=== PATIENT | female | born 1955 | race Caucasian/White ===

== ENCOUNTER 2017-06-10 21:31 | Inpatient (IN) | payer MEDICAID ==
[2017-06-10] MEDS ORDERED: Sodium Chloride 0.9% 1,000 ML IV SCH (23:45)
--- NOTE | 2017-06-10 23:48 | EDM.PDOC ---
ED HPI GENERAL MEDICAL PROBLEM - General Chief Complaint: Gastrointestinal Problem Stated Complaint: ABDOMINAL PAIN Time Seen by Provider: 06/10/17 23:46 Source of Information: Reports: Patient - History of Present Illness INITIAL COMMENTS - FREE TEXT/NARRATIVE: 62 years old female patient presented with chief complaint of abdominal pain nausea and not able to eat for almost 2 month. Pain is constant. No vomiting. No radiation. Denies any diarrhea or constipation. Denies any chest pain or shortness breath. Denies any cough or fever. Patient has previous history of peptic ulcer and she thinks she has it again. Also previous history of cervical cancer status post hysterectomy. Previous EGD was below the ulcer. Feeling weak and losing weight. 8 Pain Score (Numeric/FACES): 8 - Related Data Allergies Allergy/AdvReac Type Severity Reaction Status Date / Time acetaminophen Allergy Vomiting Verified 06/10/17 22:05 [From Darvocet-N] aspirin Allergy Hives Verified 06/10/17 22:05 codeine Allergy Vomiting Verified 06/10/17 22:05 fentanyl Allergy Hives Verified 06/10/17 22:05 Iodinated Contrast- Oral and Allergy Hives Verified 06/10/17 22:05 IV Dye propoxyphene Allergy Vomiting Verified 06/10/17 22:05 [From Darvocet-N] Home Meds: Home Meds PARoxetine HCl [Paroxetine Cr] 06/10/17 [History] Phenytoin [Phenytoin] 06/10/17 [History] Ranitidine HCl [Ranitidine HCl] 06/10/17 [History] Spironolactone [Aldactone] 06/10/17 [History] Past Medical History Cardiovascular History: Reports: NM Musculoskeletal History: Reports: Osteoarthritis, Osteoporosis Neurological History: Reports: Seizure - Past Surgical History GI Surgical History: Reports: Cholecystectomy Female Surgical History: Reports: Hysterectomy Social & Family History - Tobacco Use Smoking Status *Q: Current Every Day Smoker Years of Tobacco use: 45 Packs/Tins Daily: 0.5 ED ROS GENERAL - Review of Systems Review Of Systems: ROS reveals no pertinent complaints other than HPI. ED EXAM, GI/ABD - Physical Exam Exam: See Below Exam Limited By: No Limitations General Appearance: Alert Eyes: Bilateral: Normal Appearance, EOMI Nose: Normal Inspection, Normal Mucosa, No Blood Throat/Mouth: Normal Inspection, Normal Lips, Normal Teeth, Normal Gums, Normal Oropharynx, Normal Voice, No Airway Compromise Head: Atraumatic, Normocephalic Neck: Normal Inspection, Supple, Non-Tender, Full Range of Motion Respiratory/Chest: No Respiratory Distress, Lungs Clear, Normal Breath Sounds, No Accessory Muscle Use, Chest Non-Tender Cardiovascular: Normal Peripheral Pulses, Regular Rate, Rhythm, No Edema, No Gallop, No JVD, No Murmur, No Rub GI/Abdominal Exam: Normal Bowel Sounds, No Distention, Guarding, Tender ( Epigastric). No: Rigid, Rebound, Abnormal Bowel Sounds, Hernia, Mass, Hepatomegaly, Splenomegaly Extremities: Normal Inspection, Normal Range of Motion, Non-Tender, Normal Capillary Refill, No Pedal Edema Neurological: Alert, Oriented, CN II-XII Intact, Normal Cognition, Normal Gait, Normal Reflexes, No Motor/Sensory Deficits Skin Exam: Warm, Dry, Intact, Normal Color, No Rash Course - Vital Signs Last Recorded V/S: Last Vital Signs Temp 36.3 C 06/10/17 22:56 Pulse 95 06/11/17 01:57 Resp 18 06/11/17 01:57 BP 131/75 06/11/17 01:57 Pulse Ox 96 06/11/17 01:57 - Orders/Labs/Meds Orders: Active Orders 24 hr Category Date Time Status Abdomen Pelvis wo Cont [CT] Stat Exams 06/11/17 00:59 Taken Dextrose 5%-Lactated Ringers 1,000 ml Med 06/11/17 01:00 Active IV ASDIRECTED Medication Orders Albuterol (Proventil Neb Soln) 2.5 mg NEB Q4H PRN PRN Reason: Shortness Of Breath/wheezing Albuterol/Ipratropium (Duoneb 3.0-0.5 Mg/3 Ml) 3 ml NEB QID PRN PRN Reason: Shortness Of Breath/wheezing Dextrose/Lactated Ringer's (Dextrose 5%-Lactated Ringers) 1,000 mls @ 150 mls/ hr IV ASDIRECTED GLORIA Lorazepam (Ativan) 1 mg IV Q6H PRN PRN Reason: Nausea/Vomiting Morphine Sulfate (Morphine) 2 mg IVPUSH Q2H PRN PRN Reason: Pain (severe 7-10) Ondansetron HCl (Zofran) 4 mg IV Q4H PRN PRN Reason: Nausea/Vomiting Pantoprazole Sodium (Protonix Iv) 40 mg IV Q12H GLORIA Labs: Laboratory Tests 06/10/17 06/10/17 Range/Units 00:05 00:05 WBC 15.5 H (4.5-11.0) K/uL RBC 4.55 (3.30-5.50) M/uL Hgb 14.7 (12.0-15.0) g/dL Hct 43.5 (36.0-48.0) % MCV 96 (80-98) fL MCH 32 H (27-31) pg MCHC 34 (32-36) % Plt Count 160 (150-400) K/uL Neut % (Auto) 69 H (36-66) % Lymph % (Auto) 20 L (24-44) % [place] % (Auto) 9 H (2-6) % Eos % (Auto) 1 L (2-4) % Baso % (Auto) 0 (0-1) % Sodium 140 (140-148) mmol/L Potassium 4.1 (3.6-5.2) mmol/L Chloride 99 L (100-108) mmol/L Carbon Dioxide 32 (21-32) mmol/L Anion Gap 13.1 (5.0-14.0) mmol/L BUN 15 D (7-18) mg/dL Creatinine 0.7 (0.6-1.0) mg/dL Est Cr Clr Drug Dosing 69.81 mL/min Estimated GFR (MDRD) > 60 (>60) Glucose 106 (74-106) mg/dL Calcium 9.4 (8.5-10.1) mg/dL Total Bilirubin 0.5 (0.2-1.0) mg/dL AST 18 (15-37) U/L ALT 18 (12-78) U/L Alkaline Phosphatase 107 (46-116) U/L Total Protein 8.4 H (6.4-8.2) g/dL Albumin 3.2 L (3.4-5.0) g/dL Globulin 5.2 H (2.3-3.5) g/dL Albumin/Globulin Ratio 0.6 L (1.2-2.2) Lipase 109 (73-393) U/L Meds: Medications Generic Name Dose Route Start Last Admin Trade Name Freq PRN Reason Stop Dose Admin Albuterol 2.5 mg 06/11/17 02:34 Proventil Neb Soln NEB Q4H PRN Shortness Of Breath/wheezing Albuterol/Ipratropium 3 ml 06/11/17 02:34 Duoneb 3.0-0.5 Mg/3 Ml NEB QID PRN Shortness Of Breath/wheezing Dextrose/Lactated Ringer's 1,000 mls @ 150 mls/hr 06/11/17 01:00 Dextrose 5%-Lactated Ringers IV ASDIRECTED GLORIA Lorazepam 1 mg 06/11/17 02:34 Ativan IV Q6H PRN Nausea/Vomiting Morphine Sulfate 2 mg 06/11/17 02:34 Morphine IVPUSH Q2H PRN Pain (severe 7-10) Ondansetron HCl 4 mg 06/11/17 02:34 Zofran IV Q4H PRN Nausea/Vomiting Pantoprazole Sodium 40 mg 06/11/17 02:34 Protonix Iv IV Q12H GLORIA Discontinued Medications Generic Name Dose Route Start Last Admin Trade Name Freq PRN Reason Stop Dose Admin Al Hydroxide/Mg Hydroxide 15 0 ml 06/10/17 23:57 06/11/17 00:16 ml/ Lidocaine HCl 15 ml PO 06/10/17 23:58 15 ml ONETIME ONE Administration Sodium Chloride 1,000 mls @ 125 mls/hr 06/10/17 23:45 06/11/17 00:10 Normal Saline IV 125 mls/hr ASDIRECTED GLORIA Administration Ondansetron HCl 4 mg 06/10/17 23:57 06/11/17 00:10 Zofran IVPUSH 4 mg ONETIME PRN Administration Nausea/Vomiting - Re-Assessments/Exams Free Text/Narrative Re-Assessment/Exam: 06/11/17 02:43 Patient was seen and examined shortly after arrival. Was given IV fluid bolus normal saline. 4 mg IV Zofran and GI cocktail. Symptoms slightly improved but did not completely resolve. Lab reviewed with the patient and her significant other at the bedside. shows leukocytosis. CT abdomen and pelvis shows severe peptic ulcer disease with contained microperforation versus gastric carcinoma with massive necrosis. Case was discussed with Doug or expansion joint finisher for hospitalist team. As well as Dr. Suero hospitalist expansion joint finisher. She accepted the admission for further management. Patient agrees with the plan. The stable for admission. Departure - Departure Time of Disposition: 00:43 Disposition: Admitted As Inpatient 67 Condition: Good Clinical Impression: Gastritis, Peptic ulcer - Discharge Information - Assessment/Plan Plan: Patient will be admitted to Dr. Stone for further management. Stable for admission.
[2017-06-10] MEDS ORDERED: Ondansetron 4 MG/2 ML SDV IVPUSH PRN (23:57)
[2017-06-10] MEDS ORDERED: Alum Hydrox/Mag Hydrox/Simeth 15 ML, Lidocaine 2% 15 ML PO ONE ×2 (23:57)
[2017-06-11] MEDS ORDERED: LORazepam 2 MG/ML MDV IV PRN (02:34)
[2017-06-11] MEDS ORDERED: Ondansetron 4 MG/2 ML SDV IV PRN (02:34)
[2017-06-11] MEDS ORDERED: Albuterol/Ipratropium 3.0-0.5 MG/3 ML Neb Soln NEB PRN (02:34)
[2017-06-11] MEDS ORDERED: Pantoprazole 40 MG Vial IV SCH (02:34)
[2017-06-11] MEDS ORDERED: Albuterol 0.083% 2.5 MG/3 ML Neb Soln NEB PRN (02:34)
[2017-06-11] MEDS: Morphine 2 MG/ML Syringe IVPUSH PRN ×5 (03:29→19:33)
[2017-06-11] MEDS ORDERED: Pneumococcal Polyvalent-23 Vaccine 0.5 ML SDV IM ONE ×2 (03:54→10:00)
[2017-06-11] MEDS: Dextrose 5%-Lactated Ringers 1,000 ML IV SCH ×2 (07:09→11:24)
--- NOTE | 2017-06-11 07:32 | PCM.HP ---
H&P History of Present Illness - General Date of Service: 06/10/17 Admit Problem/Dx: Admission Diagnosis/Problem Admission Diagnosis/Problem Dysphagia Source of Information: Patient, Provider, RN History Limitations: Reports: No Limitations - History of Present Illness Initial Comments - Free Text/Narative: - INITIAL COMMENTS - FREE TEXT/NARRATIVE: 62 years old female patient presented with chief complaint of abdominal pain nausea and not able to eat for almost 2 month. Pain is constant. No radiation. Denies any diarrhea or constipation. Denies any chest pain or shortness breath. Denies any cough or fever. Patient has previous history of peptic ulcer and she thinks she has it again. Also previous history of cervical cancer status post hysterectomy. Previous EGD was below the ulcer. Feeling weak and losing weight. She describes that she is able to take small sips of fluids, but if has any solids or thicker fluids, feels like it gets stuck in her stomach, then vomits everything up. 06/11/17 02:43 Patient was seen and examined shortly after arrival. Was given IV fluid bolus normal saline. 4 mg IV Zofran and GI cocktail. Symptoms slightly improved but did not completely resolve. Lab reviewed with the patient and her significant other at the bedside. shows leukocytosis. CT abdomen and pelvis shows severe peptic ulcer disease with contained microperforation versus gastric carcinoma with massive necrosis. Case was discussed with Lola LAZCANO digital operations analyst for hospitalist team. As well as Dr. Suero hospitalist digital operations analyst. She accepted the admission for further management. Patient agrees with the plan. The stable for admission. Onset of Symptoms: Reports: Gradual (onset for about 2 months) Duration of Symptoms: Reports: Constant, Getting Worse Location: Reports: Abdomen, Generalized Severity: Severe Improves with: Reports: None Worsens with: Reports: Eating Associated Symptoms: Reports: Fever/Chills, Loss of Appetite, Nausea/Vomiting, Weakness abdomen Pain Score (Numeric/FACES): 8 - Related Data Allergies/Adverse Reactions: Allergies Allergy/AdvReac Type Severity Reaction Status Date / Time acetaminophen Allergy Vomiting Verified 06/10/17 22:05 [From Darvocet-N] aspirin Allergy Hives Verified 06/10/17 22:05 codeine Allergy Vomiting Verified 06/10/17 22:05 diazepam [From Valium] Allergy Vomiting Verified 06/11/17 04:26 fentanyl Allergy Hives Verified 06/10/17 22:05 Iodinated Contrast- Oral and Allergy Hives Verified 06/10/17 22:05 IV Dye propoxyphene Allergy Vomiting Verified 06/10/17 22:05 [From Darvocet-N] Home Medications: Home Meds PARoxetine HCl [Paroxetine Cr] 25 mg PO DAILY 06/10/17 [History] Phenytoin [Phenytoin] 1 tab PO BID 06/10/17 [History] Ranitidine HCl [Ranitidine HCl] 10 mg PO DAILY PRN 06/10/17 [History] Spironolactone [Aldactone] 1 tab PO DAILY 06/10/17 [History] Cholecalciferol (Vitamin D3) [Vitamin D3] 5,000 units PO WEEKLY 06/11/17 [ History] Past Medical History HEENT History: Reports: Allergic Rhinitis, Cataract, Glaucoma Cardiovascular History: Reports: NE Gastrointestinal History: Reports: Cirrhosis, GERD Genitourinary History: Reports: Urinary Incontinence, UTI, Recurrent [employer]OR [employer] RELATIONS History: Reports: Other (See Below) Other OB/BYN History: uterine cancer Musculoskeletal History: Reports: Osteoarthritis, Osteoporosis Neurological History: Reports: Seizure Psychiatric History: Reports: Anxiety Hematologic History: Reports: Blood Transfusion(s) Oncologic (Cancer) History: Reports: Lymphoma, Uterine - Infectious Disease History Infectious Disease History: Reports: Chicken Pox - Past Surgical History Cardiovascular Surgical History: Reports: None GI Surgical History: Reports: Cholecystectomy Female Surgical History: Reports: Hysterectomy Neurological Surgical History: Reports: Other (See Below) Other Neurological Surgeries/Procedures: back surgery following an accident Musculoskeletal Surgical History: Reports: Other (See Below) Other Musculoskeletal Surgeries/Procedures:: back surgery in 1995 Social & Family History - Family History Family Medical History: Noncontributory - Tobacco Use Smoking Status *Q: Current Every Day Smoker Years of Tobacco use: 45 Packs/Tins Daily: 0.5 Used Tobacco, but Quit: No Second Hand Smoke Exposure: Yes - Caffeine Use Other Caffeine Use: momster coffee once in a while - Recreational Drug Use Recreational Drug Use: Yes Drug Use in Last 12 Months: Yes Recreational Drug Type: Reports: Marijuana/Hashish Recreational Drug Use Frequency: Weekly Recreational Drug Last Use: 1 month ago H&P Review of Systems - Review of Systems: Review Of Systems: See Below General: Reports: Fever, Chills, Malaise, Weakness, Fatigue, Decreased Appetite , Weight Loss HEENT: Reports: Glasses, Other (natural teeth present) Pulmonary: Reports: Pleuritic Chest Pain Cardiovascular: Reports: No Symptoms, Lightheadedness Gastrointestinal: Reports: Abdominal Pain (epigastric ), Anorexia, Decreased Appetite, Difficulty Swallowing, Nausea, Vomiting Genitourinary: Reports: Dysuria, Burning Musculoskeletal: Reports: Back Pain (acute and chronic. has hx of DJD), Muscle Pain (generalized) Skin: Reports: Pallor, Dryness Psychiatric: Reports: No Symptoms Neurological: Reports: Weakness Hematologic/Lymphatic: Reports: No Symptoms Immunologic: Reports: No Symptoms Exam - Exam Exam: See Below - Vital Signs Vital Signs: Last Vital Signs Temp 36.4 C 06/11/17 03:11 Pulse 129 H 06/11/17 03:11 Resp 18 06/11/17 03:11 BP 127/66 06/11/17 03:11 Pulse Ox 100 06/11/17 03:11 Weight: 54.386 kg - Exam General: Alert, Oriented, Cooperative, Mild Distress, Other (appears very weak, thin and deconditioned. ) HEENT: PERRLA, Conjunctiva Clear, EOMI, Hearing Intact, Pupils Equal, Pupils Reactive, Glasses, Other (mouth is dry) Neck: Supple, Trachea Midline Lungs: Clear to Auscultation, Normal Respiratory Effort Cardiovascular: Regular Rate, Regular Rhythm, Normal S1, Normal S2 GI/Abdominal Exam: Normal Bowel Sounds, Tender (epigastric area) (Female) Exam: Deferred Rectal (Female) Exam: Deferred Back Exam: Normal Inspection Extremities: Other (thin arms and legs.) Peripheral Pulses: 2+: Radial (L), Radial (R) Skin: Warm, Dry, Intact, Other (skin is dry and sagging on arms, legs) Neurological: Strength Equal Bilateral Neuro Extensive - Mental Status: Alert, Oriented x3, Normal Mood/Affect, Normal Cognition, Memory Intact Psychiatric: Depressed, Other (reviewed CT report, She is worried about stomach cancer, but thought that was what was causing her symptoms) - Patient Data Lab Results Last 24 hrs: Laboratory Results - last 24 hr 06/11/17 Range/Units 02:06 Urine Color Yellow Urine Appearance Cloudy Urine pH 8.0 (4.5-8.0) Ur Specific [place] 1.015 (1.008-1.030) Urine Protein Negative (NEGATIVE) mg/dL Urine Glucose (UA) Normal (NEGATIVE) mg/dL Urine Ketones 15 H (NEGATIVE) mg/dL Urine Occult Blood Negative (NEGATIVE) Urine Nitrite Negative (NEGATIVE) Urine Bilirubin Negative (NEGATIVE) Urine Urobilinogen Normal (NORMAL) mg/dL Ur Leukocyte Esterase Small (NEGATIVE) Urine RBC 0-5 (0-5) Urine WBC 0-5 (0-5) Ur Epithelial Cells Rare Amorphous Sediment Many Urine Bacteria Moderate Urine Mucus Not seen Result Diagrams: 06/10/17 00:05 06/10/17 00:05 *Q Meaningful Use (ADM) - VTE *Q VTE Criteria *Q: - Stroke *Q Stroke Criteria *Q: - AMI *Q AMI Criteria *Q: - Problem List (1) Abdominal pain, epigastric SNOMED Code(s): 53486527 ICD Code: R10.13 - EPIGASTRIC PAIN Status: Acute Priority: High Current Visit: Yes (2) Weight loss, abnormal SNOMED Code(s): 320319750 ICD Code: R63.4 - ABNORMAL WEIGHT LOSS Status: Acute Priority: High Current Visit: Yes (3) Weight loss, non-intentional SNOMED Code(s): 345563184 ICD Code: R63.4 - ABNORMAL WEIGHT LOSS Status: Acute Priority: High Current Visit: Yes (4) Tobacco use SNOMED Code(s): 082561306 ICD Code: Z72.0 - TOBACCO USE Status: Acute Priority: High Current Visit: Yes (5) Dysphagia SNOMED Code(s): 01770076, 592034721 ICD Code: R13.10 - DYSPHAGIA, UNSPECIFIED Status: Acute Priority: High Current Visit: Yes Qualifiers: Dysphagia type: unspecified Qualified Code(s): R13.10 - Dysphagia, unspecified Problem List Initiated/Reviewed/Updated: Yes Orders Last 24hrs: Active Orders 24 hr Category Date Time Status Patient Status [ADT] Routine ADT 06/11/17 02:34 Active Bedrest Bathroom Privileges [RC] ASDIRECTED Care 06/11/17 02:34 Active Cardiac Monitoring [RC] .As Directed Care 06/11/17 02:34 Active Intake and Output [RC] QSHIFT Care 06/11/17 02:34 Active Notify Provider Vital Signs [RC] ASDIRECTED Care 06/11/17 02:34 Active Oxygen Therapy [RC] PRN Care 06/11/17 02:34 Active RT Aerosol Therapy [RC] ASDIRECTED Care 06/11/17 02:34 Active VTE/DVT Education [RC] Per Unit Routine Care 06/11/17 02:34 Active Vital Signs [RC] Q4H Care 06/11/17 02:34 Active OT Evaluation and Treatment [CONS] Routine Cons 06/11/17 02:34 Active PT Evaluation and Treatment [CONS] Routine Cons 06/11/17 02:34 Active Nothing per Oral After Midnight Diet [DIET] Diet 06/11/17 Breakfast Active Nothing per Oral Now Diet [DIET] Diet 06/11/17 Breakfast Active Albuterol [Proventil Neb Soln] Med 06/11/17 02:34 Active 2.5 mg NEB Q4H PRN Albuterol/Ipratropium [DuoNeb 3.0-0.5 MG/3 ML] Med 06/11/17 02:34 Active 3 ml NEB QID PRN FLU Vacc [id number] 36Mos UP/PF [Fluzone Quad [id number]] Med 06/11/17 14:00 Once 60 mcg IM .ONCE ONE LORazepam [Ativan] Med 06/11/17 02:34 Active 1 mg IV Q6H PRN Morphine Med 06/11/17 02:34 Active 2 mg IVPUSH Q2H PRN Ondansetron [Zofran] Med 06/11/17 02:34 Active 4 mg IV Q4H PRN Pantoprazole [ProTONIX IV] Med 06/11/17 02:34 Active 40 mg IV Q12H Phenytoin Med 06/11/17 09:00 Active 100 mg PO BID Spironolactone [Aldactone] Med 06/11/17 09:00 Active 25 mg PO DAILY Sequential Compression Device [OM.PC] Per Unit Routine Oth 06/11/17 02:34 Ordered Resuscitation Status Routine Resus Stat 06/11/17 01:56 Ordered Medication Orders Albuterol (Proventil Neb Soln) 2.5 mg NEB Q4H PRN PRN Reason: Shortness Of Breath/wheezing Albuterol/Ipratropium (Duoneb 3.0-0.5 Mg/3 Ml) 3 ml NEB QID PRN PRN Reason: Shortness Of Breath/wheezing Dextrose/Lactated Ringer's (Dextrose 5%-Lactated Ringers) 1,000 mls @ 150 mls/ hr IV ASDIRECTED [facility] Last Admin: 06/11/17 07:09 Dose: 150 mls/hr Lorazepam (Ativan) 1 mg IV Q6H PRN PRN Reason: Nausea/Vomiting Last Admin: 06/11/17 04:07 Dose: 1 mg Morphine Sulfate (Morphine) 2 mg IVPUSH Q2H PRN PRN Reason: Pain (severe 7-10) Last Admin: 06/11/17 03:29 Dose: 2 mg Ondansetron HCl (Zofran) 4 mg IV Q4H PRN PRN Reason: Nausea/Vomiting Pantoprazole Sodium (Protonix Iv) 40 mg IV Q12H [facility] Last Admin: 06/11/17 03:19 Dose: 40 mg Phenytoin Sodium (Phenytoin) 100 mg PO BID GLORIA Spironolactone (Aldactone) 25 mg PO DAILY [facility] Assessment/Plan Comment:: ASSESSMENT / PLAN 62 years old female patient presented with chief complaint of abdominal pain nausea and not able to eat for almost 2 month. Pain is constant. No radiation. Denies any diarrhea or constipation. Denies any chest pain or shortness breath. Denies any cough or fever. Patient has previous history of peptic ulcer and she thinks she has it again. Also previous history of cervical cancer status post hysterectomy. Previous EGD was below the ulcer. Feeling weak and losing weight. She describes that she is able to take small sips of fluids, but if has any solids or thicker fluids, feels like it gets stuck in her stomach, then vomits everything up. 06/11/17 02:43 Patient was seen and examined shortly after arrival. Was given IV fluid bolus normal saline. 4 mg IV Zofran and GI cocktail. Symptoms slightly improved but did not completely resolve. Lab reviewed with the patient and her significant other at the bedside. shows leukocytosis. CT abdomen and pelvis shows severe peptic ulcer disease with contained microperforation versus gastric carcinoma with massive necrosis. Case was discussed with Lola LAZCANO digital operations analyst for hospitalist team. As well as Dr. Suero hospitalist digital operations analyst. She accepted the admission for further management. Patient agrees with the plan. The stable for admission. Review Abdominal Pelvis CT report with Mrs. Rodrigues before transfer to [address] [place] [address], she thought is may be a return of cancer, but wait so long because thought she would get better on her own. discussed will keep NPO for surgical evaluation in am. She agrees with plan of care. Plan Abdominal Pain x 2 month with wt loss and dysphasia -Admit to [address] [place] [address] for further monitoring -Abdominal Pelvis CT worrisome for stomach met.; will consult with Surgery in am -keep NPO for surgical intervention -IV fluids; D5 NS at 125ml/hr -Advise to notify nurses of any chest pain or other symptoms Tobacco use -decline Nicotine patches, make her feel sick Maintenance issues -Orders home meds: on hold -Nutrition: NPO -Gomez catheter not indicated at this time -DVT: SCD -PPI; IV Protonix 40mg daily -consult OT for discharge planning -consult PT for strengthening. CODE STATUS: DNR/DNI Admission status: Admit to [address] [place] [address] Admission justification. This patient will be admitted for inpatient services and is medically appropriate meeting medical necessity for inpatient admission as outlined in my documentation. I reasonably expect the patient will require inpatient services that span. Time over 2 midnights. I reasonably expect this patient to be discharged or transferred within 96 hours after admission to the critical access hospital. Disposition; home Primary care provider: Dr. Yu Hospitalist: Dr. Suero
[2017-06-11] MEDS ORDERED: Glycopyrrolate 0.2 MG/ML 2 ML SDV IVPUSH ONE (09:00)
[2017-06-11] MEDS ORDERED: cefOXitin 2 GM in Sodium Chloride 0.9% 50 ML IV ONE (09:30)
--- NOTE | 2017-06-11 09:51 | CONS ---
DATE OF SERVICE: 06/11/2017 REFERRING PHYSICIAN: CONSULTING PHYSICIAN: Bebe Bear PA-C HISTORY OF PRESENT ILLNESS: The patient was asked to be seen by Clifford Suero MD for dysphagia. Soco presented to the emergency room with abdominal pain, nausea, and dysphagia for the past 2 months. She denies any other associated signs and symptoms with the exception of extensive weight loss. She states she was in a size 8 to 10 and now is in a size 4. She states she is able to maintain her oral intake on sips of water only. REVIEW OF SYSTEMS: GENERAL: Reports fever, chills, loss of appetite, nausea, vomiting, weakness, dizziness. NECK: Negative. HEART: No chest pain or shortness of breath. LUNGS: No cough. ABDOMEN: As above. Denies any red or black emesis or stools. MUSCULOSKELETAL: Reports chronic joint pain. NEURO: Has some slight headaches, is unsteady on feet from weakness. PSYCHIATRIC: Reports anxiety. SKIN: Without rash. Remainder of review of systems negative for any pertinent positives and negatives. ALLERGIES: DARVOCET, ASPIRIN, CODEINE, DIAZEPAM, FENTANYL ORAL, IV DYE, AND PROPOXYPHENE DARVOCET. CURRENT MEDICATIONS: Include Paxil 25 mg p.o. daily, phenytoin 1 tablet p.o. b.i.d., ranitidine 10 mg p.o. daily p.r.n., spironolactone 1 tablet p.o. daily, and vitamin D3 5000 International Units p.o. weekly. PAST MEDICAL HISTORY: Allergic rhinitis; cataract; glaucoma; reports a history of myocardial infarction; gastrointestinal disease, reports history of cirrhosis of the liver and GERD; , reports urinary incontinence and uterine cancer; musculoskeletal, osteoporosis and osteoarthritis; neurological history, seizure; psychiatric history, anxiety; hematological history, has had blood transfusions in the past and cancer, has had lymphoma and uterine cancer, she had lymphoma in the 1980s and had chemotherapy and radiation. SOCIAL/FAMILY HISTORY: , has one son and two daughters. Smokes a half a pack a day for 45 years ago. Does not drink. Caffeine use, drinks [place] monster coffee two times a week. Soda, she drinks Sprite or Twist one per day. Recreational drugs, smokes marijuana weekly. OBJECTIVE: GENERAL: Soco Rodrigues is a pleasant 62-year-old female. VITAL SIGNS: Height 5 feet 2 inches. Weight is 119 pounds. TPR is 97.8, 95, 20. Blood pressure 105/53. Color pale. HEENT: Several loose teeth on the bottom. NECK: Supple. HEART: Regular rate and rhythm. LUNGS: Clear. ABDOMEN: Flat. Reveals general tenderness in all 4 quadrants. : Deferred. EXTREMITIES: Without peripheral edema. Full range of motion. NEUROLOGIC: Cranial nerves II through XII intact. Deep tendon reflexes are 2+ and equal bilaterally. SKIN: Without rash. ASSESSMENT: 1. Dysphagia and CT scan revealed irregular heterogeneous circumferential thickening of the distal antrum, pylorus of the stomach, and duodenal bulb worrisome for carcinoma. 2. Marked narrowing of the pylorus and underlying or contained perforation may be present inferior to the pylorus. 3. Fat stranding and lymphadenopathy adjacent to the gastric thickening worrisome for metastasis. 4. History of lymphoma. 5. History of uterine cancer. 6. Cirrhosis of the liver. 7. Osteoarthritis. 8. Osteoporosis. 9. History of seizure. 10.Anxiety. 11.Nicotine addiction. PLAN: Schedule, have consent signed for EGD with biopsies, IV sedation case to fall on 06/11/2017, Eulalio Hemphill MD. N.p.o. We will evaluate p.r.n. or in a.m. Thank you for this consultation. Bebe Bear PA-C /[id number]
--- NOTE | 2017-06-11 10:03 | PCM.PN ---
- General Info Date of Service: 06/11/17 Functional Status: Reports: Pain Controlled - Review of Systems General: Reports: Weakness Gastrointestinal: Reports: Abdominal Pain Systems Review Comment:: No acute events overnight. Pain is been well-controlled. No significant nausea or vomiting. EGD planned for later in the day. No fevers. - Patient Data Vitals - Most Recent: Last Vital Signs Temp 36.6 C 06/11/17 07:38 Pulse 95 06/11/17 07:38 Resp 20 06/11/17 07:38 BP 105/53 L 06/11/17 07:38 Pulse Ox 95 06/11/17 07:38 Weight - Most Recent: 54.386 kg I&O - Last 24 Hours: Intake & Output 06/10/17 06/11/17 06/11/17 22:59 06:59 14:59 Intake Total 433 Output Total 0 Balance 433 Lab Results Last 24 Hours: Laboratory Results - last 24 hr 06/11/17 Range/Units 02:06 Urine Color Yellow Urine Appearance Cloudy Urine pH 8.0 (4.5-8.0) Ur Specific [place] 1.015 (1.008-1.030) Urine Protein Negative (NEGATIVE) mg/dL Urine Glucose (UA) Normal (NEGATIVE) mg/dL Urine Ketones 15 H (NEGATIVE) mg/dL Urine Occult Blood Negative (NEGATIVE) Urine Nitrite Negative (NEGATIVE) Urine Bilirubin Negative (NEGATIVE) Urine Urobilinogen Normal (NORMAL) mg/dL Ur Leukocyte Esterase Small (NEGATIVE) Urine RBC 0-5 (0-5) Urine WBC 0-5 (0-5) Ur Epithelial Cells Rare Amorphous Sediment Many Urine Bacteria Moderate Urine Mucus Not seen Med Orders - Current: Current Medications Albuterol (Proventil Neb Soln) 2.5 mg NEB Q4H PRN PRN Reason: Shortness Of Breath/wheezing Albuterol/Ipratropium (Duoneb 3.0-0.5 Mg/3 Ml) 3 ml NEB QID PRN PRN Reason: Shortness Of Breath/wheezing Dextrose/Lactated Ringer's (Dextrose 5%-Lactated Ringers) 1,000 mls @ 150 mls/ hr IV ASDIRECTED [facility] Last Admin: 06/11/17 07:09 Dose: 150 mls/hr Lorazepam (Ativan) 1 mg IV Q6H PRN PRN Reason: Nausea/Vomiting Last Admin: 06/11/17 04:07 Dose: 1 mg Morphine Sulfate (Morphine) 2 mg IVPUSH Q2H PRN PRN Reason: Pain (severe 7-10) Last Admin: 06/11/17 09:49 Dose: 2 mg Ondansetron HCl (Zofran) 4 mg IV Q4H PRN PRN Reason: Nausea/Vomiting Pantoprazole Sodium (Protonix Iv) 40 mg IV Q12H [facility] Phenytoin Sodium (Phenytoin) 100 mg PO BID [facility] Spironolactone (Aldactone) 25 mg PO DAILY [facility] Discontinued Medications Al Hydroxide/Mg Hydroxide 15 (ml/ Lidocaine HCl 15 ml) 0 ml PO ONETIME ONE Stop: 06/10/17 23:58 Last Admin: 06/11/17 00:16 Dose: 15 ml Glycopyrrolate (Glycopyrrolate) 0.4 mg IVPUSH ONETIME ONE Stop: 06/11/17 09:01 Sodium Chloride (Normal Saline) 1,000 mls @ 125 mls/hr IV ASDIRECTED [facility] Last Admin: 06/11/17 00:10 Dose: 125 mls/hr Ondansetron HCl (Zofran) 4 mg IVPUSH ONETIME PRN PRN Reason: Nausea/Vomiting Last Admin: 06/11/17 00:10 Dose: 4 mg Pantoprazole Sodium (Protonix Iv) 40 mg IV Q12H [facility] Last Admin: 06/11/17 03:19 Dose: 40 mg Pneumococcal Polyvalent Vaccine (Pneumovax 23) 0.5 ml IM .ONCE ONE Stop: 06/11/17 10:01 - Exam Quality Assessment: No: Supplemental Oxygen General: Alert, Oriented, Cooperative, No Acute Distress Neck: Supple Lungs: Normal Respiratory Effort GI/Abdominal Exam: Soft, No Distention Extremities: No Pedal Edema. No: Increased Warmth Skin: Warm, Dry Psy/Mental Status: Alert, Normal Affect - Problem List Review Problem List Initiated/Reviewed/Updated: Yes - My Orders Last 24 Hours: My Active Orders 06/11/17 10:01 Discontinue Telemetry Monitoring [Cardiac Monitoring Discontinue] [RC] Click to Edit Consult to Physician [CONS] Routine 06/11/17 10:02 Notify Provider Consults [RC] ASDIRECTED 06/12/17 05:00 BASIC METABOLIC PANEL,BMP [CHEM] Timed CBC W/O DIFF,HEMOGRAM [HEME] Timed (1) MAGNESIUM [CHEM] Timed - Plan Plan:: ASSESSMENT / PLAN Abdominal Pain x 2 month with unintentional wt loss and dysphasia - 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 EGD planned for later in the day. Pain well-controlled at this time. -Surgical consultation for EGD -Pain control -Nausea control -keep NPO for surgical intervention -IV fluids; D5 NS at 125ml/hr -Advise to notify nurses of any chest pain or other symptoms Tobacco dependence - will need strong recommendations regarding cessation -decline Nicotine patches, make her feel sick Maintenance issues -Nutrition: NPO -Gomez catheter not indicated at this time -DVT: SCD -PPI; IV Protonix 40mg daily -consult OT for discharge planning -consult PT for strengthening. Disposition; anticipate discharge home versus longterm after the hospital stay Clifford Suero M.D.
[2017-06-11] MEDS ORDERED: Propofol 200 MG/20 ML SDV ONE (10:11)
[2017-06-11] MEDS ORDERED: fentaNYL 100 MCG/2 ML SDV ONE (10:11)
[2017-06-11] MEDS: Phenytoin 100 MG Cap.ER PO SCH ×2 (12:35→21:26)
[2017-06-11] MEDS: Spironolactone 25 MG Tab PO SCH (12:35)
[2017-06-11] MEDS ORDERED: FLU Vacc QS 2017-18 (36mos UP)/PF 60 MCG/0.5 ML Syringe IM ONE (14:00)
[2017-06-11] MEDS: Pantoprazole 40 MG Vial IV SCH (16:02)
[2017-06-12] MEDS: Dextrose 5%-Lactated Ringers 1,000 ML IV SCH (01:26)
[2017-06-12] MEDS: Morphine 2 MG/ML Syringe IVPUSH PRN ×3 (01:30→11:37)
[2017-06-12] MEDS: Pantoprazole 40 MG Vial IV SCH ×2 (04:02→17:18)
[2017-06-12] MEDS ORDERED: Dextrose 5%-Lactated Ringers 1,000 ML IV SCH (07:04)
--- NOTE | 2017-06-12 07:48 | PN ---
DATE OF SERVICE: 06/12/2017 SUBJECTIVE: Soco is n.p.o. She has her consent signed. She will be having a resection of a gastric mass and insertion of central line. Case to follow today. Dr. Hemphill was able to visit with the patient and several family members yesterday afternoon. She states her pain is controlled. She has no other questions or concerns today. OBJECTIVE: GENERAL: Soco Rodrigues is a pleasant 62-year-old female. VITAL SIGNS: TPR is 98.3, 89, 18. Blood pressure 120/57. HEENT: Negative. NECK: Supple. HEART: Regular rate and rhythm. LUNGS: Clear. ABDOMEN: Remains to have generalized tenderness to gentle palpation. EXTREMITIES: Without peripheral edema. SCDs are on. ASSESSMENT: 1. Dysphagia. 2. CT scan revealed irregular heterogenous circumferential thickening of the distal antrum, pylorus of the stomach and duodenal bulb worrisome for carcinoma, and marked narrowing of the pylorus and underlying or contained perforation may be present inferior to pylorus in fat stranding and lymphadenopathy adjacent to the gastric thickening, worrisome for metastasis. 3. History of lymphoma. 4. History of uterine cancer. 5. Cirrhosis of the liver. 6. Osteoarthritis. 7. Osteoporosis. 8. History of seizures. 9. Anxiety. 10.Nicotine addiction. PLAN: Remain n.p.o. for surgery. Decrease IV to 100 mL per hour. Orders to be written postoperatively. Bebe Bear PA-C /[id number]
[2017-06-12] MEDS ORDERED: Ropivacaine 27 ML, Dexamethasone 8 MG, EPINEPHrine 0.4 MG, Sodium Chloride 0.9% 50.6 ML NERVRT SCH ×4 (09:30)
[2017-06-12] MEDS ORDERED: cefOXitin 2 GM in Sodium Chloride 0.9% 50 ML IV ONE ×2 (09:30→17:00)
[2017-06-12] MEDS: Spironolactone 25 MG Tab PO SCH (09:36)
[2017-06-12] MEDS: Phenytoin 100 MG Cap.ER PO SCH (09:36)
[2017-06-12] MEDS ORDERED: Neostigmine Methylsulfate 1 MG/ML 5 ML Syringe ONE (10:45)
[2017-06-12] MEDS ORDERED: Ondansetron 4 MG/2 ML SDV ONE (10:45)
[2017-06-12] MEDS ORDERED: Glycopyrrolate 0.2 MG/ML 5 ML MDV ONE (10:45)
[2017-06-12] MEDS ORDERED: Succinylcholine 200 MG/10 ML MDV ONE (10:45)
[2017-06-12] MEDS ORDERED: Propofol 200 MG/20 ML SDV ONE (10:45)
[2017-06-12] MEDS ORDERED: Dexamethasone 4 MG/ML SDV ONE (10:45)
[2017-06-12] MEDS ORDERED: Rocuronium 50 MG/5 ML Vial ONE (10:45)
[2017-06-12] MEDS ORDERED: Meropenem 500 MG SDV ONE ×2 (10:49→11:33)
[2017-06-12] MEDS ORDERED: Bupivacaine 0.5%/EPINEPHrine 1:200,000 50 ML MDV ONE (11:31)
[2017-06-12] MEDS ORDERED: Sodium Chloride 0.9% 0 ML ONE (11:33)
--- NOTE | 2017-06-12 11:50 | PCM.PN ---
- General Info Date of Service: 06/12/17 Functional Status: Reports: Pain Controlled - Review of Systems Gastrointestinal: Reports: Abdominal Pain Systems Review Comment:: No acute events overnight. Mild epigastric abdominal pain but no nausea or vomiting. No fevers. Surgery planned for later this morning. - Patient Data Vitals - Most Recent: Last Vital Signs Temp 36.6 C 06/12/17 08:00 Pulse 86 06/12/17 08:00 Resp 18 06/12/17 08:00 BP 113/58 L 06/12/17 08:00 Pulse Ox 97 06/12/17 08:00 Weight - Most Recent: 54.386 kg I&O - Last 24 Hours: Intake & Output 06/11/17 06/12/17 06/12/17 22:59 06:59 14:59 Intake Total 760 1761 100 Output Total 450 1400 Balance 310 361 100 Lab Results Last 24 Hours: Laboratory Results - last 24 hr 06/11/17 06/11/17 06/11/17 Range/Units 12:36 12:36 12:39 WBC 11.5 H (4.5-11.0) K/uL RBC 3.45 (3.30-5.50) M/uL Hgb 11.3 L D (12.0-15.0) g/dL Hct 33.9 L (36.0-48.0) % MCV 98 (80-98) fL MCH 33 H (27-31) pg MCHC 33 (32-36) % Plt Count 178 (150-400) K/uL Neut % (Auto) 57 (36-66) % Lymph % (Auto) 32 (24-44) % [place] % (Auto) 10 H (2-6) % Eos % (Auto) 1 L (2-4) % Baso % (Auto) 0 (0-1) % Sodium 140 (140-148) mmol/L Potassium 3.7 (3.6-5.2) mmol/L Chloride 105 (100-108) mmol/L Carbon Dioxide 32 (21-32) mmol/L Anion Gap 3.3 L (5.0-14.0) mmol/L BUN 11 (7-18) mg/dL Creatinine 0.7 (0.6-1.0) mg/dL Est Cr Clr Drug Dosing 69.79 mL/min Estimated GFR (MDRD) > 60 (>60) Glucose 66 L (74-106) mg/dL Calcium 8.4 L (8.5-10.1) mg/dL Magnesium 1.6 L (1.8-2.4) mg/dL Total Bilirubin 0.4 (0.2-1.0) mg/dL AST 17 (15-37) U/L ALT 16 (12-78) U/L Alkaline Phosphatase 79 (46-116) U/L Total Protein 6.5 (6.4-8.2) g/dL Albumin 2.4 L (3.4-5.0) g/dL Globulin 4.1 H (2.3-3.5) g/dL Albumin/Globulin Ratio 0.6 L (1.2-2.2) Blood Type O POSITIVE Gel Antibody Screen Positive A* Antibody Identification Anti-K Crossmatch See Detail 06/12/17 06/12/17 Range/Units 04:10 04:10 WBC 10.8 (4.5-11.0) K/uL RBC 3.46 (3.30-5.50) M/uL Hgb 11.0 L (12.0-15.0) g/dL Hct 33.7 L (36.0-48.0) % MCV 97 (80-98) fL MCH 32 H (27-31) pg MCHC 33 (32-36) % Plt Count 173 (150-400) K/uL Neut % (Auto) (36-66) % Lymph % (Auto) (24-44) % [place] % (Auto) (2-6) % Eos % (Auto) (2-4) % Baso % (Auto) (0-1) % Sodium 142 (140-148) mmol/L Potassium 3.9 (3.6-5.2) mmol/L Chloride 106 (100-108) mmol/L Carbon Dioxide 31 (21-32) mmol/L Anion Gap 5.4 (5.0-14.0) mmol/L BUN 6 L (7-18) mg/dL Creatinine 0.7 (0.6-1.0) mg/dL Est Cr Clr Drug Dosing 69.79 mL/min Estimated GFR (MDRD) > 60 (>60) Glucose 98 (74-106) mg/dL Calcium 8.2 L (8.5-10.1) mg/dL Magnesium 2.1 (1.8-2.4) mg/dL Total Bilirubin (0.2-1.0) mg/dL AST (15-37) U/L ALT (12-78) U/L Alkaline Phosphatase (46-116) U/L Total Protein (6.4-8.2) g/dL Albumin (3.4-5.0) g/dL Globulin (2.3-3.5) g/dL Albumin/Globulin Ratio (1.2-2.2) Blood Type Gel Antibody Screen Antibody Identification Crossmatch Felix Results Last 24 Hours: Microbiology 06/11/17 11:12 CLOtest - Final Stomach NEGATIVE CLOTEST Med Orders - Current: Current Medications Albuterol (Proventil Neb Soln) 2.5 mg NEB Q4H PRN PRN Reason: Shortness Of Breath/wheezing Albuterol/Ipratropium (Duoneb 3.0-0.5 Mg/3 Ml) 3 ml NEB QID PRN PRN Reason: Shortness Of Breath/wheezing Magnesium Sulfate 2 gm/ Sodium (Chloride) 54 mls @ 27 mls/hr IV Q6HR [facility] Stop: 06/14/17 11:59 Last Admin: 06/12/17 10:11 Dose: 27 mls/hr Dextrose/Lactated Ringer's (Dextrose 5%-Lactated Ringers) 1,000 mls @ 100 mls/ hr IV ASDIRECTED [facility] Last Admin: 06/12/17 08:06 Dose: 100 mls/hr Lorazepam (Ativan) 1 mg IV Q6H PRN PRN Reason: Nausea/Vomiting Last Admin: 06/11/17 04:07 Dose: 1 mg Morphine Sulfate (Morphine) 2 mg IVPUSH Q2H PRN PRN Reason: Pain (severe 7-10) Last Admin: 06/12/17 11:37 Dose: 2 mg Ondansetron HCl (Zofran) 4 mg IV Q4H PRN PRN Reason: Nausea/Vomiting Pantoprazole Sodium (Protonix Iv) 40 mg IV Q12H [facility] Last Admin: 06/12/17 04:02 Dose: 40 mg Phenytoin Sodium (Phenytoin) 100 mg PO BID [facility] Last Admin: 06/12/17 09:36 Dose: Not Given Spironolactone (Aldactone) 25 mg PO DAILY [facility] Last Admin: 06/12/17 09:36 Dose: Not Given Discontinued Medications Bupivacaine HCl/Epinephrine Bitart (Marcaine 0.5%/Epinephrine 1:200,000) Confirm Administered Dose 50 ml .ROUTE .STK-MED ONE Stop: 06/12/17 11:32 Al Hydroxide/Mg Hydroxide 15 (ml/ Lidocaine HCl 15 ml) 0 ml PO ONETIME ONE Stop: 06/10/17 23:58 Last Admin: 06/11/17 00:16 Dose: 15 ml Ropivacaine 27 ml/Dexamethasone 8 mg/Epinephrine HCl 0.4 mg/ Sodium Chloride 50.6 ml 0 ml NERVRT ASDIRECTED [facility] Stop: 06/12/17 11:30 Dexamethasone (Dexamethasone) Confirm Administered Dose 4 mg .ROUTE .STK-MED ONE Stop: 06/12/17 10:46 Fentanyl (Sublimaze) Confirm Administered Dose 100 mcg .ROUTE .STK-MED ONE Stop: 06/11/17 10:12 Fentanyl Citrate (Fentanyl) Confirm Administered Dose 500 mcg .ROUTE .STK-MED ONE Stop: 06/12/17 10:46 Glycopyrrolate (Glycopyrrolate) 0.4 mg IVPUSH ONETIME ONE Stop: 06/11/17 09:01 Last Admin: 06/11/17 10:08 Dose: 0.4 mg Glycopyrrolate (Robinul) Confirm Administered Dose 1 mg .ROUTE .STK-MED ONE Stop: 06/12/17 10:46 Heparin Sodium (Porcine) (Heparin Lock Flush 100 Units/Ml) Confirm Administered Dose 500 units .ROUTE .STK-MED ONE Stop: 06/12/17 10:50 Sodium Chloride (Normal Saline) 1,000 mls @ 125 mls[facility] Admin: 06/11/17 00:10 Dose: 125 mls/hr Dextrose/Lactated Ringer's (Dextrose 5%-Lactated Ringers) 1,000 mls @ 150 [facility]ls[facility] Last Admin: 06/12/17 01:26 Dose: 150 mls/hr Cefoxitin Sodium 2 gm/ Sodium (Chloride) 50 mls @ 100 mls/hr IV ONCALL ONE Stop: 06/12/17 09:59 Last Admin: 06/12/17 10:11 Dose: 100 mls/hr Sodium Chloride (Normal Saline) Confirm Administered Dose 10 mls @ as directed .ROUTE .STK-MED ONE Stop: 06/12/17 11:34 Meropenem (Merrem) Confirm Administered Dose 500 mg .ROUTE .STK-MED ONE Stop: 06/12/17 10:50 Meropenem (Merrem) Confirm Administered Dose 500 mg .ROUTE .STK-MED ONE Stop: 06/12/17 11:34 Neostigmine Methylsulfate (Neostigmine) Confirm Administered Dose 5 mg .ROUTE .STK-MED ONE Stop: 06/12/17 10:46 Ondansetron HCl (Zofran) 4 mg IVPUSH ONETIME PRN PRN Reason: Nausea/Vomiting Last Admin: 06/11/17 00:10 Dose: 4 mg Ondansetron HCl (Zofran) Confirm Administered Dose 4 mg .ROUTE .STK-MED ONE Stop: 06/12/17 10:46 Pantoprazole Sodium (Protonix Iv) 40 mg IV Q12H [facility] Last Admin: 06/11/17 03:19 Dose: 40 mg Pneumococcal Polyvalent Vaccine (Pneumovax 23) 0.5 ml IM .ONCE ONE Stop: 06/11/17 10:01 Last Admin: 06/11/17 13:41 Dose: 0.5 ml Propofol (Diprivan 20 Ml) Confirm Administered Dose 200 mg .ROUTE .STK-MED ONE Stop: 06/11/17 10:12 Propofol (Diprivan 20 Ml) Confirm Administered Dose 200 mg .ROUTE .STK-MED ONE Stop: 06/12/17 10:46 Rocuronium [place] (Zemuron) Confirm Administered Dose 50 mg .ROUTE .STK-MED ONE Stop: 06/12/17 10:46 Succinylcholine Chloride (Quelicin) Confirm Administered Dose 200 mg .ROUTE .STK -MED ONE Stop: 06/12/17 10:46 - Exam Quality Assessment: No: Supplemental Oxygen General: Alert, Oriented, Cooperative, No Acute Distress Neck: Supple Lungs: Normal Respiratory Effort GI/Abdominal Exam: Soft, No Distention Extremities: No Pedal Edema Skin: Warm, Dry Psy/Mental Status: Alert, Normal Affect - Problem List Review Problem List Initiated/Reviewed/Updated: Yes - My Orders Last 24 Hours: My Active Orders 06/13/17 05:00 BASIC METABOLIC PANEL,BMP [CHEM] Timed CBC W/O DIFF,HEMOGRAM [HEME] Timed (1) MAGNESIUM [CHEM] Timed - Plan Plan:: ASSESSMENT / PLAN Abdominal Pain x 2 month with unintentional wt loss and dysphasia - 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 EGD was concerning for cancer at the pylorus. Surgical intervention with partial gastrectomy planned today. -Surgical intervention planned for today -Pain control -Nausea control -keep NPO for surgical intervention -Maintenance fluids Tobacco dependence - will need strong recommendations regarding cessation -declines Nicotine patches, make her feel sick Maintenance issues -Nutrition: NPO -Gomez catheter will likely be placed postoperatively -DVT: SCD -PPI; IV Protonix 40mg daily -consult OT for discharge planning -consult PT for strengthening. Disposition; anticipate discharge home versus [facility] after the hospital stay Clifford Suero M.D.
[2017-06-12] MEDS ORDERED: Lactated Ringers 1,000 ML ONE (13:24)
[2017-06-12] MEDS ORDERED: fentaNYL 100 MCG/2 ML SDV ONE ×2 (13:27→13:29)
[2017-06-12] MEDS ORDERED: Labetalol 20 MG/4 ML Syringe ONE (13:57)
[2017-06-12] MEDS ORDERED: fentaNYL 25 MCG/HR Transdermal Patch TRDERM SCH (15:45)
[2017-06-12] MEDS ORDERED: Naloxone 0.4 MG/ML SDV IV PRN (16:59)
[2017-06-12] MEDS ORDERED: Albuterol/Ipratropium 3.0-0.5 MG/3 ML Neb Soln INH PRN (17:08)
[2017-06-12] MEDS ORDERED: hydrOXYzine HCl 100 MG/2 ML SDV IM PRN (17:09)
[2017-06-12] MEDS: Metoclopramide 10 MG/2 ML SDV IV SCH ×2 (17:22→23:45)
[2017-06-12] MEDS: Morphine PF 150 MG/30 ML PCA Syringe IV PRN (17:30)
[2017-06-12] MEDS: Albuterol/Ipratropium 3.0-0.5 MG/3 ML Neb Soln NEB SCH (21:33)
[2017-06-12] MEDS: cefOXitin 2 GM in Sodium Chloride 0.9% 50 ML IV SCH (23:44)
[2017-06-13] MEDS ORDERED: Lactated Ringers 500 ML IV SCH (00:45)
[2017-06-13] MEDS: Lactated Ringers 1,000 ML IV SCH ×2 (01:55→10:18)
[2017-06-13] MEDS: cefOXitin 2 GM in Sodium Chloride 0.9% 50 ML IV SCH ×4 (05:01→23:22)
[2017-06-13] MEDS: Pantoprazole 40 MG Vial IV SCH ×2 (06:46→17:57)
[2017-06-13] MEDS: Metoclopramide 10 MG/2 ML SDV IV SCH ×3 (06:47→17:57)
[2017-06-13] MEDS: Albuterol/Ipratropium 3.0-0.5 MG/3 ML Neb Soln NEB SCH ×4 (09:06→21:26)
[2017-06-13] MEDS ORDERED: diphenhydrAMINE 50 MG/ML SDV ONE (11:29)
[2017-06-13] MEDS: diphenhydrAMINE 50 MG/ML SDV IVPUSH PRN (11:33)
[2017-06-13] MEDS: Magnesium Sulfate/Water 2 GM in Premix Bag 1 BAG IV SCH ×3 (11:47→21:27)
[2017-06-13] MEDS: 1: AA 5%/Calcium/D15W/Lytes 1,000 ML with MVI, Adult with Vitamin K 10 ML, Chromium/Copp IV SCH ×3 (12:00)
[2017-06-13] MEDS ORDERED: Acetaminophen 1,000 MG in Premix Bag 1 BAG IV ONE (12:40)
[2017-06-13] MEDS: Furosemide 20 MG/2 ML VIAL IVPUSH ONE ×2 (12:46→12:50)
--- NOTE | 2017-06-13 13:48 | PCM.PN ---
- General Info Date of Service: 06/13/17 Functional Status: Denies: Pain Controlled - Review of Systems Cardiovascular: Reports: Palpitations Systems Review Comment:: No acute events overnight. Patient reports moderate abdominal pain, especially right upper quadrant and epigastric. She has not had much in the way of nausea. Urine output was a little on the low side last night and she did receive one bolus. This afternoon her heart rate was noted to be in the 140s and 150s. She has recently received a dose of furosemide and her fluids decreased slightly. She's not having any chest pain. She does not feel short of breath. She is not requiring supplemental oxygen. - Patient Data Vitals - Most Recent: Last Vital Signs Temp 36.8 C 06/13/17 11:00 Pulse 145 H 06/13/17 11:00 Resp 18 06/13/17 11:00 BP 148/80 H 06/13/17 11:00 Pulse Ox 92 L 06/13/17 13:22 Weight - Most Recent: 54.386 kg I&O - Last 24 Hours: Intake & Output 06/12/17 06/13/17 06/13/17 22:59 06:59 14:59 Intake Total 50 3144 Output Total 230 525 Balance -180 2619 Lab Results Last 24 Hours: Laboratory Results - last 24 hr 06/11/17 06/13/17 06/13/17 Range/Units 12:36 04:00 04:00 WBC 26.4 H (4.5-11.0) K/uL RBC 3.31 (3.30-5.50) M/uL Hgb 10.8 L (12.0-15.0) g/dL Hct 31.5 L (36.0-48.0) % MCV 95 (80-98) fL MCH 33 H (27-31) pg MCHC 34 (32-36) % Plt Count 172 (150-400) K/uL Sodium 138 L (140-148) mmol/L Potassium 4.0 (3.6-5.2) mmol/L Chloride 103 (100-108) mmol/L Carbon Dioxide 29 (21-32) mmol/L Anion Gap 10.0 (5.0-14.0) mmol/L BUN 9 (7-18) mg/dL Creatinine 0.8 (0.6-1.0) mg/dL Est Cr Clr Drug Dosing 61.07 mL/min Estimated GFR (MDRD) > 60 (>60) Glucose 142 H (74-106) mg/dL Calcium 8.1 L (8.5-10.1) mg/dL Phosphorus 3.1 (2.5-4.9) mg/dL Magnesium (1.8-2.4) mg/dL Total Bilirubin 2.8 H D (0.2-1.0) mg/dL AST 377 H D (15-37) U/L ALT 197 H (12-78) U/L Alkaline Phosphatase 99 (46-116) U/L Total Protein 5.0 L (6.4-8.2) g/dL Albumin 2.0 L (3.4-5.0) g/dL Globulin 3.0 (2.3-3.5) g/dL Albumin/Globulin Ratio 0.7 L (1.2-2.2) Carcinoembryonic Ag 5.1 H (0.0-3.7) ng/mL 06/13/17 Range/Units 05:00 WBC (4.5-11.0) K/uL RBC (3.30-5.50) M/uL Hgb (12.0-15.0) g/dL Hct (36.0-48.0) % MCV (80-98) fL MCH (27-31) pg MCHC (32-36) % Plt Count (150-400) K/uL Sodium (140-148) mmol/L Potassium (3.6-5.2) mmol/L Chloride (100-108) mmol/L Carbon Dioxide (21-32) mmol/L Anion Gap (5.0-14.0) mmol/L BUN (7-18) mg/dL Creatinine (0.6-1.0) mg/dL Est Cr Clr Drug Dosing mL/min Estimated GFR (MDRD) (>60) Glucose (74-106) mg/dL Calcium (8.5-10.1) mg/dL Phosphorus (2.5-4.9) mg/dL Magnesium 1.6 L (1.8-2.4) mg/dL Total Bilirubin (0.2-1.0) mg/dL AST (15-37) U/L ALT (12-78) U/L Alkaline Phosphatase (46-116) U/L Total Protein (6.4-8.2) g/dL Albumin (3.4-5.0) g/dL Globulin (2.3-3.5) g/dL Albumin/Globulin Ratio (1.2-2.2) Carcinoembryonic Ag (0.0-3.7) ng/mL Felix Results Last 24 Hours: Microbiology 06/11/17 11:12 CLOtest - Final Stomach NEGATIVE CLOTEST Med Orders - Current: Current Medications Albuterol/Ipratropium (Duoneb 3.0-0.5 Mg/3 Ml) 3 ml NEB QIDRT [facility] Last Admin: 06/13/17 11:44 Dose: 3 ml Albuterol/Ipratropium (Duoneb 3.0-0.5 Mg/3 Ml) 3 ml INH ASDIRECTED PRN PRN Reason: Shortness of Breath Diphenhydramine HCl (Benadryl) 50 mg IVPUSH Q4H PRN PRN Reason: Itching Last Admin: 06/13/17 11:33 Dose: 50 mg Hydroxyzine HCl (Vistaril) 100 mg IM Q4H PRN PRN Reason: PAIN Cefoxitin Sodium 2 gm/ Sodium (Chloride) 50 mls @ 100 mls/hr IV Q6H [facility] Last Admin: 06/13/17 11:46 Dose: 100 mls/hr Magnesium Sulfate 2 gm/ Premix 50 mls @ 25 mls/hr IV Q6H [facility] Stop: 06/16/17 05:59 Last Admin: 06/13/17 11:47 Dose: 25 mls/hr Multivitamins/Minerals 10 ml/Chromium/Copper/Manganese/Seleni/Zn 1 ml/ Amino Ac/ Electrol/Dextrose/Calcium 1,011 mls @ 100 mls/hr IV .BY DURATION [facility] Last Admin: 06/13/17 12:00 Dose: 100 mls/hr Amino Ac/Electrol/Dextrose/Calcium (Clinimix E 5/15) 1,000 mls @ 100 mls/hr IV .BY DURATION [facility] Sodium Chloride (Normal Saline) 1,000 mls @ 0 mls/hr IV ASDIRECTED [facility]ORIA PRN Reason: KVO Lorazepam (Ativan) 1 mg IV Q6H PRN PRN Reason: Nausea/Vomiting Last Admin: 06/11/17 04:07 Dose: 1 mg Metoclopramide HCl (Reglan) 10 mg IV Q6H [facility] Last Admin: 06/13/17 12:00 Dose: 10 mg Morphine Sulfate (Morphine [employer] 150 Mg In 30 Ml) 0 mg IV ASDIRECTED PRN; Protocol PRN Reason: PAIN Last Admin: 06/12/17 17:30 Dose: 150 mg Naloxone HCl (Narcan) 0.1 mg IV ASDIRECTED PRN PRN Reason: RESP DISTRESS Ondansetron HCl (Zofran) 4 mg IV Q4H PRN PRN Reason: Nausea/Vomiting Pantoprazole Sodium (Protonix Iv) 40 mg IV Q12H [facility] Stop: 06/14/17 06:01 Last Admin: 06/13/17 06:46 Dose: 40 mg Pantoprazole Sodium (Protonix Iv) 40 mg IV Q24H [facility] Phenytoin Sodium (Phenytoin) 100 mg IV Q12H [facility] Last Admin: 06/13/17 09:07 Dose: 100 mg Discontinued Medications Albuterol (Proventil Neb Soln) 2.5 mg NEB Q4H PRN PRN Reason: Shortness Of Breath/wheezing Albuterol/Ipratropium (Duoneb 3.0-0.5 Mg/3 Ml) 3 ml NEB QID PRN PRN Reason: Shortness Of Breath/wheezing Bupivacaine HCl/Epinephrine Bitart (Marcaine 0.5%/Epinephrine 1:200,000) Confirm Administered Dose 50 ml .ROUTE .STK-MED ONE Stop: 06/12/17 11:32 Al Hydroxide/Mg Hydroxide 15 (ml/ Lidocaine HCl 15 ml) 0 ml PO ONETIME ONE Stop: 06/10/17 23:58 Last Admin: 06/11/17 00:16 Dose: 15 ml Ropivacaine 27 ml/Dexamethasone 8 mg/Epinephrine HCl 0.4 mg/ Sodium Chloride 50.6 ml 0 ml NERVRT ASDIRECTED [facility] Stop: 06/12/17 11:30 Last Admin: 06/12/17 13:15 Dose: 80 syringe Dexamethasone (Dexamethasone) Confirm Administered Dose 4 mg .ROUTE .STK-MED ONE Stop: 06/12/17 10:46 Diphenhydramine HCl (Benadryl) Confirm Administered Dose 50 mg .ROUTE .STK-MED ONE Stop: 06/13/17 11:30 Last Admin: 06/13/17 11:59 Dose: Not Given Fentanyl (Sublimaze) Confirm Administered Dose 100 mcg .ROUTE .[facility], [facility] ONE Stop: 06/11/17 10:12 Fentanyl (Sublimaze) Confirm Administered Dose 100 mcg .ROUTE .[facility], [facility] ONE Stop: 06/12/17 13:28 Fentanyl (Sublimaze) Confirm Administered Dose 100 mcg .ROUTE .[facility] ONE Stop: 06/12/17 13:30 Fentanyl Citrate (Fentanyl) Confirm Administered Dose 500 mcg .ROUTE .[facility], [facility] ONE Stop: 06/12/17 10:46 Furosemide (Lasix) 20 mg IVPUSH ONETIME ONE Stop: 06/13/17 12:35 Last Admin: 06/13/17 12:50 Dose: 20 mg Glycopyrrolate (Glycopyrrolate) 0.4 mg IVPUSH ONETIME ONE Stop: 06/11/17 09:01 Last Admin: 06/11/17 10:08 Dose: 0.4 mg Glycopyrrolate (Robinul) Confirm Administered Dose 1 mg .ROUTE .[facility], [facility] ONE Stop: 06/12/17 10:46 Heparin Sodium (Porcine) (Heparin Lock Flush 100 Units/Ml) Confirm Administered Dose 500 units .ROUTE .[facility], [facility] ONE Stop: 06/12/17 10:50 Sodium Chloride (Normal Saline) 1,000 mls @ 125 mls/hr IV ASDIRECTED [facility] Last Admin: 06/11/17 00:10 Dose: 125 mls/hr Dextrose/Lactated Ringer's (Dextrose 5%-Lactated Ringers) 1,000 mls @ 150 mls/ hr IV ASDIRECTED [facility] Last Admin: 06/12/17 01:26 Dose: 150 mls/hr Cefoxitin Sodium 2 gm/ Sodium (Chloride) 50 mls @ 100 mls/hr IV ONCALL ONE Stop: 06/12/17 09:59 Last Admin: 06/12/17 12:15 Dose: 100 mls/hr Magnesium Sulfate 2 gm/ Sodium (Chloride) 54 mls @ 27 mls/hr IV Q6HR [facility] Stop: 06/14/17 11:59 Last Admin: 06/12/17 10:11 Dose: 27 mls/hr Dextrose/Lactated Ringer's (Dextrose 5%-Lactated Ringers) 1,000 mls @ 100 mls/ hr IV ASDIRECTED [facility] Stop: 06/13/17 12:00 Last Admin: 06/12/17 08:06 Dose: 100 mls/hr Sodium Chloride (Normal Saline) Confirm Administered Dose 10 mls @ as directed .ROUTE .STK-MED ONE Stop: 06/12/17 11:34 Lactated Ringer's (Ringers, Lactated) Confirm Administered Dose 1,000 mls @ as directed .ROUTE .STK-MED ONE Stop: 06/12/17 13:25 Cefoxitin Sodium 2 gm/ Sodium (Chloride) 50 mls @ 100 mls/hr IV ONETIME ONE Stop: 06/12/17 17:29 Last Admin: 06/12/17 17:18 Dose: 100 mls/hr Lactated Ringer's (Ringers, Lactated) 1,000 mls @ 125 mls/hr IV ASDIRECTED [facility] Last Admin: 06/13/17 10:18 Dose: 125 mls/hr Lactated Ringer's (Ringers, Lactated) 500 mls @ 500 mls/hr IV .BOLUS [facility] Last Admin: 06/13/17 00:44 Dose: 500 mls/hr Acetaminophen 1,000 mg/ Premix 100 mls @ 400 mls/hr IV ONETIME ONE Stop: 06/13/17 12:54 Last Admin: 06/13/17 12:45 Dose: 400 mls/hr Labetalol HCl (Normodyne) Confirm Administered Dose 20 mg .ROUTE .STK-MED ONE Stop: 06/12/17 13:58 Meropenem (Merrem) Confirm Administered Dose 500 mg .ROUTE .STK-MED ONE Stop: 06/12/17 10:50 Last Admin: 06/12/17 14:15 Dose: 500 mg Meropenem (Merrem) Confirm Administered Dose 500 mg .ROUTE .STK-MED ONE Stop: 06/12/17 11:34 Morphine Sulfate (Morphine) 2 mg IVPUSH Q2H PRN PRN Reason: Pain (severe 7-10) Last Admin: 06/12/17 11:37 Dose: 2 mg Neostigmine Methylsulfate (Neostigmine) Confirm Administered Dose 5 mg .ROUTE .STK-MED ONE Stop: 06/12/17 10:46 Ondansetron HCl (Zofran) 4 mg IVPUSH ONETIME PRN PRN Reason: Nausea/Vomiting Last Admin: 06/11/17 00:10 Dose: 4 mg Ondansetron HCl (Zofran) Confirm Administered Dose 4 mg .ROUTE .STK-MED ONE Stop: 06/12/17 10:46 Pantoprazole Sodium (Protonix Iv) 40 mg IV Q12H [facility] Last Admin: 06/11/17 03:19 Dose: 40 mg Pantoprazole Sodium (Protonix Iv) 40 mg IV Q12H [facility] Last Admin: 06/12/17 04:02 Dose: 40 mg Phenytoin Sodium (Phenytoin) 100 mg PO BID [facility] Last Admin: 06/12/17 09:36 Dose: Not Given Pneumococcal Polyvalent Vaccine (Pneumovax 23) 0.5 ml IM .ONCE ONE Stop: 06/11/17 10:01 Last Admin: 06/11/17 13:41 Dose: 0.5 ml Propofol (Diprivan 20 Ml) Confirm Administered Dose 200 mg .ROUTE .STK-MED ONE Stop: 06/11/17 10:12 Propofol (Diprivan 20 Ml) Confirm Administered Dose 200 mg .ROUTE .STK-MED ONE Stop: 06/12/17 10:46 Rocuronium [place] (Zemuron) Confirm Administered Dose 50 mg .ROUTE .STK-MED ONE Stop: 06/12/17 10:46 Spironolactone (Aldactone) 25 mg PO DAILY [facility] Last Admin: 06/12/17 09:36 Dose: Not Given Succinylcholine Chloride (Quelicin) Confirm Administered Dose 200 mg .ROUTE .STK -MED ONE Stop: 06/12/17 10:46 - Exam Quality Assessment: Supplemental Oxygen General: Alert, Oriented, Cooperative, Mild Distress HEENT: Other (flushed) Neck: Supple Lungs: Clear to Auscultation, Normal Respiratory Effort Cardiovascular: Regular Rhythm, Tachycardia GI/Abdominal Exam: No Distention, Tender Extremities: No Pedal Edema. 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 Status post exploratory laparotomy with partial gastrectomy and additional debridement. Moderate pain tachycardic postoperatively. -Pain control -Nausea control -Advance diet per surgical instructions -TPN initiated today Sinus tachycardia - I suspect there is a component of volume overload as she has received a large quantity of fluids in the past 24 hours. Lungs are clear at this point. Pain is fairly well controlled but there is still some room for improvement. No chest pain. EKG does not suggest ischemia. She has recently received furosemide. Lungs are clear. -Cardiac monitoring -Reassess volume status -Optimize pain control Tobacco dependence - will need strong recommendations regarding cessation -declines Nicotine patches, make her feel sick Maintenance issues -Nutrition: NPO -Gomez catheter - placed postoperatively -DVT: SCD -PPI; IV Protonix 40mg daily -consult OT for discharge planning -consult PT for strengthening. Disposition; anticipate discharge home [facility] after the hospital stay Clifford Suero M.D.
[2017-06-13] MEDS ORDERED: Furosemide 40 MG/4 ML VIAL IVPUSH ONE (17:43)
[2017-06-13] MEDS ORDERED: Furosemide 40 MG/4 ML VIAL ONE (17:54)
[2017-06-14] MEDS: 1: AA 5%/Calcium/D15W/Lytes 1,000 ML with MVI, Adult with Vitamin K 10 ML, Chromium/Copp IV SCH ×9 (00:04→19:13)
[2017-06-14] MEDS: Metoclopramide 10 MG/2 ML SDV IV SCH ×4 (00:18→17:06)
[2017-06-14] MEDS: Magnesium Sulfate/Water 2 GM in Premix Bag 1 BAG IV SCH ×4 (03:54→21:38)
[2017-06-14] MEDS: cefOXitin 2 GM in Sodium Chloride 0.9% 50 ML IV SCH ×4 (05:15→22:15)
[2017-06-14] MEDS: Pantoprazole 40 MG Vial IV SCH (05:18)
[2017-06-14] MEDS: Albuterol/Ipratropium 3.0-0.5 MG/3 ML Neb Soln NEB SCH ×4 (07:53→21:37)
--- NOTE | 2017-06-14 08:48 | PN ---
DATE OF SERVICE: 06/13/2017 The patient has been afebrile with stable vital signs. Urine output still overly high, but satisfactorily. We will leave the IV rate, showing relatively fast rate today. We will start the TPN today as well. Otherwise, her LAYNE drains appear to be clear. It is notable that her bilirubin is up to 2.8 today with AST and ALT being 377 and 197 respectively, and alkaline phosphatase is 99. The plan will be to maximize activity and work with pulmonary toilet today. Her magnesium is somewhat low and that will be supplemented. We will recheck the labs in the morning. If the bilirubin is remaining high, we will obtain a CT scan. The common bile duct was clearly intact at the end of the procedure, but there may be enough distortion by closure of the duodenal stump to be causing some angulation at the point of the ampulla of Vater empties into the duodenum as that entire area was quite distorted. If this is the case and bilirubin remains high, we will obtain a CT scan tomorrow and if it remains high on Thursday, probably bring the patient back to the operating room and perform a Mona-en-Y choledochojejunostomy. Otherwise, maximize activity and work with pulmonary toilet. If the bilirubin is coming down tomorrow, then we will proceed with delayed primary closure of the abdominal incision. Eulalio Hemphill MD /[id number]
--- NOTE | 2017-06-14 09:00 | PN ---
DATE OF SERVICE: 06/14/2017 The patient developed some tachycardia yesterday, probably somewhat fluid overloaded per Dr. Curtis. She did diurese nicely. Presently, her respiratory status is unremarkable, still remained low sinus tach around 130, but otherwise appears to be clinically stable. Of note, her bilirubin continues to creep up, it is 3.4 today, and she does have some bile leak in one of her LAYNE drains. We will get a CT scan of the abdomen this morning to evaluate that issue. I suspect there may be some distortion of the bile duct in the intrapancreatic portion. At the conclusion of the surgery on Thursday, she clearly had a completely normal course of the extrahepatic common bile duct. We will obtain CT scan. We will hold on delayed primary closure tomorrow in anticipation of probably needing to do something operatively tomorrow to correct the delayed drainage issue. Otherwise, her labs are relatively unremarkable. White count has come down somewhat, and we will check a BNP on today's labs as well and recheck some labs tomorrow morning. Her Dilantin level was fairly low. We will increase that dose somewhat. Although, she certainly is not showing any signs of symptomatic problems with regard to the low Dilantin level. Eulalio Hemphill MD /[id number]
--- NOTE | 2017-06-14 11:50 | PCM.PN ---
- General Info Date of Service: 06/14/17 Functional Status: Reports: Pain Controlled - Review of Systems General: Reports: Weakness Gastrointestinal: Reports: Abdominal Pain Systems Review Comment:: No acute events overnight. Abdominal pain has improved some compared to yesterday. She was tachycardic throughout much of the night but heart rate has been trending down. She does not complain of shortness of breath or nausea. She is not passing gas at this time. Hepatic panel tests have improved today compared to yesterday. CT scan this morning showed mild dilation of the common bile duct but no obvious evidence for obstruction. Remainder of the CT was unremarkable. - Patient Data Vitals - Most Recent: Last Vital Signs Temp 36.7 C 06/14/17 11:34 Pulse 134 H 06/14/17 11:34 Resp 18 06/14/17 11:34 BP 97/52 L 06/14/17 11:34 Pulse Ox 100 06/14/17 11:34 Weight - Most Recent: 54.386 kg I&O - Last 24 Hours: Intake & Output 06/13/17 06/14/17 06/14/17 22:59 06:59 14:59 Intake Total 2680 1618 Output Total 2915 1510 Balance -235 108 Lab Results Last 24 Hours: Laboratory Results - last 24 hr 06/14/17 06/14/17 06/14/17 Range/Units 03:59 03:59 04:00 WBC 21.6 H (4.5-11.0) K/uL RBC 2.93 L (3.30-5.50) M/uL Hgb 9.4 L (12.0-15.0) g/dL Hct 28.6 L (36.0-48.0) % MCV 98 (80-98) fL MCH 32 H (27-31) pg MCHC 33 (32-36) % Plt Count 154 (150-400) K/uL Sodium 137 L (140-148) mmol/L Potassium 4.0 (3.6-5.2) mmol/L Chloride 100 (100-108) mmol/L Carbon Dioxide 32 (21-32) mmol/L Anion Gap 9.0 (5.0-14.0) mmol/L BUN 17 D (7-18) mg/dL Creatinine 0.8 (0.6-1.0) mg/dL Est Cr Clr Drug Dosing 61.07 mL/min Estimated GFR (MDRD) > 60 (>60) Glucose 115 H (74-106) mg/dL Calcium 7.5 L (8.5-10.1) mg/dL Phosphorus 4.2 (2.5-4.9) mg/dL Total Bilirubin 3.4 H (0.2-1.0) mg/dL AST 140 H (15-37) U/L ALT 148 H (12-78) U/L Alkaline Phosphatase 109 (46-116) U/L NT-Pro-B Natriuret Pep 217 H (5-125) pg/mL Total Protein 4.8 L (6.4-8.2) g/dL Albumin 1.8 L (3.4-5.0) g/dL Globulin 3.0 (2.3-3.5) g/dL Albumin/Globulin Ratio 0.6 L (1.2-2.2) Phenytoin 3.7 L (10.0-20.0) ug/mL Med Orders - Current: Current Medications Albuterol/Ipratropium (Duoneb 3.0-0.5 Mg/3 Ml) 3 ml NEB QIDRT [facility] Last Admin: 06/14/17 11:25 Dose: 3 ml Albuterol/Ipratropium (Duoneb 3.0-0.5 Mg/3 Ml) 3 ml INH ASDIRECTED PRN PRN Reason: Shortness of Breath Diphenhydramine HCl (Benadryl) 50 mg IVPUSH Q4H PRN PRN Reason: Itching Last Admin: 06/13/17 11:33 Dose: 50 mg Hydroxyzine HCl (Vistaril) 100 mg IM Q4H PRN PRN Reason: PAIN Cefoxitin Sodium 2 gm/ Sodium (Chloride) 50 mls @ 100 mls/hr IV Q6H [facility] Last Admin: 06/14/17 11:19 Dose: 100 mls/hr Magnesium Sulfate 2 gm/ Premix 50 mls @ 25 mls/hr IV Q6H [facility] Stop: 06/16/17 05:59 Last Admin: 06/14/17 09:10 Dose: 25 mls/hr Multivitamins/Minerals 10 ml/Chromium/Copper/Manganese/Seleni/Zn 1 ml/ Amino Ac/ Electrol/Dextrose/Calcium 1,011 mls @ 100 mls/hr IV .BY DURATION [facility] Last Admin: 06/14/17 10:00 Dose: 100 mls/hr Amino Ac/Electrol/Dextrose/Calcium (Clinimix E 01/26) 1,000 mls @ 100 mls/hr IV .BY DURATION [facility] Last Admin: 06/14/17 00:04 Dose: 100 mls/hr Sodium Chloride (Normal Saline) 1,000 mls @ 0 mls/hr IV ASDIRECTED [facility] PRN Reason: KVO Lorazepam (Ativan) 1 mg IV Q6H PRN PRN Reason: Nausea/Vomiting Last Admin: 06/11/17 04:07 Dose: 1 mg Metoclopramide HCl (Reglan) 10 mg IV Q6H [facility] Last Admin: 06/14/17 11:19 Dose: 10 mg Morphine Sulfate (Morphine [employer] App[employer] 150 Mg In 30 Ml) 0 mg IV ASDIRECTED PRN; Protocol PRN Reason: PAIN Last Admin: 06/12/17 17:30 Dose: 150 mg Naloxone HCl (Narcan) 0.1 mg IV ASDIRECTED PRN PRN Reason: RESP DISTRESS Ondansetron HCl (Zofran) 4 mg IV Q4H PRN PRN Reason: Nausea/Vomiting Pantoprazole Sodium (Protonix Iv) 40 mg IV Q24H [facility] Phenytoin Sodium (Phenytoin) 150 mg IV Q12H [facility] Last Admin: 06/14/17 09:11 Dose: 150 mg Discontinued Medications Albuterol (Proventil Neb Soln) 2.5 mg NEB Q4H PRN PRN Reason: Shortness Of Breath/wheezing Albuterol/Ipratropium (Duoneb 3.0-0.5 Mg/3 Ml) 3 ml NEB QID PRN PRN Reason: Shortness Of Breath/wheezing Bupivacaine HCl/Epinephrine Bitart (Marcaine 0.5%/Epinephrine 1:200,000) Confirm Administered Dose 50 ml .ROUTE .STK-MED ONE Stop: 06/12/17 11:32 Al Hydroxide/Mg Hydroxide 15 (ml/ Lidocaine HCl 15 ml) 0 ml PO ONETIME ONE Stop: 06/10/17 23:58 Last Admin: 06/11/17 00:16 Dose: 15 ml Ropivacaine 27 ml/Dexamethasone 8 mg/Epinephrine HCl 0.4 mg/ Sodium Chloride 50.6 ml 0 ml NERVRT ASDIRECTED [facility] Stop: 06/12/17 11:30 Last Admin: 06/12/17 13:15 Dose: 80 syringe Dexamethasone (Dexamethasone) Confirm Administered Dose 4 mg .ROUTE .STK-MED ONE Stop: 06/12/17 10:46 Diphenhydramine HCl (Benadryl) Confirm Administered Dose 50 mg .ROUTE .ST-MED ONE Stop: 06/13/17 11:30 Last Admin: 06/13/17 11:59 Dose: Not Given Fentanyl (Sublimaze) Confirm Administered Dose 100 mcg .ROUTE .STK-MED ONE Stop: 06/11/17 10:12 Fentanyl (Sublimaze) Confirm Administered Dose 100 mcg .ROUTE .[facility] ONE Stop: 06/12/17 13:28 Fentanyl (Sublimaze) Confirm Administered Dose 100 mcg .ROUTE .[facility] ONE Stop: 06/12/17 13:30 Fentanyl Citrate (Fentanyl) Confirm Administered Dose 500 mcg .ROUTE .[facility] ONE Stop: 06/12/17 10:46 Furosemide (Lasix) 20 mg IVPUSH ONETIME ONE Stop: 06/13/17 12:35 Last Admin: 06/13/17 12:50 Dose: 20 mg Furosemide (Lasix) 40 mg IVPUSH NOW ONE Stop: 06/13/17 17:44 Last Admin: 06/13/17 17:57 Dose: 40 mg Furosemide (Lasix) Confirm Administered Dose 40 mg .ROUTE .[facility] ONE Stop: 06/13/17 17:55 Last Admin: 06/13/17 18:00 Dose: Not Given Glycopyrrolate (Glycopyrrolate) 0.4 mg IVPUSH ONETIME ONE Stop: 06/11/17 09:01 Last Admin: 06/11/17 10:08 Dose: 0.4 mg Glycopyrrolate (Robinul) Confirm Administered Dose 1 mg .ROUTE .ST-MED ONE Stop: 06/12/17 10:46 Heparin Sodium (Porcine) (Heparin Lock Flush 100 Units/Ml) Confirm Administered Dose 500 units .ROUTE .STK-MED ONE Stop: 06/12/17 10:50 Sodium Chloride (Normal Saline) 1,000 mls @ 125 mls/hr IV ASDIRECTED [facility] Last Admin: 06/11/17 00:10 Dose: 125 mls/hr Dextrose/Lactated Ringer's (Dextrose 5%-Lactated Ringers) 1,000 mls @ 150 mls/ hr IV ASDIRECTED [facility] Last Admin: 06/12/17 01:26 Dose: 150 mls/hr Cefoxitin Sodium 2 gm/ Sodium (Chloride) 50 mls @ 100 mls/hr IV ONCALL ONE Stop: 06/12/17 09:59 Last Admin: 06/12/17 12:15 Dose: 100 mls/hr Magnesium Sulfate 2 gm/ Sodium (Chloride) 54 mls @ 27 mls/hr IV Q6HR [facility] Stop: 06/14/17 11:59 Last Admin: 06/12/17 10:11 Dose: 27 mls/hr Dextrose/Lactated Ringer's (Dextrose 5%-Lactated Ringers) 1,000 mls @ 100 mls/ hr IV ASDIRECTED [facility] Stop: 06/13/17 12:00 Last Admin: 06/12/17 08:06 Dose: 100 mls/hr Sodium Chloride (Normal Saline) Confirm Administered Dose 10 mls @ as directed .ROUTE .STK-MED ONE Stop: 06/12/17 11:34 Lactated Ringer's (Ringers, Lactated) Confirm Administered Dose 1,000 mls @ as directed .ROUTE .STK-MED ONE Stop: 06/12/17 13:25 Cefoxitin Sodium 2 gm/ Sodium (Chloride) 50 mls @ 100 mls/hr IV ONETIME ONE Stop: 06/12/17 17:29 Last Admin: 06/12/17 17:18 Dose: 100 mls/hr Lactated Ringer's (Ringers, Lactated) 1,000 mls @ 125 mls/hr IV ASDIRECTED [facility] Last Admin: 06/13/17 10:18 Dose: 125 mls/hr Lactated Ringer's (Ringers, Lactated) 500 mls @ 500 mls/hr IV .BOLUS [facility] Last Admin: 06/13/17 00:44 Dose: 500 mls/hr Acetaminophen 1,000 mg/ Premix 100 mls @ 400 mls/hr IV ONETIME ONE Stop: 06/13/17 12:54 Last Admin: 06/13/17 12:45 Dose: 400 mls/hr Labetalol HCl (Normodyne) Confirm Administered Dose 20 mg .ROUTE .STK-MED ONE Stop: 06/12/17 13:58 Meropenem (Merrem) Confirm Administered Dose 500 mg .ROUTE .STK-MED ONE Stop: 06/12/17 10:50 Last Admin: 06/12/17 14:15 Dose: 500 mg Meropenem (Merrem) Confirm Administered Dose 500 mg .ROUTE .STK-MED ONE Stop: 06/12/17 11:34 Morphine Sulfate (Morphine) 2 mg IVPUSH Q2H PRN PRN Reason: Pain (severe 7-10) Last Admin: 06/12/17 11:37 Dose: 2 mg Neostigmine Methylsulfate (Neostigmine) Confirm Administered Dose 5 mg .ROUTE .STK-MED ONE Stop: 06/12/17 10:46 Ondansetron HCl (Zofran) 4 mg IVPUSH ONETIME PRN PRN Reason: Nausea/Vomiting Last Admin: 06/11/17 00:10 Dose: 4 mg Ondansetron HCl (Zofran) Confirm Administered Dose 4 mg .ROUTE .STK-MED ONE Stop: 06/12/17 10:46 Pantoprazole Sodium (Protonix Iv) 40 mg IV Q12H [facility] Last Admin: 06/11/17 03:19 Dose: 40 mg Pantoprazole Sodium (Protonix Iv) 40 mg IV Q12H [facility] Last Admin: 06/12/17 04:02 Dose: 40 mg Pantoprazole Sodium (Protonix Iv) 40 mg IV Q12H [facility] Stop: 06/14/17 06:01 Last Admin: 06/14/17 05:18 Dose: 40 mg Phenytoin Sodium (Phenytoin) 100 mg PO BID [facility] Last Admin: 06/12/17 09:36 Dose: Not Given Phenytoin Sodium (Phenytoin) 100 mg IV Q12H [facility] Last Admin: 06/13/17 21:26 Dose: 100 mg Pneumococcal Polyvalent Vaccine (Pneumovax 23) 0.5 ml IM .ONCE ONE Stop: 06/11/17 10:01 Last Admin: 06/11/17 13:41 Dose: 0.5 ml Propofol (Diprivan 20 Ml) Confirm Administered Dose 200 mg .ROUTE .STK-MED ONE Stop: 06/11/17 10:12 Propofol (Diprivan 20 Ml) Confirm Administered Dose 200 mg .ROUTE .STK-MED ONE Stop: 06/12/17 10:46 Rocuronium [place] (Zemuron) Confirm Administered Dose 50 mg .ROUTE .STK-MED ONE Stop: 06/12/17 10:46 Spironolactone (Aldactone) 25 mg PO DAILY [facility] Last Admin: 06/12/17 09:36 Dose: Not Given Succinylcholine Chloride (Quelicin) Confirm Administered Dose 200 mg .ROUTE .STK -MED ONE Stop: 06/12/17 10:46 - Exam Quality Assessment: Supplemental Oxygen General: Alert, Oriented, Cooperative, No Acute Distress Neck: Supple Lungs: Clear to Auscultation, Normal Respiratory Effort Cardiovascular: Regular Rhythm, Tachycardia GI/Abdominal Exam: Normal Bowel Sounds, Soft, No Distention Extremities: No Pedal Edema. 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 Status post exploratory laparotomy with partial gastrectomy and additional debridement. Moderate pain postoperatively but this seems to be improving. -Pain control -Nausea control -Advance diet per surgical instructions -TPN initiated 06/13 Sinus tachycardia - I suspect there is a component of volume overload but does seem to be improving over the past 24 hours. Clinically looks better today. Pain control has improved. -Cardiac monitoring -Reassess volume status -Optimize pain control Tobacco dependence - will need strong recommendations regarding cessation -declines Nicotine patches, make her feel sick Maintenance issues -Nutrition: NPO -Gomez catheter - placed postoperatively -DVT: SCD -PPI; IV Protonix 40mg daily -consult OT for discharge planning -consult PT for strengthening. Disposition; anticipate discharge home versus group home after the hospital stay Clifford Suero M.D.
[2017-06-15] MEDS: Metoclopramide 10 MG/2 ML SDV IV SCH ×4 (00:03→17:28)
[2017-06-15] MEDS: cefOXitin 2 GM in Sodium Chloride 0.9% 50 ML IV SCH ×3 (04:11→20:00)
[2017-06-15] MEDS: Magnesium Sulfate/Water 2 GM in Premix Bag 1 BAG IV SCH ×3 (04:12→20:02)
[2017-06-15] MEDS: 1: AA 5%/Calcium/D15W/Lytes 1,000 ML with MVI, Adult with Vitamin K 10 ML, Chromium/Copp IV SCH ×6 (05:20→14:53)
[2017-06-15] MEDS: Pantoprazole 40 MG Vial IV SCH (05:23)
[2017-06-15] MEDS ORDERED: Propofol 200 MG/20 ML SDV ONE (07:13)
[2017-06-15] MEDS ORDERED: Dexamethasone 4 MG/ML SDV ONE (07:13)
[2017-06-15] MEDS ORDERED: Ondansetron 4 MG/2 ML SDV ONE (07:13)
[2017-06-15] MEDS ORDERED: Succinylcholine 200 MG/10 ML MDV ONE (07:13)
[2017-06-15] MEDS ORDERED: Neostigmine Methylsulfate 1 MG/ML 5 ML Syringe ONE (07:13)
[2017-06-15] MEDS ORDERED: Glycopyrrolate 0.2 MG/ML 5 ML MDV ONE (07:13)
[2017-06-15] MEDS ORDERED: Rocuronium 50 MG/5 ML Vial ONE ×2 (07:13→11:31)
--- NOTE | 2017-06-15 07:15 | PCM.SURGPN ---
- General Info Date of Service: 06/15/17 Date of Surgery/Procedure: 06/12/17 POD#: 2 Post-Op Diagnosis: laparotomy exploratory w/ resection of gastric mass Admission Diagnosis/Problem: Abdominal pain Functional Status: Reports: Pain Controlled (with morphine), Urinating - Review of Systems General: Reports: No Symptoms HEENT: Reports: No Symptoms Pulmonary: Reports: No Symptoms Cardiovascular: Reports: No Symptoms Gastrointestinal: Reports: No Symptoms (mild abdominal tenderness ) Genitourinary: Reports: No Symptoms Musculoskeletal: Reports: No Symptoms Neurological: Reports: No Symptoms Psychiatric: Reports: No Symptoms Systems Review Comment:: Soco reports that she is feeling a little pain this morning, however it is controlled with the morphine. She denies any nausea. She continues to have tachycardia, likely related to fluid overload per hospitalist. No chest pain or shortness of breath. She is having bile leak from one of her LAYNE drains. Will be going for exploratory laparotomy this morning. She denied having any concerns today. - Patient Data Vitals - Most Recent: Last Vital Signs Temp 37.2 C 06/15/17 04:00 Pulse 129 H 06/15/17 04:00 Resp 16 06/15/17 04:00 BP 112/47 L 06/15/17 04:00 Pulse Ox 97 06/15/17 04:00 Weight - Most Recent: 54.386 kg I&O - Last 24 Hours: Intake & Output 06/14/17 06/15/17 06/15/17 22:59 06:59 14:59 Intake Total 1658 1370 Output Total 415 1450 Balance 1243 -80 Lab Results Last 24 Hrs: Laboratory Results - last 24 hr 06/14/17 06/15/17 06/15/17 Range/Units 04:00 04:25 04:25 WBC 17.8 H (4.5-11.0) K/uL RBC 2.69 L (3.30-5.50) M/uL Hgb 8.6 L (12.0-15.0) g/dL Hct 26.6 L (36.0-48.0) % MCV 99 H (80-98) fL MCH 32 H (27-31) pg MCHC 32 (32-36) % Plt Count 143 L (150-400) K/uL Sodium 137 L (140-148) mmol/L Potassium 4.1 (3.6-5.2) mmol/L Chloride 102 (100-108) mmol/L Carbon Dioxide 30 (21-32) mmol/L Anion Gap 9.1 (5.0-14.0) mmol/L BUN 23 H (7-18) mg/dL Creatinine 0.7 (0.6-1.0) mg/dL Est Cr Clr Drug Dosing 69.79 mL/min Estimated GFR (MDRD) > 60 (>60) Glucose 105 (74-106) mg/dL Calcium 7.7 L (8.5-10.1) mg/dL Phosphorus 3.2 (2.5-4.9) mg/dL Total Bilirubin 2.9 H (0.2-1.0) mg/dL AST 89 H (15-37) U/L ALT 110 H (12-78) U/L Alkaline Phosphatase 116 (46-116) U/L NT-Pro-B Natriuret Pep 217 H 128 H (5-125) pg/mL Total Protein 4.9 L (6.4-8.2) g/dL Albumin 1.6 L (3.4-5.0) g/dL Globulin 3.3 (2.3-3.5) g/dL Albumin/Globulin Ratio 0.5 L (1.2-2.2) Med Orders - Current: Current Medications Albuterol/Ipratropium (Duoneb 3.0-0.5 Mg/3 Ml) 3 ml NEB QIDRT [facility] Last Admin: 06/14/17 21:37 Dose: 3 ml Albuterol/Ipratropium (Duoneb 3.0-0.5 Mg/3 Ml) 3 ml INH ASDIRECTED PRN PRN Reason: Shortness of Breath Diphenhydramine HCl (Benadryl) 50 mg IVPUSH Q4H PRN PRN Reason: Itching Last Admin: 06/13/17 11:33 Dose: 50 mg Hydroxyzine HCl (Vistaril) 100 mg IM Q4H PRN PRN Reason: PAIN Cefoxitin Sodium 2 gm/ Sodium (Chloride) 50 mls @ 100 mls/hr IV Q6H [facility] Last Admin: 06/15/17 04:11 Dose: 100 mls/hr Magnesium Sulfate 2 gm/ Premix 50 mls @ 25 mls/hr IV Q6H [facility] Stop: 06/16/17 05:59 Last Admin: 06/15/17 04:12 Dose: 25 mls/hr Multivitamins/Minerals 10 ml/Chromium/Copper/Manganese/Seleni/Zn 1 ml/ Amino Ac/ Electrol/Dextrose/Calcium 1,011 mls @ 100 mls/hr IV .BY DURATION [facility] Last Admin: 06/15/17 05:20 Dose: 100 mls/hr Amino Ac/Electrol/Dextrose/Calcium (Clinimix E 5/15) 1,000 mls @ 100 mls/hr IV .BY DURATION [facility] Last Admin: 06/14/17 19:13 Dose: 100 mls/hr Sodium Chloride (Normal Saline) 1,000 mls @ 0 mls/hr IV ASDIRECTED [facility] PRN Reason: KVO Lorazepam (Ativan) 1 mg IV Q6H PRN PRN Reason: Nausea/Vomiting Last Admin: 06/11/17 04:07 Dose: 1 mg Metoclopramide HCl (Reglan) 10 mg IV Q6H [facility] Last Admin: 06/15/17 05:23 Dose: 10 mg Morphine Sulfate (Morphine Teacher Dancing 150 Mg In 30 Ml) 0 mg IV ASDIRECTED PRN; Protocol PRN Reason: PAIN Last Admin: 06/12/17 17:30 Dose: 150 mg Naloxone HCl (Narcan) 0.1 mg IV ASDIRECTED PRN PRN Reason: RESP DISTRESS Ondansetron HCl (Zofran) 4 mg IV Q4H PRN PRN Reason: Nausea/Vomiting Pantoprazole Sodium (Protonix Iv) 40 mg IV Q24H [facility] Last Admin: 06/15/17 05:23 Dose: 40 mg Phenytoin Sodium (Phenytoin) 150 mg IV Q12H [facility] Last Admin: 06/14/17 21:37 Dose: 150 mg Discontinued Medications Albuterol (Proventil Neb Soln) 2.5 mg NEB Q4H PRN PRN Reason: Shortness Of Breath/wheezing Albuterol/Ipratropium (Duoneb 3.0-0.5 Mg/3 Ml) 3 ml NEB QID PRN PRN Reason: Shortness Of Breath/wheezing Bupivacaine HCl/Epinephrine Bitart (Marcaine 0.5%/Epinephrine 1:200,000) Confirm Administered Dose 50 ml .ROUTE .STK-MED ONE Stop: 06/12/17 11:32 Al Hydroxide/Mg Hydroxide 15 (ml/ Lidocaine HCl 15 ml) 0 ml PO ONETIME ONE Stop: 06/10/17 23:58 Last Admin: 06/11/17 00:16 Dose: 15 ml Ropivacaine 27 ml/Dexamethasone 8 mg/Epinephrine HCl 0.4 mg/ Sodium Chloride 50.6 ml 0 ml NERVRT ASDIRECTED [facility] Stop: 06/12/17 11:30 Last Admin: 06/12/17 13:15 Dose: 80 syringe Dexamethasone (Dexamethasone) Confirm Administered Dose 4 mg .ROUTE .STK-MED ONE Stop: 06/12/17 10:46 Diphenhydramine HCl (Benadryl) Confirm Administered Dose 50 mg .ROUTE .STK-MED ONE Stop: 06/13/17 11:30 Last Admin: 06/13/17 11:59 Dose: Not Given Fentanyl (Sublimaze) Confirm Administered Dose 100 mcg .ROUTE .STK-MED ONE Stop: 06/11/17 10:12 Fentanyl (Sublimaze) Confirm Administered Dose 100 mcg .ROUTE .STK-MED ONE Stop: 06/12/17 13:28 Fentanyl (Sublimaze) Confirm Administered Dose 100 mcg .ROUTE .STK-MED ONE Stop: 06/12/17 13:30 Fentanyl Citrate (Fentanyl) Confirm Administered Dose 500 mcg .ROUTE .STK-MED ONE Stop: 06/12/17 10:46 Furosemide (Lasix) 20 mg IVPUSH ONETIME ONE Stop: 06/13/17 12:35 Last Admin: 06/13/17 12:50 Dose: 20 mg Furosemide (Lasix) 40 mg IVPUSH NOW ONE Stop: 06/13/17 17:44 Last Admin: 06/13/17 17:57 Dose: 40 mg Furosemide (Lasix) Confirm Administered Dose 40 mg .ROUTE .STK-MED ONE Stop: 06/13/17 17:55 Last Admin: 06/13/17 18:00 Dose: Not Given Glycopyrrolate (Glycopyrrolate) 0.4 mg IVPUSH ONETIME ONE Stop: 06/11/17 09:01 Last Admin: 06/11/17 10:08 Dose: 0.4 mg Glycopyrrolate (Robinul) Confirm Administered Dose 1 mg .ROUTE .STK-MED ONE Stop: 06/12/17 10:46 Heparin Sodium (Porcine) (Heparin Lock Flush 100 Units/Ml) Confirm Administered Dose 500 units .ROUTE .STK-MED ONE Stop: 06/12/17 10:50 Sodium Chloride (Normal Saline) 1,000 mls @ 125 mls/hr IV ASDIRECTED [facility] Last Admin: 06/11/17 00:10 Dose: 125 mls/hr Dextrose/Lactated Ringer's (Dextrose 5%-Lactated Ringers) 1,000 mls @ 150 mls/ hr IV ASDIRECTED [facility] Last Admin: 06/12/17 01:26 Dose: 150 mls/hr Cefoxitin Sodium 2 gm/ Sodium (Chloride) 50 mls @ 100 mls/hr IV ONCALL ONE Stop: 06/12/17 09:59 Last Admin: 06/12/17 12:15 Dose: 100 mls/hr Magnesium Sulfate 2 gm/ Sodium (Chloride) 54 mls @ 27 mls/hr IV Q6HR [facility] Stop: 06/14/17 11:59 Last Admin: 06/12/17 10:11 Dose: 27 mls/hr Dextrose/Lactated Ringer's (Dextrose 5%-Lactated Ringers) 1,000 mls @ 100 mls/ hr IV ASDIRECTED [facility] Stop: 06/13/17 12:00 Last Admin: 06/12/17 08:06 Dose: 100 mls/hr Sodium Chloride (Normal Saline) Confirm Administered Dose 10 mls @ as directed .ROUTE .[facility]-MED ONE Stop: 06/12/17 11:34 Lactated Ringer's (Ringers, Lactated) Confirm Administered Dose 1,000 mls @ as directed .ROUTE .[facility] ONE Stop: 06/12/17 13:25 Cefoxitin Sodium 2 gm/ Sodium (Chloride) 50 mls @ 100 mls/hr IV ONETIME ONE Stop: 06/12/17 17:29 Last Admin: 06/12/17 17:18 Dose: 100 mls/hr Lactated Ringer's (Ringers, Lactated) 1,000 mls @ 125 mls/hr IV ASDIRECTED [facility] Last Admin: 06/13/17 10:18 Dose: 125 mls/hr Lactated Ringer's (Ringers, Lactated) 500 mls @ 500 mls/hr IV .BOLUS [facility] Last Admin: 06/13/17 00:44 Dose: 500 mls/hr Acetaminophen 1,000 mg/ Premix 100 mls @ 400 mls/hr IV ONETIME ONE Stop: 06/13/17 12:54 Last Admin: 06/13/17 12:45 Dose: 400 mls/hr Labetalol HCl (Normodyne) Confirm Administered Dose 20 mg .ROUTE .STK-MED ONE Stop: 06/12/17 13:58 Meropenem (Merrem) Confirm Administered Dose 500 mg .ROUTE .STK-MED ONE Stop: 06/12/17 10:50 Last Admin: 06/12/17 14:15 Dose: 500 mg Meropenem (Merrem) Confirm Administered Dose 500 mg .ROUTE .STK-MED ONE Stop: 06/12/17 11:34 Morphine Sulfate (Morphine) 2 mg IVPUSH Q2H PRN PRN Reason: Pain (severe 7-10) Last Admin: 06/12/17 11:37 Dose: 2 mg Neostigmine Methylsulfate (Neostigmine) Confirm Administered Dose 5 mg .ROUTE .STK-MED ONE Stop: 06/12/17 10:46 Ondansetron HCl (Zofran) 4 mg IVPUSH ONETIME PRN PRN Reason: Nausea/Vomiting Last Admin: 06/11/17 00:10 Dose: 4 mg Ondansetron HCl (Zofran) Confirm Administered Dose 4 mg .ROUTE .STK-MED ONE Stop: 06/12/17 10:46 Pantoprazole Sodium (Protonix Iv) 40 mg IV Q12H [facility] Last Admin: 06/11/17 03:19 Dose: 40 mg Pantoprazole Sodium (Protonix Iv) 40 mg IV Q12H [facility] Last Admin: 06/12/17 04:02 Dose: 40 mg Pantoprazole Sodium (Protonix Iv) 40 mg IV Q12H [facility] Stop: 06/14/17 06:01 Last Admin: 06/14/17 05:18 Dose: 40 mg Phenytoin Sodium (Phenytoin) 100 mg PO BID [facility] Last Admin: 06/12/17 09:36 Dose: Not Given Phenytoin Sodium (Phenytoin) 100 mg IV Q12H [facility] Last Admin: 06/13/17 21:26 Dose: 100 mg Pneumococcal Polyvalent Vaccine (Pneumovax 23) 0.5 ml IM .ONCE ONE Stop: 06/11/17 10:01 Last Admin: 06/11/17 13:41 Dose: 0.5 ml Propofol (Diprivan 20 Ml) Confirm Administered Dose 200 mg .ROUTE .STK-MED ONE Stop: 06/11/17 10:12 Propofol (Diprivan 20 Ml) Confirm Administered Dose 200 mg .ROUTE .STK-MED ONE Stop: 06/12/17 10:46 Rocuronium [place] (Zemuron) Confirm Administered Dose 50 mg .ROUTE .STK-MED ONE Stop: 06/12/17 10:46 Spironolactone (Aldactone) 25 mg PO DAILY [facility] Last Admin: 06/12/17 09:36 Dose: Not Given Succinylcholine Chloride (Quelicin) Confirm Administered Dose 200 mg .ROUTE .STK -MED ONE Stop: 06/12/17 10:46 - Problem List & Annotations (1) Abdominal pain, epigastric SNOMED Code(s): 18444781 Code(s): R10.13 - EPIGASTRIC PAIN Status: Acute Priority: High Current Visit: Yes (2) Abnormal findings on esophagogastroduodenoscopy (EGD) SNOMED Code(s): 354457380 Code(s): R19.8 - OTH SYMPTOMS AND SIGNS INVOLVING THE DGSTV SYS AND ABDOMEN Status: Acute Current Visit: Yes - Problem List Review Problem List Initiated/Reviewed/Updated: Yes - My Orders Last 24 Hours: Active Orders 24 hr Category Date Time Status Communication Order [RC] ROUTINE Care 06/14/17 07:45 Active Insert Gomez Catheter [Insert Urinary Catheter] [OM.PC] Care 06/14/17 18:15 Ordered Q24H Clear Liquid Diet [DIET] Diet 06/14/17 Breakfast Active NPO After Midnight [Nothing per Oral After Midnight Diet 06/15/17 Breakfast Active Diet] [DIET] Abdomen Pelvis wo Cont [CT] Stat Exams 06/14/17 06:52 Taken Pantoprazole [ProTONIX IV] Med 06/15/17 06:00 Active 40 mg IV Q24H Phenytoin Med 06/14/17 09:00 Active 150 mg IV Q12H Medication Orders Albuterol/Ipratropium (Duoneb 3.0-0.5 Mg/3 Ml) 3 ml NEB QIDRT [facility] Last Admin: 06/14/17 21:37 Dose: 3 ml Admin: 06/14/17 15:05 Dose: 3 ml Admin: 06/14/17 11:25 Dose: 3 ml Admin: 06/14/17 07:53 Dose: 3 ml Admin: 06/13/17 21:26 Dose: 3 ml Admin: 06/13/17 14:56 Dose: 3 ml Admin: 06/13/17 11:44 Dose: 3 ml Admin: 06/13/17 09:06 Dose: 3 ml Admin: 06/12/17 21:33 Dose: 3 ml Albuterol/Ipratropium (Duoneb 3.0-0.5 Mg/3 Ml) 3 ml INH ASDIRECTED PRN PRN Reason: Shortness of Breath Diphenhydramine HCl (Benadryl) 50 mg IVPUSH Q4H PRN PRN Reason: Itching Last Admin: 06/13/17 11:33 Dose: 50 mg Hydroxyzine HCl (Vistaril) 100 mg IM Q4H PRN PRN Reason: PAIN Cefoxitin Sodium 2 gm/ Sodium (Chloride) 50 mls @ 100 mls/hr IV Q6H [facility] Last Admin: 06/15/17 04:11 Dose: 100 mls/hr Admin: 06/14/17 22:15 Dose: 100 mls/hr Admin: 06/14/17 17:05 Dose: 100 mls/hr Admin: 06/14/17 11:19 Dose: 100 mls/hr Admin: 06/14/17 05:15 Dose: 100 mls/hr Admin: 06/13/17 23:22 Dose: 100 mls/hr Admin: 06/13/17 16:42 Dose: 100 mls/hr Admin: 06/13/17 11:46 Dose: 100 mls/hr Admin: 06/13/17 05:01 Dose: 100 mls/hr Admin: 06/12/17 23:44 Dose: 100 mls/hr Magnesium Sulfate 2 gm/ Premix 50 mls @ 25 mls/hr IV Q6H [facility] Stop: 06/16/17 05:59 Last Admin: 06/15/17 04:12 Dose: 25 mls/hr Infusion: 06/14/17 23:38 Dose: 25 mls/hr Admin: 06/14/17 21:38 Dose: 25 mls/hr Infusion: 06/14/17 17:42 Dose: 25 mls/hr Admin: 06/14/17 15:42 Dose: 25 mls/hr Infusion: 06/14/17 11:10 Dose: 25 mls/hr Admin: 06/14/17 09:10 Dose: 25 mls/hr Infusion: 06/14/17 05:54 Dose: 25 mls/hr Admin: 06/14/17 03:54 Dose: 25 mls/hr Infusion: 06/13/17 23:27 Dose: 25 mls/hr Admin: 06/13/17 21:27 Dose: 25 mls/hr Infusion: 06/13/17 18:40 Dose: 25 mls/hr Admin: 06/13/17 16:40 Dose: 25 mls/hr Infusion: 06/13/17 13:47 Dose: 25 mls/hr Admin: 06/13/17 11:47 Dose: 25 mls/hr Multivitamins/Minerals 10 ml/Chromium/Copper/Manganese/Seleni/Zn 1 ml/ Amino Ac/ Electrol/Dextrose/Calcium 1,011 mls @ 100 mls/hr IV .BY DURATION [facility] Last Admin: 06/15/17 05:20 Dose: 100 mls/hr Infusion: 06/14/17 20:07 Dose: 100 mls/hr Admin: 06/14/17 10:00 Dose: 100 mls/hr Infusion: 06/13/17 22:07 Dose: 100 mls/hr Admin: 06/13/17 12:00 Dose: 100 mls/hr Amino Ac/Electrol/Dextrose/Calcium (Clinimix E 01/26) 1,000 mls @ 100 mls/hr IV .BY DURATION [facility] Last Admin: 06/14/17 19:13 Dose: 100 mls/hr Infusion: 06/14/17 10:04 Dose: 100 mls/hr Admin: 06/14/17 00:04 Dose: 100 mls/hr Sodium Chloride (Normal Saline) 1,000 mls @ 0 mls/hr IV ASDIRECTED [facility] PRN Reason: KVO Lorazepam (Ativan) 1 mg IV Q6H PRN PRN Reason: Nausea/Vomiting Last Admin: 06/11/17 04:07 Dose: 1 mg Metoclopramide HCl (Reglan) 10 mg IV Q6H [facility] Last Admin: 06/15/17 05:23 Dose: 10 mg Admin: 06/15/17 00:03 Dose: 10 mg Admin: 06/14/17 17:06 Dose: 10 mg Admin: 06/14/17 11:19 Dose: 10 mg Admin: 06/14/17 05:18 Dose: 10 mg Admin: 06/14/17 00:18 Dose: 10 mg Admin: 06/13/17 17:57 Dose: 10 mg Admin: 06/13/17 12:00 Dose: 10 mg Admin: 06/13/17 06:47 Dose: 10 mg Admin: 06/12/17 23:45 Dose: 10 mg Admin: 06/12/17 17:22 Dose: 10 mg Morphine Sulfate (Morphine Teacher Dancing 150 Mg In 30 Ml) 0 mg IV ASDIRECTED PRN; Protocol PRN Reason: PAIN Last Admin: 06/12/17 17:30 Dose: 150 mg Naloxone HCl (Narcan) 0.1 mg IV ASDIRECTED PRN PRN Reason: RESP DISTRESS Ondansetron HCl (Zofran) 4 mg IV Q4H PRN PRN Reason: Nausea/Vomiting Pantoprazole Sodium (Protonix Iv) 40 mg IV Q24H [facility] Last Admin: 06/15/17 05:23 Dose: 40 mg Phenytoin Sodium (Phenytoin) 150 mg IV Q12H [facility] Last Admin: 06/14/17 21:37 Dose: 150 mg Admin: 06/14/17 09:11 Dose: 150 mg - Assessment Assessment (Free Text/Narrative):: Status post exploratory laparotomy with resection of gastric mass. Bile leak from LAYNE drain. - Plan Plan (Free Text/Narrative):: 1. NPO for surgery. 2. Exploratory laparotomy with drainage of common bile duct scheduled for this morning. LEEANN Pedroza Student
[2017-06-15] MEDS: Albuterol/Ipratropium 3.0-0.5 MG/3 ML Neb Soln NEB SCH ×4 (07:21→22:01)
[2017-06-15] MEDS ORDERED: Meropenem 500 MG SDV ONE (07:28)
--- NOTE | 2017-06-15 08:57 | CR ---
Chest 1V Frontal HISTORY: Central line placement. COMPARISON: None FINDINGS: Left-sided central line placement. There is no pneumothorax or infiltrates seen. Cardiac si ze normal.
[2017-06-15] MEDS ORDERED: Ropivacaine 27 ML, Dexamethasone 8 MG, EPINEPHrine 0.4 MG, Sodium Chloride 0.9% 50.6 ML NERVRT SCH ×4 (10:00)
[2017-06-15] MEDS ORDERED: Sodium Chloride 0.9% 500 ML ONE (10:24)
[2017-06-15] MEDS ORDERED: Sodium Chloride 0.9% 10 ML ONE (10:33)
[2017-06-15] MEDS ORDERED: cefOXitin 2 GM Vial ONE (10:33)
[2017-06-15] MEDS: Sodium Chloride 0.9% 1,000 ML IV SCH (12:27)
[2017-06-15] MEDS ORDERED: Haloperidol Lactate 5 MG/ML SDV IVPUSH ONE (13:05)
[2017-06-15] MEDS ORDERED: Haloperidol Lactate 5 MG/ML SDV IVPUSH PRN (13:06)
--- NOTE | 2017-06-15 14:22 | PCM.PN ---
- General Info Date of Service: 06/15/17 Functional Status: Reports: Pain Controlled - Review of Systems General: Reports: Weakness Systems Review Comment:: Ms. Rodrigues is currently weak and sedated been just undergone exploratory laparotomy because of a bile leak. Oxygenation has been adequate with supplemental oxygen, she has continued to have a sinus tachycardia which did go up during surgery. Blood pressure is not yet adequate to start regular beta dwain therapy. Hopefully this was secondary to some underlying untreated infection and will improve over the next several hours. Vital signs are otherwise acceptable and she is currently afebrile. White blood cell count did improve from yesterday but still remains elevated. - Patient Data Vitals - Most Recent: Last Vital Signs Temp 100.3 F 06/15/17 14:05 Pulse 139 H 06/15/17 14:05 Resp 16 06/15/17 14:05 BP 104/34 L 06/15/17 14:05 Pulse Ox 93 L 06/15/17 14:05 Weight - Most Recent: 119 lb 14.4 oz I&O - Last 24 Hours: Intake & Output 06/14/17 06/15/17 06/15/17 22:59 06:59 14:59 Intake Total 1658 1370 900 Output Total 415 1450 1042 Balance 1243 -80 -142 Lab Results Last 24 Hours: Laboratory Results - last 24 hr 06/11/17 06/11/17 06/15/17 Range/Units 12:36 12:39 04:25 WBC 17.8 H (4.5-11.0) K/uL RBC 2.69 L (3.30-5.50) M/uL Hgb 8.6 L (12.0-15.0) g/dL Hct 26.6 L (36.0-48.0) % MCV 99 H (80-98) fL MCH 32 H (27-31) pg MCHC 32 (32-36) % Plt Count 143 L (150-400) K/uL Sodium (140-148) mmol/L Potassium (3.6-5.2) mmol/L Chloride (100-108) mmol/L Carbon Dioxide (21-32) mmol/L Anion Gap (5.0-14.0) mmol/L BUN (7-18) mg/dL Creatinine (0.6-1.0) mg/dL Est Cr Clr Drug Dosing mL/min Estimated GFR (MDRD) (>60) Glucose (74-106) mg/dL Calcium (8.5-10.1) mg/dL Phosphorus (2.5-4.9) mg/dL Total Bilirubin (0.2-1.0) mg/dL AST (15-37) U/L ALT (12-78) U/L Alkaline Phosphatase (46-116) U/L NT-Pro-B Natriuret Pep (5-125) pg/mL Total Protein (6.4-8.2) g/dL Albumin (3.4-5.0) g/dL Globulin (2.3-3.5) g/dL Albumin/Globulin Ratio (1.2-2.2) Carcinoembryonic Ag 5.1 H (0.0-3.7) ng/mL Blood Type O POSITIVE Gel Antibody Screen Positive A* Antibody Identification Anti-K Crossmatch See Detail 06/15/17 Range/Units 04:25 WBC (4.5-11.0) K/uL RBC (3.30-5.50) M/uL Hgb (12.0-15.0) g/dL Hct (36.0-48.0) % MCV (80-98) fL MCH (27-31) pg MCHC (32-36) % Plt Count (150-400) K/uL Sodium 137 L (140-148) mmol/L Potassium 4.1 (3.6-5.2) mmol/L Chloride 102 (100-108) mmol/L Carbon Dioxide 30 (21-32) mmol/L Anion Gap 9.1 (5.0-14.0) mmol/L BUN 23 H (7-18) mg/dL Creatinine 0.7 (0.6-1.0) mg/dL Est Cr Clr Drug Dosing 69.79 mL/min Estimated GFR (MDRD) > 60 (>60) Glucose 105 (74-106) mg/dL Calcium 7.7 L (8.5-10.1) mg/dL Phosphorus 3.2 (2.5-4.9) mg/dL Total Bilirubin 2.9 H (0.2-1.0) mg/dL AST 89 H (15-37) U/L ALT 110 H (12-78) U/L Alkaline Phosphatase 116 (46-116) U/L NT-Pro-B Natriuret Pep 128 H (5-125) pg/mL Total Protein 4.9 L (6.4-8.2) g/dL Albumin 1.6 L (3.4-5.0) g/dL Globulin 3.3 (2.3-3.5) g/dL Albumin/Globulin Ratio 0.5 L (1.2-2.2) Carcinoembryonic Ag (0.0-3.7) ng/mL Blood Type Gel Antibody Screen Antibody Identification Crossmatch Med Orders - Current: Current Medications Albuterol/Ipratropium (Duoneb 3.0-0.5 Mg/3 Ml) 3 ml NEB QIDRT [facility] Last Admin: 06/15/17 11:04 Dose: Not Given Albuterol/Ipratropium (Duoneb 3.0-0.5 Mg/3 Ml) 3 ml INH ASDIRECTED PRN PRN Reason: Shortness of Breath Ropivacaine 27 ml/Dexamethasone 8 mg/Epinephrine HCl 0.4 mg/ Sodium Chloride 50.6 ml 0 ml NERVRT ASDIRECTED [facility] Last Admin: 06/15/17 11:38 Dose: 80 syringe Diphenhydramine HCl (Benadryl) 50 mg IVPUSH Q4H PRN PRN Reason: Itching Last Admin: 06/13/17 11:33 Dose: 50 mg Haloperidol Lactate (Haldol) 2.5 mg IVPUSH Q1H PRN PRN Reason: Agitation Hydroxyzine HCl (Vistaril) 100 mg IM Q4H PRN PRN Reason: PAIN Cefoxitin Sodium 2 gm/ Sodium (Chloride) 50 mls @ 100 mls/hr IV Q6H [facility] Last Admin: 06/15/17 14:12 Dose: 100 mls/hr Magnesium Sulfate 2 gm/ Premix 50 mls @ 25 mls/hr IV Q6H [facility] Stop: 06/16/17 05:59 Last Admin: 06/15/17 04:12 Dose: 25 mls/hr Multivitamins/Minerals 10 ml/Chromium/Copper/Manganese/Seleni/Zn 1 ml/ Amino Ac/ Electrol/Dextrose/Calcium 1,011 mls @ 100 mls/hr IV .BY DURATION [facility] Last Admin: 06/15/17 05:20 Dose: 100 mls/hr Amino Ac/Electrol/Dextrose/Calcium (Clinimix E 5/15) 1,000 mls @ 100 mls/hr IV .BY DURATION [facility] Last Admin: 06/14/17 19:13 Dose: 100 mls/hr Sodium Chloride (Normal Saline) 1,000 mls @ 0 mls/hr IV ASDIRECTED [facility] PRN Reason: KVO Last Admin: 06/15/17 12:27 Dose: 25 mls/hr Lorazepam (Ativan) 1 mg IV Q6H PRN PRN Reason: Nausea/Vomiting Last Admin: 06/11/17 04:07 Dose: 1 mg Metoclopramide HCl (Reglan) 10 mg IV Q6H [facility] Last Admin: 06/15/17 14:10 Dose: 10 mg Morphine Sulfate (Morphine Casing Tester 150 Mg In 30 Ml) 0 mg IV ASDIRECTED PRN; Protocol PRN Reason: PAIN Last Admin: 06/12/17 17:30 Dose: 150 mg Naloxone HCl (Narcan) 0.1 mg IV ASDIRECTED PRN PRN Reason: RESP DISTRESS Ondansetron HCl (Zofran) 4 mg IV Q4H PRN PRN Reason: Nausea/Vomiting Pantoprazole Sodium (Protonix Iv) 40 mg IV Q24H [facility] Last Admin: 06/15/17 05:23 Dose: 40 mg Phenytoin Sodium (Phenytoin) 150 mg IV Q12H [facility] Last Admin: 06/15/17 08:03 Dose: 150 mg Discontinued Medications Albuterol (Proventil Neb Soln) 2.5 mg NEB Q4H PRN PRN Reason: Shortness Of Breath/wheezing Albuterol/Ipratropium (Duoneb 3.0-0.5 Mg/3 Ml) 3 ml NEB QID PRN PRN Reason: Shortness Of Breath/wheezing Bupivacaine HCl/Epinephrine Bitart (Marcaine 0.5%/Epinephrine 1:200,000) Confirm Administered Dose 50 ml .ROUTE .STK-MED ONE Stop: 06/12/17 11:32 Cefoxitin Sodium (Mefoxin) Confirm Administered Dose 2 gm .ROUTE .STK-MED ONE Stop: 06/15/17 10:34 Al Hydroxide/Mg Hydroxide 15 (ml/ Lidocaine HCl 15 ml) 0 ml PO ONETIME ONE Stop: 06/10/17 23:58 Last Admin: 06/11/17 00:16 Dose: 15 ml Ropivacaine 27 ml/Dexamethasone 8 mg/Epinephrine HCl 0.4 mg/ Sodium Chloride 50.6 ml 0 ml NERVRT ASDIRECTED [facility] Stop: 06/12/17 11:30 Last Admin: 06/12/17 13:15 Dose: 80 syringe Dexamethasone (Dexamethasone) Confirm Administered Dose 4 mg .ROUTE .STK-MED ONE Stop: 06/12/17 10:46 Dexamethasone (Dexamethasone) Confirm Administered Dose 4 mg .ROUTE .STK-MED ONE Stop: 06/15/17 07:14 Diphenhydramine HCl (Benadryl) Confirm Administered Dose 50 mg .ROUTE .STK-MED ONE Stop: 06/13/17 11:30 Last Admin: 06/13/17 11:59 Dose: Not Given Fentanyl (Sublimaze) Confirm Administered Dose 100 mcg .ROUTE .STK-MED ONE Stop: 06/11/17 10:12 Fentanyl (Sublimaze) Confirm Administered Dose 100 mcg .ROUTE .ST-MED ONE Stop: 06/12/17 13:28 Fentanyl (Sublimaze) Confirm Administered Dose 100 mcg .ROUTE .STK-MED ONE Stop: 06/12/17 13:30 Fentanyl Citrate (Fentanyl) Confirm Administered Dose 500 mcg .ROUTE .STK-MED ONE Stop: 06/12/17 10:46 Fentanyl Citrate (Fentanyl) Confirm Administered Dose 500 mcg .ROUTE .STK-MED ONE Stop: 06/15/17 07:13 Furosemide (Lasix) 20 mg IVPUSH ONETIME ONE Stop: 06/13/17 12:35 Last Admin: 06/13/17 12:50 Dose: 20 mg Furosemide (Lasix) 40 mg IVPUSH NOW ONE Stop: 06/13/17 17:44 Last Admin: 06/13/17 17:57 Dose: 40 mg Furosemide (Lasix) Confirm Administered Dose 40 mg .ROUTE .STK-MED ONE Stop: 06/13/17 17:55 Last Admin: 06/13/17 18:00 Dose: Not Given Glycopyrrolate (Glycopyrrolate) 0.4 mg IVPUSH ONETIME ONE Stop: 06/11/17 09:01 Last Admin: 06/11/17 10:08 Dose: 0.4 mg Glycopyrrolate (Robinul) Confirm Administered Dose 1 mg .ROUTE .STK-MED ONE Stop: 06/12/17 10:46 Glycopyrrolate (Robinul) Confirm Administered Dose 1 mg .ROUTE .[facility] ONE Stop: 06/15/17 07:14 Haloperidol Lactate (Haldol) 2.5 mg IVPUSH ONETIME ONE Stop: 06/15/17 13:06 Last Admin: 06/15/17 13:13 Dose: 2.5 mg Heparin Sodium (Porcine) (Heparin Lock Flush 100 Units/Ml) Confirm Administered Dose 500 units .ROUTE .[facility] ONE Stop: 06/12/17 10:50 Sodium Chloride (Normal Saline) 1,000 mls @ 125 [facility] Admin: 06/11/17 00:10 Dose: 125 mls/hr Dextrose/Lactated Ringer's (Dextrose 5%-Lactated Ringers) 1,000 mls @ 150 mls[facility] Last Admin: 06/12/17 01:26 Dose: 150 mls/hr Cefoxitin Sodium 2 gm/ Sodium (Chloride) 50 mls @ 100 mls/hr IV ONCALL ONE Stop: 06/12/17 09:59 Last Admin: 06/12/17 12:15 Dose: 100 mls/hr Magnesium Sulfate 2 gm/ Sodium (Chloride) 54 mls @ 27 mls/hr IV Q6HR [facility] Stop: 06/14/17 11:59 Last Admin: 06/12/17 10:11 Dose: 27 mls/hr Dextrose/Lactated Ringer's (Dextrose 5%-Lactated Ringers) 1,000 mls @ 100 mls[facility] Stop: 06/13/17 12:00 Last Admin: 06/12/17 08:06 Dose: 100 mls/hr Sodium Chloride (Normal Saline) Confirm Administered Dose 10 mls @ as directed .ROUTE .[facility] ONE Stop: 06/12/17 11:34 Lactated Ringer's (Ringers, Lactated) Confirm Administered Dose 1,000 mls @ as directed .ROUTE .[facility] ONE Stop: 06/12/17 13:25 Cefoxitin Sodium 2 gm/ Sodium (Chloride) 50 mls @ 100 mls/hr IV ONETIME ONE Stop: 06/12/17 17:29 Last Admin: 06/12/17 17:18 Dose: 100 mls/hr Lactated Ringer's (Ringers, Lactated) 1,000 mls @ 125 mls/hr IV ASDIRECTED [facility] Last Admin: 06/13/17 10:18 Dose: 125 mls/hr Lactated Ringer's (Ringers, Lactated) 500 mls @ 500 mls/hr IV .[facility] Last Admin: 06/13/17 00:44 Dose: 500 mls/hr Acetaminophen 1,000 mg/ Premix 100 mls @ 400 mls/hr IV ONETIME ONE Stop: 06/13/17 12:54 Last Admin: 06/13/17 12:45 Dose: 400 mls/hr Linezolid (Zyvox) Confirm Administered Dose 100 mls @ as directed .ROUTE .STK- MED ONE Stop: 06/15/17 07:29 Sodium Chloride (Normal Saline) Confirm Administered Dose 500 mls @ as directed .ROUTE .STK-MED ONE Stop: 06/15/17 10:25 Sodium Chloride (Normal Saline) Confirm Administered Dose 10 mls @ as directed .ROUTE .STK-MED ONE Stop: 06/15/17 10:34 Labetalol HCl (Normodyne) Confirm Administered Dose 20 mg .ROUTE .STK-MED ONE Stop: 06/12/17 13:58 Meropenem (Merrem) Confirm Administered Dose 500 mg .ROUTE .STK-MED ONE Stop: 06/12/17 10:50 Last Admin: 06/12/17 14:15 Dose: 500 mg Meropenem (Merrem) Confirm Administered Dose 500 mg .ROUTE .STK-MED ONE Stop: 06/12/17 11:34 Meropenem (Merrem) Confirm Administered Dose 500 mg .ROUTE .STK-MED ONE Stop: 06/15/17 07:29 Last Admin: 06/15/17 08:50 Dose: 500 mg Morphine Sulfate (Morphine) 2 mg IVPUSH Q2H PRN PRN Reason: Pain (severe 7-10) Last Admin: 06/12/17 11:37 Dose: 2 mg Neostigmine Methylsulfate (Neostigmine) Confirm Administered Dose 5 mg .ROUTE .STK-MED ONE Stop: 06/12/17 10:46 Neostigmine Methylsulfate (Neostigmine) Confirm Administered Dose 5 mg .ROUTE .STK-MED ONE Stop: 06/15/17 07:14 Ondansetron HCl (Zofran) 4 mg IVPUSH ONETIME PRN PRN Reason: Nausea/Vomiting Last Admin: 06/11/17 00:10 Dose: 4 mg Ondansetron HCl (Zofran) Confirm Administered Dose 4 mg .ROUTE .STK-MED ONE Stop: 06/12/17 10:46 Ondansetron HCl (Zofran) Confirm Administered Dose 4 mg .ROUTE .STK-MED ONE Stop: 06/15/17 07:14 Pantoprazole Sodium (Protonix Iv) 40 mg IV Q12H [facility] Last Admin: 06/11/17 03:19 Dose: 40 mg Pantoprazole Sodium (Protonix Iv) 40 mg IV Q12H [facility] Last Admin: 06/12/17 04:02 Dose: 40 mg Pantoprazole Sodium (Protonix Iv) 40 mg IV Q12H [facility] Stop: 06/14/17 06:01 Last Admin: 06/14/17 05:18 Dose: 40 mg Phenytoin Sodium (Phenytoin) 100 mg PO BID [facility] Last Admin: 06/12/17 09:36 Dose: Not Given Phenytoin Sodium (Phenytoin) 100 mg IV Q12H [facility] Last Admin: 06/13/17 21:26 Dose: 100 mg Pneumococcal Polyvalent Vaccine (Pneumovax 23) 0.5 ml IM .ONCE ONE Stop: 06/11/17 10:01 Last Admin: 06/11/17 13:41 Dose: 0.5 ml Propofol (Diprivan 20 Ml) Confirm Administered Dose 200 mg .ROUTE .STK-MED ONE Stop: 06/11/17 10:12 Propofol (Diprivan 20 Ml) Confirm Administered Dose 200 mg .ROUTE .STK-MED ONE Stop: 06/12/17 10:46 Propofol (Diprivan 20 Ml) Confirm Administered Dose 200 mg .ROUTE .STK-MED ONE Stop: 06/15/17 07:14 Rocuronium [place] (Zemuron) Confirm Administered Dose 50 mg .ROUTE .STK-MED ONE Stop: 06/12/17 10:46 Rocuronium [place] (Zemuron) Confirm Administered Dose 50 mg .ROUTE .STK-MED ONE Stop: 06/15/17 07:14 Rocuronium [place] (Zemuron) Confirm Administered Dose 50 mg .ROUTE .STK-MED ONE Stop: 06/15/17 11:32 Spironolactone (Aldactone) 25 mg PO DAILY [facility] Last Admin: 06/12/17 09:36 Dose: Not Given Succinylcholine Chloride (Quelicin) Confirm Administered Dose 200 mg .ROUTE .STK -MED ONE Stop: 06/12/17 10:46 Succinylcholine Chloride (Quelicin) Confirm Administered Dose 200 mg .ROUTE .STK -MED ONE Stop: 06/15/17 07:14 - Exam Quality Assessment: Supplemental Oxygen, Urine Catheter General: Sedated, Lethargic Lungs: Clear to Auscultation, Normal Respiratory Effort Cardiovascular: Regular Rhythm, No Murmurs, Tachycardia Extremities: Non-Tender, No Pedal Edema - Problem List Review Problem List Initiated/Reviewed/Updated: Yes - Plan Plan:: ASSESSMENT / PLAN Abdominal Pain x 2 month with unintentional wt loss and dysphasia - 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 Status post exploratory laparotomy with partial gastrectomy and additional debridement. Status post follow-up exploratory laparotomy today with further debridement of pancreatic tissue and creation of Mona-en-Y -Pain control -Nausea control -Advance diet per surgical instructions -TPN initiated 06/13 Sinus tachycardia - persistent tachycardia, hopefully this was secondary to some persistent residual infection taken care of during surgery today -Cardiac monitoring -Reassess volume status -Optimize pain control Tobacco dependence - will need strong recommendations regarding cessation -declines Nicotine patches, make her feel sick Maintenance issues -Nutrition: NPO -Gomez catheter - placed postoperatively -DVT: SCD -PPI; IV Protonix 40mg daily -consult OT for discharge planning -consult PT for strengthening. Disposition; anticipate discharge home versus detention after the hospital stay
[2017-06-15] MEDS: Morphine PF 150 MG/30 ML PCA Syringe IV PRN (15:18)
[2017-06-16] MEDS: 1: AA 5%/Calcium/D15W/Lytes 1,000 ML with MVI, Adult with Vitamin K 10 ML, Chromium/Copp IV SCH ×9 (01:00→21:40)
[2017-06-16] MEDS: cefOXitin 2 GM in Sodium Chloride 0.9% 50 ML IV SCH ×3 (01:02→14:47)
[2017-06-16] MEDS: Magnesium Sulfate/Water 2 GM in Premix Bag 1 BAG IV SCH ×2 (02:22→09:01)
[2017-06-16] MEDS: Metoclopramide 10 MG/2 ML SDV IV SCH ×4 (05:06→17:05)
[2017-06-16] MEDS: Pantoprazole 40 MG Vial IV SCH (05:06)
--- NOTE | 2017-06-16 07:11 | PCM.SURGPN ---
- General Info Date of Service: 06/16/17 Date of Surgery/Procedure: 06/15/17 POD#: 1 Post-Op Diagnosis: biliary obstruction Functional Status: Reports: Pain Controlled, Ambulating (up to chair last night) , Urinating - Review of Systems General: Reports: Weakness HEENT: Reports: No Symptoms Pulmonary: Reports: No Symptoms Cardiovascular: Reports: No Symptoms Gastrointestinal: Reports: No Symptoms Genitourinary: Reports: No Symptoms Musculoskeletal: Reports: No Symptoms Skin: Reports: No Symptoms Neurological: Reports: No Symptoms Psychiatric: Reports: No Symptoms Systems Review Comment:: Soco was confused and agitated yesterday after surgery, however this has improved today. She reports that she is feeling fair today. She was up to the chair last night and states that she did well with this. She has had good urine output. 150 cc output from her G-tube and 190 and 210 cc out of her LAYNE drains per nursing. Continues on TPN at 100 ml/hr. She received 1 unit of PRBC in surgery yesterday. She will be going for a delayed primary closure tomorrow. - Patient Data Vitals - Most Recent: Last Vital Signs Temp 36.8 C 06/16/17 02:56 Pulse 122 H 06/16/17 02:56 Resp 16 06/16/17 02:56 BP 117/57 L 06/16/17 02:56 Pulse Ox 96 06/16/17 02:56 Weight - Most Recent: 54.386 kg I&O - Last 24 Hours: Intake & Output 06/15/17 06/16/17 06/16/17 22:59 06:59 14:59 Intake Total 1423 1528 Output Total 1065 1015 Balance 358 513 Lab Results Last 24 Hrs: Laboratory Results - last 24 hr 06/11/17 06/11/17 06/16/17 Range/Units 12:36 12:39 04:13 WBC 23.7 H (4.5-11.0) K/uL RBC 3.12 L (3.30-5.50) M/uL Hgb 9.6 L (12.0-15.0) g/dL Hct 28.8 L (36.0-48.0) % MCV 92 (80-98) fL MCH 31 (27-31) pg MCHC 33 (32-36) % Plt Count 157 (150-400) K/uL Sodium (140-148) mmol/L Potassium (3.6-5.2) mmol/L Chloride (100-108) mmol/L Carbon Dioxide (21-32) mmol/L Anion Gap (5.0-14.0) mmol/L BUN (7-18) mg/dL Creatinine (0.6-1.0) mg/dL Est Cr Clr Drug Dosing mL/min Estimated GFR (MDRD) (>60) Glucose (74-106) mg/dL Calcium (8.5-10.1) mg/dL Phosphorus (2.5-4.9) mg/dL Total Bilirubin (0.2-1.0) mg/dL AST (15-37) U/L ALT (12-78) U/L Alkaline Phosphatase (46-116) U/L NT-Pro-B Natriuret Pep (5-125) pg/mL Total Protein (6.4-8.2) g/dL Albumin (3.4-5.0) g/dL Globulin (2.3-3.5) g/dL Albumin/Globulin Ratio (1.2-2.2) Carcinoembryonic Ag 5.1 H (0.0-3.7) ng/mL Phenytoin (10.0-20.0) ug/mL Blood Type O POSITIVE Gel Antibody Screen Positive A* Antibody Identification Anti-K Crossmatch See Detail 06/16/17 Range/Units 04:13 WBC (4.5-11.0) K/uL RBC (3.30-5.50) M/uL Hgb (12.0-15.0) g/dL Hct (36.0-48.0) % MCV (80-98) fL MCH (27-31) pg MCHC (32-36) % Plt Count (150-400) K/uL Sodium 138 L (140-148) mmol/L Potassium 4.6 (3.6-5.2) mmol/L Chloride 105 (100-108) mmol/L Carbon Dioxide 29 (21-32) mmol/L Anion Gap 8.6 (5.0-14.0) mmol/L BUN 22 H (7-18) mg/dL Creatinine 0.7 (0.6-1.0) mg/dL Est Cr Clr Drug Dosing 69.79 mL/min Estimated GFR (MDRD) > 60 (>60) Glucose 120 H (74-106) mg/dL Calcium 8.1 L (8.5-10.1) mg/dL Phosphorus 3.2 (2.5-4.9) mg/dL Total Bilirubin 2.2 H (0.2-1.0) mg/dL AST 121 H (15-37) U/L ALT 128 H (12-78) U/L Alkaline Phosphatase 103 (46-116) U/L NT-Pro-B Natriuret Pep 89 (5-125) pg/mL Total Protein 4.9 L (6.4-8.2) g/dL Albumin 1.5 L (3.4-5.0) g/dL Globulin 3.4 (2.3-3.5) g/dL Albumin/Globulin Ratio 0.4 L (1.2-2.2) Carcinoembryonic Ag (0.0-3.7) ng/mL Phenytoin 5.9 L (10.0-20.0) ug/mL Blood Type Gel Antibody Screen Antibody Identification Crossmatch Med Orders - Current: Current Medications Albuterol/Ipratropium (Duoneb 3.0-0.5 Mg/3 Ml) 3 ml NEB QIDRT GLORIA Last Admin: 06/15/17 22:01 Dose: Not Given Albuterol/Ipratropium (Duoneb 3.0-0.5 Mg/3 Ml) 3 ml INH ASDIRECTED PRN PRN Reason: Shortness of Breath Diphenhydramine HCl (Benadryl) 50 mg IVPUSH Q4H PRN PRN Reason: Itching Last Admin: 06/13/17 11:33 Dose: 50 mg Haloperidol Lactate (Haldol) 2.5 mg IVPUSH Q1H PRN PRN Reason: Agitation Heparin Sodium (Porcine) (Heparin Lock Flush 100 Units/Ml) 500 units FLUSH ASDIRECTED PRN PRN Reason: IV Use Last Admin: 06/16/17 04:04 Dose: 500 units Hydroxyzine HCl (Vistaril) 100 mg IM Q4H PRN PRN Reason: PAIN Multivitamins/Minerals 10 ml/Chromium/Copper/Manganese/Seleni/Zn 1 ml/ Amino Ac/ Electrol/Dextrose/Calcium 1,011 mls @ 100 mls/hr IV .BY DURATION [facility] Last Admin: 06/16/17 01:00 Dose: 100 mls/hr Amino Ac/Electrol/Dextrose/Calcium (Clinimix E 01/26) 1,000 mls @ 100 mls/hr IV .BY DURATION [facility] Last Admin: 06/15/17 14:53 Dose: 100 mls/hr Sodium Chloride (Normal Saline) 1,000 mls @ 0 mls/hr IV ASDIRECTED [facility] PRN Reason: KVO Last Admin: 06/15/17 12:27 Dose: 25 mls/hr Cefoxitin Sodium 2 gm/ Sodium (Chloride) 50 mls @ 100 mls/hr IV Q6H [facility] Last Admin: 06/16/17 01:02 Dose: 100 mls/hr Magnesium Sulfate 2 gm/ Premix 50 mls @ 25 mls/hr IV Q6H [facility] Stop: 06/16/17 10:29 Last Admin: 06/16/17 02:22 Dose: 25 mls/hr Lorazepam (Ativan) 1 mg IV Q6H PRN PRN Reason: Nausea/Vomiting Last Admin: 06/11/17 04:07 Dose: 1 mg Metoclopramide HCl (Reglan) 10 mg IV Q6H [facility] Last Admin: 06/16/17 05:06 Dose: 10 mg Morphine Sulfate (Morphine Ancillary Specialist 150 Mg In 30 Ml) 0 mg IV ASDIRECTED PRN; Protocol PRN Reason: PAIN Last Admin: 06/15/17 15:18 Dose: 150 mg Naloxone HCl (Narcan) 0.1 mg IV ASDIRECTED PRN PRN Reason: RESP DISTRESS Ondansetron HCl (Zofran) 4 mg IV Q4H PRN PRN Reason: Nausea/Vomiting Pantoprazole Sodium (Protonix Iv) 40 mg IV Q24H [facility] Last Admin: 06/16/17 05:06 Dose: 40 mg Phenytoin Sodium (Phenytoin) 150 mg IV Q12H [facility] Last Admin: 06/15/17 22:05 Dose: 150 mg Discontinued Medications Albuterol (Proventil Neb Soln) 2.5 mg NEB Q4H PRN PRN Reason: Shortness Of Breath/wheezing Albuterol/Ipratropium (Duoneb 3.0-0.5 Mg/3 Ml) 3 ml NEB QID PRN PRN Reason: Shortness Of Breath/wheezing Bupivacaine HCl/Epinephrine Bitart (Marcaine 0.5%/Epinephrine 1:200,000) Confirm Administered Dose 50 ml .ROUTE .STK-MED ONE Stop: 06/12/17 11:32 Cefoxitin Sodium (Mefoxin) Confirm Administered Dose 2 gm .ROUTE .STK-MED ONE Stop: 06/15/17 10:34 Al Hydroxide/Mg Hydroxide 15 (ml/ Lidocaine HCl 15 ml) 0 ml PO ONETIME ONE Stop: 06/10/17 23:58 Last Admin: 06/11/17 00:16 Dose: 15 ml Ropivacaine 27 ml/Dexamethasone 8 mg/Epinephrine HCl 0.4 mg/ Sodium Chloride 50.6 ml 0 ml NERVRT ASDIRECTED [facility] Stop: 06/12/17 11:30 Last Admin: 06/12/17 13:15 Dose: 80 syringe Ropivacaine 27 ml/Dexamethasone 8 mg/Epinephrine HCl 0.4 mg/ Sodium Chloride 50.6 ml 0 ml NERVRT ASDIRECTED [facility] Last Admin: 06/15/17 11:38 Dose: 80 syringe Dexamethasone (Dexamethasone) Confirm Administered Dose 4 mg .ROUTE .STK-MED ONE Stop: 06/12/17 10:46 Dexamethasone (Dexamethasone) Confirm Administered Dose 4 mg .ROUTE .STK-MED ONE Stop: 06/15/17 07:14 Diphenhydramine HCl (Benadryl) Confirm Administered Dose 50 mg .ROUTE .STK-MED ONE Stop: 06/13/17 11:30 Last Admin: 06/13/17 11:59 Dose: Not Given Fentanyl (Sublimaze) Confirm Administered Dose 100 mcg .ROUTE .STK-MED ONE Stop: 06/11/17 10:12 Fentanyl (Sublimaze) Confirm Administered Dose 100 mcg .ROUTE .STK-MED ONE Stop: 06/12/17 13:28 Fentanyl (Sublimaze) Confirm Administered Dose 100 mcg .ROUTE .STK-MED ONE Stop: 06/12/17 13:30 Fentanyl Citrate (Fentanyl) Confirm Administered Dose 500 mcg .ROUTE .STK-MED ONE Stop: 06/12/17 10:46 Fentanyl Citrate (Fentanyl) Confirm Administered Dose 500 mcg .ROUTE .STK-MED ONE Stop: 06/15/17 07:13 Furosemide (Lasix) 20 mg IVPUSH ONETIME ONE Stop: 06/13/17 12:35 Last Admin: 06/13/17 12:50 Dose: 20 mg Furosemide (Lasix) 40 mg IVPUSH NOW ONE Stop: 06/13/17 17:44 Last Admin: 06/13/17 17:57 Dose: 40 mg Furosemide (Lasix) Confirm Administered Dose 40 mg .ROUTE .STK-MED ONE Stop: 06/13/17 17:55 Last Admin: 06/13/17 18:00 Dose: Not Given Glycopyrrolate (Glycopyrrolate) 0.4 mg IVPUSH ONETIME ONE Stop: 06/11/17 09:01 Last Admin: 06/11/17 10:08 Dose: 0.4 mg Glycopyrrolate (Robinul) Confirm Administered Dose 1 mg .ROUTE .STK-MED ONE Stop: 06/12/17 10:46 Glycopyrrolate (Robinul) Confirm Administered Dose 1 mg .ROUTE .STK-MED ONE Stop: 06/15/17 07:14 Haloperidol Lactate (Haldol) 2.5 mg IVPUSH ONETIME ONE Stop: 06/15/17 13:06 Last Admin: 06/15/17 13:13 Dose: 2.5 mg Heparin Sodium (Porcine) (Heparin Lock Flush 100 Units/Ml) Confirm Administered Dose 500 units .ROUTE .STK-MED ONE Stop: 06/12/17 10:50 Sodium Chloride (Normal Saline) 1,000 mls @ 125 mls/hr IV ASDIRECTED [facility] Last Admin: 06/11/17 00:10 Dose: 125 mls/hr Dextrose/Lactated Ringer's (Dextrose 5%-Lactated Ringers) 1,000 mls @ 150 mls/ hr IV ASDIRECTED [facility] Last Admin: 06/12/17 01:26 Dose: 150 mls/hr Cefoxitin Sodium 2 gm/ Sodium (Chloride) 50 mls @ 100 mls/hr IV ONCALL ONE Stop: 06/12/17 09:59 Last Admin: 06/12/17 12:15 Dose: 100 mls/hr Magnesium Sulfate 2 gm/ Sodium (Chloride) 54 mls @ 27 mls/hr IV Q6HR [facility] Stop: 06/14/17 11:59 Last Admin: 06/12/17 10:11 Dose: 27 mls/hr Dextrose/Lactated Ringer's (Dextrose 5%-Lactated Ringers) 1,000 mls @ 100 mls/ hr IV ASDIRECTED [facility] Stop: 06/13/17 12:00 Last Admin: 06/12/17 08:06 Dose: 100 mls/hr Sodium Chloride (Normal Saline) Confirm Administered Dose 10 mls @ as directed .ROUTE .ST-MED ONE Stop: 06/12/17 11:34 Lactated Ringer's (Ringers, Lactated) Confirm Administered Dose 1,000 mls @ as directed .ROUTE .[facility] ONE Stop: 06/12/17 13:25 Cefoxitin Sodium 2 gm/ Sodium (Chloride) 50 mls @ 100 mls/hr IV ONETIME ONE Stop: 06/12/17 17:29 Last Admin: 06/12/17 17:18 Dose: 100 mls/hr Lactated Ringer's (Ringers, Lactated) 1,000 mls @ 125 mls/hr IV ASDIRECTED [facility] Last Admin: 06/13/17 10:18 Dose: 125 mls/hr Cefoxitin Sodium 2 gm/ Sodium (Chloride) 50 mls @ 100 mls/hr IV Q6H [facility] Last Admin: 06/15/17 14:12 Dose: 100 mls/hr Lactated Ringer's (Ringers, Lactated) 500 mls @ 500 mls/hr IV .BOLUS [facility] Last Admin: 06/13/17 00:44 Dose: 500 mls/hr Magnesium Sulfate 2 gm/ Premix 50 mls @ 25 mls/hr IV Q6H [facility] Stop: 06/16/17 05:59 Last Admin: 06/15/17 14:21 Dose: 25 mls/hr Acetaminophen 1,000 mg/ Premix 100 mls @ 400 mls/hr IV ONETIME ONE Stop: 06/13/17 12:54 Last Admin: 06/13/17 12:45 Dose: 400 mls/hr Linezolid (Zyvox) Confirm Administered Dose 100 mls @ as directed .ROUTE .[facility] ONE Stop: 06/15/17 07:29 Sodium Chloride (Normal Saline) Confirm Administered Dose 500 mls @ as directed .ROUTE .[facility] ONE Stop: 06/15/17 10:25 Sodium Chloride (Normal Saline) Confirm Administered Dose 10 mls @ as directed .ROUTE .[facility] ONE Stop: 06/15/17 10:34 Labetalol HCl (Normodyne) Confirm Administered Dose 20 mg .ROUTE .STK-MED ONE Stop: 06/12/17 13:58 Meropenem (Merrem) Confirm Administered Dose 500 mg .ROUTE .STK-MED ONE Stop: 06/12/17 10:50 Last Admin: 06/12/17 14:15 Dose: 500 mg Meropenem (Merrem) Confirm Administered Dose 500 mg .ROUTE .STK-MED ONE Stop: 06/12/17 11:34 Meropenem (Merrem) Confirm Administered Dose 500 mg .ROUTE .STK-MED ONE Stop: 06/15/17 07:29 Last Admin: 06/15/17 08:50 Dose: 500 mg Morphine Sulfate (Morphine) 2 mg IVPUSH Q2H PRN PRN Reason: Pain (severe 7-10) Last Admin: 06/12/17 11:37 Dose: 2 mg Neostigmine Methylsulfate (Neostigmine) Confirm Administered Dose 5 mg .ROUTE .STK-MED ONE Stop: 06/12/17 10:46 Neostigmine Methylsulfate (Neostigmine) Confirm Administered Dose 5 mg .ROUTE .STK-MED ONE Stop: 06/15/17 07:14 Ondansetron HCl (Zofran) 4 mg IVPUSH ONETIME PRN PRN Reason: Nausea/Vomiting Last Admin: 06/11/17 00:10 Dose: 4 mg Ondansetron HCl (Zofran) Confirm Administered Dose 4 mg .ROUTE .STK-MED ONE Stop: 06/12/17 10:46 Ondansetron HCl (Zofran) Confirm Administered Dose 4 mg .ROUTE .STK-MED ONE Stop: 06/15/17 07:14 Pantoprazole Sodium (Protonix Iv) 40 mg IV Q12H [facility] Last Admin: 06/11/17 03:19 Dose: 40 mg Pantoprazole Sodium (Protonix Iv) 40 mg IV Q12H [facility] Last Admin: 06/12/17 04:02 Dose: 40 mg Pantoprazole Sodium (Protonix Iv) 40 mg IV Q12H [facility] Stop: 06/14/17 06:01 Last Admin: 06/14/17 05:18 Dose: 40 mg Phenytoin Sodium (Phenytoin) 100 mg PO BID [facility] Last Admin: 06/12/17 09:36 Dose: Not Given Phenytoin Sodium (Phenytoin) 100 mg IV Q12H [facility] Last Admin: 06/13/17 21:26 Dose: 100 mg Pneumococcal Polyvalent Vaccine (Pneumovax 23) 0.5 ml IM .ONCE ONE Stop: 06/11/17 10:01 Last Admin: 06/11/17 13:41 Dose: 0.5 ml Propofol (Diprivan 20 Ml) Confirm Administered Dose 200 mg .ROUTE .STK-MED ONE Stop: 06/11/17 10:12 Propofol (Diprivan 20 Ml) Confirm Administered Dose 200 mg .ROUTE .STK-MED ONE Stop: 06/12/17 10:46 Propofol (Diprivan 20 Ml) Confirm Administered Dose 200 mg .ROUTE .STK-MED ONE Stop: 06/15/17 07:14 Rocuronium Roberts (Zemuron) Confirm Administered Dose 50 mg .ROUTE .STK-MED ONE Stop: 06/12/17 10:46 Rocuronium Roberts (Zemuron) Confirm Administered Dose 50 mg .ROUTE .STK-MED ONE Stop: 06/15/17 07:14 Rocuronium Roberts (Zemuron) Confirm Administered Dose 50 mg .ROUTE .STK-MED ONE Stop: 06/15/17 11:32 Spironolactone (Aldactone) 25 mg PO DAILY [facility] Last Admin: 06/12/17 09:36 Dose: Not Given Succinylcholine Chloride (Quelicin) Confirm Administered Dose 200 mg .ROUTE .STK -MED ONE Stop: 06/12/17 10:46 Succinylcholine Chloride (Quelicin) Confirm Administered Dose 200 mg .ROUTE .STK -MED ONE Stop: 06/15/17 07:14 - Exam Wound/Incisions: Healing Well Quality Assessment: Supplemental Oxygen, Central Line/PICC, Urine Catheter, DVT Prophylaxis General: Alert, Oriented, Cooperative, No Acute Distress HEENT: Pupils Equal, Pupils Reactive Neck: Supple Lungs: Clear to Auscultation, Normal Respiratory Effort Cardiovascular: Regular Rate, Tachycardia GI/Abdominal Exam: Tender Extremities: Normal Inspection, Normal Range of Motion Skin: Warm, Dry, Intact Neurological: No New Focal Deficit Psy/Mental Status: Alert, Normal Affect, Normal Mood - Problem List & Annotations (1) Abdominal pain, epigastric SNOMED Code(s): 28720375 Code(s): R10.13 - EPIGASTRIC PAIN Status: Acute Priority: High Current Visit: Yes (2) Abnormal findings on esophagogastroduodenoscopy (EGD) SNOMED Code(s): 726955244 Code(s): R19.8 - OTH SYMPTOMS AND SIGNS INVOLVING THE DGSTV SYS AND ABDOMEN Status: Acute Current Visit: Yes - Problem List Review Problem List Initiated/Reviewed/Updated: Yes - My Orders Last 24 Hours: Active Orders 24 hr Category Date Time Status NPO [Nothing Per Oral Diet] [DIET] Diet 06/15/17 Dinner Active Haloperidol Lactate [Haldol] Med 06/15/17 13:06 Active 2.5 mg IVPUSH Q1H PRN Heparin Sodium [Heparin Lock Flush 100 Units/ML] Med 06/16/17 03:57 Active 500 units FLUSH ASDIRECTED PRN Magnesium Sulfate/Water [Magnesium Sulfate 2 GM in Med 06/15/17 20:30 Active Water 50 ML] 2 gm Premix Bag 1 bag IV Q6H cefOXitin [Mefoxin] 2 gm Med 06/15/17 20:00 Active Sodium Chloride 0.9% [Normal Saline] 50 ml IV Q6H Medication Orders Albuterol/Ipratropium (Duoneb 3.0-0.5 Mg/3 Ml) 3 ml NEB QIDRT GLORIA Last Admin: 06/15/17 22:01 Dose: Not Given Admin: 06/15/17 14:31 Dose: 3 ml Admin: 06/15/17 11:04 Dose: Not Given Admin: 06/15/17 07:21 Dose: 3 ml Admin: 06/14/17 21:37 Dose: 3 ml Admin: 06/14/17 15:05 Dose: 3 ml Admin: 06/14/17 11:25 Dose: 3 ml Admin: 06/14/17 07:53 Dose: 3 ml Admin: 06/13/17 21:26 Dose: 3 ml Admin: 06/13/17 14:56 Dose: 3 ml Admin: 06/13/17 11:44 Dose: 3 ml Admin: 06/13/17 09:06 Dose: 3 ml Admin: 06/12/17 21:33 Dose: 3 ml Albuterol/Ipratropium (Duoneb 3.0-0.5 Mg/3 Ml) 3 ml INH ASDIRECTED PRN PRN Reason: Shortness of Breath Diphenhydramine HCl (Benadryl) 50 mg IVPUSH Q4H PRN PRN Reason: Itching Last Admin: 06/13/17 11:33 Dose: 50 mg Haloperidol Lactate (Haldol) 2.5 mg IVPUSH Q1H PRN PRN Reason: Agitation Heparin Sodium (Porcine) (Heparin Lock Flush 100 Units/Ml) 500 units FLUSH ASDIRECTED PRN PRN Reason: IV Use Last Admin: 06/16/17 04:04 Dose: 500 units Hydroxyzine HCl (Vistaril) 100 mg IM Q4H PRN PRN Reason: PAIN Multivitamins/Minerals 10 ml/Chromium/Copper/Manganese/Seleni/Zn 1 ml/ Amino Ac/ Electrol/Dextrose/Calcium 1,011 mls @ 100 mls/hr IV .BY DURATION [facility] Last Admin: 06/16/17 01:00 Dose: 100 mls/hr Infusion: 06/15/17 15:27 Dose: 100 mls/hr Admin: 06/15/17 05:20 Dose: 100 mls/hr Infusion: 06/14/17 20:07 Dose: 100 mls/hr Admin: 06/14/17 10:00 Dose: 100 mls/hr Infusion: 06/13/17 22:07 Dose: 100 mls/hr Admin: 06/13/17 12:00 Dose: 100 mls/hr Amino Ac/Electrol/Dextrose/Calcium (Clinimix E 01/26) 1,000 mls @ 100 mls/hr IV .BY DURATION [facility] Last Admin: 06/15/17 14:53 Dose: 100 mls/hr Infusion: 06/15/17 05:13 Dose: 100 mls/hr Admin: 06/14/17 19:13 Dose: 100 mls/hr Infusion: 06/14/17 10:04 Dose: 100 mls/hr Admin: 06/14/17 00:04 Dose: 100 mls/hr Sodium Chloride (Normal Saline) 1,000 mls @ 0 mls/hr IV ASDIRECTED [facility]ORIA PRN Reason: KVO Last Admin: 06/15/17 12:27 Dose: 25 mls/hr Cefoxitin Sodium 2 gm/ Sodium (Chloride) 50 mls @ 100 mls/hr IV Q6H [facility] Last Admin: 06/16/17 01:02 Dose: 100 mls/hr Admin: 06/15/17 20:00 Dose: 100 mls/hr Magnesium Sulfate 2 gm/ Premix 50 mls @ 25 mls/hr IV Q6H [facility] Stop: 06/16/17 10:29 Last Admin: 06/16/17 02:22 Dose: 25 mls/hr Infusion: 06/15/17 22:02 Dose: 25 mls/hr Admin: 06/15/17 20:02 Dose: 25 mls/hr Lorazepam (Ativan) 1 mg IV Q6H PRN PRN Reason: Nausea/Vomiting Last Admin: 06/11/17 04:07 Dose: 1 mg Metoclopramide HCl (Reglan) 10 mg IV Q6H [facility] Last Admin: 06/16/17 05:06 Dose: 10 mg Admin: 06/16/17 00:00 Dose: 10 mg Admin: 06/15/17 17:28 Dose: 10 mg Admin: 06/15/17 14:10 Dose: 10 mg Admin: 06/15/17 05:23 Dose: 10 mg Admin: 06/15/17 00:03 Dose: 10 mg Admin: 06/14/17 17:06 Dose: 10 mg Admin: 06/14/17 11:19 Dose: 10 mg Admin: 06/14/17 05:18 Dose: 10 mg Admin: 06/14/17 00:18 Dose: 10 mg Admin: 06/13/17 17:57 Dose: 10 mg Admin: 06/13/17 12:00 Dose: 10 mg Admin: 06/13/17 06:47 Dose: 10 mg Admin: 06/12/17 23:45 Dose: 10 mg Admin: 06/12/17 17:22 Dose: 10 mg Morphine Sulfate (Morphine Ancillary Specialist 150 Mg In 30 Ml) 0 mg IV ASDIRECTED PRN; Protocol PRN Reason: PAIN Last Admin: 06/15/17 15:18 Dose: 150 mg Admin: 06/12/17 17:30 Dose: 150 mg Naloxone HCl (Narcan) 0.1 mg IV ASDIRECTED PRN PRN Reason: RESP DISTRESS Ondansetron HCl (Zofran) 4 mg IV Q4H PRN PRN Reason: Nausea/Vomiting Pantoprazole Sodium (Protonix Iv) 40 mg IV Q24H [facility] Last Admin: 06/16/17 05:06 Dose: 40 mg Admin: 06/15/17 05:23 Dose: 40 mg Phenytoin Sodium (Phenytoin) 150 mg IV Q12H [facility] Last Admin: 06/15/17 22:05 Dose: 150 mg Admin: 06/15/17 08:03 Dose: 150 mg Admin: 06/14/17 21:37 Dose: 150 mg Admin: 06/14/17 09:11 Dose: 150 mg - Assessment Assessment (Free Text/Narrative):: Biliary obstruction, status post exploratory laparotomy with common bile duct exploration. - Plan Plan (Free Text/Narrative):: 1. Clear liquid diet until midnight. NPO after midnight. 2. CBC, BMP, Mg, Phos labs in the am. 3. Continue present TPN at rate of 100 ml/hr. 4. Albumin 50 grams q day x 4 days. 5. Delayed primary closure tomorrow. LEAENN Pedroza-Student
[2017-06-16] MEDS: Albuterol/Ipratropium 3.0-0.5 MG/3 ML Neb Soln NEB SCH ×4 (07:27→20:55)
--- NOTE | 2017-06-16 08:54 | OR ---
DATE OF PROCEDURE: 06/11/2017 PREOPERATIVE DIAGNOSIS: Gastric outlet obstruction associated with antral mass. POSTOPERATIVE DIAGNOSIS: Large pyloric channel ulcer suspicious for malignancy. OPERATIVE PROCEDURE: Esophagogastroduodenoscopy with gastric biopsies for CLOtest. ANESTHESIA: IV sedation. INDICATION FOR PROCEDURE: This is a 62-year-old female presenting with a picture of gastric outlet obstruction. She had been ill for several weeks and has lost several pounds in terms of weight. On CT scan yesterday, she was noted to have a mass in the area of the gastric outlet with a large distended stomach, consistent with gastric outlet obstruction. Plan is to proceed with an upper GI endoscopy with biopsies as indicated. Potential risks including bleeding and perforation were discussed, and the patient wishes to proceed. DETAILS OF PROCEDURE: The patient was taken to the operating room and placed in a left lateral decubitus position. IV sedation was administered, after which the upper GI endoscope was passed orally through the length of the esophagus. The esophagus and EG junction were unremarkable. As one entered the stomach, there was a small amount of clear fluid present. Most of the obstructed fluid seen on yesterday's CT scan had emptied. The proximal stomach was unremarkable, however, as one approached the antrum, the patient was noted to have a large ulcer with the scope just barely sneaking through that area. I did eventually through that region into the pyloric channel, and the proximal duodenum was otherwise unremarkable. This was a large deep ulcer suspicious for a malignancy and certainly could still be a gastric ulcer of a benign nature as well. Biopsies were obtained from the stomach, checking for CLOtest for H. pylori. Further biopsies were not performed, as this is a case, given the gastric outlet obstruction, that will likely need surgical intervention, and plan will be set up for tomorrow. The scope was withdrawn. The procedure concluded. The patient was taken to the recovery room in a satisfactory condition. Eulalio Hemphill MD /[id number]
[2017-06-16] MEDS: LORazepam 2 MG/ML MDV IVPUSH PRN ×2 (12:16→21:55)
--- NOTE | 2017-06-16 13:14 | PCM.PN ---
- General Info Date of Service: 06/16/17 - Review of Systems General: Reports: Weakness. Denies: Fever, Chills Pulmonary: Reports: No Symptoms Cardiovascular: Reports: No Symptoms Gastrointestinal: Reports: Abdominal Pain, Flatus. Denies: Difficulty Swallowing, Nausea, Vomiting Psychiatric: Reports: Anxiety Systems Review Comment:: Ms. Rodrigues has continued to experience a sinus tachycardia and surgery yesterday. She currently denies any symptoms of chest pain or pressure and has not had shortness of breath. Temperature has not been elevated and other vital signs have been stable. She is experiencing incisional pain as would be expected , there is been no nausea or vomiting. She is having difficulty with significant anxiety and intermittent episodes of agitation. - Patient Data Vitals - Most Recent: Last Vital Signs Temp 99.5 F 06/16/17 12:40 Pulse 153 H 06/16/17 12:40 Resp 22 H 06/16/17 12:40 BP 122/76 06/16/17 12:40 Pulse Ox 95 06/16/17 12:46 Weight - Most Recent: 119 lb 14.4 oz I&O - Last 24 Hours: Intake & Output 06/15/17 06/16/17 06/16/17 22:59 06:59 14:59 Intake Total 1423 1528 250 Output Total 1065 1015 485 Balance 358 513 -235 Lab Results Last 24 Hours: Laboratory Results - last 24 hr 06/11/17 06/16/17 06/16/17 Range/Units 12:39 04:13 04:13 WBC 23.7 H (4.5-11.0) K/uL RBC 3.12 L (3.30-5.50) M/uL Hgb 9.6 L (12.0-15.0) g/dL Hct 28.8 L (36.0-48.0) % MCV 92 (80-98) fL MCH 31 (27-31) pg MCHC 33 (32-36) % Plt Count 157 (150-400) K/uL Sodium 138 L (140-148) mmol/L Potassium 4.6 (3.6-5.2) mmol/L Chloride 105 (100-108) mmol/L Carbon Dioxide 29 (21-32) mmol/L Anion Gap 8.6 (5.0-14.0) mmol/L BUN 22 H (7-18) mg/dL Creatinine 0.7 (0.6-1.0) mg/dL Est Cr Clr Drug Dosing 69.79 mL/min Estimated GFR (MDRD) > 60 (>60) Glucose 120 H (74-106) mg/dL Calcium 8.1 L (8.5-10.1) mg/dL Phosphorus 3.2 (2.5-4.9) mg/dL Total Bilirubin 2.2 H (0.2-1.0) mg/dL AST 121 H (15-37) U/L ALT 128 H (12-78) U/L Alkaline Phosphatase 103 (46-116) U/L NT-Pro-B Natriuret Pep 89 (5-125) pg/mL Total Protein 4.9 L (6.4-8.2) g/dL Albumin 1.5 L (3.4-5.0) g/dL Globulin 3.4 (2.3-3.5) g/dL Albumin/Globulin Ratio 0.4 L (1.2-2.2) Phenytoin 5.9 L (10.0-20.0) ug/mL Crossmatch See Detail Med Orders - Current: Current Medications Albuterol/Ipratropium (Duoneb 3.0-0.5 Mg/3 Ml) 3 ml NEB QIDRT [facility] Last Admin: 06/16/17 10:54 Dose: 3 ml Albuterol/Ipratropium (Duoneb 3.0-0.5 Mg/3 Ml) 3 ml INH ASDIRECTED PRN PRN Reason: Shortness of Breath Diphenhydramine HCl (Benadryl) 50 mg IVPUSH Q4H PRN PRN Reason: Itching Last Admin: 06/13/17 11:33 Dose: 50 mg Haloperidol Lactate (Haldol) 2.5 mg IVPUSH Q1H PRN PRN Reason: Agitation Heparin Sodium (Porcine) (Heparin Lock Flush 100 Units/Ml) 500 units FLUSH ASDIRECTED PRN PRN Reason: IV Use Last Admin: 06/16/17 04:04 Dose: 500 units Hydroxyzine HCl (Vistaril) 100 mg IM Q4H PRN PRN Reason: PAIN Multivitamins/Minerals 10 ml/Chromium/Copper/Manganese/Seleni/Zn 1 ml/ Amino Ac/ Electrol/Dextrose/Calcium 1,011 mls @ 100 mls/hr IV .BY DURATION [facility] Last Admin: 06/16/17 01:00 Dose: 100 mls/hr Amino Ac/Electrol/Dextrose/Calcium (Clinimix E 01/26) 1,000 mls @ 100 mls/hr IV .BY DURATION [facility] Last Admin: 06/16/17 12:27 Dose: 100 mls/hr Sodium Chloride (Normal Saline) 1,000 mls @ 0 mls/hr IV ASDIRECTED [facility] PRN Reason: KVO Last Admin: 06/15/17 12:27 Dose: 25 mls/hr Cefoxitin Sodium 2 gm/ Sodium (Chloride) 50 mls @ 100 mls/hr IV Q6H [facility] Last Admin: 06/16/17 07:25 Dose: 100 mls/hr Albumin Human (Albumin 25%) 25 gm in 100 mls @ 25 mls/hr IV Q24H [facility] Stop: 06/19/17 12:59 Last Admin: 06/16/17 09:01 Dose: 25 mls/hr Albumin Human (Albumin 25%) 25 gm in 100 mls @ 25 mls/hr IV Q24H [facility] Stop: 06/19/17 16:59 Last Admin: 06/16/17 12:27 Dose: 25 mls/hr Lorazepam (Ativan) 0.5 mg IVPUSH Q2H PRN PRN Reason: Anxiety Last Admin: 06/16/17 12:16 Dose: 0.5 mg Metoclopramide HCl (Reglan) 10 mg IV Q6H [facility] Last Admin: 06/16/17 12:21 Dose: Not Given Metoprolol Tartrate (Lopressor) 2.5 mg IVPUSH Q4H [facility] Morphine Sulfate (Morphine Ski Base Trimmer 150 Mg In 30 Ml) 0 mg IV ASDIRECTED PRN; Protocol PRN Reason: PAIN Last Admin: 06/15/17 15:18 Dose: 150 mg Naloxone HCl (Narcan) 0.1 mg IV ASDIRECTED PRN PRN Reason: RESP DISTRESS Ondansetron HCl (Zofran) 4 mg IV Q4H PRN PRN Reason: Nausea/Vomiting Pantoprazole Sodium (Protonix Iv) 40 mg IV Q24H [facility] Last Admin: 06/16/17 05:06 Dose: 40 mg Phenytoin Sodium (Phenytoin) 150 mg IV Q12H [facility] Last Admin: 06/16/17 09:02 Dose: 150 mg Discontinued Medications Albuterol (Proventil Neb Soln) 2.5 mg NEB Q4H PRN PRN Reason: Shortness Of Breath/wheezing Albuterol/Ipratropium (Duoneb 3.0-0.5 Mg/3 Ml) 3 ml NEB QID PRN PRN Reason: Shortness Of Breath/wheezing Bupivacaine HCl/Epinephrine Bitart (Marcaine 0.5%/Epinephrine 1:200,000) Confirm Administered Dose 50 ml .ROUTE .STK-MED ONE Stop: 06/12/17 11:32 Cefoxitin Sodium (Mefoxin) Confirm Administered Dose 2 gm .ROUTE .STK-MED ONE Stop: 06/15/17 10:34 Al Hydroxide/Mg Hydroxide 15 (ml/ Lidocaine HCl 15 ml) 0 ml PO ONETIME ONE Stop: 06/10/17 23:58 Last Admin: 06/11/17 00:16 Dose: 15 ml Ropivacaine 27 ml/Dexamethasone 8 mg/Epinephrine HCl 0.4 mg/ Sodium Chloride 50.6 ml 0 ml NERVRT ASDIRECTED [facility] Stop: 06/12/17 11:30 Last Admin: 06/12/17 13:15 Dose: 80 syringe Ropivacaine 27 ml/Dexamethasone 8 mg/Epinephrine HCl 0.4 mg/ Sodium Chloride 50.6 ml 0 ml NERVRT ASDIRECTED [facility] Last Admin: 06/15/17 11:38 Dose: 80 syringe Dexamethasone (Dexamethasone) Confirm Administered Dose 4 mg .ROUTE .STK-MED ONE Stop: 06/12/17 10:46 Dexamethasone (Dexamethasone) Confirm Administered Dose 4 mg .ROUTE .STK-MED ONE Stop: 06/15/17 07:14 Diphenhydramine HCl (Benadryl) Confirm Administered Dose 50 mg .ROUTE .STK-MED ONE Stop: 06/13/17 11:30 Last Admin: 06/13/17 11:59 Dose: Not Given Fentanyl (Sublimaze) Confirm Administered Dose 100 mcg .ROUTE .STK-MED ONE Stop: 06/11/17 10:12 Fentanyl (Sublimaze) Confirm Administered Dose 100 mcg .ROUTE .STK-MED ONE Stop: 06/12/17 13:28 Fentanyl (Sublimaze) Confirm Administered Dose 100 mcg .ROUTE .STK-MED ONE Stop: 06/12/17 13:30 Fentanyl Citrate (Fentanyl) Confirm Administered Dose 500 mcg .ROUTE .STK-MED ONE Stop: 06/12/17 10:46 Fentanyl Citrate (Fentanyl) Confirm Administered Dose 500 mcg .ROUTE .STK-MED ONE Stop: 06/15/17 07:13 Furosemide (Lasix) 20 mg IVPUSH ONETIME ONE Stop: 06/13/17 12:35 Last Admin: 06/13/17 12:50 Dose: 20 mg Furosemide (Lasix) 40 mg IVPUSH NOW ONE Stop: 06/13/17 17:44 Last Admin: 06/13/17 17:57 Dose: 40 mg Furosemide (Lasix) Confirm Administered Dose 40 mg .ROUTE .STK-MED ONE Stop: 06/13/17 17:55 Last Admin: 06/13/17 18:00 Dose: Not Given Glycopyrrolate (Glycopyrrolate) 0.4 mg IVPUSH ONETIME ONE Stop: 06/11/17 09:01 Last Admin: 06/11/17 10:08 Dose: 0.4 mg Glycopyrrolate (Robinul) Confirm Administered Dose 1 mg .ROUTE .STK-MED ONE Stop: 06/12/17 10:46 Glycopyrrolate (Robinul) Confirm Administered Dose 1 mg .ROUTE .ST-MED ONE Stop: 06/15/17 07:14 Haloperidol Lactate (Haldol) 2.5 mg IVPUSH ONETIME ONE Stop: 06/15/17 13:06 Last Admin: 06/15/17 13:13 Dose: 2.5 mg Heparin Sodium (Porcine) (Heparin Lock Flush 100 Units/Ml) Confirm Administered Dose 500 units .ROUTE .STK-MED ONE Stop: 06/12/17 10:50 Sodium Chloride (Normal Saline) 1,000 mls @ 125 mls/hr IV ASDIRECTED [facility] Last Admin: 06/11/17 00:10 Dose: 125 mls/hr Dextrose/Lactated Ringer's (Dextrose 5%-Lactated Ringers) 1,000 mls @ 150 mls/ hr IV ASDIRECTED [facility] Last Admin: 06/12/17 01:26 Dose: 150 mls/hr Cefoxitin Sodium 2 gm/ Sodium (Chloride) 50 mls @ 100 mls/hr IV ONCALL ONE Stop: 06/12/17 09:59 Last Admin: 06/12/17 12:15 Dose: 100 mls/hr Magnesium Sulfate 2 gm/ Sodium (Chloride) 54 mls @ 27 mls/hr IV Q6HR [facility] Stop: 06/14/17 11:59 Last Admin: 06/12/17 10:11 Dose: 27 mls/hr Dextrose/Lactated Ringer's (Dextrose 5%-Lactated Ringers) 1,000 mls @ 100 mls/ hr IV ASDIRECTED [facility] Stop: 06/13/17 12:00 Last Admin: 06/12/17 08:06 Dose: 100 mls/hr Sodium Chloride (Normal Saline) Confirm Administered Dose 10 mls @ as directed .ROUTE .STK-MED ONE Stop: 06/12/17 11:34 Lactated Ringer's (Ringers, Lactated) Confirm Administered Dose 1,000 mls @ as directed .ROUTE .STK-MED ONE Stop: 06/12/17 13:25 Cefoxitin Sodium 2 gm/ Sodium (Chloride) 50 mls @ 100 mls/hr IV ONETIME ONE Stop: 06/12/17 17:29 Last Admin: 06/12/17 17:18 Dose: 100 mls/hr Lactated Ringer's (Ringers, Lactated) 1,000 mls @ 125 mls/hr IV ASDIRECTED [facility] Last Admin: 06/13/17 10:18 Dose: 125 mls/hr Cefoxitin Sodium 2 gm/ Sodium (Chloride) 50 mls @ 100 mls/hr IV Q6H [facility] Last Admin: 06/15/17 14:12 Dose: 100 mls/hr Lactated Ringer's (Ringers, Lactated) 500 mls @ 500 mls/hr IV .BOLUS [facility] Last Admin: 06/13/17 00:44 Dose: 500 mls/hr Magnesium Sulfate 2 gm/ Premix 50 mls @ 25 mls/hr IV Q6H [facility] Stop: 06/16/17 05:59 Last Admin: 06/15/17 14:21 Dose: 25 mls/hr Acetaminophen 1,000 mg/ Premix 100 mls @ 400 mls/hr IV ONETIME ONE Stop: 06/13/17 12:54 Last Admin: 06/13/17 12:45 Dose: 400 mls/hr Linezolid (Zyvox) Confirm Administered Dose 100 mls @ as directed .ROUTE .STK- MED ONE Stop: 06/15/17 07:29 Sodium Chloride (Normal Saline) Confirm Administered Dose 500 mls @ as directed .ROUTE .STK-MED ONE Stop: 06/15/17 10:25 Sodium Chloride (Normal Saline) Confirm Administered Dose 10 mls @ as directed .ROUTE .STK-MED ONE Stop: 06/15/17 10:34 Magnesium Sulfate 2 gm/ Premix 50 mls @ 25 mls/hr IV Q6H [facility] Stop: 06/16/17 10:29 Last Admin: 06/16/17 09:01 Dose: 25 mls/hr Labetalol HCl (Normodyne) Confirm Administered Dose 20 mg .ROUTE .STK-MED ONE Stop: 06/12/17 13:58 Lorazepam (Ativan) 1 mg IV Q6H PRN PRN Reason: Nausea/Vomiting Last Admin: 06/11/17 04:07 Dose: 1 mg Meropenem (Merrem) Confirm Administered Dose 500 mg .ROUTE .STK-MED ONE Stop: 06/12/17 10:50 Last Admin: 06/12/17 14:15 Dose: 500 mg Meropenem (Merrem) Confirm Administered Dose 500 mg .ROUTE .STK-MED ONE Stop: 06/12/17 11:34 Meropenem (Merrem) Confirm Administered Dose 500 mg .ROUTE .STK-MED ONE Stop: 06/15/17 07:29 Last Admin: 06/15/17 08:50 Dose: 500 mg Morphine Sulfate (Morphine) 2 mg IVPUSH Q2H PRN PRN Reason: Pain (severe 7-10) Last Admin: 06/12/17 11:37 Dose: 2 mg Neostigmine Methylsulfate (Neostigmine) Confirm Administered Dose 5 mg .ROUTE .STK-MED ONE Stop: 06/12/17 10:46 Neostigmine Methylsulfate (Neostigmine) Confirm Administered Dose 5 mg .ROUTE .STK-MED ONE Stop: 06/15/17 07:14 Ondansetron HCl (Zofran) 4 mg IVPUSH ONETIME PRN PRN Reason: Nausea/Vomiting Last Admin: 06/11/17 00:10 Dose: 4 mg Ondansetron HCl (Zofran) Confirm Administered Dose 4 mg .ROUTE .STK-MED ONE Stop: 06/12/17 10:46 Ondansetron HCl (Zofran) Confirm Administered Dose 4 mg .ROUTE .STK-MED ONE Stop: 06/15/17 07:14 Pantoprazole Sodium (Protonix Iv) 40 mg IV Q12H [facility] Last Admin: 06/11/17 03:19 Dose: 40 mg Pantoprazole Sodium (Protonix Iv) 40 mg IV Q12H [facility] Last Admin: 06/12/17 04:02 Dose: 40 mg Pantoprazole Sodium (Protonix Iv) 40 mg IV Q12H [facility] Stop: 06/14/17 06:01 Last Admin: 06/14/17 05:18 Dose: 40 mg Phenytoin Sodium (Phenytoin) 100 mg PO BID [facility] Last Admin: 06/12/17 09:36 Dose: Not Given Phenytoin Sodium (Phenytoin) 100 mg IV Q12H [facility] Last Admin: 06/13/17 21:26 Dose: 100 mg Pneumococcal Polyvalent Vaccine (Pneumovax 23) 0.5 ml IM .ONCE ONE Stop: 06/11/17 10:01 Last Admin: 06/11/17 13:41 Dose: 0.5 ml Propofol (Diprivan 20 Ml) Confirm Administered Dose 200 mg .ROUTE .STK-MED ONE Stop: 06/11/17 10:12 Propofol (Diprivan 20 Ml) Confirm Administered Dose 200 mg .ROUTE .STK-MED ONE Stop: 06/12/17 10:46 Propofol (Diprivan 20 Ml) Confirm Administered Dose 200 mg .ROUTE .STK-MED ONE Stop: 06/15/17 07:14 Rocuronium [place] (Zemuron) Confirm Administered Dose 50 mg .ROUTE .STK-MED ONE Stop: 06/12/17 10:46 Rocuronium [place] (Zemuron) Confirm Administered Dose 50 mg .ROUTE .STK-MED ONE Stop: 06/15/17 07:14 Rocuronium [place] (Zemuron) Confirm Administered Dose 50 mg .ROUTE .STK-MED ONE Stop: 06/15/17 11:32 Spironolactone (Aldactone) 25 mg PO DAILY [facility] Last Admin: 06/12/17 09:36 Dose: Not Given Succinylcholine Chloride (Quelicin) Confirm Administered Dose 200 mg .ROUTE .STK -MED ONE Stop: 06/12/17 10:46 Succinylcholine Chloride (Quelicin) Confirm Administered Dose 200 mg .ROUTE .STK -MED ONE Stop: 06/15/17 07:14 - Exam Quality Assessment: Urine Catheter, DVT Prophylaxis General: Alert, Oriented, Moderate Distress Lungs: Clear to Auscultation, Normal Respiratory Effort Cardiovascular: Regular Rhythm, No Murmurs, Tachycardia GI/Abdominal Exam: Soft, No Distention, Tender, Abnormal Bowel Sounds. 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 Status post exploratory laparotomy with partial gastrectomy and additional debridement. Status post follow-up exploratory laparotomy yesterday with further debridement of pancreatic tissue and creation of Mona-en-Y -Pain control -Nausea control -Advance diet per surgical instructions -TPN initiated 06/13 Sinus tachycardia - persistent tachycardia, etiology not apparent, she does not appear to have significant respiratory compromise or pulmonary edema -Metoprolol 2.5 mg IV every 4 hours -CT scan of the chest with PE protocol -Lorazepam 0.5 mg IV every 2 hours as needed for anxiety -Echocardiogram when heart rate is under better control -Cardiac monitoring -Reassess volume status -Optimize pain control Tobacco dependence - will need strong recommendations regarding cessation -declines Nicotine patches, make her feel sick Maintenance issues -Nutrition: NPO -Gomez catheter - placed postoperatively -DVT: SCD -PPI; IV Protonix 40mg daily -consult OT for discharge planning -consult PT for strengthening. Disposition; anticipate discharge home versus half-way after the hospital stay
[2017-06-16] MEDS: diphenhydrAMINE 50 MG/ML SDV IVPUSH PRN (13:20)
[2017-06-16] MEDS: Metoprolol Tartrate 5 MG/5 ML SDV IVPUSH SCH ×3 (14:09→21:46)
--- NOTE | 2017-06-16 14:21 | CT ---
Chest wo Cont HISTORY: Persistent sinus tachycardia. Dose: Total DLP 274. COMPARISON: Chest x-ray 06/12/2017. FINDINGS: Noncontrast CT scan of the chest demonstrates very small bilateral pleural effusions. There is some patchy infiltrate in the medial aspect of the left upper lobe. Small emphysematous blebs pre sent. Minimal density in the superior segment left lower lobe as well. Probable atelectatic change ri ght lung base. Slight elevation right hemidiaphragm. Scans of the upper abdomen demonstrate partial visualization is a G-tube as well as surgical drains i n the upper abdomen these were imaged yesterday from CT scan study. Impression: Tiny pleural effusions with some faint patchy infiltrate left upper lobe and the superior segment of the left lower lobe.
[2017-06-16] MEDS ORDERED: Lactated Ringers 1,000 ML IV SCH (15:30)
[2017-06-16] MEDS ORDERED: Vancomycin 1 GM SDV IV SCH (16:00)
[2017-06-16] MEDS: Levofloxacin/Dextrose 5%-Water 750 MG in Premix Bag 1 BAG IV SCH (16:13)
[2017-06-16] MEDS ORDERED: Meropenem 1 GM in Sodium Chloride 0.9% 100 ML IV SCH (16:30)
[2017-06-17] MEDS: Metoclopramide 10 MG/2 ML SDV IV SCH ×5 (00:06→23:26)
[2017-06-17] MEDS: Metoprolol Tartrate 5 MG/5 ML SDV IVPUSH SCH ×4 (01:41→14:14)
[2017-06-17] MEDS: Pantoprazole 40 MG Vial IV SCH (05:47)
[2017-06-17] MEDS ORDERED: Meropenem 500 MG SDV ONE (06:51)
[2017-06-17] MEDS ORDERED: Bupivacaine 0.5% 50 ML MDV ONE (06:51)
[2017-06-17] MEDS ORDERED: Lidocaine 1% with EPINEPHrine 1:100,000 50 ML MDV ONE (06:51)
[2017-06-17] MEDS ORDERED: Midazolam 1 MG/ML 2 ML SDV ONE (06:59)
[2017-06-17] MEDS ORDERED: Propofol 200 MG/20 ML SDV ONE (06:59)
[2017-06-17] MEDS ORDERED: fentaNYL 100 MCG/2 ML SDV ONE (06:59)
[2017-06-17] MEDS: Albuterol/Ipratropium 3.0-0.5 MG/3 ML Neb Soln NEB SCH ×4 (07:23→20:56)
[2017-06-17] MEDS: 1: AA 5%/Calcium/D15W/Lytes 1,000 ML with MVI, Adult with Vitamin K 10 ML, Chromium/Copp IV SCH ×6 (08:33→21:11)
[2017-06-17] MEDS: Sodium Chloride 0.9% 1,000 ML IV SCH (08:38)
[2017-06-17] MEDS: Acetaminophen 1,000 MG in Premix Bag 1 BAG IV SCH ×3 (10:41→22:10)
[2017-06-17] MEDS ORDERED: Barium Sulfate 98% Powder for Susp 340 GM Bottle PO SCH (11:30)
--- NOTE | 2017-06-17 12:36 | CR ---
UGI wo KUB HISTORY: eval gastric emptying FINDINGS: Single contrast upper GI series was obtained in usual fashion. The patient swallows the bar ium and water mixture without difficulty. Esophageal motility is within normal limits. No esophageal mass, ulceration, or stricture is seen. A very small amount of GE reflux occurred on one occasion dur ing the exam. There is mucosal fold thickening in the distal stomach. Gastric emptying appears satisf actory. No obstruction is identified. There is no contrast extravasation. Gastrostomy tube is in the stomach. Surgical drains are noted. IMPRESSION: Gastric emptying appears satisfactory. There is mucosal fold thickening of the stomach wh ich could be inflammatory. No contrast extravasation or other complication is seen. Gastrostomy tube is in the stomach.
--- NOTE | 2017-06-17 12:47 | PCM.PN ---
- General Info Date of Service: 06/17/17 Functional Status: Reports: Pain Controlled - Review of Systems General: Reports: Weakness. Denies: Fever, Chills Pulmonary: Reports: No Symptoms Cardiovascular: Reports: No Symptoms Gastrointestinal: Reports: No Symptoms Systems Review Comment:: Ms. Rodrigues has improved somewhat since yesterday, CT scan of the chest showed evidence of pulmonary infiltrates consistent with pneumonia. Cultures were obtained and she's been started on broad-spectrum IV antibiotic therapy pending culture results. Heart rate has come down with current management and saturations have been adequate. White blood cell count is improved and she has remained afebrile. - Patient Data Vitals - Most Recent: Last Vital Signs Temp 98.3 F 06/17/17 08:43 Pulse 116 H 06/17/17 10:55 Resp 14 06/17/17 09:00 BP 108/66 06/17/17 10:36 Pulse Ox 95 06/17/17 12:18 Weight - Most Recent: 119 lb 14.4 oz I&O - Last 24 Hours: Intake & Output 06/16/17 06/17/17 06/17/17 22:59 06:59 14:59 Intake Total 1455 3234 Output Total 1905 1460 575 Balance -450 1774 -575 Lab Results Last 24 Hours: Laboratory Results - last 24 hr 06/17/17 06/17/17 Range/Units 04:26 04:26 WBC 14.7 H (4.5-11.0) K/uL RBC 2.86 L (3.30-5.50) M/uL Hgb 8.5 L (12.0-15.0) g/dL Hct 26.8 L (36.0-48.0) % MCV 94 (80-98) fL MCH 30 (27-31) pg MCHC 32 (32-36) % Plt Count 153 (150-400) K/uL Sodium 139 L (140-148) mmol/L Potassium 4.4 (3.6-5.2) mmol/L Chloride 105 (100-108) mmol/L Carbon Dioxide 28 (21-32) mmol/L Anion Gap 10.4 (5.0-14.0) mmol/L BUN 18 (7-18) mg/dL Creatinine 0.8 (0.6-1.0) mg/dL Est Cr Clr Drug Dosing 61.07 mL/min Estimated GFR (MDRD) > 60 (>60) Glucose 110 H (74-106) mg/dL Calcium 8.2 L (8.5-10.1) mg/dL Phosphorus 3.3 (2.5-4.9) mg/dL Magnesium 1.6 L (1.8-2.4) mg/dL Med Orders - Current: Current Medications Albuterol/Ipratropium (Duoneb 3.0-0.5 Mg/3 Ml) 3 ml NEB QIDRT GLORIA Last Admin: 06/17/17 10:57 Dose: 3 ml Albuterol/Ipratropium (Duoneb 3.0-0.5 Mg/3 Ml) 3 ml INH ASDIRECTED PRN PRN Reason: Shortness of Breath Barium Sulfate (E-Z-Hd) 340 gm PO . DIRECTED [facility] Diphenhydramine HCl (Benadryl) 50 mg IVPUSH Q4H PRN PRN Reason: Itching Last Admin: 06/16/17 13:20 Dose: 50 mg Haloperidol Lactate (Haldol) 2.5 mg IVPUSH Q1H PRN PRN Reason: Agitation Heparin Sodium (Porcine) (Heparin Lock Flush 100 Units/Ml) 500 units FLUSH ASDIRECTED PRN PRN Reason: IV Use Last Admin: 06/16/17 21:56 Dose: 500 units Hydroxyzine HCl (Vistaril) 100 mg IM Q4H PRN PRN Reason: PAIN Multivitamins/Minerals 10 ml/Chromium/Copper/Manganese/Seleni/Zn 1 ml/ Amino Ac/ Electrol/Dextrose/Calcium 1,011 mls @ 100 mls/hr IV .BY DURATION [facility] Last Admin: 06/16/17 21:40 Dose: 100 mls/hr Amino Ac/Electrol/Dextrose/Calcium (Clinimix E 5/15) 1,000 mls @ 100 mls/hr IV .BY DURATION [facility] Last Admin: 06/17/17 08:33 Dose: 100 mls/hr Sodium Chloride (Normal Saline) 1,000 mls @ 0 mls/hr IV ASDIRECTED [facility] PRN Reason: KVO Last Admin: 06/17/17 08:38 Dose: 25 mls/hr Albumin Human (Albumin 25%) 25 gm in 100 mls @ 25 mls/hr IV Q24H [facility] Stop: 06/19/17 12:59 Last Admin: 06/17/17 08:51 Dose: 25 mls/hr Albumin Human (Albumin 25%) 25 gm in 100 mls @ 25 mls/hr IV Q24H [facility] Stop: 06/19/17 16:59 Last Admin: 06/16/17 12:27 Dose: 25 mls/hr Levofloxacin/Dextrose 750 mg/ (Premix) 150 mls @ 100 mls/hr IV Q24H [facility] Last Admin: 06/16/17 16:13 Dose: 100 mls/hr Vancomycin HCl 1 gm/ Sodium (Chloride) 250 mls @ 167 mls/hr IV Q12H [facility] Last Admin: 06/17/17 05:56 Dose: 167 mls/hr Meropenem 1 gm/ Sodium (Chloride) 50 mls @ 100 mls/hr IV Q8H [facility] Last Admin: 06/17/17 11:22 Dose: 100 mls/hr Acetaminophen 1,000 mg/ Premix 100 mls @ 400 mls/hr IV Q6H [facility] Stop: 06/18/17 04:14 Last Admin: 06/17/17 10:41 Dose: 400 mls/hr Lorazepam (Ativan) 0.5 mg IVPUSH Q2H PRN PRN Reason: Anxiety Last Admin: 06/16/17 21:55 Dose: 0.5 mg Metoclopramide HCl (Reglan) 10 mg IV Q6H [facility] Last Admin: 06/17/17 05:52 Dose: 10 mg Metoprolol Tartrate (Lopressor) 2.5 mg IVPUSH Q4H [facility] Last Admin: 06/17/17 10:23 Dose: 2.5 mg Morphine Sulfate (Morphine Resource Conservationist 150 Mg In 30 Ml) 0 mg IV ASDIRECTED PRN; Protocol PRN Reason: PAIN Last Admin: 06/15/17 15:18 Dose: 150 mg Naloxone HCl (Narcan) 0.1 mg IV ASDIRECTED PRN PRN Reason: RESP DISTRESS Ondansetron HCl (Zofran) 4 mg IV Q4H PRN PRN Reason: Nausea/Vomiting Pantoprazole Sodium (Protonix Iv) 40 mg IV Q24H [facility] Last Admin: 06/17/17 05:47 Dose: 40 mg Phenytoin Sodium (Phenytoin) 150 mg IV Q12H [facility] Last Admin: 06/17/17 09:02 Dose: 150 mg Discontinued Medications Albuterol (Proventil Neb Soln) 2.5 mg NEB Q4H PRN PRN Reason: Shortness Of Breath/wheezing Albuterol/Ipratropium (Duoneb 3.0-0.5 Mg/3 Ml) 3 ml NEB QID PRN PRN Reason: Shortness Of Breath/wheezing Bupivacaine HCl (Marcaine 0.5%) Confirm Administered Dose 50 ml .ROUTE .STK-MED ONE Stop: 06/17/17 06:52 Last Admin: 06/17/17 07:35 Dose: 10 ml Bupivacaine HCl/Epinephrine Bitart (Marcaine 0.5%/Epinephrine 1:200,000) Confirm Administered Dose 50 ml .ROUTE .STK-MED ONE Stop: 06/12/17 11:32 Cefoxitin Sodium (Mefoxin) Confirm Administered Dose 2 gm .ROUTE .STK-MED ONE Stop: 06/15/17 10:34 Al Hydroxide/Mg Hydroxide 15 (ml/ Lidocaine HCl 15 ml) 0 ml PO ONETIME ONE Stop: 06/10/17 23:58 Last Admin: 06/11/17 00:16 Dose: 15 ml Ropivacaine 27 ml/Dexamethasone 8 mg/Epinephrine HCl 0.4 mg/ Sodium Chloride 50.6 ml 0 ml NERVRT ASDIRECTED [facility] Stop: 06/12/17 11:30 Last Admin: 06/12/17 13:15 Dose: 80 syringe Ropivacaine 27 ml/Dexamethasone 8 mg/Epinephrine HCl 0.4 mg/ Sodium Chloride 50.6 ml 0 ml NERVRT ASDIRECTED [facility] Last Admin: 06/15/17 11:38 Dose: 80 syringe Dexamethasone (Dexamethasone) Confirm Administered Dose 4 mg .ROUTE .STK-MED ONE Stop: 06/12/17 10:46 Dexamethasone (Dexamethasone) Confirm Administered Dose 4 mg .ROUTE .STK-MED ONE Stop: 06/15/17 07:14 Diphenhydramine HCl (Benadryl) Confirm Administered Dose 50 mg .ROUTE .STK-MED ONE Stop: 06/13/17 11:30 Last Admin: 06/13/17 11:59 Dose: Not Given Fentanyl (Sublimaze) Confirm Administered Dose 100 mcg .ROUTE .STK-MED ONE Stop: 06/11/17 10:12 Fentanyl (Sublimaze) Confirm Administered Dose 100 mcg .ROUTE .[facility] ONE Stop: 06/12/17 13:28 Fentanyl (Sublimaze) Confirm Administered Dose 100 mcg .ROUTE .[facility]-MED ONE Stop: 06/12/17 13:30 Fentanyl (Sublimaze) Confirm Administered Dose 100 mcg .ROUTE .STK-MED ONE Stop: 06/17/17 07:00 Fentanyl Citrate (Fentanyl) Confirm Administered Dose 500 mcg .ROUTE .[facility]-MED ONE Stop: 06/12/17 10:46 Fentanyl Citrate (Fentanyl) Confirm Administered Dose 500 mcg .ROUTE .[facility]-MED ONE Stop: 06/15/17 07:13 Furosemide (Lasix) 20 mg IVPUSH ONETIME ONE Stop: 06/13/17 12:35 Last Admin: 06/13/17 12:50 Dose: 20 mg Furosemide (Lasix) 40 mg IVPUSH NOW ONE Stop: 06/13/17 17:44 Last Admin: 06/13/17 17:57 Dose: 40 mg Furosemide (Lasix) Confirm Administered Dose 40 mg .ROUTE .[facility] ONE Stop: 06/13/17 17:55 Last Admin: 06/13/17 18:00 Dose: Not Given Glycopyrrolate (Glycopyrrolate) 0.4 mg IVPUSH ONETIME ONE Stop: 06/11/17 09:01 Last Admin: 06/11/17 10:08 Dose: 0.4 mg Glycopyrrolate (Robinul) Confirm Administered Dose 1 mg .ROUTE .[facility]-MED ONE Stop: 06/12/17 10:46 Glycopyrrolate (Robinul) Confirm Administered Dose 1 mg .ROUTE .[facility] ONE Stop: 06/15/17 07:14 Haloperidol Lactate (Haldol) 2.5 mg IVPUSH ONETIME ONE Stop: 06/15/17 13:06 Last Admin: 06/15/17 13:13 Dose: 2.5 mg Heparin Sodium (Porcine) (Heparin Lock Flush 100 Units/Ml) Confirm Administered Dose 500 units .ROUTE .[facility]-MED ONE Stop: 06/12/17 10:50 Sodium Chloride (Normal Saline) 1,000 mls @ 125 mls/hr IV ASDIRECTED [facility] Last Admin: 06/11/17 00:10 Dose: 125 mls/hr Dextrose/Lactated Ringer's (Dextrose 5%-Lactated Ringers) 1,000 mls @ 150 mls/ hr IV ASDIRECTED [facility] Last Admin: 06/12/17 01:26 Dose: 150 mls/hr Cefoxitin Sodium 2 gm/ Sodium (Chloride) 50 mls @ 100 mls/hr IV ONCALL ONE Stop: 06/12/17 09:59 Last Admin: 06/12/17 12:15 Dose: 100 mls/hr Magnesium Sulfate 2 gm/ Sodium (Chloride) 54 mls @ 27 mls/hr IV Q6HR [facility] Stop: 06/14/17 11:59 Last Admin: 06/12/17 10:11 Dose: 27 mls/hr Dextrose/Lactated Ringer's (Dextrose 5%-Lactated Ringers) 1,000 mls @ 100 mls/ hr IV ASDIRECTED [facility] Stop: 06/13/17 12:00 Last Admin: 06/12/17 08:06 Dose: 100 mls/hr Sodium Chloride (Normal Saline) Confirm Administered Dose 10 mls @ as directed .ROUTE .STK-MED ONE Stop: 06/12/17 11:34 Lactated Ringer's (Ringers, Lactated) Confirm Administered Dose 1,000 mls @ as directed .ROUTE .STK-MED ONE Stop: 06/12/17 13:25 Cefoxitin Sodium 2 gm/ Sodium (Chloride) 50 mls @ 100 mls/hr IV ONETIME ONE Stop: 06/12/17 17:29 Last Admin: 06/12/17 17:18 Dose: 100 mls/hr Lactated Ringer's (Ringers, Lactated) 1,000 mls @ 125 mls/hr IV ASDIRECTED [facility] Last Admin: 06/13/17 10:18 Dose: 125 mls/hr Cefoxitin Sodium 2 gm/ Sodium (Chloride) 50 mls @ 100 mls/hr IV Q6H [facility] Last Admin: 06/15/17 14:12 Dose: 100 mls/hr Lactated Ringer's (Ringers, Lactated) 500 mls @ 500 mls/hr IV .[facility] Last Admin: 06/13/17 00:44 Dose: 500 mls/hr Magnesium Sulfate 2 gm/ Premix 50 mls @ 25 mls/hr IV Q6H [facility] Stop: 06/16/17 05:59 Last Admin: 06/15/17 14:21 Dose: 25 mls/hr Acetaminophen 1,000 mg/ Premix 100 mls @ 400 mls/hr IV ONETIME ONE Stop: 06/13/17 12:54 Last Admin: 06/13/17 12:45 Dose: 400 mls/hr Linezolid (Zyvox) Confirm Administered Dose 100 mls @ as directed .ROUTE .STK- MED ONE Stop: 06/15/17 07:29 Sodium Chloride (Normal Saline) Confirm Administered Dose 500 mls @ as directed .ROUTE .STK-MED ONE Stop: 06/15/17 10:25 Sodium Chloride (Normal Saline) Confirm Administered Dose 10 mls @ as directed .ROUTE .STK-MED ONE Stop: 06/15/17 10:34 Cefoxitin Sodium 2 gm/ Sodium (Chloride) 50 mls @ 100 mls/hr IV Q6H [facility] Last Admin: 06/16/17 14:47 Dose: 100 mls/hr Magnesium Sulfate 2 gm/ Premix 50 mls @ 25 mls/hr IV Q6H [facility] Stop: 06/16/17 10:29 Last Admin: 06/16/17 09:01 Dose: 25 mls/hr Lactated Ringer's (Ringers, Lactated) 1,000 mls @ 250 mls/hr IV ASDIRECTED [facility] Stop: 06/16/17 19:31 Last Admin: 06/16/17 16:21 Dose: 250 mls/hr Labetalol HCl (Normodyne) Confirm Administered Dose 20 mg .ROUTE .STK-MED ONE Stop: 06/12/17 13:58 Lidocaine/Epinephrine (Xylocaine 1% With Epinephrine 1:100,000) Confirm Administered Dose 50 ml .ROUTE .STK-MED ONE Stop: 06/17/17 06:52 Last Admin: 06/17/17 07:35 Dose: 10 ml Lorazepam (Ativan) 1 mg IV Q6H PRN PRN Reason: Nausea/Vomiting Last Admin: 06/11/17 04:07 Dose: 1 mg Meropenem (Merrem) Confirm Administered Dose 500 mg .ROUTE .STK-MED ONE Stop: 06/12/17 10:50 Last Admin: 06/12/17 14:15 Dose: 500 mg Meropenem (Merrem) Confirm Administered Dose 500 mg .ROUTE .STK-MED ONE Stop: 06/12/17 11:34 Meropenem (Merrem) Confirm Administered Dose 500 mg .ROUTE .STK-MED ONE Stop: 06/15/17 07:29 Last Admin: 06/15/17 08:50 Dose: 500 mg Meropenem (Merrem) Confirm Administered Dose 500 mg .ROUTE .STK-MED ONE Stop: 06/17/17 06:52 Last Admin: 06/17/17 07:35 Dose: 500 mg Midazolam HCl (Versed 1 Mg/Ml) Confirm Administered Dose 2 mg .ROUTE .STK-MED ONE Stop: 06/17/17 07:00 Morphine Sulfate (Morphine) 2 mg IVPUSH Q2H PRN PRN Reason: Pain (severe 7-10) Last Admin: 06/12/17 11:37 Dose: 2 mg Neostigmine Methylsulfate (Neostigmine) Confirm Administered Dose 5 mg .ROUTE .STK-MED ONE Stop: 06/12/17 10:46 Neostigmine Methylsulfate (Neostigmine) Confirm Administered Dose 5 mg .ROUTE .ST-MED ONE Stop: 06/15/17 07:14 Ondansetron HCl (Zofran) 4 mg IVPUSH ONETIME PRN PRN Reason: Nausea/Vomiting Last Admin: 06/11/17 00:10 Dose: 4 mg Ondansetron HCl (Zofran) Confirm Administered Dose 4 mg .ROUTE .STK-MED ONE Stop: 06/12/17 10:46 Ondansetron HCl (Zofran) Confirm Administered Dose 4 mg .ROUTE .STK-MED ONE Stop: 06/15/17 07:14 Pantoprazole Sodium (Protonix Iv) 40 mg IV Q12H [facility] Last Admin: 06/11/17 03:19 Dose: 40 mg Pantoprazole Sodium (Protonix Iv) 40 mg IV Q12H [facility] Last Admin: 06/12/17 04:02 Dose: 40 mg Pantoprazole Sodium (Protonix Iv) 40 mg IV Q12H [facility] Stop: 06/14/17 06:01 Last Admin: 06/14/17 05:18 Dose: 40 mg Phenytoin Sodium (Phenytoin) 100 mg PO BID [facility] Last Admin: 06/12/17 09:36 Dose: Not Given Phenytoin Sodium (Phenytoin) 100 mg IV Q12H [facility] Last Admin: 06/13/17 21:26 Dose: 100 mg Pneumococcal Polyvalent Vaccine (Pneumovax 23) 0.5 ml IM .ONCE ONE Stop: 06/11/17 10:01 Last Admin: 06/11/17 13:41 Dose: 0.5 ml Propofol (Diprivan 20 Ml) Confirm Administered Dose 200 mg .ROUTE .STK-MED ONE Stop: 06/11/17 10:12 Propofol (Diprivan 20 Ml) Confirm Administered Dose 200 mg .ROUTE .STK-MED ONE Stop: 06/12/17 10:46 Propofol (Diprivan 20 Ml) Confirm Administered Dose 200 mg .ROUTE .STK-MED ONE Stop: 06/15/17 07:14 Propofol (Diprivan 20 Ml) Confirm Administered Dose 200 mg .ROUTE .STK-MED ONE Stop: 06/17/17 07:00 Rocuronium [place] (Zemuron) Confirm Administered Dose 50 mg .ROUTE .STK-MED ONE Stop: 06/12/17 10:46 Rocuronium [place] (Zemuron) Confirm Administered Dose 50 mg .ROUTE .STK-MED ONE Stop: 06/15/17 07:14 Rocuronium [place] (Zemuron) Confirm Administered Dose 50 mg .ROUTE .STK-MED ONE Stop: 06/15/17 11:32 Spironolactone (Aldactone) 25 mg PO DAILY [facility] Last Admin: 06/12/17 09:36 Dose: Not Given Succinylcholine Chloride (Quelicin) Confirm Administered Dose 200 mg .ROUTE .STK -MED ONE Stop: 06/12/17 10:46 Succinylcholine Chloride (Quelicin) Confirm Administered Dose 200 mg .ROUTE .STK -MED ONE Stop: 06/15/17 07:14 Vancomycin HCl (Vancomycin) 1 gm IV .PHARMACY TO DOSE [facility] Stop: 06/16/17 17:00 - Exam Quality Assessment: Supplemental Oxygen, Urine Catheter, DVT Prophylaxis General: Lethargic Lungs: Clear to Auscultation, Normal Respiratory Effort Cardiovascular: Regular Rhythm, No Murmurs, Tachycardia GI/Abdominal Exam: Soft, No Organomegaly, Tender, Abnormal Bowel Sounds. No: Distended, Guarding, Rigid, Rebound Extremities: Non-Tender, No Pedal Edema Skin: Warm, Dry - Problem List Review Problem List Initiated/Reviewed/Updated: Yes - My Orders Last 24 Hours: My Active Orders 06/16/17 12:01 LORazepam [Ativan] 0.5 mg IVPUSH Q2H PRN 06/16/17 13:30 Metoprolol Tartrate [Lopressor] 2.5 mg IVPUSH Q4H 06/16/17 15:12 Blood Culture x2 Reflex Set [OM.PC] Urgent 06/16/17 15:15 CULTURE BLOOD [BC] Stat 06/16/17 15:26 CULTURE BLOOD [BC] Stat 06/16/17 15:30 Levofloxacin/Dextrose 5%-Water [Levaquin in D5W 750 MG/150 ML] 750 mg Premix Bag 1 bag IV Q24H 06/16/17 17:30 Vancomycin 1 gm Sodium Chloride 0.9% [Normal Saline] 250 ml IV Q12H 06/16/17 18:30 Meropenem [Merrem] 1 gm Sodium Chloride 0.9% [Normal Saline] 50 ml IV Q8H - Plan Plan:: ASSESSMENT / PLAN Abdominal Pain x 2 month with unintentional wt loss and dysphasia - 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 Status post exploratory laparotomy with partial gastrectomy and additional debridement. Status post follow-up exploratory laparotomy yesterday with further debridement of pancreatic tissue and creation of Mona-en-Y -Pain control -Nausea control -Advance diet per surgical instructions -TPN initiated 06/13 Bilateral pneumonia-she appears improved over the past 24 hours with addition of broad-spectrum IV antibiotic therapy -Continue IV antibiotics including vancomycin, meropenem, and levofloxacin, pending culture results -Blood cultures pending Sinus tachycardia - persistent tachycardia, likely secondary to underlying pneumonia -Metoprolol 2.5 mg IV every 4 hours -Lorazepam 0.5 mg IV every 2 hours as needed for anxiety -Echocardiogram when heart rate is under better control -Cardiac monitoring -Reassess volume status -Optimize pain control Tobacco dependence - will need strong recommendations regarding cessation -declines Nicotine patches, make her feel sick Maintenance issues -Nutrition: NPO -Gomez catheter - placed postoperatively -DVT: SCD -PPI; IV Protonix 40mg daily -consult OT for discharge planning -consult PT for strengthening. Disposition; anticipate discharge home versus [facility] after the hospital stay
--- NOTE | 2017-06-17 14:11 | OR ---
DATE OF PROCEDURE: 06/17/2017 PREOPERATIVE DIAGNOSIS: Open abdominal incision. POSTOPERATIVE DIAGNOSIS: Open abdominal incision. OPERATIVE PROCEDURE: Delayed primary closure of open abdominal incision. ANESTHESIA: IV sedation plus local. MUSICAL STRING MAKER: LUIS Mosher. INDICATION: The patient is 48 hours status post a complicated biliary reconstruction with a Mona-en-Y choledochojejunostomy. With the open bowel, she is felt to be high risk for wound infection. Therefore, the wound was packed open for a planned delayed primary closure at this time. Potential risks including bleeding and infection were reviewed, and the patient wishes to proceed. DETAILS OF PROCEDURE: The patient was taken to the operating room and placed in a supine position, sitting somewhat to minimize aspiration risk. The IV sedation was administered, after which the abdominal dressing was taken down. The wound was inspected and found to be clean. This being a long midline incision from the xiphoid to just below the umbilicus. The area was then prepped and draped, anesthetized with 1% lidocaine mixed with Marcaine and irrigated with meropenem-containing saline solution. A 10-T[place]is[place] round Marco-Jefferson drain was then placed into the incision through a stab wound inferior to it, and the incision was closed with 3-0 and 4-0 Vicryl stitch deep and jamal for the skin. The drains fixed with 3-0 Vicryl stitch. The patient was taken to the recovery room in a satisfactory condition. Eulalio Hemphill MD /[id number]
[2017-06-17] MEDS: Celecoxib 200 MG Cap PO SCH (14:14)
--- NOTE | 2017-06-17 15:11 | PN ---
DATE OF SERVICE: 06/17/2017 The patient has been afebrile with stable vital signs. Little bit inadequate in terms of pain control . I will give her some IV Tylenol after the closure starting today and then we will get an upper GI x-ray and if that shows adequate gastric emptying, we will get her on oral pain medication regimen. Otherwise, her hemoglobin is 8.5. We will give her 1 unit of packed RBCs. We will continue the TPN today. Gomez catheter will be coming out. The patient is to have a delayed primary closure of the abdominal incision today. Eulalio Hemphill MD /[id number]
[2017-06-17] MEDS: Levofloxacin/Dextrose 5%-Water 750 MG in Premix Bag 1 BAG IV SCH (17:01)
[2017-06-17] MEDS: Metoprolol Tartrate 25 MG Tab PO SCH ×2 (17:32→22:09)
[2017-06-18] MEDS: Acetaminophen 1,000 MG in Premix Bag 1 BAG IV SCH (04:09)
[2017-06-18] MEDS: Metoprolol Tartrate 25 MG Tab PO SCH ×4 (04:44→22:11)
[2017-06-18] MEDS: 1: AA 5%/Calcium/D15W/Lytes 1,000 ML with MVI, Adult with Vitamin K 10 ML, Chromium/Copp IV SCH ×6 (04:45→16:02)
[2017-06-18] MEDS: Pantoprazole 40 MG Vial IV SCH (05:27)
[2017-06-18] MEDS: Metoclopramide 10 MG/2 ML SDV IV SCH (05:28)
[2017-06-18] MEDS ORDERED: Central Total Parenteral Nutrition Bag SCH (07:15)
[2017-06-18] MEDS: Albuterol/Ipratropium 3.0-0.5 MG/3 ML Neb Soln NEB SCH ×4 (07:16→21:01)
--- NOTE | 2017-06-18 07:19 | PCM.SURGPN ---
- General Info Date of Service: 06/18/17 Date of Surgery/Procedure: 06/12/17 (exp lap with common bile duct exploration 06/15/17. DPC 06/17/17) POD#: 6 Post-Op Diagnosis: gastric mass, biliary obstruction Admission Diagnosis/Problem: Abdominal pain Functional Status: Reports: Pain Controlled, Tolerating Diet, Ambulating, Urinating - Review of Systems General: Reports: Fatigue HEENT: Reports: No Symptoms Pulmonary: Reports: No Symptoms Cardiovascular: Reports: No Symptoms Gastrointestinal: Reports: Abdominal Pain (incisinoal ), Flatus, Nausea Musculoskeletal: Reports: No Symptoms Skin: Reports: No Symptoms Neurological: Reports: No Symptoms, Trouble Speaking (incisional ) Psychiatric: Reports: No Symptoms Systems Review Comment:: Soco reports that her pain is controlled with her [employer] and that she is feeling a little nauseated. She states that otherwise she is doing well. She received 1 unit of blood yesterday, Hemoglobin today is 9.9. She is passing flatus and having BMs. - Patient Data Vitals - Most Recent: Last Vital Signs Temp 36.7 C 06/18/17 02:07 Pulse 100 06/18/17 04:44 Resp 20 06/18/17 02:07 BP 112/50 L 06/18/17 04:44 Pulse Ox 95 06/18/17 02:07 Weight - Most Recent: 57.062 kg I&O - Last 24 Hours: Intake & Output 06/17/17 06/18/17 06/18/17 22:59 06:59 14:59 Intake Total 340 3343 Output Total 2080 1595 Balance -1740 1748 Lab Results Last 24 Hrs: Laboratory Results - last 24 hr 06/17/17 06/18/17 06/18/17 Range/Units 08:40 04:00 04:00 WBC 12.6 H (4.5-11.0) K/uL RBC 3.28 L (3.30-5.50) M/uL Hgb 9.9 L (12.0-15.0) g/dL Hct 29.9 L (36.0-48.0) % MCV 91 (80-98) fL MCH 30 (27-31) pg MCHC 33 (32-36) % Plt Count 144 L (150-400) K/uL Sodium 137 L (140-148) mmol/L Potassium 4.1 (3.6-5.2) mmol/L Chloride 105 (100-108) mmol/L Carbon Dioxide 26 (21-32) mmol/L Anion Gap 10.1 (5.0-14.0) mmol/L BUN 18 (7-18) mg/dL Creatinine 0.7 (0.6-1.0) mg/dL Est Cr Clr Drug Dosing 69.79 mL/min Estimated GFR (MDRD) > 60 (>60) Glucose 118 H (74-106) mg/dL Calcium 8.5 (8.5-10.1) mg/dL Phosphorus 4.0 (2.5-4.9) mg/dL Magnesium 1.6 L (1.8-2.4) mg/dL Total Bilirubin 5.0 H D (0.2-1.0) mg/dL AST 83 H (15-37) U/L ALT 104 H (12-78) U/L Alkaline Phosphatase 334 H D (46-116) U/L Total Protein 5.4 L (6.4-8.2) g/dL Albumin 2.4 L (3.4-5.0) g/dL Globulin 3.0 (2.3-3.5) g/dL Albumin/Globulin Ratio 0.8 L (1.2-2.2) Vancomycin Trough (10.0-20.0) ug/mL Blood Type O POSITIVE Gel Antibody Screen Positive A* Antibody Identification Anti-K Crossmatch See Detail 06/18/17 Range/Units 07:00 WBC (4.5-11.0) K/uL RBC (3.30-5.50) M/uL Hgb (12.0-15.0) g/dL Hct (36.0-48.0) % MCV (80-98) fL MCH (27-31) pg MCHC (32-36) % Plt Count (150-400) K/uL Sodium (140-148) mmol/L Potassium (3.6-5.2) mmol/L Chloride (100-108) mmol/L Carbon Dioxide (21-32) mmol/L Anion Gap (5.0-14.0) mmol/L BUN (7-18) mg/dL Creatinine (0.6-1.0) mg/dL Est Cr Clr Drug Dosing mL/min Estimated GFR (MDRD) (>60) Glucose (74-106) mg/dL Calcium (8.5-10.1) mg/dL Phosphorus (2.5-4.9) mg/dL Magnesium (1.8-2.4) mg/dL Total Bilirubin (0.2-1.0) mg/dL AST (15-37) U/L ALT (12-78) U/L Alkaline Phosphatase (46-116) U/L Total Protein (6.4-8.2) g/dL Albumin (3.4-5.0) g/dL Globulin (2.3-3.5) g/dL Albumin/Globulin Ratio (1.2-2.2) Vancomycin Trough 11.0 (10.0-20.0) ug/mL Blood Type Gel Antibody Screen Antibody Identification Crossmatch Felix Results Last 24 Hrs: Microbiology 06/16/17 15:26 Aerobic Blood Culture - Preliminary Blood - Arm, Right NO GROWTH AFTER 1 DAY Anaerobic Blood Culture - Preliminary NO GROWTH AFTER 1 DAY 06/16/17 15:15 Aerobic Blood Culture - Preliminary Blood - Arm, Left NO GROWTH AFTER 1 DAY Anaerobic Blood Culture - Preliminary NO GROWTH AFTER 1 DAY Med Orders - Current: Current Medications Albuterol/Ipratropium (Duoneb 3.0-0.5 Mg/3 Ml) 3 ml NEB QIDRT [facility] Last Admin: 06/17/17 20:56 Dose: 3 ml Albuterol/Ipratropium (Duoneb 3.0-0.5 Mg/3 Ml) 3 ml INH ASDIRECTED PRN PRN Reason: Shortness of Breath Celecoxib (Celebrex) 200 mg PO DAILY [facility] Last Admin: 06/17/17 14:14 Dose: 200 mg Diphenhydramine HCl (Benadryl) 50 mg IVPUSH Q4H PRN PRN Reason: Itching Last Admin: 06/16/17 13:20 Dose: 50 mg Haloperidol Lactate (Haldol) 2.5 mg IVPUSH Q1H PRN PRN Reason: Agitation Heparin Sodium (Porcine) (Heparin Lock Flush 100 Units/Ml) 500 units FLUSH ASDIRECTED PRN PRN Reason: IV Use Last Admin: 06/18/17 02:12 Dose: 500 units Hydroxyzine HCl (Vistaril) 100 mg IM Q4H PRN PRN Reason: PAIN Multivitamins/Minerals 10 ml/Chromium/Copper/Manganese/Seleni/Zn 1 ml/ Amino Ac/ Electrol/Dextrose/Calcium 1,011 mls @ 100 mls/hr IV .BY DURATION [facility] Last Admin: 06/17/17 21:11 Dose: Not Given Amino Ac/Electrol/Dextrose/Calcium (Clinimix E 01/26) 1,000 mls @ 100 mls/hr IV .BY DURATION [facility] Last Admin: 06/18/17 04:45 Dose: 100 mls/hr Sodium Chloride (Normal Saline) 1,000 mls @ 0 mls/hr IV ASDIRECTED [facility] PRN Reason: KVO Last Admin: 06/17/17 08:38 Dose: 25 mls/hr Albumin Human (Albumin 25%) 25 gm in 100 mls @ 25 mls/hr IV Q24H [facility] Stop: 06/19/17 12:59 Last Admin: 06/17/17 08:51 Dose: 25 mls/hr Albumin Human (Albumin 25%) 25 gm in 100 mls @ 25 mls/hr IV Q24H [facility] Stop: 06/19/17 16:59 Last Admin: 06/17/17 12:57 Dose: 25 mls/hr Levofloxacin/Dextrose 750 mg/ (Premix) 150 mls @ 100 mls/hr IV Q24H [facility] Last Admin: 06/17/17 17:01 Dose: 100 mls/hr Vancomycin HCl 1 gm/ Sodium (Chloride) 250 mls @ 167 mls/hr IV Q12H [facility] Last Admin: 06/18/17 05:39 Dose: 167 mls/hr Meropenem 1 gm/ Sodium (Chloride) 50 mls @ 100 mls/hr IV Q8H [facility] Last Admin: 06/18/17 02:18 Dose: 100 mls/hr Lorazepam (Ativan) 0.5 mg IVPUSH Q2H PRN PRN Reason: Anxiety Last Admin: 06/16/17 21:55 Dose: 0.5 mg Metoclopramide HCl (Reglan) 10 mg IV Q6H [facility] Last Admin: 06/18/17 05:28 Dose: 10 mg Metoprolol Tartrate (Lopressor) 25 mg PO Q6H [facility] Last Admin: 06/18/17 04:44 Dose: 25 mg Morphine Sulfate (Morphine [employer]per 150 Mg In 30 Ml) 0 mg IV ASDIRECTED PRN; Protocol PRN Reason: PAIN Last Admin: 06/15/17 15:18 Dose: 150 mg Naloxone HCl (Narcan) 0.1 mg IV ASDIRECTED PRN PRN Reason: RESP DISTRESS Ondansetron HCl (Zofran) 4 mg IV Q4H PRN PRN Reason: Nausea/Vomiting Pantoprazole Sodium (Protonix Iv) 40 mg IV Q24H [facility] Last Admin: 06/18/17 05:27 Dose: 40 mg Phenytoin Sodium (Phenytoin) 150 mg IV Q12H [facility] Last Admin: 06/17/17 21:08 Dose: 150 mg Discontinued Medications Albuterol (Proventil Neb Soln) 2.5 mg NEB Q4H PRN PRN Reason: Shortness Of Breath/wheezing Albuterol/Ipratropium (Duoneb 3.0-0.5 Mg/3 Ml) 3 ml NEB QID PRN PRN Reason: Shortness Of Breath/wheezing Barium Sulfate (E-Z-Hd) 340 gm PO . DIRECTED [facility] Last Admin: 06/17/17 12:54 Dose: 340 gm Bupivacaine HCl (Marcaine 0.5%) Confirm Administered Dose 50 ml .ROUTE .STK-MED ONE Stop: 06/17/17 06:52 Last Admin: 06/17/17 07:35 Dose: 10 ml Bupivacaine HCl/Epinephrine Bitart (Marcaine 0.5%/Epinephrine 1:200,000) Confirm Administered Dose 50 ml .ROUTE .STK-MED ONE Stop: 06/12/17 11:32 Cefoxitin Sodium (Mefoxin) Confirm Administered Dose 2 gm .ROUTE .STK-MED ONE Stop: 06/15/17 10:34 Al Hydroxide/Mg Hydroxide 15 (ml/ Lidocaine HCl 15 ml) 0 ml PO ONETIME ONE Stop: 06/10/17 23:58 Last Admin: 06/11/17 00:16 Dose: 15 ml Ropivacaine 27 ml/Dexamethasone 8 mg/Epinephrine HCl 0.4 mg/ Sodium Chloride 50.6 ml 0 ml NERVRT ASDIRECTED [facility] Stop: 06/12/17 11:30 Last Admin: 06/12/17 13:15 Dose: 80 syringe Ropivacaine 27 ml/Dexamethasone 8 mg/Epinephrine HCl 0.4 mg/ Sodium Chloride 50.6 ml 0 ml NERVRT ASDIRECTED [facility] Last Admin: 06/15/17 11:38 Dose: 80 syringe Dexamethasone (Dexamethasone) Confirm Administered Dose 4 mg .ROUTE .ST-MED ONE Stop: 06/12/17 10:46 Dexamethasone (Dexamethasone) Confirm Administered Dose 4 [facility] Stop: 06/15/17 07:14 Diphenhydramine HCl (Benadryl) Confirm Administered Dose 50 mg .ROUTE .ST-MED ONE Stop: 06/13/17 11:30 Last Admin: 06/13/17 11:59 Dose: Not Given Fentanyl (Sublimaze) Confirm Administered Dose 100 mcg .ROUTE .ST-MED ONE Stop: 06/11/17 10:12 Fentanyl (Sublimaze) Confirm Administered Dose 100 mcg .[facility] Stop: 06/12/17 13:28 Fentanyl (Sublimaze) Confirm Administered Dose 100 mcg .ROUTE .ST-MED ONE Stop: 06/12/17 13:30 Fentanyl (Sublimaze) Confirm Administered Dose 100 mcg .[facility] Stop: 06/17/17 07:00 Fentanyl Citrate (Fentanyl) Confirm Administered Dose 500 mcg .ROUTE .ST-MED ONE Stop: 06/12/17 10:46 Fentanyl Citrate (Fentanyl) Confirm Administered Dose 500 mcg .[facility] ONE Stop: 06/15/17 07:13 Furosemide (Lasix) 20 mg IVPUSH ONETIME ONE Stop: 06/13/17 12:35 Last Admin: 06/13/17 12:50 Dose: 20 mg Furosemide (Lasix) 40 mg IVPUSH NOW ONE Stop: 06/13/17 17:44 Last Admin: 06/13/17 17:57 Dose: 40 mg Furosemide (Lasix) Confirm Administered Dose 40 mg .ROUTE .ST-MED ONE Stop: 06/13/17 17:55 Last Admin: 06/13/17 18:00 Dose: Not Given Glycopyrrolate (Glycopyrrolate) 0.4 mg IVPUSH ONETIME ONE Stop: 06/11/17 09:01 Last Admin: 06/11/17 10:08 Dose: 0.4 mg Glycopyrrolate (Robinul) Confirm Administered Dose 1 mg .ROUTE .ST-MED ONE Stop: 06/12/17 10:46 Glycopyrrolate (Robinul) Confirm Administered Dose 1 mg .ROUTE .STK-MED ONE Stop: 06/15/17 07:14 Haloperidol Lactate (Haldol) 2.5 mg IVPUSH ONETIME ONE Stop: 06/15/17 13:06 Last Admin: 06/15/17 13:13 Dose: 2.5 mg Heparin Sodium (Porcine) (Heparin Lock Flush 100 Units/Ml) Confirm Administered Dose 500 units .ROUTE .STK-MED ONE Stop: 06/12/17 10:50 Sodium Chloride (Normal Saline) 1,000 mls @ 125 mls/hr IV ASDIRECTED [facility] Last Admin: 06/11/17 00:10 Dose: 125 mls/hr Dextrose/Lactated Ringer's (Dextrose 5%-Lactated Ringers) 1,000 mls @ 150 mls/ hr IV ASDIRECTED [facility] Last Admin: 06/12/17 01:26 Dose: 150 mls/hr Cefoxitin Sodium 2 gm/ Sodium (Chloride) 50 mls @ 100 mls/hr IV ONCALL ONE Stop: 06/12/17 09:59 Last Admin: 06/12/17 12:15 Dose: 100 mls/hr Magnesium Sulfate 2 gm/ Sodium (Chloride) 54 mls @ 27 mls/hr IV Q6HR [facility] Stop: 06/14/17 11:59 Last Admin: 06/12/17 10:11 Dose: 27 mls/hr Dextrose/Lactated Ringer's (Dextrose 5%-Lactated Ringers) 1,000 mls @ 100 mls/ hr IV ASDIRECTED [facility] Stop: 06/13/17 12:00 Last Admin: 06/12/17 08:06 Dose: 100 mls/hr Sodium Chloride (Normal Saline) Confirm Administered Dose 10 mls @ as directed .ROUTE .STK-MED ONE Stop: 06/12/17 11:34 Lactated Ringer's (Ringers, Lactated) Confirm Administered Dose 1,000 mls @ as directed .ROUTE .STK-MED ONE Stop: 06/12/17 13:25 Cefoxitin Sodium 2 gm/ Sodium (Chloride) 50 mls @ 100 mls/hr IV ONETIME ONE Stop: 06/12/17 17:29 Last Admin: 06/12/17 17:18 Dose: 100 mls/hr Lactated Ringer's (Ringers, Lactated) 1,000 mls @ 125 mls/hr IV ASDIRECTED [facility] Last Admin: 06/13/17 10:18 Dose: 125 mls/hr Cefoxitin Sodium 2 gm/ Sodium (Chloride) 50 mls @ 100 mls/hr IV Q6H [facility] Last Admin: 06/15/17 14:12 Dose: 100 mls/hr Lactated Ringer's (Ringers, Lactated) 500 mls @ 500 mls/hr IV .BOLUS [facility] Last Admin: 06/13/17 00:44 Dose: 500 mls/hr Magnesium Sulfate 2 gm/ Premix 50 mls @ 25 mls/hr IV Q6H [facility] Stop: 06/16/17 05:59 Last Admin: 06/15/17 14:21 Dose: 25 mls/hr Acetaminophen 1,000 mg/ Premix 100 mls @ 400 mls/hr IV ONETIME ONE Stop: 06/13/17 12:54 Last Admin: 06/13/17 12:45 Dose: 400 mls/hr Linezolid (Zyvox) Confirm Administered Dose 100 mls @ as directed .[facility] ONE Stop: 06/15/17 07:29 Sodium Chloride (Normal Saline) Confirm Administered Dose 500 mls @ as directed [facility] Stop: 06/15/17 10:25 Sodium Chloride (Normal Saline) Confirm Administered Dose 10 mls @ as directed .[facility]TE [facility] ONE Stop: 06/15/17 10:34 Cefoxitin Sodium 2 gm/ Sodium (Chloride) 50 mls @ 100 mls/hr IV Q6H [facility] Last Admin: 06/16/17 14:47 Dose: 100 mls/hr Magnesium Sulfate 2 gm/ Premix 50 mls @ 25 mls/hr IV Q6H [facility] Stop: 06/16/17 10:29 Last Admin: 06/16/17 09:01 Dose: 25 mls/hr Lactated Ringer's (Ringers, Lactated) 1,000 mls @ 250 mls/hr IV ASDIRECTED [facility] Stop: 06/16/17 19:31 Last Admin: 06/16/17 16:21 Dose: 250 mls/hr Acetaminophen 1,000 mg/ Premix 100 mls @ 400 mls/hr IV Q6H [facility] Stop: 06/18/17 04:14 Last Admin: 06/18/17 04:09 Dose: 400 mls/hr Labetalol HCl (Normodyne) Confirm Administered Dose 20 mg .ROUTE .STK-MED ONE Stop: 06/12/17 13:58 Lidocaine/Epinephrine (Xylocaine 1% With Epinephrine 1:100,000) Confirm Administered Dose 50 ml .ROUTE .STK-MED ONE Stop: 06/17/17 06:52 Last Admin: 06/17/17 07:35 Dose: 10 ml Lorazepam (Ativan) 1 mg IV Q6H PRN PRN Reason: Nausea/Vomiting Last Admin: 06/11/17 04:07 Dose: 1 mg Meropenem (Merrem) Confirm Administered Dose 500 mg .ROUTE .STK-MED ONE Stop: 06/12/17 10:50 Last Admin: 06/12/17 14:15 Dose: 500 mg Meropenem (Merrem) Confirm Administered Dose 500 mg .ROUTE .STK-MED ONE Stop: 06/12/17 11:34 Meropenem (Merrem) Confirm Administered Dose 500 mg .ROUTE .STK-MED ONE Stop: 06/15/17 07:29 Last Admin: 06/15/17 08:50 Dose: 500 mg Meropenem (Merrem) Confirm Administered Dose 500 mg .ROUTE .STK-MED ONE Stop: 06/17/17 06:52 Last Admin: 06/17/17 07:35 Dose: 500 mg Metoprolol Tartrate (Lopressor) 2.5 mg IVPUSH Q4H [facility] Last Admin: 06/17/17 14:14 Dose: 2.5 mg Midazolam HCl (Versed 1 Mg/Ml) Confirm Administered Dose 2 mg .ROUTE .STK-MED ONE Stop: 06/17/17 07:00 Morphine Sulfate (Morphine) 2 mg IVPUSH Q2H PRN PRN Reason: Pain (severe 7-10) Last Admin: 06/12/17 11:37 Dose: 2 mg Neostigmine Methylsulfate (Neostigmine) Confirm Administered Dose 5 mg .ROUTE .STK-MED ONE Stop: 06/12/17 10:46 Neostigmine Methylsulfate (Neostigmine) Confirm Administered Dose 5 mg .ROUTE .STK-MED ONE Stop: 06/15/17 07:14 Ondansetron HCl (Zofran) 4 mg IVPUSH ONETIME PRN PRN Reason: Nausea/Vomiting Last Admin: 06/11/17 00:10 Dose: 4 mg Ondansetron HCl (Zofran) Confirm Administered Dose 4 mg .ROUTE .STK-MED ONE Stop: 06/12/17 10:46 Ondansetron HCl (Zofran) Confirm Administered Dose 4 mg .ROUTE .STK-MED ONE Stop: 06/15/17 07:14 Pantoprazole Sodium (Protonix Iv) 40 mg IV Q12H [facility] Last Admin: 06/11/17 03:19 Dose: 40 mg Pantoprazole Sodium (Protonix Iv) 40 mg IV Q12H [facility] Last Admin: 06/12/17 04:02 Dose: 40 mg Pantoprazole Sodium (Protonix Iv) 40 mg IV Q12H [facility] Stop: 06/14/17 06:01 Last Admin: 06/14/17 05:18 Dose: 40 mg Phenytoin Sodium (Phenytoin) 100 mg PO BID [facility] Last Admin: 06/12/17 09:36 Dose: Not Given Phenytoin Sodium (Phenytoin) 100 mg IV Q12H [facility] Last Admin: 06/13/17 21:26 Dose: 100 mg Pneumococcal Polyvalent Vaccine (Pneumovax 23) 0.5 ml IM .ONCE ONE Stop: 06/11/17 10:01 Last Admin: 06/11/17 13:41 Dose: 0.5 ml Propofol (Diprivan 20 Ml) Confirm Administered Dose 200 mg .ROUTE .STK-MED ONE Stop: 06/11/17 10:12 Propofol (Diprivan 20 Ml) Confirm Administered Dose 200 mg .ROUTE .STK-MED ONE Stop: 06/12/17 10:46 Propofol (Diprivan 20 Ml) Confirm Administered Dose 200 mg .ROUTE .STK-MED ONE Stop: 06/15/17 07:14 Propofol (Diprivan 20 Ml) Confirm Administered Dose 200 mg .ROUTE .STK-MED ONE Stop: 06/17/17 07:00 Rocuronium Tunica (Zemuron) Confirm Administered Dose 50 mg .ROUTE .STK-MED ONE Stop: 06/12/17 10:46 Rocuronium Tunica (Zemuron) Confirm Administered Dose 50 mg .ROUTE .STK-MED ONE Stop: 06/15/17 07:14 Rocuronium Tunica (Zemuron) Confirm Administered Dose 50 mg .ROUTE .STK-MED ONE Stop: 06/15/17 11:32 Spironolactone (Aldactone) 25 mg PO DAILY [facility] Last Admin: 06/12/17 09:36 Dose: Not Given Succinylcholine Chloride (Quelicin) Confirm Administered Dose 200 mg .ROUTE .STK -MED ONE Stop: 06/12/17 10:46 Succinylcholine Chloride (Quelicin) Confirm Administered Dose 200 mg .ROUTE .STK -MED ONE Stop: 06/15/17 07:14 Vancomycin HCl (Vancomycin) 1 gm IV .PHARMACY TO DOSE [facility] Stop: 06/16/17 17:00 - Exam Wound/Incisions: Healing Well Quality Assessment: Central Line/PICC, Urine Catheter, DVT Prophylaxis General: Alert, Oriented, No Acute Distress HEENT: Pupils Equal, Pupils Reactive Neck: Supple Lungs: Clear to Auscultation, Normal Respiratory Effort Cardiovascular: Regular Rate, Regular Rhythm, No Murmurs GI/Abdominal Exam: Soft, Tender Extremities: Normal Inspection, No Pedal Edema Skin: Warm, Dry, Intact Neurological: No New Focal Deficit Psy/Mental Status: Alert, Normal Affect, Normal Mood - Problem List & Annotations (1) Abdominal pain, epigastric SNOMED Code(s): 56828718 Code(s): R10.13 - EPIGASTRIC PAIN Status: Acute Priority: High Current Visit: Yes (2) Abnormal findings on esophagogastroduodenoscopy (EGD) SNOMED Code(s): 249150910 Code(s): R19.8 - OTH SYMPTOMS AND SIGNS INVOLVING THE DGSTV SYS AND ABDOMEN Status: Acute Current Visit: Yes (3) Status post exploratory laparotomy SNOMED Code(s): 078000648, 590173930 Code(s): Z98.890 - OTHER SPECIFIED POSTPROCEDURAL STATES Status: Acute Current Visit: Yes Annotation/Comment:: with resection of gastric mass - Problem List Review Problem List Initiated/Reviewed/Updated: Yes - My Orders Last 24 Hours: Active Orders 24 hr Category Date Time Status Communication Order [RC] ROUTINE Care 06/17/17 13:24 Active Daily Weight [Height and Weight] [RC] DAILY Care 06/18/17 05:00 Active Full Liquid Diet [DIET] Diet 06/17/17 Dinner Ordered Echo Comp wo Cont [US] Urgent Exams 06/18/17 08:00 Ordered Celecoxib [CeleBREX] Med 06/17/17 14:00 Active 200 mg PO DAILY Metoprolol Tartrate [Lopressor] Med 06/17/17 17:00 Active 25 mg PO Q6H Transfuse Red Blood Cells [COMM] Routine Oth 06/17/17 08:35 Ordered Medication Orders Albuterol/Ipratropium (Duoneb 3.0-0.5 Mg/3 Ml) 3 ml NEB QIDRT [facility] Last Admin: 06/17/17 20:56 Dose: 3 ml Admin: 06/17/17 14:39 Dose: 3 ml Admin: 06/17/17 10:57 Dose: 3 ml Admin: 06/17/17 07:23 Dose: Not Given Admin: 06/16/17 20:55 Dose: 3 ml Admin: 06/16/17 14:41 Dose: 3 ml Admin: 06/16/17 10:54 Dose: 3 ml Admin: 06/16/17 07:27 Dose: 3 ml Admin: 06/15/17 22:01 Dose: Not Given Admin: 06/15/17 14:31 Dose: 3 ml Admin: 06/15/17 11:04 Dose: Not Given Admin: 06/15/17 07:21 Dose: 3 ml Admin: 06/14/17 21:37 Dose: 3 ml Admin: 06/14/17 15:05 Dose: 3 ml Admin: 06/14/17 11:25 Dose: 3 ml Admin: 06/14/17 07:53 Dose: 3 ml Admin: 06/13/17 21:26 Dose: 3 ml Admin: 06/13/17 14:56 Dose: 3 ml Admin: 06/13/17 11:44 Dose: 3 ml Admin: 06/13/17 09:06 Dose: 3 ml Admin: 06/12/17 21:33 Dose: 3 ml Albuterol/Ipratropium (Duoneb 3.0-0.5 Mg/3 Ml) 3 ml INH ASDIRECTED PRN PRN Reason: Shortness of Breath Celecoxib (Celebrex) 200 mg PO DAILY [facility] Last Admin: 06/17/17 14:14 Dose: 200 mg Diphenhydramine HCl (Benadryl) 50 mg IVPUSH Q4H PRN PRN Reason: Itching Last Admin: 06/16/17 13:20 Dose: 50 mg Admin: 06/13/17 11:33 Dose: 50 mg Haloperidol Lactate (Haldol) 2.5 mg IVPUSH Q1H PRN PRN Reason: Agitation Heparin Sodium (Porcine) (Heparin Lock Flush 100 Units/Ml) 500 units FLUSH ASDIRECTED PRN PRN Reason: IV Use Last Admin: 06/18/17 02:12 Dose: 500 units Admin: 06/16/17 21:56 Dose: 500 units Admin: 06/16/17 04:04 Dose: 500 units Hydroxyzine HCl (Vistaril) 100 mg IM Q4H PRN PRN Reason: PAIN Multivitamins/Minerals 10 ml/Chromium/Copper/Manganese/Seleni/Zn 1 ml/ Amino Ac/ Electrol/Dextrose/Calcium 1,011 mls @ 100 mls/hr IV .BY DURATION [facility] Last Admin: 06/17/17 21:11 Dose: Admin: 06/16/17 21:40 Dose: 100 mls/hr Infusion: 06/16/17 11:07 Dose: 100 mls/hr Admin: 06/16/17 01:00 Dose: 100 mls/hr Infusion: 06/15/17 15:27 Dose: 100 mls/hr Admin: 06/15/17 05:20 Dose: 100 mls/hr Infusion: 06/14/17 20:07 Dose: 100 mls/hr Admin: 06/14/17 10:00 Dose: 100 mls/hr Infusion: 06/13/17 22:07 Dose: 100 mls/hr Admin: 06/13/17 12:00 Dose: 100 mls/hr Amino Ac/Electrol/Dextrose/Calcium (Clinimix E 01/26) 1,000 mls @ 100 mls/hr IV .BY DURATION [facility] Last Admin: 06/18/17 04:45 Dose: 100 mls/hr Infusion: 06/17/17 18:33 Dose: 100 mls/hr Admin: 06/17/17 08:33 Dose: 100 mls/hr Infusion: 06/16/17 22:27 Dose: 100 mls/hr Admin: 06/16/17 12:27 Dose: 100 mls/hr Infusion: 06/16/17 00:53 Dose: 100 mls/hr Admin: 06/15/17 14:53 Dose: 100 mls/hr Infusion: 06/15/17 05:13 Dose: 100 mls/hr Admin: 06/14/17 19:13 Dose: 100 mls/hr Infusion: 06/14/17 10:04 Dose: 100 mls/hr Admin: 06/14/17 00:04 Dose: 100 mls/hr Sodium Chloride (Normal Saline) 1,000 mls @ 0 mls/hr IV ASDIRECTED [facility] PRN Reason: KVO Last Admin: 06/17/17 08:38 Dose: 25 mls/hr Infusion: 06/17/17 04:27 Dose: 25 mls/hr Admin: 06/15/17 12:27 Dose: 25 mls/hr Albumin Human (Albumin 25%) 25 gm in 100 mls @ 25 mls/hr IV Q24H [facility] Stop: 06/19/17 12:59 Last Admin: 06/17/17 08:51 Dose: 25 mls/hr Infusion: 06/16/17 13:01 Dose: 25 mls/hr Admin: 06/16/17 09:01 Dose: 25 mls/hr Albumin Human (Albumin 25%) 25 gm in 100 mls @ 25 mls/hr IV Q24H [facility] Stop: 06/19/17 16:59 Last Admin: 06/17/17 12:57 Dose: 25 mls/hr Infusion: 06/16/17 16:27 Dose: 25 mls/hr Admin: 06/16/17 12:27 Dose: 25 mls/hr Levofloxacin/Dextrose 750 mg/ (Premix) 150 mls @ 100 mls/hr IV Q24H [facility] Last Admin: 06/17/17 17:01 Dose: 100 mls/hr Infusion: 06/16/17 17:43 Dose: 100 mls/hr Admin: 06/16/17 16:13 Dose: 100 mls/hr Vancomycin HCl 1 gm/ Sodium (Chloride) 250 mls @ 167 mls/hr IV Q12H [facility] Last Admin: 06/18/17 05:39 Dose: 167 mls/hr Admin: 06/17/17 16:52 Dose: 167 mls/hr Admin: 06/17/17 05:56 Dose: 167 mls/hr Admin: 06/16/17 17:18 Dose: 167 mls/hr Meropenem 1 gm/ Sodium (Chloride) 50 mls @ 100 mls/hr IV Q8H [facility] Last Admin: 06/18/17 02:18 Dose: 100 mls/hr Infusion: 06/17/17 18:59 Dose: 100 mls/hr Admin: 06/17/17 18:29 Dose: 100 mls/hr Infusion: 06/17/17 11:52 Dose: 100 mls/hr Admin: 06/17/17 11:22 Dose: 100 mls/hr Infusion: 06/17/17 03:25 Dose: 100 mls/hr Admin: 06/17/17 02:55 Dose: 100 mls/hr Infusion: 06/16/17 18:41 Dose: 100 mls/hr Admin: 06/16/17 18:11 Dose: 100 mls/hr Lorazepam (Ativan) 0.5 mg IVPUSH Q2H PRN PRN Reason: Anxiety Last Admin: 06/16/17 21:55 Dose: 0.5 mg Admin: 06/16/17 12:16 Dose: 0.5 mg Metoclopramide HCl (Reglan) 10 mg IV Q6H [facility] Last Admin: 06/18/17 05:28 Dose: 10 mg Admin: 06/17/17 23:26 Dose: 10 mg Admin: 06/17/17 20:43 Dose: Admin: 06/17/17 12:53 Dose: 10 mg Admin: 06/17/17 05:52 Dose: 10 mg Admin: 06/17/17 00:06 Dose: 10 mg Admin: 06/16/17 17:05 Dose: 10 mg Admin: 06/16/17 12:21 Dose: Not Given Admin: 06/16/17 05:06 Dose: 10 mg Admin: 06/16/17 00:00 Dose: 10 mg Admin: 06/15/17 17:28 Dose: 10 mg Admin: 06/15/17 14:10 Dose: 10 mg Admin: 06/15/17 05:23 Dose: 10 mg Admin: 06/15/17 00:03 Dose: 10 mg Admin: 06/14/17 17:06 Dose: 10 mg Admin: 06/14/17 11:19 Dose: 10 mg Admin: 06/14/17 05:18 Dose: 10 mg Admin: 06/14/17 00:18 Dose: 10 mg Admin: 06/13/17 17:57 Dose: 10 mg Admin: 06/13/17 12:00 Dose: 10 mg Admin: 06/13/17 06:47 Dose: 10 mg Admin: 06/12/17 23:45 Dose: 10 mg Admin: 06/12/17 17:22 Dose: 10 mg Metoprolol Tartrate (Lopressor) 25 mg PO Q6H [facility] Last Admin: 06/18/17 04:44 Dose: 25 mg Admin: 06/17/17 22:09 Dose: 25 mg Admin: 06/17/17 17:32 Dose: 25 mg Morphine Sulfate (Morphine [employer]per 150 Mg In 30 Ml) 0 mg IV ASDIRECTED PRN; Protocol PRN Reason: PAIN Last Admin: 06/15/17 15:18 Dose: 150 mg Admin: 06/12/17 17:30 Dose: 150 mg Naloxone HCl (Narcan) 0.1 mg IV ASDIRECTED PRN PRN Reason: RESP DISTRESS Ondansetron HCl (Zofran) 4 mg IV Q4H PRN PRN Reason: Nausea/Vomiting Pantoprazole Sodium (Protonix Iv) 40 mg IV Q24H [facility] Last Admin: 06/18/17 05:27 Dose: 40 mg Admin: 06/17/17 05:47 Dose: 40 mg Admin: 06/16/17 05:06 Dose: 40 mg Admin: 06/15/17 05:23 Dose: 40 mg Phenytoin Sodium (Phenytoin) 150 mg IV Q12H [facility] Last Admin: 06/17/17 21:08 Dose: 150 mg Admin: 06/17/17 09:02 Dose: 150 mg Admin: 06/16/17 21:03 Dose: 150 mg Admin: 06/16/17 09:02 Dose: 150 mg Admin: 06/15/17 22:05 Dose: 150 mg Admin: 06/15/17 08:03 Dose: 150 mg Admin: 06/14/17 21:37 Dose: 150 mg Admin: 06/14/17 09:11 Dose: 150 mg - Assessment Assessment (Free Text/Narrative):: 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 Status post delayed primary closure. - Plan Plan (Free Text/Narrative):: 1. Decrease TPN to 80 ml/hr with same contents of previous order. 2. Magnesium Sulfate 2 g IV q 6 hours x 72 hours. 3. Reglan 10 mg IV q 6 hours prn for nausea. 4. Remove dressing and may shower today. 5. Clamp G tube all the time and unclamp if nausea and/or abdominal pain 6. Daily heights and weights. 7. CBC without diff, CMP and phosphorus labs in am. LEEANN Pedroza-Student
[2017-06-18] MEDS ORDERED: Metoclopramide 10 MG/2 ML SDV IV PRN (07:31)
[2017-06-18] MEDS: Celecoxib 200 MG Cap PO SCH (09:26)
--- NOTE | 2017-06-18 09:27 | PN ---
DATE OF SERVICE: 06/16/2017 The patient has been afebrile with stable vital signs. Early postoperatively, she was somewhat psychotic; this has now cleared, and she appears to be appropriate, beginning a few hours after surgery. Clinically, she has been stable. Urine output has been satisfactory, still tachycardia, which is unclear what the cause is to myself or Dr. Hawley. We may consider getting her on a beta dwain in the next day or so. Otherwise, she does have some bile leak into the LAYNE drains, which would be fairly expected at this point. The total bilirubin is down from 2.9 to 2.2, and I think it will gradually keep coming down. We will plan to proceed with a delayed primary closure tomorrow morning, and after that, we will get an upper GI x-ray to see how well the stomach is emptying and perhaps start some diet at that point, if it is emptying satisfactorily. Her albumin is low at 1.5. We will supplement that over the next 4 days. Her hemoglobin, after transfusion of 1 unit of packed RBCs in the OR yesterday is 9.6, and I don't think we will be giving her any additional transfusions at this point. The Dilantin level was 5.9, which is up somewhat from previously. She did not have any significant problems with regard to any seizure activities, so I think we will leave her at the present Dilantin dose. Eulalio Hemphill MD /[id number]
[2017-06-18] MEDS: Magnesium Sulfate/Water 2 GM in Premix Bag 1 BAG IV SCH ×3 (09:34→21:01)
--- NOTE | 2017-06-18 12:07 | OR ---
DATE OF PROCEDURE: 06/12/2017 PREOPERATIVE DIAGNOSES: 1. Large pre-pyloric ulcerated gastric mass. 2. Malnutrition. POSTOPERATIVE DIAGNOSES: 1. Perforated pyloric channel ulcer with penetration into pancreatic head with focal pancreatic and peripancreatic tissue necrosis. 2. Malnutrition. OPERATIVE PROCEDURES: 1. Insertion of left subclavian vein triple-lumen catheter (23300). 2. Exploratory laparotomy with: a. Distal subtotal gastrectomy with Mona-en-Y gastrojejunostomy (68089). b. Debridement of necrotic pancreatic and peripancreatic tissue (15157). c. Placement of tube gastrostomy (76440). ANESTHESIA: General plus a transversus abdominis plane block. INDICATION FOR PROCEDURE: A 62-year-old presenting with gastric outlet obstruction. She had been sick for some time and, along with the resection, is to undergo a central line insertion for hyperalimentation postoperatively. The lesion is quite suspicious for a malignancy, although benign complicated ulcer would also be within the differential diagnosis. Plan is to proceed with insertion of triple-lumen catheter, followed by an exploratory laparotomy with planned distal subtotal gastrectomy, with other procedures as indicated. Potential risks including bleeding, infection, leaks from various GI tract closures, possibility that this is a malignancy that may not be resectable or curable, as well as the possibility of cardiopulmonary, septic, or hemorrhagic complications leading to were discussed, and the patient wishes to proceed. DETAILS OF PROCEDURE: The patient was taken to the operating room and placed in a supine position. After general endotracheal anesthesia was induced, the upper chest and neck areas were prepped and draped. The left subclavian vein catheter was then placed without difficulty and sutured to the skin with 3-0 Vicryl stitch. Ports were flushed with heparinized saline and dressing applied. Subsequent chest x-ray showed good catheter position with the tip in the superior vena cava, right atrial junction. A Gomez catheter was inserted, and the abdomen then prepped and draped. A midline incision from the xiphoid to the umbilicus was made and carried down through the full thickness abdominal wall. Upon entering the peritoneal cavity, general exploration was undertaken. There were some palpable lymph nodes in the right gastroepiploic, right gastric, and left gastric chain. These were not enlarged or particularly hard, but somewhat firm and obviously palpable. The mass in the distal stomach was quite densely adherent to the head of the pancreas with there being quite a bit of peripancreatic inflammation, potentially there is some pancreatic and peripancreatic necrosis identified during the course of the dissection. At this point, the peritoneal reflection of the duodenum was divided and this was then reflected upward. The dissection initially continued toward the pylorus, dissecting the duodenum from the underlying soft tissues. During the course of this dissection, care was taken to avoid injury to the underlying common bile duct, portal vein, and hepatic artery. At that point then, the omentum was divided off the transverse colon. The lesser sac was then entered, and roughly 8 cm proximal to the mass then, the stomach was then divided with SOILA black loads. At this point, the origin of the right gastric and right gastroepiploic vessels were then divided and the dissection then continued from left to right, gradually dissecting the mass off of the pancreas. It became evident that there was a full-thickness perforation, with the ulcer quite densely adherent to the pancreas. This was gradually debrided off with a combination of jamal, cautery, and blunt dissection. The gastric specimen, including the proximal duodenum, was delivered from the field. The course of the pancreas was then examined. This was grossly intact with there being no deeper areas of incision or penetration to the level that might be near the main ducts. Some additional pancreatic and peripancreatic necrotic tissues were then debrided at this point. The common bile duct was then inspected and found not to have been dissected in any extent, as it passed from the suprapancreatic to the intrapancreatic segment. Frozen sections on the resected stomach showed marked inflammation. The pathologist was not able to rule out a carcinoma, but as there were no glands or other obvious signs of neoplasm, this was felt possibly to be a complicated peptic ulcer, as opposed to neoplastic problem. The lymph nodes along the right gastric and right gastroepiploic vessels were taken en bloc with the specimen. At this point, the lymphatic vessels along the left gastric artery were then divided with the aid of SOILA staplers and then sent as a separate specimen. At this point, the Mona limb was to be constructed roughly 20 cm distal to ligament of Treitz. The small bowel was divided and then [id number] jejunojejunostomy accomplished at around 75 cm distal to that point. The Mona limb was then brought up through a retrocolic route, after blunt opening of the transverse mesocolon was accomplished. This easily came up to the divided stomach. The bowel was of sufficient diameter to accommodate a 28-mm EEA stapler. The original gastric staple line was then opened at its most dependent portion and the anvil of the EEA stapler passed into the gastric lumen, with the gastric staple line then being replaced, and the anvil then brought out just posterior to the most dependent portion of that staple line. The divided end of the Mona limb was then brought up, and the stapler passed several centimeters into it, where it was then connected to the anvil, and upon firing, the gastrojejunostomy was then accomplished. Upon removal of the stapler, double donuts of mucosa were noted within it. The small bowel was then closed off with a vascular staple line. The gastrojejunostomy was reinforced with some interrupted 3-0 Vicryl seromuscular stitch, along with fibrin sealant, and the distal stomach seemed not to stay positioned well with regard to the transverse mesocolon, and it was elected to leave the gastrojejunostomy above the level of the transverse mesocolon. This was, however, widely opened, and there was no restriction of the course of the Mona limb as it passed through the retrocolic tunnel. This was fixed to the transverse mesocolon with some 3-0 Vicryl stitch as well. To facilitate the patient's postoperative care, a tube gastrostomy, this being a 20-Ind[place]ian Gomez catheter, was placed through a stab wound in the left subcostal area. This was then positioned into the stomach, roughly 5 or 6 cm proximal to the gastrojejunostomy along the greater curvature, after the pursestring stitch of 3-0 Vicryl stitch was placed, gastrostomy placed, and the lumen inflated with 10 mL of saline. Some additional sutures were then placed between the abdominal wall and the center of the gastrostomy and the gastrostomy tube fixed at the skin level with a 2-0 nylon stitch. At this point, no further problems were noted. Again the common bile duct and was inspected and the pancreas was found not to have any additional abnormalities, and the course of the pancreas was grossly intact. Three Marco-Jefferson drains were then placed on the right side of the abdomen, one taken posterior to the pancreas, one anterior to the pancreas, and one along the area of the gastrojejunostomy. The duodenal stump closure and gastrojejunostomy, along with pancreatic surfaces, were reinforced with some fibrin sealant. Antibiotic irrigation was then accomplished and the midline fascia was then approximated with a #2 Vicryl stitch. The skin and subcutaneous tissue were thought to be high risk for a wound infection, should they be closed, and these were packed open with Iodoform gauze for a planned delayed primary closure in roughly 48 hours. After the induction of the anesthetic, the patient also had bilateral subcostal transversus abdominis plane block placed using the standard solution with continuous ultrasound guidance. The patient was taken to the recovery room in a satisfactory condition. There were no evident complications. Physician pediatric physical therapy assistant, Bebe Bear, played an essential role in assisting in this case, helping to position the patient, retract structures as needed, as well as suturing and cutting sutures when indicated. Her presence improved patient safety and decreased the operative time. Eulalio Hemphill MD /b
--- NOTE | 2017-06-18 14:36 | PCM.PN ---
- General Info Date of Service: 06/18/17 Functional Status: Reports: Pain Controlled, Tolerating Diet - Review of Systems General: Reports: Weakness. Denies: Fever, Chills Pulmonary: Reports: No Symptoms Cardiovascular: Reports: No Symptoms Gastrointestinal: Reports: Abdominal Pain, Flatus. Denies: Constipation, Diarrhea, Difficulty Swallowing, Nausea, Vomiting Systems Review Comment:: Ms. Rodrigues has remained stable and shown further improvement over the past 24 hours heart rate remains mildly elevated but much improved from what it had been previously. White blood cell count modestly elevated but significantly improved over the past few days. Vital signs have otherwise been good and she has remained afebrile. - Patient Data Vitals - Most Recent: Last Vital Signs Temp 98.1 F 06/18/17 11:14 Pulse 111 H 06/18/17 12:50 Resp 16 06/18/17 11:14 BP 115/41 L 06/18/17 12:50 Pulse Ox 95 06/18/17 13:28 Weight - Most Recent: 125 lb 12.8 oz I&O - Last 24 Hours: Intake & Output 06/17/17 06/18/17 06/18/17 22:59 06:59 14:59 Intake Total 340 3343 Output Total 2080 1595 850 Balance -1740 1748 -850 Lab Results Last 24 Hours: Laboratory Results - last 24 hr 06/17/17 06/18/17 06/18/17 Range/Units 08:40 04:00 04:00 WBC 12.6 H (4.5-11.0) K/uL RBC 3.28 L (3.30-5.50) M/uL Hgb 9.9 L (12.0-15.0) g/dL Hct 29.9 L (36.0-48.0) % MCV 91 (80-98) fL MCH 30 (27-31) pg MCHC 33 (32-36) % Plt Count 144 L (150-400) K/uL Sodium 137 L (140-148) mmol/L Potassium 4.1 (3.6-5.2) mmol/L Chloride 105 (100-108) mmol/L Carbon Dioxide 26 (21-32) mmol/L Anion Gap 10.1 (5.0-14.0) mmol/L BUN 18 (7-18) mg/dL Creatinine 0.7 (0.6-1.0) mg/dL Est Cr Clr Drug Dosing 69.79 mL/min Estimated GFR (MDRD) > 60 (>60) Glucose 118 H (74-106) mg/dL Calcium 8.5 (8.5-10.1) mg/dL Phosphorus 4.0 (2.5-4.9) mg/dL Magnesium 1.6 L (1.8-2.4) mg/dL Total Bilirubin 5.0 H D (0.2-1.0) mg/dL AST 83 H (15-37) U/L ALT 104 H (12-78) U/L Alkaline Phosphatase 334 H D (46-116) U/L Total Protein 5.4 L (6.4-8.2) g/dL Albumin 2.4 L (3.4-5.0) g/dL Globulin 3.0 (2.3-3.5) g/dL Albumin/Globulin Ratio 0.8 L (1.2-2.2) Vancomycin Trough (10.0-20.0) ug/mL Blood Type O POSITIVE Gel Antibody Screen Positive A* Antibody Identification Anti-K Crossmatch See Detail 06/18/17 Range/Units 07:00 WBC (4.5-11.0) K/uL RBC (3.30-5.50) M/uL Hgb (12.0-15.0) g/dL Hct (36.0-48.0) % MCV (80-98) fL MCH (27-31) pg MCHC (32-36) % Plt Count (150-400) K/uL Sodium (140-148) mmol/L Potassium (3.6-5.2) mmol/L Chloride (100-108) mmol/L Carbon Dioxide (21-32) mmol/L Anion Gap (5.0-14.0) mmol/L BUN (7-18) mg/dL Creatinine (0.6-1.0) mg/dL Est Cr Clr Drug Dosing mL/min Estimated GFR (MDRD) (>60) Glucose (74-106) mg/dL Calcium (8.5-10.1) mg/dL Phosphorus (2.5-4.9) mg/dL Magnesium (1.8-2.4) mg/dL Total Bilirubin (0.2-1.0) mg/dL AST (15-37) U/L ALT (12-78) U/L Alkaline Phosphatase (46-116) U/L Total Protein (6.4-8.2) g/dL Albumin (3.4-5.0) g/dL Globulin (2.3-3.5) g/dL Albumin/Globulin Ratio (1.2-2.2) Vancomycin Trough 11.0 (10.0-20.0) ug/mL Blood Type Gel Antibody Screen Antibody Identification Crossmatch Felix Results Last 24 Hours: Microbiology 06/16/17 15:26 Aerobic Blood Culture - Preliminary Blood - Arm, Right NO GROWTH AFTER 1 DAY Anaerobic Blood Culture - Preliminary NO GROWTH AFTER 1 DAY 06/16/17 15:15 Aerobic Blood Culture - Preliminary Blood - Arm, Left NO GROWTH AFTER 1 DAY Anaerobic Blood Culture - Preliminary NO GROWTH AFTER 1 DAY Med Orders - Current: Current Medications Albuterol/Ipratropium (Duoneb 3.0-0.5 Mg/3 Ml) 3 ml NEB QIDRT [facility] Last Admin: 06/18/17 10:47 Dose: 3 ml Albuterol/Ipratropium (Duoneb 3.0-0.5 Mg/3 Ml) 3 ml INH ASDIRECTED PRN PRN Reason: Shortness of Breath Celecoxib (Celebrex) 200 mg PO DAILY [facility] Last Admin: 06/18/17 09:26 Dose: 200 mg Diphenhydramine HCl (Benadryl) 50 mg IVPUSH Q4H PRN PRN Reason: Itching Last Admin: 06/16/17 13:20 Dose: 50 mg Haloperidol Lactate (Haldol) 2.5 mg IVPUSH Q1H PRN PRN Reason: Agitation Heparin Sodium (Porcine) (Heparin Lock Flush 100 Units/Ml) 500 units FLUSH ASDIRECTED PRN PRN Reason: IV Use Last Admin: 06/18/17 02:12 Dose: 500 units Hydroxyzine HCl (Vistaril) 100 mg IM Q4H PRN PRN Reason: PAIN Sodium Chloride (Normal Saline) 1,000 mls @ 0 mls/hr IV ASDIRECTED GLORIA PRN Reason: KVO Last Admin: 06/17/17 08:38 Dose: 25 mls/hr Albumin Human (Albumin 25%) 25 gm in 100 mls @ 25 mls/hr IV Q24H [facility] Stop: 06/19/17 12:59 Last Admin: 06/18/17 09:25 Dose: 25 mls/hr Albumin Human (Albumin 25%) 25 gm in 100 mls @ 25 mls/hr IV Q24H [facility] Stop: 06/19/17 16:59 Last Admin: 06/17/17 12:57 Dose: 25 mls/hr Levofloxacin/Dextrose 750 mg/ (Premix) 150 mls @ 100 mls/hr IV Q24H [facility] Last Admin: 06/17/17 17:01 Dose: 100 mls/hr Meropenem 1 gm/ Sodium (Chloride) 50 mls @ 100 mls/hr IV Q8H [facility] Last Admin: 06/18/17 10:52 Dose: 100 mls/hr Magnesium Sulfate 2 gm/ Premix 50 mls @ 25 mls/hr IV Q6HR [facility] Stop: 06/21/17 05:59 Last Admin: 06/18/17 09:34 Dose: 25 mls/hr Multivitamins/Minerals 10 ml/Chromium/Copper/Manganese/Seleni/Zn 1 ml/ Amino Ac/ Electrol/Dextrose/Calcium 1,011 mls @ 80 mls/hr IV .BY DURATION [facility] Amino Ac/Electrol/Dextrose/Calcium (Clinimix E 01/26) 1,000 mls @ 80 mls/hr IV .BY DURATION [facility] Lorazepam (Ativan) 0.5 mg IVPUSH Q2H PRN PRN Reason: Anxiety Last Admin: 06/16/17 21:55 Dose: 0.5 mg Metoclopramide HCl (Reglan) 10 mg IV Q6H PRN PRN Reason: Nausea Metoprolol Tartrate (Lopressor) 25 mg PO Q6H [facility] Last Admin: 06/18/17 12:50 Dose: 25 mg Morphine Sulfate (Morphine Senior Examiner 150 Mg In 30 Ml) 0 mg IV ASDIRECTED PRN; Protocol PRN Reason: PAIN Last Admin: 06/15/17 15:18 Dose: 150 mg Naloxone HCl (Narcan) 0.1 mg IV ASDIRECTED PRN PRN Reason: RESP DISTRESS Non-Formulary Medication (Total Parenteral Nutrition, Central) 1,000 ml .XX .Continue Order [facility] Stop: 06/18/17 18:00 Ondansetron HCl (Zofran) 4 mg IV Q4H PRN PRN Reason: Nausea/Vomiting Pantoprazole Sodium (Protonix Iv) 40 mg IV Q24H [facility] Last Admin: 06/18/17 05:27 Dose: 40 mg Phenytoin Sodium (Phenytoin) 150 mg IV Q12H [facility] Last Admin: 06/18/17 09:25 Dose: 150 mg Discontinued Medications Albuterol (Proventil Neb Soln) 2.5 mg NEB Q4H PRN PRN Reason: Shortness Of Breath/wheezing Albuterol/Ipratropium (Duoneb 3.0-0.5 Mg/3 Ml) 3 ml NEB QID PRN PRN Reason: Shortness Of Breath/wheezing Barium Sulfate (E-Z-Hd) 340 gm PO . DIRECTED [facility] Last Admin: 06/17/17 12:54 Dose: 340 gm Bupivacaine HCl (Marcaine 0.5%) Confirm Administered Dose 50 ml .ROUTE .STK-MED ONE Stop: 06/17/17 06:52 Last Admin: 06/17/17 07:35 Dose: 10 ml Bupivacaine HCl/Epinephrine Bitart (Marcaine 0.5%/Epinephrine 1:200,000) Confirm Administered Dose 50 ml .ROUTE .STK-MED ONE Stop: 06/12/17 11:32 Cefoxitin Sodium (Mefoxin) Confirm Administered Dose 2 gm .ROUTE .STK-MED ONE Stop: 06/15/17 10:34 Al Hydroxide/Mg Hydroxide 15 (ml/ Lidocaine HCl 15 ml) 0 ml PO ONETIME ONE Stop: 06/10/17 23:58 Last Admin: 06/11/17 00:16 Dose: 15 ml Ropivacaine 27 ml/Dexamethasone 8 mg/Epinephrine HCl 0.4 mg/ Sodium Chloride 50.6 ml 0 ml NERVRT ASDIRECTED [facility] Stop: 06/12/17 11:30 Last Admin: 06/12/17 13:15 Dose: 80 syringe Ropivacaine 27 ml/Dexamethasone 8 mg/Epinephrine HCl 0.4 mg/ Sodium Chloride 50.6 ml 0 ml NERVRT ASDIRECTED [facility] Last Admin: 06/15/17 11:38 Dose: 80 syringe Dexamethasone (Dexamethasone) Confirm Administered Dose 4 mg .ROUTE .STK-MED ONE Stop: 06/12/17 10:46 Dexamethasone (Dexamethasone) Confirm Administered Dose 4 mg .ROUTE .STK-MED ONE Stop: 06/15/17 07:14 Diphenhydramine HCl (Benadryl) Confirm Administered Dose 50 mg .ROUTE .[facility]-MED ONE Stop: 06/13/17 11:30 Last Admin: 06/13/17 11:59 Dose: Not Given Fentanyl (Sublimaze) Confirm Administered Dose 100 mcg .ROUTE .ST-MED ONE Stop: 06/11/17 10:12 Fentanyl (Sublimaze) Confirm Administered Dose 100 mcg .ROUTE .STK-MED ONE Stop: 06/12/17 13:28 Fentanyl (Sublimaze) Confirm Administered Dose 100 mcg .ROUTE .STK-MED ONE Stop: 06/12/17 13:30 Fentanyl (Sublimaze) Confirm Administered Dose 100 mcg .ROUTE .STK-MED ONE Stop: 06/17/17 07:00 Fentanyl Citrate (Fentanyl) Confirm Administered Dose 500 mcg .ROUTE .[facility]-MED ONE Stop: 06/12/17 10:46 Fentanyl Citrate (Fentanyl) Confirm Administered Dose 500 mcg .ROUTE .[facility]-MED ONE Stop: 06/15/17 07:13 Furosemide (Lasix) 20 mg IVPUSH ONETIME ONE Stop: 06/13/17 12:35 Last Admin: 06/13/17 12:50 Dose: 20 mg Furosemide (Lasix) 40 mg IVPUSH NOW ONE Stop: 06/13/17 17:44 Last Admin: 06/13/17 17:57 Dose: 40 mg Furosemide (Lasix) Confirm Administered Dose 40 mg .ROUTE .[facility]-MED ONE Stop: 06/13/17 17:55 Last Admin: 06/13/17 18:00 Dose: Not Given Glycopyrrolate (Glycopyrrolate) 0.4 mg IVPUSH ONETIME ONE Stop: 06/11/17 09:01 Last Admin: 06/11/17 10:08 Dose: 0.4 mg Glycopyrrolate (Robinul) Confirm Administered Dose 1 mg .ROUTE .STK-MED ONE Stop: 06/12/17 10:46 Glycopyrrolate (Robinul) Confirm Administered Dose 1 mg .ROUTE .[facility]-MED ONE Stop: 06/15/17 07:14 Haloperidol Lactate (Haldol) 2.5 mg IVPUSH ONETIME ONE Stop: 06/15/17 13:06 Last Admin: 06/15/17 13:13 Dose: 2.5 mg Heparin Sodium (Porcine) (Heparin Lock Flush 100 Units/Ml) Confirm Administered Dose 500 units .ROUTE .[facility] ONE Stop: 06/12/17 10:50 Sodium Chloride (Normal Saline) 1,000 mls @ 125 mls/hr IV ASDIRECTED [facility] Last Admin: 06/11/17 00:10 Dose: 125 mls/hr Dextrose/Lactated Ringer's (Dextrose 5%-Lactated Ringers) 1,000 mls @ 150 mls/ hr IV ASDIRECTED [facility] Last Admin: 06/12/17 01:26 Dose: 150 mls/hr Cefoxitin Sodium 2 gm/ Sodium (Chloride) 50 mls @ 100 mls/hr IV ONCALL ONE Stop: 06/12/17 09:59 Last Admin: 06/12/17 12:15 Dose: 100 mls/hr Magnesium Sulfate 2 gm/ Sodium (Chloride) 54 mls @ 27 mls/hr IV Q6HR [facility] Stop: 06/14/17 11:59 Last Admin: 06/12/17 10:11 Dose: 27 mls/hr Dextrose/Lactated Ringer's (Dextrose 5%-Lactated Ringers) 1,000 mls @ 100 mls/ hr IV ASDIRECTED [facility] Stop: 06/13/17 12:00 Last Admin: 06/12/17 08:06 Dose: 100 mls/hr Sodium Chloride (Normal Saline) Confirm Administered Dose 10 mls @ as directed .ROUTE .[facility] ONE Stop: 06/12/17 11:34 Lactated Ringer's (Ringers, Lactated) Confirm Administered Dose 1,000 mls @ as directed .ROUTE .[facility] ONE Stop: 06/12/17 13:25 Cefoxitin Sodium 2 gm/ Sodium (Chloride) 50 mls @ 100 mls/hr IV ONETIME ONE Stop: 06/12/17 17:29 Last Admin: 06/12/17 17:18 Dose: 100 mls/hr Lactated Ringer's (Ringers, Lactated) 1,000 mls @ 125 mls/hr IV ASDIRECTED [facility] Last Admin: 06/13/17 10:18 Dose: 125 mls/hr Cefoxitin Sodium 2 gm/ Sodium (Chloride) 50 mls @ 100 mls/hr IV Q6H [facility] Last Admin: 06/15/17 14:12 Dose: 100 mls/hr Lactated Ringer's (Ringers, Lactated) 500 mls @ 500 mls/hr IV .BOLUS [facility] Last Admin: 06/13/17 00:44 Dose: 500 mls/hr Magnesium Sulfate 2 gm/ Premix 50 mls @ 25 mls/hr IV Q6H [facility] Stop: 06/16/17 05:59 Last Admin: 06/15/17 14:21 Dose: 25 mls/hr Multivitamins/Minerals 10 ml/Chromium/Copper/Manganese/Seleni/Zn 1 ml/ Amino Ac/ Electrol/Dextrose/Calcium 1,011 mls @ 100 mls/hr IV .BY DURATION [facility] Stop: 06/18/17 12:35 Last Admin: 06/17/17 21:11 Dose: Not Given Amino Ac/Electrol/Dextrose/Calcium (Clinimix E 01/26) 1,000 mls @ 100 mls/hr IV .BY DURATION [facility] Stop: 06/18/17 12:35 Last Admin: 06/18/17 04:45 Dose: 100 mls/hr Acetaminophen 1,000 mg/ Premix 100 mls @ 400 mls/hr IV ONETIME ONE Stop: 06/13/17 12:54 Last Admin: 06/13/17 12:45 Dose: 400 mls/hr Linezolid (Zyvox) Confirm Administered Dose 100 mls @ as directed .ROUTE .ST- MED ONE Stop: 06/15/17 07:29 Sodium Chloride (Normal Saline) Confirm Administered Dose 500 mls @ as directed .ROUTE .STK-MED ONE Stop: 06/15/17 10:25 Sodium Chloride (Normal Saline) Confirm Administered Dose 10 mls @ as directed .ROUTE .STK-MED ONE Stop: 06/15/17 10:34 Cefoxitin Sodium 2 gm/ Sodium (Chloride) 50 mls @ 100 mls/hr IV Q6H [facility] Last Admin: 06/16/17 14:47 Dose: 100 mls/hr Magnesium Sulfate 2 gm/ Premix 50 mls @ 25 mls/hr IV Q6H [facility] Stop: 06/16/17 10:29 Last Admin: 06/16/17 09:01 Dose: 25 mls/hr Lactated Ringer's (Ringers, Lactated) 1,000 mls @ 250 mls/hr IV ASDIRECTED [facility] Stop: 06/16/17 19:31 Last Admin: 06/16/17 16:21 Dose: 250 mls/hr Vancomycin HCl 1 gm/ Sodium (Chloride) 250 mls @ 167 mls/hr IV Q12H [facility] Last Admin: 06/18/17 05:39 Dose: 167 mls/hr Acetaminophen 1,000 mg/ Premix 100 mls @ 400 mls/hr IV Q6H [facility] Stop: 06/18/17 04:14 Last Admin: 06/18/17 04:09 Dose: 400 mls/hr Vancomycin HCl 1 gm/ Sodium (Chloride) 250 mls @ 167 mls/hr IV Q12H [facility] Labetalol HCl (Normodyne) Confirm Administered Dose 20 mg .ROUTE .STK-MED ONE Stop: 06/12/17 13:58 Lidocaine/Epinephrine (Xylocaine 1% With Epinephrine 1:100,000) Confirm Administered Dose 50 ml .ROUTE .STK-MED ONE Stop: 06/17/17 06:52 Last Admin: 06/17/17 07:35 Dose: 10 ml Lorazepam (Ativan) 1 mg IV Q6H PRN PRN Reason: Nausea/Vomiting Last Admin: 06/11/17 04:07 Dose: 1 mg Meropenem (Merrem) Confirm Administered Dose 500 mg .ROUTE .STK-MED ONE Stop: 06/12/17 10:50 Last Admin: 06/12/17 14:15 Dose: 500 mg Meropenem (Merrem) Confirm Administered Dose 500 mg .ROUTE .STK-MED ONE Stop: 06/12/17 11:34 Meropenem (Merrem) Confirm Administered Dose 500 mg .ROUTE .STK-MED ONE Stop: 06/15/17 07:29 Last Admin: 06/15/17 08:50 Dose: 500 mg Meropenem (Merrem) Confirm Administered Dose 500 mg .ROUTE .STK-MED ONE Stop: 06/17/17 06:52 Last Admin: 06/17/17 07:35 Dose: 500 mg Metoclopramide HCl (Reglan) 10 mg IV Q6H [facility] Last Admin: 06/18/17 05:28 Dose: 10 mg Metoprolol Tartrate (Lopressor) 2.5 mg IVPUSH Q4H [facility] Last Admin: 06/17/17 14:14 Dose: 2.5 mg Midazolam HCl (Versed 1 Mg/Ml) Confirm Administered Dose 2 mg .ROUTE .STK-MED ONE Stop: 06/17/17 07:00 Morphine Sulfate (Morphine) 2 mg IVPUSH Q2H PRN PRN Reason: Pain (severe 7-10) Last Admin: 06/12/17 11:37 Dose: 2 mg Neostigmine Methylsulfate (Neostigmine) Confirm Administered Dose 5 mg .ROUTE .STK-MED ONE Stop: 06/12/17 10:46 Neostigmine Methylsulfate (Neostigmine) Confirm Administered Dose 5 mg .ROUTE .STK-MED ONE Stop: 06/15/17 07:14 Ondansetron HCl (Zofran) 4 mg IVPUSH ONETIME PRN PRN Reason: Nausea/Vomiting Last Admin: 06/11/17 00:10 Dose: 4 mg Ondansetron HCl (Zofran) Confirm Administered Dose 4 mg .ROUTE .STK-MED ONE Stop: 06/12/17 10:46 Ondansetron HCl (Zofran) Confirm Administered Dose 4 mg .ROUTE .STK-MED ONE Stop: 06/15/17 07:14 Pantoprazole Sodium (Protonix Iv) 40 mg IV Q12H [facility] Last Admin: 06/11/17 03:19 Dose: 40 mg Pantoprazole Sodium (Protonix Iv) 40 mg IV Q12H [facility] Last Admin: 06/12/17 04:02 Dose: 40 mg Pantoprazole Sodium (Protonix Iv) 40 mg IV Q12H [facility] Stop: 06/14/17 06:01 Last Admin: 06/14/17 05:18 Dose: 40 mg Phenytoin Sodium (Phenytoin) 100 mg PO BID [facility] Last Admin: 06/12/17 09:36 Dose: Not Given Phenytoin Sodium (Phenytoin) 100 mg IV Q12H [facility] Last Admin: 06/13/17 21:26 Dose: 100 mg Pneumococcal Polyvalent Vaccine (Pneumovax 23) 0.5 ml IM .ONCE ONE Stop: 06/11/17 10:01 Last Admin: 06/11/17 13:41 Dose: 0.5 ml Propofol (Diprivan 20 Ml) Confirm Administered Dose 200 mg .ROUTE .STK-MED ONE Stop: 06/11/17 10:12 Propofol (Diprivan 20 Ml) Confirm Administered Dose 200 mg .ROUTE .STK-MED ONE Stop: 06/12/17 10:46 Propofol (Diprivan 20 Ml) Confirm Administered Dose 200 mg .ROUTE .STK-MED ONE Stop: 06/15/17 07:14 Propofol (Diprivan 20 Ml) Confirm Administered Dose 200 mg .ROUTE .STK-MED ONE Stop: 06/17/17 07:00 Rocuronium [place] (Zemuron) Confirm Administered Dose 50 mg .ROUTE .STK-MED ONE Stop: 06/12/17 10:46 Rocuronium [place] (Zemuron) Confirm Administered Dose 50 mg .ROUTE .STK-MED ONE Stop: 06/15/17 07:14 Rocuronium [place] (Zemuron) Confirm Administered Dose 50 mg .ROUTE .STK-MED ONE Stop: 06/15/17 11:32 Spironolactone (Aldactone) 25 mg PO DAILY [facility] Last Admin: 06/12/17 09:36 Dose: Not Given Succinylcholine Chloride (Quelicin) Confirm Administered Dose 200 mg .ROUTE .STK -MED ONE Stop: 06/12/17 10:46 Succinylcholine Chloride (Quelicin) Confirm Administered Dose 200 mg .ROUTE .STK -MED ONE Stop: 06/15/17 07:14 Vancomycin HCl (Vancomycin) 1 gm IV .[facility]ARMACY TO DOSE [facility] Stop: 06/16/17 17:00 - Exam Quality Assessment: DVT Prophylaxis General: Alert, Oriented, Cooperative, Mild Distress Lungs: Clear to Auscultation, Normal Respiratory Effort Cardiovascular: Regular Rate, Regular Rhythm, No Murmurs GI/Abdominal Exam: Normal Bowel Sounds, Soft, No Organomegaly, Tender. No: Distended, Guarding, Rigid, Rebound Back Exam: Normal Inspection, Full Range of Motion Extremities: No Pedal Edema Skin: Warm, Dry - Problem List Review Problem List Initiated/Reviewed/Updated: Yes - My Orders Last 24 Hours: My Active Orders 06/17/17 17:00 Metoprolol Tartrate [Lopressor] 25 mg PO Q6H 06/18/17 08:00 Echo Comp wo Cont [US] Urgent - Plan Plan:: ASSESSMENT / PLAN Abdominal Pain x 2 month with unintentional wt loss and dysphasia - Status post exploratory laparotomy with partial gastrectomy and additional debridement. Status post follow-up exploratory laparotomy yesterday with further debridement of pancreatic tissue and creation of Mona-en-Y -Postoperative care per Dr. Hemphill Bilateral pneumonia-she appears improved over the past hours with addition of broad-spectrum IV antibiotic therapy -Continue IV antibiotics including meropenem, and levofloxacin, pending culture results -Discontinue vancomycin given negative blood cultures -Blood cultures pending Sinus tachycardia - persistent tachycardia, likely secondary to underlying pneumonia, preliminary report from echocardiogram shows mild valvular disease with normal left ventricular function -Metoprolol 25 mg by mouth 4 times a day -Lorazepam 0.5 mg IV every 2 hours as needed for anxiety -Cardiac monitoring -Optimize pain control Tobacco dependence - will need strong recommendations regarding cessation -declines Nicotine patches, make her feel sick Maintenance issues -Nutrition: NPO -Gomez catheter - placed postoperatively -DVT: SCD -PPI; IV Protonix 40mg daily -consult OT for discharge planning -consult PT for strengthening. Disposition; anticipate discharge home versus long-term after the hospital stay
[2017-06-18] MEDS: Levofloxacin/Dextrose 5%-Water 750 MG in Premix Bag 1 BAG IV SCH (15:32)
[2017-06-19] MEDS: 1: AA 5%/Calcium/D15W/Lytes 1,000 ML with MVI, Adult with Vitamin K 10 ML, Chromium/Copp IV SCH ×3 (04:43)
[2017-06-19] MEDS: Magnesium Sulfate/Water 2 GM in Premix Bag 1 BAG IV SCH ×2 (05:29→09:05)
[2017-06-19] MEDS: Metoprolol Tartrate 25 MG Tab PO SCH (05:32)
[2017-06-19] MEDS: Pantoprazole 40 MG Vial IV SCH (06:26)
[2017-06-19] MEDS: Albuterol/Ipratropium 3.0-0.5 MG/3 ML Neb Soln NEB SCH ×2 (07:13→11:06)
[2017-06-19] MEDS: oxyCODONE 5 MG Tab PO PRN ×2 (08:25→13:27)
[2017-06-19] MEDS: Celecoxib 200 MG Cap PO SCH (08:30)
[2017-06-19] MEDS ORDERED: Central Total Parenteral Nutrition Bag SCH (08:45)
[2017-06-19] MEDS ORDERED: Levofloxacin 250 MG Tab PO SCH (10:15)
--- NOTE | 2017-06-19 10:21 | PCM.PN ---
- General Info Date of Service: 06/19/17 Functional Status: Reports: Pain Controlled, Tolerating Diet - Review of Systems General: Reports: Weakness. Denies: Fever, Chills Pulmonary: Reports: No Symptoms Cardiovascular: Reports: No Symptoms Gastrointestinal: Reports: Abdominal Pain. Denies: Constipation, Diarrhea, Difficulty Swallowing, Nausea, Vomiting Systems Review Comment:: Ms. Rodrigues is done well over the past 24 hours, vital signs have remained fairly stable with much better control of heart rate. She has remained afebrile , liver enzymes are elevated today from what they had been with a bilirubin of 6.2 and significant increase in alkaline phosphatase. Transaminase levels are more mildly elevated. She is tolerating her diet and has been able to walk short distances. - Patient Data Vitals - Most Recent: Last Vital Signs Temp 97.9 F 06/19/17 07:20 Pulse 100 06/19/17 07:20 Resp 16 06/19/17 07:20 BP 121/38 L 06/19/17 07:20 Pulse Ox 95 06/19/17 07:52 Weight - Most Recent: 122 lb 12.8 oz I&O - Last 24 Hours: Intake & Output 06/18/17 06/19/17 06/19/17 22:59 06:59 14:59 Intake Total 2099 1431 200 Output Total 2980 1515 Balance -881 -84 200 Lab Results Last 24 Hours: Laboratory Results - last 24 hr 06/19/17 06/19/17 Range/Units 04:29 04:29 WBC 16.1 H (4.5-11.0) K/uL RBC 3.46 (3.30-5.50) M/uL Hgb 10.3 L (12.0-15.0) g/dL Hct 31.4 L (36.0-48.0) % MCV 91 (80-98) fL MCH 30 (27-31) pg MCHC 33 (32-36) % Plt Count 184 (150-400) K/uL Sodium 135 L (140-148) mmol/L Potassium 4.9 (3.6-5.2) mmol/L Chloride 103 (100-108) mmol/L Carbon Dioxide 27 (21-32) mmol/L Anion Gap 9.9 (5.0-14.0) mmol/L BUN 20 H (7-18) mg/dL Creatinine 0.7 (0.6-1.0) mg/dL Est Cr Clr Drug Dosing 69.79 mL/min Estimated GFR (MDRD) > 60 (>60) Glucose 98 (74-106) mg/dL Calcium 8.8 (8.5-10.1) mg/dL Phosphorus 3.7 (2.5-4.9) mg/dL Total Bilirubin 6.2 H (0.2-1.0) mg/dL AST 111 H (15-37) U/L ALT 119 H (12-78) U/L Alkaline Phosphatase 486 H (46-116) U/L Total Protein 6.2 L (6.4-8.2) g/dL Albumin 3.0 L (3.4-5.0) g/dL Globulin 3.2 (2.3-3.5) g/dL Albumin/Globulin Ratio 0.9 L (1.2-2.2) Felix Results Last 24 Hours: Microbiology 06/16/17 15:26 Aerobic Blood Culture - Preliminary Blood - Arm, Right NO GROWTH AFTER 2 DAYS Anaerobic Blood Culture - Preliminary NO GROWTH AFTER 2 DAYS 06/16/17 15:15 Aerobic Blood Culture - Preliminary Blood - Arm, Left NO GROWTH AFTER 2 DAYS Anaerobic Blood Culture - Preliminary NO GROWTH AFTER 2 DAYS Med Orders - Current: Current Medications Albuterol/Ipratropium (Duoneb 3.0-0.5 Mg/3 Ml) 3 ml NEB QIDRT [facility] Last Admin: 06/19/17 07:13 Dose: 3 ml Albuterol/Ipratropium (Duoneb 3.0-0.5 Mg/3 Ml) 3 ml INH ASDIRECTED PRN PRN Reason: Shortness of Breath Celecoxib (Celebrex) 200 mg PO DAILY [facility] Last Admin: 06/19/17 08:30 Dose: 200 mg Diphenhydramine HCl (Benadryl) 50 mg IVPUSH Q4H PRN PRN Reason: Itching Last Admin: 06/16/17 13:20 Dose: 50 mg Haloperidol Lactate (Haldol) 2.5 mg IVPUSH Q1H PRN PRN Reason: Agitation Heparin Sodium (Porcine) (Heparin Lock Flush 100 Units/Ml) 500 units FLUSH ASDIRECTED PRN PRN Reason: IV Use Last Admin: 06/18/17 02:12 Dose: 500 units Hydroxyzine HCl (Vistaril) 100 mg IM Q4H PRN PRN Reason: PAIN Sodium Chloride (Normal Saline) 1,000 mls @ 0 mls/hr IV ASDIRECTED GLORIA PRN Reason: KVO Last Admin: 06/17/17 08:38 Dose: 25 mls/hr Albumin Human (Albumin 25%) 25 gm in 100 mls @ 25 mls/hr IV Q24H [facility] Stop: 06/19/17 12:59 Last Admin: 06/19/17 08:27 Dose: 25 mls/hr Albumin Human (Albumin 25%) 25 gm in 100 mls @ 25 mls/hr IV Q24H [facility] Stop: 06/19/17 16:59 Last Admin: 06/18/17 15:30 Dose: 25 mls/hr Magnesium Sulfate 2 gm/ Premix 50 mls @ 25 mls/hr IV Q6HR [facility] Stop: 06/21/17 05:59 Last Admin: 06/19/17 09:05 Dose: 25 mls/hr Levofloxacin (Levaquin) 750 mg PO Q24H [facility] Lorazepam (Ativan) 0.5 mg IVPUSH Q2H PRN PRN Reason: Anxiety Last Admin: 06/16/17 21:55 Dose: 0.5 mg Metoclopramide HCl (Reglan) 10 mg IV Q6H PRN PRN Reason: Nausea Metoprolol Tartrate (Lopressor) 25 mg PO Q6H [facility] Last Admin: 06/19/17 05:32 Dose: 25 mg Non-Formulary Medication (Total Parenteral Nutrition, Central) 1,000 ml .XX .Continue Order [facility] Stop: 06/19/17 14:00 Ondansetron HCl (Zofran) 4 mg IV Q4H PRN PRN Reason: Nausea/Vomiting Oxycodone HCl (Oxycodone) 5 - 10 mg PO Q4H PRN PRN Reason: Pain Last Admin: 06/19/17 08:25 Dose: 5 mg Pantoprazole Sodium (Protonix Iv) 40 mg IV Q24H [facility] Last Admin: 06/19/17 06:26 Dose: 40 mg Phenytoin Sodium (Phenytoin) 150 mg IV Q12H [facility] Last Admin: 06/19/17 08:31 Dose: 150 mg Discontinued Medications Albuterol (Proventil Neb Soln) 2.5 mg NEB Q4H PRN PRN Reason: Shortness Of Breath/wheezing Albuterol/Ipratropium (Duoneb 3.0-0.5 Mg/3 Ml) 3 ml NEB QID PRN PRN Reason: Shortness Of Breath/wheezing Barium Sulfate (E-Z-Hd) 340 gm PO . DIRECTED [facility] Last Admin: 06/17/17 12:54 Dose: 340 gm Bupivacaine HCl (Marcaine 0.5%) Confirm Administered Dose 50 ml .ROUTE .STK-MED ONE Stop: 06/17/17 06:52 Last Admin: 06/17/17 07:35 Dose: 10 ml Bupivacaine HCl/Epinephrine Bitart (Marcaine 0.5%/Epinephrine 1:200,000) Confirm Administered Dose 50 ml .ROUTE .STK-MED ONE Stop: 06/12/17 11:32 Cefoxitin Sodium (Mefoxin) Confirm Administered Dose 2 gm .ROUTE .STK-MED ONE Stop: 06/15/17 10:34 Al Hydroxide/Mg Hydroxide 15 (ml/ Lidocaine HCl 15 ml) 0 ml PO ONETIME ONE Stop: 06/10/17 23:58 Last Admin: 06/11/17 00:16 Dose: 15 ml Ropivacaine 27 ml/Dexamethasone 8 mg/Epinephrine HCl 0.4 mg/ Sodium Chloride 50.6 ml 0 ml NERVRT ASDIRECTED [facility] Stop: 06/12/17 11:30 Last Admin: 06/12/17 13:15 Dose: 80 syringe Ropivacaine 27 ml/Dexamethasone 8 mg/Epinephrine HCl 0.4 mg/ Sodium Chloride 50.6 ml 0 ml NERVRT ASDIRECTED [facility] Last Admin: 06/15/17 11:38 Dose: 80 syringe Dexamethasone (Dexamethasone) Confirm Administered Dose 4 mg .ROUTE .STK-MED ONE Stop: 06/12/17 10:46 Dexamethasone (Dexamethasone) Confirm Administered Dose 4 mg .ROUTE .STK-MED ONE Stop: 06/15/17 07:14 Diphenhydramine HCl (Benadryl) Confirm Administered Dose 50 mg .ROUTE .STK-MED ONE Stop: 06/13/17 11:30 Last Admin: 06/13/17 11:59 Dose: Not Given Fentanyl (Sublimaze) Confirm Administered Dose 100 mcg .ROUTE .STK-MED ONE Stop: 06/11/17 10:12 Fentanyl (Sublimaze) Confirm Administered Dose 100 mcg .ROUTE .ST-MED ONE Stop: 06/12/17 13:28 Fentanyl (Sublimaze) Confirm Administered Dose 100 mcg .ROUTE .ST-MED ONE Stop: 06/12/17 13:30 Fentanyl (Sublimaze) Confirm Administered Dose 100 mcg .ROUTE .STK-MED ONE Stop: 06/17/17 07:00 Fentanyl Citrate (Fentanyl) Confirm Administered Dose 500 mcg .ROUTE .ST-MED ONE Stop: 06/12/17 10:46 Fentanyl Citrate (Fentanyl) Confirm Administered Dose 500 mcg .ROUTE .ST-MED ONE Stop: 06/15/17 07:13 Furosemide (Lasix) 20 mg IVPUSH ONETIME ONE Stop: 06/13/17 12:35 Last Admin: 06/13/17 12:50 Dose: 20 mg Furosemide (Lasix) 40 mg IVPUSH NOW ONE Stop: 06/13/17 17:44 Last Admin: 06/13/17 17:57 Dose: 40 mg Furosemide (Lasix) Confirm Administered Dose 40 mg .ROUTE .[facility] ONE Stop: 06/13/17 17:55 Last Admin: 06/13/17 18:00 Dose: Not Given Glycopyrrolate (Glycopyrrolate) 0.4 mg IVPUSH ONETIME ONE Stop: 06/11/17 09:01 Last Admin: 06/11/17 10:08 Dose: 0.4 mg Glycopyrrolate (Robinul) Confirm Administered Dose 1 mg .ROUTE .ST-MED ONE Stop: 06/12/17 10:46 Glycopyrrolate (Robinul) Confirm Administered Dose 1 mg .ROUTE .[facility]-MED ONE Stop: 06/15/17 07:14 Haloperidol Lactate (Haldol) 2.5 mg IVPUSH ONETIME ONE Stop: 06/15/17 13:06 Last Admin: 06/15/17 13:13 Dose: 2.5 mg Heparin Sodium (Porcine) (Heparin Lock Flush 100 Units/Ml) Confirm Administered Dose 500 units .ROUTE .STK-MED ONE Stop: 06/12/17 10:50 Sodium Chloride (Normal Saline) 1,000 mls @ 125 mls/hr IV ASDIRECTED GLORIA Last Admin: 06/11/17 00:10 Dose: 125 mls/hr Dextrose/Lactated Ringer's (Dextrose 5%-Lactated Ringers) 1,000 mls @ 150 mls/ hr IV ASDIRECTED [facility] Last Admin: 06/12/17 01:26 Dose: 150 mls/hr Cefoxitin Sodium 2 gm/ Sodium (Chloride) 50 mls @ 100 mls/hr IV ONCALL ONE Stop: 06/12/17 09:59 Last Admin: 06/12/17 12:15 Dose: 100 mls/hr Magnesium Sulfate 2 gm/ Sodium (Chloride) 54 mls @ 27 mls/hr IV Q6HR [facility] Stop: 06/14/17 11:59 Last Admin: 06/12/17 10:11 Dose: 27 mls/hr Dextrose/Lactated Ringer's (Dextrose 5%-Lactated Ringers) 1,000 mls @ 100 mls/ hr IV ASDIRECTED [facility] Stop: 06/13/17 12:00 Last Admin: 06/12/17 08:06 Dose: 100 mls/hr Sodium Chloride (Normal Saline) Confirm Administered Dose 10 mls @ as directed .ROUTE .STK-MED ONE Stop: 06/12/17 11:34 Lactated Ringer's (Ringers, Lactated) Confirm Administered Dose 1,000 mls @ as directed .ROUTE .STK-MED ONE Stop: 06/12/17 13:25 Cefoxitin Sodium 2 gm/ Sodium (Chloride) 50 mls @ 100 mls/hr IV ONETIME ONE Stop: 06/12/17 17:29 Last Admin: 06/12/17 17:18 Dose: 100 mls/hr Lactated Ringer's (Ringers, Lactated) 1,000 mls @ 125 mls/hr IV ASDIRECTED [facility] Last Admin: 06/13/17 10:18 Dose: 125 mls/hr Cefoxitin Sodium 2 gm/ Sodium (Chloride) 50 mls @ 100 mls/hr IV Q6H [facility] Last Admin: 06/15/17 14:12 Dose: 100 mls/hr Lactated Ringer's (Ringers, Lactated) 500 mls @ 500 mls/hr IV .BOLUS [facility] Last Admin: 06/13/17 00:44 Dose: 500 mls/hr Magnesium Sulfate 2 gm/ Premix 50 mls @ 25 mls/hr IV Q6H [facility] Stop: 06/16/17 05:59 Last Admin: 06/15/17 14:21 Dose: 25 mls/hr Multivitamins/Minerals 10 ml/Chromium/Copper/Manganese/Seleni/Zn 1 ml/ Amino Ac/ Electrol/Dextrose/Calcium 1,011 mls @ 100 mls/hr IV .BY DURATION [facility] Stop: 06/18/17 12:35 Last Admin: 06/17/17 21:11 Dose: Not Given Amino Ac/Electrol/Dextrose/Calcium (Clinimix E 01/26) 1,000 mls @ 100 mls/hr IV .BY DURATION GLORIA Stop: 06/18/17 12:35 Last Admin: 06/18/17 04:45 Dose: 100 mls/hr Acetaminophen 1,000 mg/ Premix 100 mls @ 400 mls/hr IV ONETIME ONE Stop: 06/13/17 12:54 Last Admin: 06/13/17 12:45 Dose: 400 mls/hr Linezolid (Zyvox) Confirm Administered Dose 100 mls @ as directed .ROUTE .[facility] ONE Stop: 06/15/17 07:29 Sodium Chloride (Normal Saline) Confirm Administered Dose 500 mls @ as directed .ROUTE .[facility] ONE Stop: 06/15/17 10:25 Sodium Chloride (Normal Saline) Confirm Administered Dose 10 mls @ as directed .ROUTE .[facility] Stop: 06/15/17 10:34 Cefoxitin Sodium 2 gm/ Sodium (Chloride) 50 mls @ 100 mls/hr IV Q6H [facility] Last Admin: 06/16/17 14:47 Dose: 100 mls/hr Magnesium Sulfate 2 gm/ Premix 50 mls @ 25 mls/hr IV Q6H [facility] Stop: 06/16/17 10:29 Last Admin: 06/16/17 09:01 Dose: 25 mls/hr Levofloxacin/Dextrose 750 mg/ (Premix) 150 mls @ 100 mls/hr IV Q24H [facility] Last Admin: 06/18/17 15:32 Dose: 100 mls/hr Lactated Ringer's (Ringers, Lactated) 1,000 mls @ 250 mls/hr IV ASDIRECTED [facility] Stop: 06/16/17 19:31 Last Admin: 06/16/17 16:21 Dose: 250 mls/hr Vancomycin HCl 1 gm/ Sodium (Chloride) 250 mls @ 167 mls/hr IV Q12H [facility] Last Admin: 06/18/17 05:39 Dose: 167 mls/hr Meropenem 1 gm/ Sodium (Chloride) 50 mls @ 100 mls/hr IV Q8H [facility] Last Admin: 06/19/17 09:41 Dose: 100 mls/hr Acetaminophen 1,000 mg/ Premix 100 mls @ 400 mls/hr IV Q6H [facility] Stop: 06/18/17 04:14 Last Admin: 06/18/17 04:09 Dose: 400 mls/hr Multivitamins/Minerals 10 ml/Chromium/Copper/Manganese/Seleni/Zn 1 ml/ Amino Ac/ Electrol/Dextrose/Calcium 1,011 mls @ 80 mls/hr IV .BY DURATION [facility] Last Admin: 06/18/17 16:02 Dose: 80 mls/hr Amino Ac/Electrol/Dextrose/Calcium (Clinimix E /15) 1,000 mls @ 80 mls/hr IV .BY DURATION [facility] Last Admin: 06/19/17 04:43 Dose: 80 mls/hr Vancomycin HCl 1 gm/ Sodium (Chloride) 250 mls @ 167 mls/hr IV Q12H [facility] Labetalol HCl (Normodyne) Confirm Administered Dose 20 mg .ROUTE .STK-MED ONE Stop: 06/12/17 13:58 Lidocaine/Epinephrine (Xylocaine 1% With Epinephrine 1:100,000) Confirm Administered Dose 50 ml .ROUTE .STK-MED ONE Stop: 06/17/17 06:52 Last Admin: 06/17/17 07:35 Dose: 10 ml Lorazepam (Ativan) 1 mg IV Q6H PRN PRN Reason: Nausea/Vomiting Last Admin: 06/11/17 04:07 Dose: 1 mg Meropenem (Merrem) Confirm Administered Dose 500 mg .ROUTE .STK-MED ONE Stop: 06/12/17 10:50 Last Admin: 06/12/17 14:15 Dose: 500 mg Meropenem (Merrem) Confirm Administered Dose 500 mg .ROUTE .STK-MED ONE Stop: 06/12/17 11:34 Meropenem (Merrem) Confirm Administered Dose 500 mg .ROUTE .STK-MED ONE Stop: 06/15/17 07:29 Last Admin: 06/15/17 08:50 Dose: 500 mg Meropenem (Merrem) Confirm Administered Dose 500 mg .ROUTE .STK-MED ONE Stop: 06/17/17 06:52 Last Admin: 06/17/17 07:35 Dose: 500 mg Metoclopramide HCl (Reglan) 10 mg IV Q6H [facility] Last Admin: 06/18/17 05:28 Dose: 10 mg Metoprolol Tartrate (Lopressor) 2.5 mg IVPUSH Q4H [facility] Last Admin: 06/17/17 14:14 Dose: 2.5 mg Midazolam HCl (Versed 1 Mg/Ml) Confirm Administered Dose 2 mg .ROUTE .STK-MED ONE Stop: 06/17/17 07:00 Morphine Sulfate (Morphine) 2 mg IVPUSH Q2H PRN PRN Reason: Pain (severe 7-10) Last Admin: 06/12/17 11:37 Dose: 2 mg Morphine Sulfate (Morphine [place] 150 Mg In 30 Ml) 0 mg IV ASDIRECTED PRN; Protocol PRN Reason: PAIN Last Admin: 06/15/17 15:18 Dose: 150 mg Naloxone HCl (Narcan) 0.1 mg IV ASDIRECTED PRN PRN Reason: RESP DISTRESS Neostigmine Methylsulfate (Neostigmine) Confirm Administered Dose 5 mg .ROUTE .STK-MED ONE Stop: 06/12/17 10:46 Neostigmine Methylsulfate (Neostigmine) Confirm Administered Dose 5 mg .ROUTE .STK-MED ONE Stop: 06/15/17 07:14 Non-Formulary Medication (Total Parenteral Nutrition, Central) 1,000 ml .XX .Continue Order [facility] Stop: 06/18/17 18:00 Ondansetron HCl (Zofran) 4 mg IVPUSH ONETIME PRN PRN Reason: Nausea/Vomiting Last Admin: 06/11/17 00:10 Dose: 4 mg Ondansetron HCl (Zofran) Confirm Administered Dose 4 mg .ROUTE .STK-MED ONE Stop: 06/12/17 10:46 Ondansetron HCl (Zofran) Confirm Administered Dose 4 mg .ROUTE .STK-MED ONE Stop: 06/15/17 07:14 Pantoprazole Sodium (Protonix Iv) 40 mg IV Q12H [facility] Last Admin: 06/11/17 03:19 Dose: 40 mg Pantoprazole Sodium (Protonix Iv) 40 mg IV Q12H [facility] Last Admin: 06/12/17 04:02 Dose: 40 mg Pantoprazole Sodium (Protonix Iv) 40 mg IV Q12H [facility] Stop: 06/14/17 06:01 Last Admin: 06/14/17 05:18 Dose: 40 mg Phenytoin Sodium (Phenytoin) 100 mg PO BID [facility] Last Admin: 06/12/17 09:36 Dose: Not Given Phenytoin Sodium (Phenytoin) 100 mg IV Q12H [facility] Last Admin: 06/13/17 21:26 Dose: 100 mg Pneumococcal Polyvalent Vaccine (Pneumovax 23) 0.5 ml IM .ONCE ONE Stop: 06/11/17 10:01 Last Admin: 06/11/17 13:41 Dose: 0.5 ml Propofol (Diprivan 20 Ml) Confirm Administered Dose 200 mg .ROUTE .STK-MED ONE Stop: 06/11/17 10:12 Propofol (Diprivan 20 Ml) Confirm Administered Dose 200 mg .ROUTE .STK-MED ONE Stop: 06/12/17 10:46 Propofol (Diprivan 20 Ml) Confirm Administered Dose 200 mg .ROUTE .STK-MED ONE Stop: 06/15/17 07:14 Propofol (Diprivan 20 Ml) Confirm Administered Dose 200 mg .ROUTE .STK-MED ONE Stop: 06/17/17 07:00 Rocuronium [place] (Zemuron) Confirm Administered Dose 50 mg .ROUTE .STK-MED ONE Stop: 06/12/17 10:46 Rocuronium [place] (Zemuron) Confirm Administered Dose 50 mg .ROUTE .STK-MED ONE Stop: 06/15/17 07:14 Rocuronium [place] (Zemuron) Confirm Administered Dose 50 mg .ROUTE .STK-MED ONE Stop: 06/15/17 11:32 Spironolactone (Aldactone) 25 mg PO DAILY [facility] Last Admin: 06/12/17 09:36 Dose: Not Given Succinylcholine Chloride (Quelicin) Confirm Administered Dose 200 mg .ROUTE .STK -MED ONE Stop: 06/12/17 10:46 Succinylcholine Chloride (Quelicin) Confirm Administered Dose 200 mg .ROUTE .STK -MED ONE Stop: 06/15/17 07:14 Vancomycin HCl (Vancomycin) 1 gm IV .PHARMACY TO DOSE [facility] Stop: 06/16/17 17:00 - Exam Quality Assessment: DVT Prophylaxis General: Alert, Oriented, Cooperative, No Acute Distress Lungs: Clear to Auscultation, Normal Respiratory Effort Cardiovascular: No Murmurs GI/Abdominal Exam: Normal Bowel Sounds, Soft, No Organomegaly, Tender. No: Distended, Guarding, Rigid, Rebound Extremities: Non-Tender, No Pedal Edema Skin: Warm, Dry - Problem List Review Problem List Initiated/Reviewed/Updated: Yes - My Orders Last 24 Hours: My Active Orders 06/19/17 10:15 Levofloxacin [Levaquin] 750 mg PO Q24H 06/20/17 05:00 CBC WITH AUTO DIFF [HEME] Timed COMPREHENSIVE METABOLIC PN,CMP [CHEM] Timed MAGNESIUM [CHEM] Timed 06/20/17 05:11 DILANTIN,PHENYTOIN [CHEM] AM - Plan Plan:: ASSESSMENT / PLAN Abdominal Pain x 2 month with unintentional wt loss and dysphasia - Status post exploratory laparotomy with partial gastrectomy and additional debridement. Status post follow-up exploratory laparotomy yesterday with further debridement of pancreatic tissue and creation of Mona-en-Y -Postoperative care per Dr. Hemphill Liver enzyme elevation-predominant elevation in bilirubin and alkaline phosphatase, transaminase levels more modestly elevated. Possibly secondary to TPN although would expect higher elevation in transaminase levels. -Repeat liver enzymes in a.m. -Consider repeat imaging if liver enzymes increase or do not improve over the next day or 2. Bilateral stable over the past few days -Discontinue IV antibiotics -Levofloxacin 750 mg by mouth daily Sinus tachycardia - persistent tachycardia, likely secondary to underlying pneumonia, preliminary report from echocardiogram shows mild valvular disease with normal left ventricular function -Metoprolol XL 100 mg by mouth daily -Lorazepam 0.5 mg IV every 2 hours as needed for anxiety -Cardiac monitoring -Optimize pain control Tobacco dependence - will need strong recommendations regarding cessation -declines Nicotine patches, make her feel sick Maintenance issues -Nutrition: NPO -Gomez catheter - placed postoperatively -DVT: SCD -PPI; IV Protonix 40mg daily -consult OT for discharge planning -consult PT for strengthening. Disposition; anticipate discharge home versus care home after the hospital stay
[2017-06-19] MEDS ORDERED: Metoprolol Succinate 50 MG Tab.ER PO SCH (10:30)
[2017-06-19 12:38] VITALS: BP 94/57
--- NOTE | 2017-06-20 02:58 | DISCH ---
ADMISSION DIAGNOSES: 1. Abdominal pain. 2. Allergic rhinitis. 3. History of cataracts. 4. Glaucoma. 5. History of myocardial infarction. 6. Gastrointestinal disease. 7. Cirrhosis of the liver. 8. Gastroesophageal reflux disease. 9. Uterine cancer, in remission. 10.Osteoporosis. 11.Osteoarthritis. 12.History of seizures, on Dilantin. 13.Anxiety. 14.History of lymphoma. 15.Unspecified surgical malabsorption. 16.Malnutrition. DISCHARGE DIAGNOSIS: Esophagogastroduodenoscopy with gastric biopsies. POSTOPERATIVE DIAGNOSES: 1. Large pyloric channel ulcer suspicious for malignancy. Eulalio Hemphill M.D. Date of procedure 06/11/2017. 2. Insertion of left subclavian vein triple-lumen catheter, exploratory laparotomy with distal subtotal gastrectomy with Mona-en-Y gastrojejunostomy, debridement of necrotic pancreatic and peripancreatic tissue, and placement of tube gastrostomy for perforated pyloric channel ulcer with penetration into the pancreatic head with focal pancreatic head and focal pancreatic and peripancreatic tissue necrosis and malnutrition. Date of surgery 06/12/2017. Eulalio Hemphill M.D., surgeon. 3. Delayed primary closure of open abdominal incision. Date of surgery 06/17/2017. HISTORY: Soco Rodrigues is a pleasant 62-year-old female, presenting with gastric outlet obstruction. She has been sick for over a month, has lost 20 pounds, and she had an EGD prior to surgery and the lesion is quite suspicious for malignancy. After preoperative evaluation, discussion of possible risks and possible complications, she wished to proceed with surgical procedure. She had a delayed primary closure on 06/17/2017. Throughout her hospital stay, she had TPN therapy. Her vital signs were watched closely and monitored accordingly with replacement of magnesium, with a low hemoglobin. She did receive 2 units of packed red blood cells with no reaction. Blood cultures were obtained and they were negative, and her CLOtest was negative. Pathology revealed no malignancy. She had no surgical complications. During her hospital stay, she did have some tachycardia, was seen by the hospitalist and started on Lopressor, and she will be going home with the Lopressor. On 06/19/2017, vital signs were stable, pain was controlled, and she was ready to be discharged to home. PHYSICAL EXAMINATION: GENERAL: Soco Rodrigues is a 62-year-old female. VITAL SIGNS: Height is 5 feet 2.99 inches, weight is 122 pounds, BMI is 21. TPR is 97.9, 100, 16. Blood pressure is 121/38. HEENT: Negative. NECK: Supple. HEART: Regular rate and rhythm. LUNGS: Clear. ABDOMEN: Incision looks good. She has 3 LAYNE drains. LAYNE drain #1 is draining a light pink serosanguineous drainage. LAYNE #2 is draining a light brown drainage. LAYNE drain #3 is midline and draining 5 mL at the time of discharge. She has been wearing an abdominal binder. EXTREMITIES: Without peripheral edema. DISPOSITION: Discharged to home with home health care agency. CONDITION: Good. FOLLOWUP: She is to follow up with Eulalio Hemphill M.D., on 06/23/2017 at 3:00 p.m. She is to have a CMP prior to her appointment at 2:30. HOME MEDICATIONS: Lopressor 25 mg p.o. q.6 hours, 120 and oxycodone 5 to 10 mg q.4 hours p.r.n. pain, #40. She is to resume Toprol 100 mg p.o. daily, her phenytoin 150 mg 1 tablet b.i.d. as she took at home, spironolactone 1 tablet daily, Paxil 25 mg p.o. daily, and vitamin D 5000 international units daily. DISCHARGE INSTRUCTIONS: 1. Diet: Usual diet as tolerated. Drink 8 to 10 glasses of water a day. 2. Activity: No lifting greater than 10 pounds for 6 weeks. Activity as tolerated. Driving: Do not drive on pain medication. May shower; keep operative site clean and dry. Wear abdominal binder for 2 weeks. 3. She is to empty, strip, measure and drain LAYNE drains, each one separately 4 times a day and write on the sheet given to the patient from the hospital and bring to clinic appointments. Use incentive spirometer 10 times every hour while awake. Notify provider if any fever, increased pain, nausea, or vomiting. She is to leave gastrostomy tube clamped, and to unclamp if the patient experiences any bloating or nausea and then reclamp. 4. Central line care to be done by home health care nurse.
--- NOTE | 2017-06-20 17:12 | PN ---
DATE OF SERVICE: 06/15/2017 Soco was noted to have persistent elevation of bilirubin today. A CT scan was obtained, which showed an intact common bile duct. It was, however, somewhat dilated and at this point, I think there is probably some inflammatory process, possible stones or problems such as that in the area of the common bile duct. The patient had a Mona-en-Y gastrojejunostomy that was not accessible with ERCP and with the intense inflammatory response associated with perforated ulcer, it was felt that a delay in surgically dealing with this may likely result in having to operate on a region of the common bile duct that at that point might have become extremely hostile. Given this plan, we will only proceed with exploration of that area tomorrow, identification of pathology and then whatever procedures as indicated such as common bile duct exploration, stone removal, possibly choledochojejunostomy depending on the operative findings. Eulalio Hemphill MD /[id number]
--- NOTE | 2017-06-22 08:01 | ECHO ---
REFERRING PRACTITIONER: Derrick Hawley MD 1. AO ROOT: 3.56. (NL = 2.0-3.7) 2. AORTIC VALVE EXCURSION: 3. LA: CM (NL = 1.9-4.0) 4. RV: 2.9. (NL = .09-2.6) 5. LV CASTAÑEDA: 3.85. (NL = 3.5-5.7) 6. LV SYST: 2.95. (NL = 2.2-4.3) 7. FRACTIONAL SHORTENING: (2542) 8. EJECTION FRACTION: 50% to 55%. (5075) 9. IVS: (NL = 0.6-1.1) 10. LVPW: (NL = 0.6 1.1) INDICATION: Persistent tachycardia. LEFT ATRIUM: 3.59. INTERVENTRICULAR SEPTAL WALL THICKNESS: 1.15. LEFT VENTRICULAR POSTERIOR WALL THICKNESS,: 1.11. By 2D echo, left ventricular function appears to be normal consistent with an estimated ejection fraction of 50% to 55%. There are no specific wall motion abnormalities or pericardial effusion seen on this study. There is mild right ventricular enlargement with preserved right ventricular function. Left atrium , right atrium, left ventricle, and aortic root appear to be within normal range for size. The aortic valve appears to be structurally normal as does the mitral valve. Tricuspid valve is structurally normal in appearance. The pulmonic valve was not well visualized. By Doppler and color Doppler, there are mild tricuspid regurgitation and trace mitral regurgitation. IMPRESSION: 1. Normal left ventricular function. Estimated ejection fraction of 50% to 55% . 2. Mild right ventricular enlargement with preserved right ventricular function. 3. Mild tricuspid regurgitation. 4. Trace mitral regurgitation. /[id number]
--- NOTE | 2017-06-22 11:41 | OR ---
DATE OF PROCEDURE: 06/15/2017 PREOPERATIVE DIAGNOSIS: Probable biliary obstruction. POSTOPERATIVE DIAGNOSES: 1. 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 2. Additional peripancreatic necrosis. OPERATIVE PROCEDURE: Exploratory laparotomy with: 1. Formation of Mona-en-Y choledochojejunostomy (27972). 2. Debridement of peripancreatic soft tissue necrosis (04303). ANESTHESIA: General. ASSISTANTS: Bebe Bear PA-C and LUIS Segundo. INDICATION FOR PROCEDURE: Over the weekend, the patient noted to have persistent elevated bilirubin. At the time of the treatment of her perforated peptic ulcer, there was quite a bit of inflammatory attachment to the pancreas. The patient's common bile duct was clearly untouched by the dissection last week. One suspects that there maybe some inflammatory obstruction developing within the common bile duct, perhaps an intrapancreatic area, possibly related to the debridement of the pancreas as well. Although jamal were placed on the surface of the pancreas, no suturing was done per se. The extensive inflammation present on last week's surgery is such that, if delay is undertaken in terms of dealing with this issue, that area is going to become extremely hostile in terms of safe dissection. Given this, plan is to proceed with exploratory laparotomy and identification of the problem, and other procedures, such as formation of a choledochojejunostomy. If a Mona-en-Y choledochojejunostomy appears to be warranted, this will be done with a separate Mona limb, so that if there happens to be a leak at that anastomosis, the patient can be maintained on oral intake where the Mona-en-Y gastrojejunostomy is separately constructed. Potential risks including bleeding, infection, leaks from various GI tract closures, as well as possibility of cardiopulmonary, septic, or hemorrhagic complications leading to were discussed. Possibility of needing additional procedures regarding the common bile duct over time and problems such as stricturing developing were also reviewed, as well as the remote possible possibility of cardiopulmonary, septic, or hemorrhagic complications leading to , were discussed, and the patient wishes to proceed. DESCRIPTION OF PROCEDURE: The patient was taken to the operating room and placed in supine position. After general endotracheal anesthesia was induced, the abdomen was prepped and draped. Previous upper midline incision was then reopened and the area around the common bile duct then examined. The patient was noted to have once again an intact common bile duct up to the level of the point where it entered the pancreas, the duodenum at that level having been resected. It was noted on the CT scan, as well as clinically today, that the common bile duct was somewhat dilated. It was densely involved in inflammation in the area just before entering the pancreas, but above that, it was somewhat softer and easily visualized. Examination otherwise showed some additional peripancreatic soft tissue necrosis. This was debrided using primarily cautery dissection, and some of the specimen was then delivered from the field and sent as histologic specimen as well. All of the peripancreatic soft tissue necrosis appeared to have been adequately debrided at this point. The overall contour of the pancreas was not significantly affected, i.e. this was not deep enough to cause problems with the main pancreatic duct. At this point, a linear incision was made in the common bile duct. This began in the area where it was easily identified and extended somewhat down more inferiorly to the area of the more suprapancreatic portion of the duct. This was opened over a length of about 2 cm. At that point, a biliary Luisana catheter was passed proximally. This passed easily in the proximal direction. However, on passing this distally, it became evident there was a very tight area through the pancreas, likely related to the amount of pancreatitis present resulting from the ulcer. The catheter could not be passed from that point into the duodenum. It was inflated gently and pulled back, and no stones or other debris were noted. It appeared at this point, the patient likely had an inflammatory response causing the obstruction of the common bile duct. The decision was then made to proceed with a Mona-en-Y choledochojejunostomy. The area of injury to the transverse colon was at this point minimally inflamed and easy to operate on. At a point roughly 40 cm distal to the original Mona-en-Y gastric bypass done last week, the small bowel was divided. The distal end of this was then brought up through the transverse mesocolon, once again to the level of the opening of the common bile duct, and at that point, it was then mobilized upward, such that it lay up against the opening of the common bile duct without tension. A linear incision was then made in the small bowel for a length slightly less than that of the common bile duct, and a maureen-shaped type anastomosis was then constructed. Initially, the sutures were placed on the lateral aspect of the opening of the jejunum on each side, and this was taken to roughly the middle portion of the open common bile duct on each side with the sutures all being 3-0 Vicryl stitch. Once these were in place, the posterior layer of sutures was then all placed. Once in position, these were tied. Following this then, the anterior sutures were then placed, and again, once these were in place, these were tied. This created what appeared to be a very nicely open anastomosis. Prior to completion of last few sutures being tied, the area was probed proximally and distally and found to be open, both in the direction of common bile duct, as well as up into the jejunum. At this point, no further problems were noted. In that area, fibrin sealant was injected around the choledochojejunostomy at a point where the small bowel passed through the transverse mesocolon. This was sutured there with some 3-0 Vicryl stitch as well. GI tract continuity was then accomplished with anastomosis of the proximally divided small bowel to a point roughly 60 cm distal to the point of original division, i.e. the Mona-en-Y limb choledochojejunostomy of 60 cm length. This was accomplished with a [id number] anastomosis, using internal firings of the SOILA vascular load and common opening then closed transversely with the purple load. The mesenteric defect was then approximated with 3-0 Vicryl stitch as well. At this point, no further were problems noted. The abdomen was irrigated with antibiotic-containing saline solution. The previous Marco-Jefferson drains had been placed. Two additional Marco-Jefferson drains were then placed, one somewhat to the right of and extending posteriorly to the choledochojejunostomy and the other one anterior to the choledochojejunostomy. The midline fascia was then approximated with #2 Vicryl stitch and the skin was left open for a planned delayed primary closure in 48 hours, given what was perceived to be a high likelihood of wound infection if a primary closure was accomplished at this time. The drain was affixed with some 3-0 Vicryl stitch, and the patient was taken to the recovery room in satisfactory condition. Physician workers compensation claims assistant, Bebe Bear played an essential role in assisting in this case, helping to position the patient, retract structures as needed, as well as suturing and cutting sutures when indicated. Her presence improved patient's safety and decreased operative time. Eulalio Hemphill MD /[id number]
== END 2017-06-19 14:05 | disposition home health service (06) | DRG 326 ==
LOC: JP.ED 21:31 → JP.2SS 06-11 01:55 → JP.MS 06-15 13:13
PROVIDERS: ADMIT Internal Medicine; ATTEND Surgery
DX: K25.5 Chronic or unspecified gastric ulcer with perforation (principal); J18.9 Pneumonia, unspecified organism; K83.1 Obstruction of bile duct; E46 Unspecified protein-calorie malnutrition; K91.2 Postsurgical malabsorption, not elsewhere classified; K86.89 Other specified diseases of pancreas; Z68.22 Body mass index [BMI] 22.0-22.9, adult; K66.0 Peritoneal adhesions (postprocedural) (postinfection); K83.8 Other specified diseases of biliary tract; R00.0 Tachycardia, unspecified; Z66 Do not resuscitate; R13.10 Dysphagia, unspecified; Z23 Encounter for immunization; F17.210 Nicotine dependence, cigarettes, uncomplicated; I25.2 Old myocardial infarction; Z87.11 Personal history of peptic ulcer disease; M19.90 Unspecified osteoarthritis, unspecified site; R56.9 Unspecified convulsions; K21.9 Gastro-esophageal reflux disease without esophagitis; Z87.440 Personal history of urinary (tract) infections; F41.9 Anxiety disorder, unspecified; Z85.42 Personal history of malignant neoplasm of other parts of uterus; Z92.21 Personal history of antineoplastic chemotherapy; Z92.3 Personal history of irradiation; Z85.72 Personal history of non-Hodgkin lymphomas; Z88.6 Allergy status to analgesic agent; Z91.041 Radiographic dye allergy status; Z88.5 Allergy status to narcotic agent; Z88.8 Allergy status to other drugs, medicaments and biological substances; R74.8 Abnormal levels of other serum enzymes; H40.9 Unspecified glaucoma; K74.60 Unspecified cirrhosis of liver; D64.9 Anemia, unspecified; E83.42 Hypomagnesemia
CPT/HCPCS: 36415; 36430; 71010; 71010-26; 71250; 71250-26; 74176; 74240; 74240-26; 80048; 80053; 80185; 80202; 81001; 82378; 83690; 83735; 83880; 84100; 85025; 85027; 86850; 86870; 86900; 86901; 86902; 86920; 86922; 87040; 87081; 88305; 88307; 88331; 88332; 88341; 88342; 90732; 93005; 93306; 93306-26; 94640; 94667; 94762; 96361; 96374; 97162-GP; 97535-GP; 99284; 99285-25; A9270-GY; C9113; J0131; J0171; J0330; J0694; J1100; J1165; J1200; J1630; J1642; J1940; J1956; J2020; J2060; J2185; J2250; J2270; J2405; J2704; J2710; J2765; J2795; J3010; J3370; J3410; J3475; J3490; J7040; J7042; J7050; J7120; J7620; P9016; P9047

== ENCOUNTER 2017-06-27 21:33 | Inpatient (IN) | payer MEDICAID ==
--- NOTE | 2017-06-27 22:42 | EDM.PDOC ---
ED HPI GENERAL MEDICAL PROBLEM - General Chief Complaint: Respiratory Problem Stated Complaint: SURGERY CANT BREATHE Time Seen by Provider: 06/27/17 21:55 Source of Information: Reports: Patient, Family History Limitations: Reports: No Limitations - History of Present Illness INITIAL COMMENTS - FREE TEXT/NARRATIVE: 62 years old female patient resented with chief complaint of weakness and shortness breath. Started yesterday. The patient is a status post partial gastrectomy for gastric tumor [address] Hemphill. She left the hospital one week ago. She has been doing well until yesterday when she started feeling more short of breath. Denies any chest pain. Had postoperative abdominal pain which seems to be improving. Denies any nausea or vomiting. She doesn't feel like eating. Denies any urinary symptom. Denies any fever. Mild dry cough [place] nose for the last few days. Abdominal Pain Score (Numeric/FACES): 8 Back Pain Score (Numeric/FACES): 8 - Related Data Allergies Allergy/AdvReac Type Severity Reaction Status Date / Time aspirin Allergy Hives Verified 06/28/17 02:18 diazepam [From Valium] Allergy Hives Verified 06/28/17 02:18 fentanyl Allergy Hives Verified 06/28/17 02:18 Iodinated Contrast- Oral and Allergy Hives Verified 06/28/17 02:18 IV Dye codeine AdvReac Vomiting Verified 06/28/17 02:18 propoxyphene AdvReac Vomiting Verified 06/28/17 02:18 [From Darvocet-N] Home Meds: Home Meds PARoxetine HCl [Paroxetine Cr] 12.5 mg PO DAILY 06/10/17 [History] Phenytoin 1 tab PO BID 06/10/17 [History] Ranitidine HCl 10 mg PO DAILY PRN 06/10/17 [History] Spironolactone [Aldactone] 1 tab PO DAILY 06/10/17 [History] Cholecalciferol (Vitamin D3) [Vitamin D3] 5,000 units PO WEEKLY 06/11/17 [ History] Levofloxacin [Levaquin] 750 mg PO Q24H #7 tablet 06/19/17 [Rx] Metoprolol Succinate 100 mg PO DAILY #30 tab.er.24h 06/19/17 [Rx] oxyCODONE 5 - 10 mg PO Q4H PRN #40 tablet 06/19/17 [Rx] Past Medical History HEENT History: Reports: Allergic Rhinitis, Cataract, Glaucoma Cardiovascular History: Reports: HI Gastrointestinal History: Reports: Cirrhosis, GERD Genitourinary History: Reports: Urinary Incontinence, UTI, Recurrent WOUND TREATMENT RN History: Reports: Other (See Below) Other OB/BYN History: uterine cancer Musculoskeletal History: Reports: Osteoarthritis, Osteoporosis Neurological History: Reports: Seizure Psychiatric History: Reports: Anxiety Hematologic History: Reports: Blood Transfusion(s) Oncologic (Cancer) History: Reports: Lymphoma, Uterine - Infectious Disease History Infectious Disease History: Reports: Chicken Pox - Past Surgical History Cardiovascular Surgical History: Reports: None GI Surgical History: Reports: Cholecystectomy Female Surgical History: Reports: Hysterectomy Neurological Surgical History: Reports: Other (See Below) Other Neurological Surgeries/Procedures: back surgery following an accident Musculoskeletal Surgical History: Reports: Other (See Below) Other Musculoskeletal Surgeries/Procedures:: back surgery in 1995 Social & Family History - Family History Family Medical History: Noncontributory - Tobacco Use Smoking Status *Q: Current Every Day Smoker Years of Tobacco use: 40 Packs/Tins Daily: 0.5 Used Tobacco, but Quit: No Second Hand Smoke Exposure: Yes - Caffeine Use Other Caffeine Use: momster coffee once in a while - Recreational Drug Use Recreational Drug Use: Yes Drug Use in Last 12 Months: Yes Recreational Drug Type: Reports: Marijuana/Hashish Recreational Drug Use Frequency: Weekly Recreational Drug Last Use: 1 month ago ED ROS GENERAL - Review of Systems Review Of Systems: ROS reveals no pertinent complaints other than HPI. ED EXAM, GENERAL - Physical Exam Exam: See Below Exam Limited By: No Limitations General Appearance: Alert, WD/WN, No Apparent Distress Eye Exam: Bilateral Eye: EOMI, PERRL Ear Exam: Bilateral Ear: Other (jaundice) Nose: Normal Inspection, Normal Mucosa, No Blood Throat/Mouth: Normal Inspection, Normal Lips, Normal Teeth, Normal Gums, Normal Oropharynx, Normal Voice, No Airway Compromise Head: Atraumatic, Normocephalic Neck: Normal Inspection, Supple, Non-Tender, Full Range of Motion Respiratory/Chest: No Respiratory Distress, Lungs Clear, Normal Breath Sounds, No Accessory Muscle Use. No: Respiratory Distress Cardiovascular: Normal Peripheral Pulses (Physical blood pressure is 127/75 while he was revealed), Regular Rate, Rhythm, No Edema, No Gallop, No JVD, No Murmur, No Rub. No: Bradycardia, Tachycardia, Diastolic Murmur, Systolic Murmur , Gallop/S3 GI/Abdominal: Normal Bowel Sounds, Tender, Other (Appropriately tender, 2JP tube in place. And gastric tube also in place. Surgical wound intact. No discharge. No sign of infection. Healing appropriately.) Course - Vital Signs Last Recorded V/S: Last Vital Signs Temp 35.6 C 06/28/17 01:53 Pulse 87 06/28/17 01:53 Resp 14 06/28/17 01:53 BP 95/39 L 06/28/17 02:32 Pulse Ox 99 06/28/17 01:53 - Orders/Labs/Meds Orders: Active Orders 24 hr Category Date Time Status Abdomen Pelvis wo Cont [CT] Stat Exams 06/27/17 23:00 Taken Abdomen Series w Chest 1V [CR] Stat Exams 06/27/17 22:36 Taken CULTURE BLOOD [BC] Stat Lab 06/28/17 01:10 Received CULTURE BLOOD [BC] Urgent Lab 06/28/17 00:15 Received UA W/MICROSCOPIC [URIN] Urgent Lab 06/27/17 22:32 Uncollected Piperacillin/Tazobactam [Zosyn] 3.375 gm Med 06/28/17 00:15 Active Sodium Chloride 0.9% [Normal Saline] 50 ml IV Q6H Blood Culture x2 Reflex Set [OM.PC] Urgent Oth 06/28/17 00:11 Ordered Medication Orders Acetaminophen (Tylenol) 650 mg PO Q4H PRN PRN Reason: Pain (Mild 1-3)/fever Last Admin: 06/28/17 02:47 Dose: 650 mg Albuterol (Proventil Neb Soln) 2.5 mg NEB Q4H PRN PRN Reason: Shortness Of Breath/wheezing Bisacodyl (Dulcolax) 5 mg PO DAILY PRN PRN Reason: Constipation Docusate Sodium (Colace) 100 mg PO BID PRN PRN Reason: Constipation Heparin Sodium (Porcine) (Heparin Lock Flush 100 Units/Ml) 500 units FLUSH ASDIRECTED PRN PRN Reason: keep vein open Hydromorphone HCl (Dilaudid) 3 mg PO TID PRN PRN Reason: Pain Piperacillin Sod/Tazobactam (Sod 3.375 gm/ Sodium Chloride) 50 mls @ 100 mls/ hr IV Q6H [facility] Last Admin: 06/28/17 00:39 Dose: 100 mls/hr Lactated Ringer's (Ringers, Lactated) 1,000 mls @ 125 mls/hr IV ASDIRECTED [facility] Last Admin: 06/28/17 02:55 Dose: 125 mls/hr Influenza Virus Vaccine (Fluzone Quad [id number]) 60 mcg IM .ONCE ONE Stop: 06/28/17 10:01 Levofloxacin (Levaquin) 750 mg PO Q48H [facility] Lorazepam (Ativan) 1 mg IV Q6H PRN PRN Reason: Nausea/Vomiting Metoprolol Succinate (Toprol Xl) 100 mg PO DAILY [facility] Morphine Sulfate (Morphine) 2 mg IVPUSH Q2H PRN PRN Reason: Pain (severe 7-10) Ondansetron HCl (Zofran Odt) 4 mg PO Q6H PRN PRN Reason: Nausea able to take PO Oxycodone HCl (Oxycodone) 10 mg PO Q4H PRN PRN Reason: Pain (moderate 4-6) Last Admin: 06/28/17 02:47 Dose: 10 mg Pantoprazole Sodium (Protonix Iv) 40 mg IV DAILY [facility] Paroxetine HCl (Paxil) 20 mg PO DAILY [facility] Phenytoin Sodium (Phenytoin) 100 mg PO BID [facility] Spironolactone (Aldactone) 25 mg PO DAILY [facility] Zolpidem Tartrate (Ambien) 5 mg PO BEDTIME PRN PRN Reason: Sleep Labs: Laboratory Tests 06/27/17 06/27/17 06/27/17 Range/Units 22:32 22:32 22:32 WBC 25.4 H (4.5-11.0) K/uL RBC 3.71 (3.30-5.50) M/uL Hgb 11.4 L (12.0-15.0) g/dL Hct 33.6 L (36.0-48.0) % MCV 91 (80-98) fL MCH 31 (27-31) pg MCHC 34 (32-36) % Plt Count 445 H (150-400) K/uL Add Manual Diff Yes Neutrophils % (Manual) 82 H (36-66) % Band Neutrophils % 1 L (5-11) % Lymphocytes % (Manual) 10 L (24-44) % Monocytes % (Manual) 5 (2-6) % Eosinophils % (Manual) 1 L (2-4) % Metamyelocytes % 1 % Sodium 128 L (140-148) mmol/L Potassium 4.1 (3.6-5.2) mmol/L Chloride 93 L (100-108) mmol/L Carbon Dioxide 25 (21-32) mmol/L Anion Gap 14.1 H (5.0-14.0) mmol/L BUN 22 H (7-18) mg/dL Creatinine 1.4 H D (0.6-1.0) mg/dL Est Cr Clr Drug Dosing 34.91 mL/min Estimated GFR (MDRD) 38 L (>60) Glucose 149 H (74-106) mg/dL Lactic Acid (0.4-2.0) mmol/L Calcium 9.6 (8.5-10.1) mg/dL Magnesium 1.9 (1.8-2.4) mg/dL Total Bilirubin 6.6 H (0.2-1.0) mg/dL AST 214 H D (15-37) U/L ALT 249 H (12-78) U/L Alkaline Phosphatase 995 H D (46-116) U/L Ammonia 10 L (11-32) mmol/L Troponin I < 0.017 (0.000-0.056) ng/mL NT-Pro-B Natriuret Pep (5-125) pg/mL Total Protein 9.0 H (6.4-8.2) g/dL Albumin 2.8 L (3.4-5.0) g/dL Globulin 6.2 H (2.3-3.5) g/dL Albumin/Globulin Ratio 0.5 L (1.2-2.2) Lipase 95 (73-393) U/L 06/27/17 06/27/17 Range/Units 22:32 22:35 WBC (4.5-11.0) K/uL RBC (3.30-5.50) M/uL Hgb (12.0-15.0) g/dL Hct (36.0-48.0) % MCV (80-98) fL MCH (27-31) pg MCHC (32-36) % Plt Count (150-400) K/uL Add Manual Diff Neutrophils % (Manual) (36-66) % Band Neutrophils % (5-11) % Lymphocytes % (Manual) (24-44) % Monocytes % (Manual) (2-6) % Eosinophils % (Manual) (2-4) % Metamyelocytes % % Sodium (140-148) mmol/L Potassium (3.6-5.2) mmol/L Chloride (100-108) mmol/L Carbon Dioxide (21-32) mmol/L Anion Gap (5.0-14.0) mmol/L BUN (7-18) mg/dL Creatinine (0.6-1.0) mg/dL Est Cr Clr Drug Dosing mL/min Estimated GFR (MDRD) (>60) Glucose (74-106) mg/dL Lactic Acid 2.4 H (0.4-2.0) mmol/L Calcium (8.5-10.1) mg/dL Magnesium (1.8-2.4) mg/dL Total Bilirubin (0.2-1.0) mg/dL AST (15-37) U/L ALT (12-78) U/L Alkaline Phosphatase (46-116) U/L Ammonia (11-32) mmol/L Troponin I (0.000-0.056) ng/mL NT-Pro-B Natriuret Pep 269 H (5-125) pg/mL Total Protein (6.4-8.2) g/dL Albumin (3.4-5.0) g/dL Globulin (2.3-3.5) g/dL Albumin/Globulin Ratio (1.2-2.2) Lipase (73-393) U/L Meds: Medications Generic Name Dose Route Start Last Admin Trade Name Freq PRN Reason Stop Dose Admin Acetaminophen 650 mg 06/28/17 02:16 06/28/17 02:47 Tylenol PO 650 mg Q4H PRN Administration Pain (Mild 1-3)/fever Albuterol 2.5 mg 06/28/17 02:16 Proventil Neb Soln NEB Q4H PRN Shortness Of Breath/wheezing Bisacodyl 5 mg 06/28/17 02:16 Dulcolax PO DAILY PRN Constipation Docusate Sodium 100 mg 06/28/17 02:16 Colace PO BID PRN Constipation Heparin Sodium (Porcine) 500 units 06/28/17 03:27 Heparin Lock Flush 100 Units/Ml FLUSH ASDIRECTED PRN keep vein open Hydromorphone HCl 3 mg 06/28/17 02:16 Dilaudid PO TID PRN Pain Piperacillin Sod/Tazobactam 50 mls @ 100 mls/hr 06/28/17 00:15 06/28/17 00:39 Sod 3.375 gm/ Sodium Chloride IV 100 mls/hr Q6H [facility] Administration Lactated Ringer's 1,000 mls @ 125 mls/hr 06/28/17 02:16 06/28/17 02:55 Ringers, Lactated IV 125 mls/hr ASDIRECTED [facility] Administration Influenza Virus Vaccine 60 mcg 06/28/17 10:00 Fluzone Quad [id number] IM 06/28/17 10:01 .ONCE ONE Levofloxacin 750 mg 06/28/17 09:00 Levaquin PO Q48H [facility] Lorazepam 1 mg 06/28/17 02:16 Ativan IV Q6H PRN Nausea/Vomiting Metoprolol Succinate 100 mg 06/28/17 09:00 Toprol Xl PO DAILY [facility] Morphine Sulfate 2 mg 06/28/17 02:16 Morphine IVPUSH Q2H PRN Pain (severe 7-10) Ondansetron HCl 4 mg 06/28/17 02:16 Zofran Odt PO Q6H PRN Nausea able to take PO Oxycodone HCl 10 mg 06/28/17 02:16 06/28/17 02:47 Oxycodone PO 10 mg Q4H PRN Administration Pain (moderate 4-6) Pantoprazole Sodium 40 mg 06/28/17 09:00 Protonix Iv IV DAILY [facility] Paroxetine HCl 20 mg 06/28/17 09:00 Paxil PO DAILY [facility] Phenytoin Sodium 100 mg 06/28/17 09:00 Phenytoin PO BID [facility] Spironolactone 25 mg 06/28/17 09:00 Aldactone PO DAILY [facility] Zolpidem Tartrate 5 mg 06/28/17 02:16 Ambien PO BEDTIME PRN Sleep Discontinued Medications Generic Name Dose Route Start Last Admin Trade Name Freq PRN Reason Stop Dose Admin Diphenhydramine HCl 25 mg 06/28/17 00:16 06/28/17 00:33 Benadryl IVPUSH 06/28/17 00:17 25 mg ONETIME ONE Administration Sodium Chloride 1,000 mls @ 500 mls/hr 06/28/17 00:15 06/28/17 00:33 Normal Saline IV 500 mls/hr ASDIRECTED [facility] Administration Influenza Virus Vaccine 1 each 06/28/17 10:00 Pharmacy To Dose - Influenza Vaccine IM 06/28/17 10:01 ONETIME ONE Morphine Sulfate 2 mg 06/28/17 00:16 06/28/17 00:34 Morphine IVPUSH 06/28/17 00:17 2 mg ONETIME ONE Administration - Re-Assessments/Exams Free Text/Narrative Re-Assessment/Exam: 06/27/17 22:46 Patient was seen and examined shortly after arrival. Lab and imaging has been reviewed. Elevated white count and elevated LFTs. CT scan did not show any significant abnormalities and no abscess seen. Case was discussed with Ponkikaactitioner on-call for the hospitalist group for admission for further management. She did consulted was Dr. Suero hospitalist contact centre supervisor as well as general surgeon contact centre supervisor. Patient will be started on Zosyn and general surgery will see her in the morning. Chest x-ray shows no significant abnormalities. Patient agrees with plan. Stable for admission. 06/28/17 03:22 Departure - Departure Time of Disposition: 01:00 Disposition: Admitted As Inpatient 67 Condition: Good Clinical Impression: SOB (shortness of breath), Abdominal pain, Jaundice, Postoperative infection - Discharge Information - My Orders Last 24 Hours: My Active Orders 06/27/17 22:32 UA W/MICROSCOPIC [URIN] Urgent 06/27/17 22:36 Abdomen Series w Chest 1V [CR] Stat - Assessment/Plan Last 24 Hours: My Active Orders 06/27/17 22:32 UA W/MICROSCOPIC [URIN] Urgent 06/27/17 22:36 Abdomen Series w Chest 1V [CR] Stat Plan: Admission
[2017-06-28] MEDS ORDERED: Sodium Chloride 0.9% 1,000 ML IV SCH ×2 (00:15→05:15)
[2017-06-28] MEDS ORDERED: diphenhydrAMINE 50 MG/ML SDV IVPUSH ONE (00:16)
[2017-06-28] MEDS ORDERED: Morphine 2 MG/ML Syringe IVPUSH ONE (00:16)
[2017-06-28] MEDS: Piperacillin/Tazobactam 3.375 GM in Sodium Chloride 0.9% 50 ML IV SCH ×2 (00:39→05:20)
[2017-06-28] MEDS ORDERED: HYDROmorphone 2 MG Tab PO PRN ×2 (02:16→07:16)
[2017-06-28] MEDS ORDERED: Zolpidem 5 MG Tab PO PRN (02:16)
[2017-06-28] MEDS ORDERED: LORazepam 2 MG/ML MDV IV PRN (02:16)
[2017-06-28] MEDS ORDERED: Albuterol 0.083% 2.5 MG/3 ML Neb Soln NEB PRN (02:16)
[2017-06-28] MEDS ORDERED: Docusate Sodium 100 MG Cap PO PRN (02:16)
[2017-06-28] MEDS ORDERED: Bisacodyl 5 MG Tab PO PRN (02:16)
--- NOTE | 2017-06-28 02:26 | PCM.HP ---
H&P History of Present Illness - General Date of Service: 06/27/17 Admit Problem/Dx: Admission Diagnosis/Problem Admission Diagnosis/Problem Sepsis History Limitations: Reports: No Limitations, Intoxication - History of Present Illness Initial Comments - Free Text/Narative: 62 years old female patient resented with chief complaint of weakness and shortness breath. Started yesterday. The patient is a status post partial gastrectomy for gastric tumor [address] Hemphill. She left the hospital one week ago. She has been doing well until yesterday when she started feeling more short of breath. Denies any chest pain. Had postoperative abdominal pain which seems to be improving. Denies any nausea or vomiting. She doesn't feel like eating. Denies any urinary symptom. Denies any fever. Mild dry cough, rhinorrhea nose for the last few days. Labs; WBC 25.4, HBG 11.4, PLATELETS 445,SEGS 82, SEGS 82, BANDS 1, LYMPHS 10, MONOS 5, NA+ 128, K+4.1, CL 93, ANION GAP 14.1, BUN 22, CREAT 1.4, GLUCOSE 149, LACTIC ACID 2.4, LIPASE 95, TOAL BILE 6.6, AST 214, ALT 249, ALK PHOS 995, AMMONIA 10 Image; Chest/abdomen series, CT abdomen/pelvis without contrast. will admit to [address] [place] [address], consult with Dr. Suero. Onset of Symptoms: Reports: Gradual Duration of Symptoms: Reports: Week(s): Location: Reports: Abdomen (feeding tube and [address], central line.), Back (chronic low back pain) Quality: Reports: Ache, Burning, Same as Previous Episode Severity: Moderate Improves with: Reports: Rest Worsens with: Reports: Movement Context: Reports: Other (partial gastrectomy for gastric tumor x2 weeks ago.) Associated Symptoms: Reports: Shortness of Breath, Syncope (dizziness.), Weakness - Related Data Allergies/Adverse Reactions: Allergies Allergy/AdvReac Type Severity Reaction Status Date / Time aspirin Allergy Hives Verified 06/28/17 02:18 diazepam [From Valium] Allergy Hives Verified 06/28/17 02:18 fentanyl Allergy Hives Verified 06/28/17 02:18 Iodinated Contrast- Oral and Allergy Hives Verified 06/28/17 02:18 IV Dye codeine AdvReac Vomiting Verified 06/28/17 02:18 propoxyphene AdvReac Vomiting Verified 06/28/17 02:18 [From Matty-N] Home Medications: Home Meds PARoxetine HCl [Paroxetine Cr] 12.5 mg PO DAILY 06/10/17 [History] Phenytoin 1 tab PO BID 06/10/17 [History] Ranitidine HCl 10 mg PO DAILY PRN 06/10/17 [History] Spironolactone [Aldactone] 1 tab PO DAILY 06/10/17 [History] Cholecalciferol (Vitamin D3) [Vitamin D3] 5,000 units PO WEEKLY 06/11/17 [ History] Levofloxacin [Levaquin] 750 mg PO Q24H #7 tablet 06/19/17 [Rx] Metoprolol Succinate 100 mg PO DAILY #30 tab.er.24h 06/19/17 [Rx] oxyCODONE 5 - 10 mg PO Q4H PRN #40 tablet 06/19/17 [Rx] Past Medical History HEENT History: Reports: Allergic Rhinitis, Cataract, Glaucoma Other HEENT History: legally blind Cardiovascular History: Reports: CT Gastrointestinal History: Reports: Cirrhosis, GERD Other Gastrointestinal History: jpx2 from colon resection. g tube in place Genitourinary History: Reports: Urinary Incontinence, UTI, Recurrent [employer] History: Reports: , Other (See Below) Other OB/BYN History: uterine cancer Musculoskeletal History: Reports: Back Pain, Chronic, Osteoarthritis, Osteoporosis Neurological History: Reports: Seizure Psychiatric History: Reports: Anxiety Hematologic History: Reports: Anemia, Blood Transfusion(s) Oncologic (Cancer) History: Reports: Lymphoma, Uterine - Infectious Disease History Infectious Disease History: Reports: Chicken Pox, Measles, Mumps - Past Surgical History HEENT Surgical History: Reports: None Cardiovascular Surgical History: Reports: None GI Surgical History: Reports: Cholecystectomy, Other (See Below) Other GI Surgeries/Procedures: colon resection w/ partial gastrectomy Female Surgical History: Reports: Hysterectomy Neurological Surgical History: Reports: Other (See Below) Other Neurological Surgeries/Procedures: back surgery following an accident Musculoskeletal Surgical History: Reports: Other (See Below) Other Musculoskeletal Surgeries/Procedures:: back surgery in 1995 Oncologic Surgical History: Reports: Other (See Below) Other Oncologic Surgeries/Procedures: hysterectomy Social & Family History - Family History Family Medical History: Noncontributory - Tobacco Use Smoking Status *Q: Current Every Day Smoker Years of Tobacco use: 50 Packs/Tins Daily: 0.5 Used Tobacco, but Quit: No Second Hand Smoke Exposure: Yes - Caffeine Use Caffeine Use: Reports: Coffee, Soda Other Caffeine Use: momster coffee once in a while Caffeine Use Comment: 2 beverages/day - Recreational Drug Use Recreational Drug Use: Yes Drug Use in Last 12 Months: Yes Recreational Drug Type: Reports: Marijuana/Hashish Recreational Drug Use Frequency: Weekly Recreational Drug Last Use: 1 month ago - Living Situation & Occupation Living situation: Reports: with Significant Other, with Family Occupation: Disabled H&P Review of Systems - Review of Systems: Review Of Systems: See Below General: Reports: No Symptoms, Weakness, Decreased Appetite, Weight Gain HEENT: Reports: Glasses Pulmonary: Reports: Shortness of Breath Cardiovascular: Reports: No Symptoms Gastrointestinal: Reports: Abdominal Pain, Black Stool Genitourinary: Reports: No Symptoms Musculoskeletal: Reports: Back Pain (chronic low back pain), Hand Pain, Muscle Pain Skin: Reports: Jaundice, Wound, Change in Hair/Nails Psychiatric: Reports: Anxiety, Other Neurological: Reports: Dizziness, Weakness Hematologic/Lymphatic: Reports: Anemia, Easy Bleeding, Easy Bruising, Other ( cirrihosis) Exam - Exam Exam: See Below - Vital Signs Vital Signs: Last Vital Signs Temp 35.6 C 06/28/17 01:53 Pulse 87 06/28/17 01:53 Resp 14 06/28/17 01:53 BP 84/37 L 06/28/17 01:53 Pulse Ox 99 06/28/17 01:53 Weight: 49.7 kg - Exam General: Alert, Oriented, Cooperative HEENT: PERRLA, Conjunctiva Clear, EACs Clear, EOMI, Hearing Intact, Mucosa Moist & [place], Nares Patent, Normal Nasal Septum, Scleral Icterus, Contact Lenses Neck: Supple, Trachea Midline. No: Carotid Bruit Lungs: Clear to Auscultation, Normal Respiratory Effort Cardiovascular: Regular Rate, Regular Rhythm GI/Abdominal Exam: Normal Bowel Sounds, Soft, Non-Tender, No Abnormal Bruit, No Mass, Pelvis Stable, Other (surgical dressing intact without drainage) (Female) Exam: Normal External Exam Rectal (Female) Exam: Normal Exam, Deferred Back Exam: Normal Inspection, Full Range of Motion Extremities: Normal Inspection, Normal Range of Motion, Non-Tender, No Pedal Edema, Normal Capillary Refill Peripheral Pulses: 2+: Popliteal (R), Posterior Tibial (L), Posterior Tibial (R) , Dorsalis Pedis (L) Skin: Warm, Wound (two elizabeth drain; coffe colored discharge. ) Neurological: Reflexes Equal Bilateral, Strength Equal Bilateral, Normal Speech Neuro Extensive - Mental Status: Alert, Oriented x3, Normal Mood/Affect, Normal Cognition Neuro Extensive - Motor, Sensory, Reflexes: CN II-XII Intact, Normal Gait, Normal Reflexes Psychiatric: Alert, Normal Affect, Normal Mood - Patient Data Result Diagrams: 06/27/17 22:32 06/27/17 22:32 *Q Meaningful Use (ADM) - VTE *Q VTE Criteria *Q: - Stroke *Q Stroke Criteria *Q: - AMI *Q AMI Criteria *Q: - Problem List (1) Sepsis SNOMED Code(s): 49502580 ICD Code: A41.9 - SEPSIS, UNSPECIFIED ORGANISM Status: Acute Current Visit: Yes (2) Abdominal pain, epigastric SNOMED Code(s): 70513519 ICD Code: R10.13 - EPIGASTRIC PAIN Status: Acute Priority: High Current Visit: No (3) Abnormal findings on esophagogastroduodenoscopy (EGD) SNOMED Code(s): 673142774 ICD Code: R19.8 - OTH SYMPTOMS AND SIGNS INVOLVING THE DGSTV SYS AND ABDOMEN Status: Acute Current Visit: No (4) Peptic ulcer SNOMED Code(s): 64295658 ICD Code: K27.9 - PEPTIC ULC, SITE UNSP, UNSP AC OR CHR, W/O HEMOR OR PERF Status: Acute Current Visit: No (5) Hx of Hodgkin's disease SNOMED Code(s): 842586835 ICD Code: Z85.71 - PERSONAL HISTORY OF HODGKIN LYMPHOMA Status: Chronic Current Visit: No Problem List Initiated/Reviewed/Updated: Yes Orders Last 24hrs: Active Orders 24 hr Category Date Time Status Patient Status [ADT] Routine ADT 06/28/17 02:16 Active Cardiac Monitoring [RC] .As Directed Care 06/28/17 02:16 Active Intake and Output [RC] QSHIFT Care 06/28/17 02:16 Active Notify Provider Consults [RC] ASDIRECTED Care 06/28/17 02:16 Active Notify Provider Vital Signs [RC] ASDIRECTED Care 06/28/17 02:16 Active Oxygen Therapy [RC] PRN Care 06/28/17 02:16 Active Pulse Oximetry [RC] CONTINUOUS Care 06/28/17 02:16 Active RT Aerosol Therapy [RC] ASDIRECTED Care 06/28/17 02:16 Active Telemetry Monitoring [Cardiac Monitoring] [RC] .As Care 06/28/17 01:40 Active Directed Up ad Anu [RC] ASDIRECTED Care 06/28/17 02:16 Active VTE/DVT Education [RC] Per Unit Routine Care 06/28/17 02:16 Active Vital Signs [RC] Q4H Care 06/28/17 02:16 Active Consult to Physician [CONS] Routine Cons 06/28/17 02:16 Ordered OT Evaluation and Treatment [CONS] Routine Cons 06/28/17 02:16 Active PT Evaluation and Treatment [CONS] Routine Cons 06/28/17 02:16 Active Full Liquid Diet [DIET] Diet 06/28/17 Breakfast Ordered BASIC METABOLIC PANEL,BMP [CHEM] AM Lab 06/28/17 05:11 Ordered CBC WITH AUTO DIFF [HEME] Routine Lab 06/28/17 05:10 Ordered LACTIC ACID [CHEM] AM Lab 06/28/17 05:11 Ordered Acetaminophen [Tylenol] Med 06/28/17 02:16 Ordered 650 mg PO Q4H PRN Albuterol [Proventil Neb Soln] Med 06/28/17 02:16 Ordered 2.5 mg NEB Q4H PRN Bisacodyl [Dulcolax] Med 06/28/17 02:16 Ordered 5 mg PO DAILY PRN Docusate Sodium [Colace] Med 06/28/17 02:16 Ordered 100 mg PO BID PRN FLU Vacc [id number] 36Mos UP/PF [Fluzone Quad [id number]] Med 06/28/17 10:00 Once 60 mcg IM .ONCE ONE HYDROmorphone [Dilaudid] Med 06/28/17 02:16 Ordered DOSE mg PO TID PRN LORazepam [Ativan] Med 06/28/17 02:16 Ordered 1 mg IV Q6H PRN Lactated Ringers [Ringers, Lactated] 1,000 ml Med 06/28/17 02:16 Ordered IV ASDIRECTED Levofloxacin [Levaquin] Med 06/28/17 02:16 Ordered 750 mg PO Q24H Metoprolol Succinate [Metoprolol Succinate] Med 06/28/17 09:00 Ordered 100 mg PO DAILY Morphine Med 06/28/17 02:16 Ordered 2 mg IVPUSH Q2H PRN Ondansetron [Zofran ODT] Med 06/28/17 02:16 Ordered 4 mg PO Q6H PRN PARoxetine HCl [Paroxetine Cr] Med 06/28/17 09:00 Ordered 25 mg PO DAILY Pantoprazole [ProTONIX IV] Med 06/28/17 09:00 Ordered 40 mg IV DAILY Phenytoin Med 06/28/17 09:00 Ordered DOSE mg PO BID Spironolactone [Aldactone] Med 06/28/17 09:00 Ordered DOSE mg PO DAILY Zolpidem [Ambien] Med 06/28/17 02:16 Ordered 5 mg PO BEDTIME PRN oxyCODONE Med 06/28/17 02:16 Ordered 10 mg PO Q4H PRN Sequential Compression Device [OM.PC] Per Unit Routine Oth 06/28/17 02:16 Ordered Resuscitation Status Routine Resus Stat 06/28/17 01:22 Ordered Medication Orders Acetaminophen (Tylenol) 650 mg PO Q4H PRN PRN Reason: Pain (Mild 1-3)/fever Albuterol (Proventil Neb Soln) 2.5 mg NEB Q4H PRN PRN Reason: Shortness Of Breath/wheezing Bisacodyl (Dulcolax) 5 mg PO DAILY PRN PRN Reason: Constipation Docusate Sodium (Colace) 100 mg PO BID PRN PRN Reason: Constipation Hydromorphone HCl (Dilaudid) mg PO TID PRN PRN Reason: Pain Piperacillin Sod/Tazobactam (Sod 3.375 gm/ Sodium Chloride) 50 mls @ 100 mls/ hr IV Q6H [facility] Last Admin: 06/28/17 00:39 Dose: 100 mls/hr Lactated Ringer's (Ringers, Lactated) 1,000 mls @ 125 mls/hr IV ASDIRECTED [facility] Influenza Virus Vaccine (Fluzone Quad [id number]) 60 mcg IM .ONCE ONE Stop: 06/28/17 10:01 Lorazepam (Ativan) 1 mg IV Q6H PRN PRN Reason: Nausea/Vomiting Morphine Sulfate (Morphine) 2 mg IVPUSH Q2H PRN PRN Reason: Pain (severe 7-10) Non-Formulary Medication (Levofloxacin [Levaquin]) 750 mg PO Q24H [facility] Non-Formulary Medication (Metoprolol Succinate [Metoprolol Succinate]) 100 mg PO DAILY [facility] Non-Formulary Medication (Paroxetine Hcl [Paroxetine Cr]) 25 mg PO DAILY [facility] Ondansetron HCl (Zofran Odt) 4 mg PO Q6H PRN PRN Reason: Nausea able to take PO Oxycodone HCl (Oxycodone) 10 mg PO Q4H PRN PRN Reason: Pain (moderate 4-6) Pantoprazole Sodium (Protonix Iv) 40 mg IV DAILY GLORIA Phenytoin Sodium (Phenytoin) mg PO BID GLORIA Spironolactone (Aldactone) mg PO DAILY [facility] Zolpidem Tartrate (Ambien) 5 mg PO BEDTIME PRN PRN Reason: Sleep Assessment/Plan Comment:: ASSESSMENT / PLAN: 62 years old female patient resented with chief complaint of weakness and shortness breath. Started yesterday. The patient is a status post partial gastrectomy for gastric tumor [address] Hemphill. She left the hospital one week ago. She has been doing well until yesterday when she started feeling more short of breath. Denies any chest pain. Had postoperative abdominal pain which seems to be improving. Denies any nausea or vomiting. She doesn't feel like eating. Denies any urinary symptom. Denies any fever. Mild dry cough, rhinorrhea nose for the last few days. Labs; WBC 25.4, HBG 11.4, PLATELETS 445,SEGS 82, SEGS 82, BANDS 1, LYMPHS 10, MONOS 5, NA+ 128, K+4.1, CL 93, ANION GAP 14.1, BUN 22, CREAT 1.4, GLUCOSE 149, LACTIC ACID 2.4, LIPASE 95, TOAL BILE 6.6, AST 214, ALT 249, ALK PHOS 995, AMMONIA 10 Image; Chest/abdomen series, CT abdomen/pelvis without contrast. will admit to [address] [place] [address], consult with Dr. Suero. Plan Sepsis, Abdominal Pain -Admit to [address] [place] [address] for further monitoring -IV Fluids for rehydration LR at 125 mL per hour -IV Antibiotic; Zosyn 3.375 IV every 6 hours -left upper chest Central Line; blood cultures of cath pending -Advise to notify nurses of any chest pain or other symptoms -blood cultures x2 pending -And a.m. labs: CBC, BMP, lactic acid Elevated Liver Function, with jaundice -recheck LFTs in am -consult to Surgery Maintenance issues -Orders home meds: ordered -Nutrition: full liquid diet, with Boost or Ensure 2 - 8 ounce bottle -Gomez catheter not indicated at this time -DVT: SCD -PPI; IV Protonix 40mg daily -consult OT for discharge planning -consult PT for strengthen. consult to Surgery CODE STATUS: DNR/DNI Admission status: Admit to [address] [place] [address] Admission justification. This patient will be admitted for inpatient services and is medically appropriate meeting medical necessity for inpatient admission as outlined in my documentation. I reasonably expect the patient will require inpatient services that span. Time over 2 midnights. I reasonably expect this patient to be discharged or transferred within 96 hours after admission to the critical access hospital. Disposition; home Primary care provider: Dr. Yu and Dr. Hemphill Surgery Hospitalist: Dr. Med Suero
[2017-06-28] MEDS: oxyCODONE 5 MG Tab PO PRN ×4 (02:47→22:15)
[2017-06-28] MEDS: Acetaminophen 325 MG Tab PO PRN (02:47)
[2017-06-28] MEDS: Lactated Ringers 1,000 ML IV SCH ×3 (02:55→19:39)
[2017-06-28] MEDS ORDERED: Pantoprazole 40 MG Tab.CR PO SCH (07:30)
[2017-06-28] MEDS: PARoxetine 20 MG Tab PO SCH (08:57)
[2017-06-28] MEDS: Spironolactone 25 MG Tab PO SCH (08:57)
[2017-06-28] MEDS: Phenytoin 100 MG Cap.ER PO SCH ×2 (08:58→20:17)
[2017-06-28] MEDS ORDERED: Levofloxacin 500 MG Tab PO SCH (09:00)
[2017-06-28] MEDS ORDERED: Pantoprazole 40 MG Vial IV SCH (09:00)
[2017-06-28] MEDS: Metoprolol Succinate 50 MG Tab.ER PO SCH (09:02)
[2017-06-28] MEDS: Piperacillin/Tazobactam/Dext 3.375 GM in Premix Bag 1 BAG IV SCH ×3 (10:26→23:19)
--- NOTE | 2017-06-28 10:29 | CONS ---
DATE OF SERVICE: 06/28/2017 REFERRING PHYSICIAN: CONSULTING PHYSICIAN: Alfredo Kitchen MD Consult from Dr. Suero. REASON FOR CONSULTATION: A 62-year-old female who presented with weakness and shortness of breath. This was approximately for 24 hours. The patient was admitted yesterday and this morning her shortness of breath has improved significantly. She has no other associated issues as far as nausea and vomiting, except for the patient does have ongoing lack of desire to eat. 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 The patient was sent home with drains. Drain output is bilious in nature and is approximately 120 to 150 mL combined per 8-hour shift. PAST MEDICAL HISTORY: Smoking, this does complicate her current healing. She also has rhinitis; glaucoma; cirrhosis; reflux disease; urinary incontinence; urinary tract infections, multiple; osteoarthritis; osteoporosis; uterine cancer; anxiety; history of blood transfusions; lymphomas. SOCIAL HISTORY: Smoking as above. FAMILY HISTORY: Noncontributory in the sense. REVIEW OF SYSTEMS: GENERAL: The patient is resting comfortably. HEENT: Wears glasses. Reported legal blindness. RESPIRATORY: She states her shortness of breath is gone and this has significantly improved comparatively. CARDIOVASCULAR: No chest pain. GASTROINTESTINAL: The patient reports dark stools. MUSCULOSKELETAL: Chronic back pain. SKIN: She does not note jaundice herself, but jaundice is noted. HEMATOLOGY: History of cirrhosis. PHYSICAL EXAMINATION: VITAL SIGNS: Blood pressure 92/46, temperature 96.9, pulse 74, respirations 14, 99% on room air. HEENT: Scleral icterus is noted. CARDIOVASCULAR: Regular rhythm and rate. LUNGS: Clear to auscultation bilaterally. ABDOMEN: Nontender, very mild distention. Marco-Jefferson drains show bilious/serous type output. EXTREMITIES: Full range of motion. NEUROLOGICAL: Oriented x3. PSYCH: No gross depression or confusion. LABORATORY RESULTS: Show white blood cell count of 25,000, hemoglobin 9.6. Total bilirubin is 5.6 with elevated alkaline phosphatase levels. ASSESSMENT: Status post Mona-en-Y procedure. PLAN: 1. Biliary status. The patient's bilirubin is 5.6 today. This has decreased in the last 24 hours. Of note, prior to the patient's discharge on 06/19, her bilirubin was 6.2, so this is within her recent "normal range" for this patient. We will order an MRCP for her to evaluate the current status of her biliary tree. 2. Infectious Disease. The patient's white blood cell count is static at about 25,000. This was noted to be intermittently elevated in her last hospitalization and the patient was discharged with a white blood cell count of 16,000; however, on the of that hospitalization, she was at 24,000. I have started the patient on Zosyn at this time. The drain output is bilious in nature, therefore, no evidence of abscess. Furthermore, CT scan, which I did review does not show any evidence of a targetable fluid collection with respect to drainage today. GENERAL DISPOSITION: The patient looks emaciated. We will await the MRCP results and transfer the patient's care back to Dr. Hemphill in the morning. The patient is probably going to require additional nutritional bolster. The patient does have a PEG tube reported in. Alfredo Kitchen MD /[id number]
--- NOTE | 2017-06-28 15:07 | PCM.PN ---
- General Info Date of Service: 06/28/17 Functional Status: Reports: Pain Controlled, Tolerating Diet - Review of Systems General: Denies: Fever Pulmonary: Denies: Shortness of Breath Gastrointestinal: Reports: Abdominal Pain Systems Review Comment:: No acute events since the time of admission. Shortness of breath is much better today. She reports moderate diffuse abdominal pain, especially in the right upper quadrant. She is very weak and fatigued. She has no appetite at this time. She has not had any fevers. White count is stable. Hepatic panel enzymes have improved slightly from yesterday. - Patient Data Vitals - Most Recent: Last Vital Signs Temp 35.9 C 06/28/17 11:26 Pulse 73 06/28/17 11:26 Resp 16 06/28/17 11:26 BP 102/50 L 06/28/17 11:26 Pulse Ox 94 L 06/28/17 14:35 Weight - Most Recent: 49.7 kg I&O - Last 24 Hours: Intake & Output 06/28/17 06/28/17 06/28/17 06:59 14:59 22:59 Intake Total 2155 170 Output Total 590 Balance 2155 -420 Lab Results Last 24 Hours: Laboratory Results - last 24 hr 06/28/17 06/28/17 06/28/17 Range/Units 05:30 05:49 05:49 WBC 25.6 H (4.5-11.0) K/uL RBC 3.20 L (3.30-5.50) M/uL Hgb 9.6 L (12.0-15.0) g/dL Hct 29.0 L (36.0-48.0) % MCV 91 (80-98) fL MCH 30 (27-31) pg MCHC 33 (32-36) % Plt Count 465 H (150-400) K/uL Add Manual Diff Yes Neutrophils % (Manual) 80 H (36-66) % Band Neutrophils % 5 (5-11) % Lymphocytes % (Manual) 10 L (24-44) % Monocytes % (Manual) 5 (2-6) % Poikilocytosis Few Anisocytosis Few Target Cells Few Sodium 131 L (140-148) mmol/L Potassium 4.0 (3.6-5.2) mmol/L Chloride 99 L (100-108) mmol/L Carbon Dioxide 23 (21-32) mmol/L Anion Gap 13.0 (5.0-14.0) mmol/L BUN 22 H (7-18) mg/dL Creatinine 1.3 H (0.6-1.0) mg/dL Est Cr Clr Drug Dosing 35.65 mL/min Estimated GFR (MDRD) 42 L (>60) Glucose 91 (74-106) mg/dL Lactic Acid (0.4-2.0) mmol/L Calcium 8.7 (8.5-10.1) mg/dL Total Bilirubin 5.6 H (0.2-1.0) mg/dL Direct Bilirubin 4.87 H (0.0-0.2) mg/dL Indirect Bilirubin 0.73 AST 163 H (15-37) U/L ALT 202 H (12-78) U/L Alkaline Phosphatase 753 H (46-116) U/L Total Protein 7.4 (6.4-8.2) g/dL Albumin 2.3 L (3.4-5.0) g/dL Globulin 5.1 H (2.3-3.5) g/dL Albumin/Globulin Ratio 0.5 L (1.2-2.2) Urine Color Urine Appearance Urine pH (4.5-8.0) Ur Specific [place] (1.008-1.030) Urine Protein (NEGATIVE) mg/dL Urine Glucose (UA) (NEGATIVE) mg/dL Urine Ketones (NEGATIVE) mg/dL Urine Occult Blood (NEGATIVE) Urine Nitrite (NEGATIVE) Urine Bilirubin (NEGATIVE) Urine Urobilinogen (NORMAL) mg/dL Ur Leukocyte Esterase (NEGATIVE) Urine RBC (0-5) Urine WBC (0-5) Ur Epithelial Cells Amorphous Sediment Urine Bacteria Urine Mucus Urine Other 06/28/17 06/28/17 Range/Units 05:49 10:20 WBC (4.5-11.0) K/uL RBC (3.30-5.50) M/uL Hgb (12.0-15.0) g/dL Hct (36.0-48.0) % MCV (80-98) fL MCH (27-31) pg MCHC (32-36) % Plt Count (150-400) K/uL Add Manual Diff Neutrophils % (Manual) (36-66) % Band Neutrophils % (5-11) % Lymphocytes % (Manual) (24-44) % Monocytes % (Manual) (2-6) % Poikilocytosis Anisocytosis Target Cells Sodium (140-148) mmol/L Potassium (3.6-5.2) mmol/L Chloride (100-108) mmol/L Carbon Dioxide (21-32) mmol/L Anion Gap (5.0-14.0) mmol/L BUN (7-18) mg/dL Creatinine (0.6-1.0) mg/dL Est Cr Clr Drug Dosing mL/min Estimated GFR (MDRD) (>60) Glucose (74-106) mg/dL Lactic Acid 1.0 (0.4-2.0) mmol/L Calcium (8.5-10.1) mg/dL Total Bilirubin (0.2-1.0) mg/dL Direct Bilirubin (0.0-0.2) mg/dL Indirect Bilirubin AST (15-37) U/L ALT (12-78) U/L Alkaline Phosphatase (46-116) U/L Total Protein (6.4-8.2) g/dL Albumin (3.4-5.0) g/dL Globulin (2.3-3.5) g/dL Albumin/Globulin Ratio (1.2-2.2) Urine Color Yellow Urine Appearance Cloudy Urine pH 5.0 (4.5-8.0) Ur Specific [place] 1.020 (1.008-1.030) Urine Protein 30 H (NEGATIVE) mg/dL Urine Glucose (UA) Normal (NEGATIVE) mg/dL Urine Ketones Negative (NEGATIVE) mg/dL Urine Occult Blood Negative (NEGATIVE) Urine Nitrite Negative (NEGATIVE) Urine Bilirubin Small (NEGATIVE) Urine Urobilinogen Normal (NORMAL) mg/dL Ur Leukocyte Esterase Small (NEGATIVE) Urine RBC 0-5 (0-5) Urine WBC 5-10 H (0-5) Ur Epithelial Cells Moderate Amorphous Sediment Many Urine Bacteria Moderate Urine Mucus Moderate Urine Other See note Med Orders - Current: Current Medications Acetaminophen (Tylenol) 650 mg PO Q4H PRN PRN Reason: Pain (Mild 1-3)/fever Last Admin: 06/28/17 02:47 Dose: 650 mg Albuterol (Proventil Neb Soln) 2.5 mg NEB Q4H PRN PRN Reason: Shortness Of Breath/wheezing Bisacodyl (Dulcolax) 5 mg PO DAILY PRN PRN Reason: Constipation Docusate Sodium (Colace) 100 mg PO BID PRN PRN Reason: Constipation Heparin Sodium (Porcine) (Heparin Lock Flush 100 Units/Ml) 500 units FLUSH ASDIRECTED PRN PRN Reason: keep vein open Last Admin: 06/28/17 10:08 Dose: 500 units Hydromorphone HCl (Dilaudid) 6 mg PO TID PRN PRN Reason: Pain Lactated Ringer's (Ringers, Lactated) 1,000 mls @ 125 mls/hr IV ASDIRECTED [facility] Last Admin: 06/28/17 11:25 Dose: 125 mls/hr Piperacillin/Tazobactam/ (Dextrose 3.375 gm/ Premix) 50 mls @ 100 mls/hr IV Q6H [facility] Last Admin: 06/28/17 10:26 Dose: 100 mls/hr Influenza Virus Vaccine (Fluzone Quad [id number]) 60 mcg IM .ONCE ONE Stop: 06/29/17 10:01 Lorazepam (Ativan) 1 mg IV Q6H PRN PRN Reason: Nausea/Vomiting Metoprolol Succinate (Toprol Xl) 100 mg PO DAILY [facility] Last Admin: 06/28/17 09:02 Dose: Not Given Morphine Sulfate (Morphine) 2 mg IVPUSH Q2H PRN PRN Reason: Pain (severe 7-10) Ondansetron HCl (Zofran Odt) 4 mg PO Q6H PRN PRN Reason: Nausea able to take PO Oxycodone HCl (Oxycodone) 10 mg PO Q4H PRN PRN Reason: Pain (moderate 4-6) Last Admin: 06/28/17 11:30 Dose: 10 mg Pantoprazole Sodium (Protonix) 40 mg PO ACBREAKFAST [facility] Last Admin: 06/28/17 07:50 Dose: 40 mg Paroxetine HCl (Paxil) 20 mg PO DAILY [facility] Last Admin: 06/28/17 08:57 Dose: 20 mg Phenytoin Sodium (Phenytoin) 100 mg PO BID [facility] Last Admin: 06/28/17 08:58 Dose: 100 mg Ranitidine HCl (Zantac) 150 mg PO DAILY [facility] Last Admin: 06/28/17 09:57 Dose: 150 mg Spironolactone (Aldactone) 25 mg PO DAILY [facility] Last Admin: 06/28/17 08:57 Dose: 25 mg Zolpidem Tartrate (Ambien) 5 mg PO BEDTIME PRN PRN Reason: Sleep Discontinued Medications Diphenhydramine HCl (Benadryl) 25 mg IVPUSH ONETIME ONE Stop: 06/28/17 00:17 Last Admin: 06/28/17 00:33 Dose: 25 mg Piperacillin Sod/Tazobactam (Sod 3.375 gm/ Sodium Chloride) 50 mls @ 100 mls/ hr IV Q6H [facility] Last Admin: 06/28/17 05:20 Dose: 100 mls/hr Sodium Chloride (Normal Saline) 1,000 mls @ 500 mls/hr IV ASDIRECTED [facility] Last Admin: 06/28/17 00:33 Dose: 500 mls/hr Sodium Chloride (Normal Saline) 1,000 mls @ 500 mls/hr IV ASDIRECTED [facility] Stop: 06/28/17 07:14 Last Admin: 06/28/17 05:21 Dose: 500 mls/hr Influenza Virus Vaccine (Pharmacy To Dose - Influenza Vaccine) 1 each IM ONETIME ONE Stop: 06/28/17 10:01 Levofloxacin 250 mg/ (Levofloxacin 500 mg) 750 mg PO DAILY@0730 [facility] Last Admin: 06/28/17 07:49 Dose: 750 mg Morphine Sulfate (Morphine) 2 mg IVPUSH ONETIME ONE Stop: 06/28/17 00:17 Last Admin: 06/28/17 00:34 Dose: 2 mg - Exam Quality Assessment: No: Supplemental Oxygen General: Alert, Oriented, Cooperative, No Acute Distress HEENT: Scleral Icterus Neck: Supple Lungs: Clear to Auscultation, Normal Respiratory Effort Cardiovascular: Regular Rate, Regular Rhythm GI/Abdominal Exam: Soft, No Distention, Tender (Moderate diffuse tenderness) Extremities: No Pedal Edema. No: Increased Warmth Skin: Warm, Dry, Other (Jaundice) Psy/Mental Status: Alert, Normal Affect - Problem List Review Problem List Initiated/Reviewed/Updated: Yes - My Orders Last 24 Hours: My Active Orders 06/28/17 10:00 Ranitidine [Zantac] 150 mg PO DAILY 06/29/17 10:00 FLU Vacc [id number] 36Mos UP/PF [Fluzone Quad [id number]] 60 mcg IM .ONCE ONE - Plan Plan:: ASSESSMENT / PLAN: Generalized Abdominal Pain - elevation of hepatic panel enzymes as discussed below. Some concern for at least partial obstruction of the biliary tree. No obvious evidence for infection though occult biliary infection could be considered. She has no elevated white count but no fever. Surgical consultation appreciated. -Continue IV fluids -Continue Pip/Tazo -follow-up cultures -Repeat labs in the morning -Surgical consultation will be transferred to Dr. Hemphill tomorrow Elevated Liver Function, with jaundice - some concern for at least partial obstruction of the biliary tract. Recent debridement of necrotic pancreatic tissue and cholecystectomy. Levels are slightly improved today. Drains appear to be draining bile-colored fluid. -recheck LFTs in am -Surgical consultation Acute kidney injury - creatinine elevated 2 times greater than baseline. Likely due to dehydration. Associated mild hypovolemic hyponatremia. -IV fluids -Labs in the morning Maintenance issues -Nutrition: full liquid diet, with Boost or Ensure 2 - 8 ounce bottle -Gomez catheter not indicated at this time -DVT: SCD -PPI; PPI -consult OT for discharge planning -consult PT for strengthen. CODE STATUS: DNR/DNI Admission status: Admit to [address] [place] [address] Admission justification. This patient will be admitted for inpatient services and is medically appropriate meeting medical necessity for inpatient admission as outlined in my documentation. I reasonably expect the patient will require inpatient services that span. Time over 2 midnights. I reasonably expect this patient to be discharged or transferred within 96 hours after admission to the [facility]. Disposition; anticipate discharge home after the hospital stay Primary care provider: Dr. Yu and Dr. Hemphill Surgery Clifford Suero M.D.
[2017-06-29] MEDS: Lactated Ringers 1,000 ML IV SCH (03:38)
[2017-06-29] MEDS: Piperacillin/Tazobactam/Dext 3.375 GM in Premix Bag 1 BAG IV SCH ×3 (05:01→16:34)
[2017-06-29] MEDS: Morphine 2 MG/ML Syringe IVPUSH PRN (07:28)
--- NOTE | 2017-06-29 07:38 | PCM.CONSN ---
- General Info Date of Service: 06/29/17 Functional Status: Reports: Pain Controlled - Review of Systems General: Reports: Weakness, Fatigue, Malaise, Other (No appetite) HEENT: Reports: No Symptoms Pulmonary: Reports: No Symptoms Cardiovascular: Reports: No Symptoms Gastrointestinal: Reports: Abdominal Pain (2-3/10 pain scale), Decreased Appetite Genitourinary: Reports: No Symptoms Musculoskeletal: Reports: No Symptoms Skin: Reports: Jaundice Neurological: Reports: No Symptoms Psychiatric: Reports: No Symptoms - Patient Data Vitals - Most Recent: Last Vital Signs Temp 96.5 F 06/29/17 07:03 Pulse 76 06/29/17 07:03 Resp 16 06/29/17 07:03 BP 110/40 L 06/29/17 07:03 Pulse Ox 99 06/29/17 07:03 Weight - Most Recent: 109 lb 9.116 oz I&O - Last 24 Hours: Intake & Output 06/28/17 06/29/17 06/29/17 22:59 06:59 14:59 Intake Total 1777 1774 Output Total 1460 590 90 Balance 317 1184 -90 Lab Results Last 24 Hours: Laboratory Results - last 24 hr 06/28/17 06/28/17 06/29/17 Range/Units 05:30 10:20 06:23 WBC 20.4 H (4.5-11.0) K/uL RBC 2.77 L (3.30-5.50) M/uL Hgb 8.6 L (12.0-15.0) g/dL Hct 26.0 L (36.0-48.0) % MCV 94 (80-98) fL MCH 31 (27-31) pg MCHC 33 (32-36) % Plt Count 374 (150-400) K/uL Sodium (140-148) mmol/L Potassium (3.6-5.2) mmol/L Chloride (100-108) mmol/L Carbon Dioxide (21-32) mmol/L Anion Gap (5.0-14.0) mmol/L BUN (7-18) mg/dL Creatinine (0.6-1.0) mg/dL Est Cr Clr Drug Dosing mL/min Estimated GFR (MDRD) (>60) Glucose (74-106) mg/dL Calcium (8.5-10.1) mg/dL Phosphorus (2.5-4.9) mg/dL Magnesium (1.8-2.4) mg/dL Total Bilirubin 5.6 H (0.2-1.0) mg/dL Direct Bilirubin 4.87 H (0.0-0.2) mg/dL Indirect Bilirubin 0.73 AST 163 H (15-37) U/L ALT 202 H (12-78) U/L Alkaline Phosphatase 753 H (46-116) U/L Total Protein 7.4 (6.4-8.2) g/dL Albumin 2.3 L (3.4-5.0) g/dL Globulin 5.1 H (2.3-3.5) g/dL Albumin/Globulin Ratio 0.5 L (1.2-2.2) Urine Color Yellow Urine Appearance Cloudy Urine pH 5.0 (4.5-8.0) Ur Specific [place] 1.020 (1.008-1.030) Urine Protein 30 H (NEGATIVE) mg/dL Urine Glucose (UA) Normal (NEGATIVE) mg/dL Urine Ketones Negative (NEGATIVE) mg/dL Urine Occult Blood Negative (NEGATIVE) Urine Nitrite Negative (NEGATIVE) Urine Bilirubin Small (NEGATIVE) Urine Urobilinogen Normal (NORMAL) mg/dL Ur Leukocyte Esterase Small (NEGATIVE) Urine RBC 0-5 (0-5) Urine WBC 5-10 H (0-5) Ur Epithelial Cells Moderate Amorphous Sediment Many Urine Bacteria Moderate Urine Mucus Moderate Urine Other See note 06/29/17 Range/Units 06:23 WBC (4.5-11.0) K/uL RBC (3.30-5.50) M/uL Hgb (12.0-15.0) g/dL Hct (36.0-48.0) % MCV (80-98) fL MCH (27-31) pg MCHC (32-36) % Plt Count (150-400) K/uL Sodium 138 L (140-148) mmol/L Potassium 3.7 (3.6-5.2) mmol/L Chloride 103 (100-108) mmol/L Carbon Dioxide 27 (21-32) mmol/L Anion Gap 11.7 (5.0-14.0) mmol/L BUN 12 (7-18) mg/dL Creatinine 1.1 H (0.6-1.0) mg/dL Est Cr Clr Drug Dosing 42.14 mL/min Estimated GFR (MDRD) 50 L (>60) Glucose 76 (74-106) mg/dL Calcium 8.0 L (8.5-10.1) mg/dL Phosphorus 3.6 (2.5-4.9) mg/dL Magnesium 1.3 L D (1.8-2.4) mg/dL Total Bilirubin 4.0 H (0.2-1.0) mg/dL Direct Bilirubin (0.0-0.2) mg/dL Indirect Bilirubin AST 96 H (15-37) U/L ALT 130 H (12-78) U/L Alkaline Phosphatase 504 H (46-116) U/L Total Protein 6.0 L (6.4-8.2) g/dL Albumin 1.8 L (3.4-5.0) g/dL Globulin 4.2 H (2.3-3.5) g/dL Albumin/Globulin Ratio 0.4 L (1.2-2.2) Urine Color Urine Appearance Urine pH (4.5-8.0) Ur Specific [place] (1.008-1.030) Urine Protein (NEGATIVE) mg/dL Urine Glucose (UA) (NEGATIVE) mg/dL Urine Ketones (NEGATIVE) mg/dL Urine Occult Blood (NEGATIVE) Urine Nitrite (NEGATIVE) Urine Bilirubin (NEGATIVE) Urine Urobilinogen (NORMAL) mg/dL Ur Leukocyte Esterase (NEGATIVE) Urine RBC (0-5) Urine WBC (0-5) Ur Epithelial Cells Amorphous Sediment Urine Bacteria Urine Mucus Urine Other Med Orders - Current: Current Medications Acetaminophen (Tylenol) 650 mg PO Q4H PRN PRN Reason: Pain (Mild 1-3)/fever Last Admin: 06/28/17 02:47 Dose: 650 mg Albuterol (Proventil Neb Soln) 2.5 mg NEB Q4H PRN PRN Reason: Shortness Of Breath/wheezing Bisacodyl (Dulcolax) 5 mg PO DAILY PRN PRN Reason: Constipation Docusate Sodium (Colace) 100 mg PO BID PRN PRN Reason: Constipation Heparin Sodium (Porcine) (Heparin Lock Flush 100 Units/Ml) 500 units FLUSH ASDIRECTED PRN PRN Reason: keep vein open Last Admin: 06/28/17 10:08 Dose: 500 units Hydromorphone HCl (Dilaudid) 6 mg PO TID PRN PRN Reason: Pain Piperacillin/Tazobactam/ (Dextrose 3.375 gm/ Premix) 50 mls @ 100 mls/hr IV Q6H [facility] Last Admin: 06/29/17 05:01 Dose: 100 mls/hr Lactated Ringer's (Ringers, Lactated) 1,000 mls @ 100 mls/hr IV ASDIRECTED [facility] Albumin Human (Albumin 25%) 25 gm in 100 mls @ 25 mls/hr IV DAILY [facility] Stop: 07/03/17 09:01 Magnesium Sulfate 2 gm/ Premix 50 mls @ 25 mls/hr IV Q6H [facility] Stop: 07/02/17 03:29 Influenza Virus Vaccine (Fluzone Quad [id number]) 60 mcg IM .ONCE ONE Stop: 06/29/17 10:01 Lorazepam (Ativan) 1 mg IV Q6H PRN PRN Reason: Nausea/Vomiting Metoprolol Succinate (Toprol Xl) 100 mg PO DAILY [facility] Last Admin: 06/28/17 09:02 Dose: Not Given Morphine Sulfate (Morphine) 2 mg IVPUSH Q2H PRN PRN Reason: Pain (severe 7-10) Last Admin: 06/29/17 07:28 Dose: 2 mg Ondansetron HCl (Zofran Odt) 4 mg PO Q6H PRN PRN Reason: Nausea able to take PO Oxycodone HCl (Oxycodone) 10 mg PO Q4H PRN PRN Reason: Pain (moderate 4-6) Last Admin: 06/28/17 22:15 Dose: 10 mg Pantoprazole Sodium (Protonix Iv) 40 mg IVPUSH Q12H [facility] Paroxetine HCl (Paxil) 20 mg PO DAILY [facility] Last Admin: 06/28/17 08:57 Dose: 20 mg Phenytoin Sodium (Phenytoin) 100 mg PO BID [facility] Last Admin: 06/28/17 20:17 Dose: 100 mg Ranitidine HCl (Zantac) 150 mg PO DAILY [facility] Last Admin: 06/28/17 09:57 Dose: 150 mg Spironolactone (Aldactone) 25 mg PO DAILY [facility] Last Admin: 06/28/17 08:57 Dose: 25 mg Zolpidem Tartrate (Ambien) 5 mg PO BEDTIME PRN PRN Reason: Sleep Discontinued Medications Diphenhydramine HCl (Benadryl) 25 mg IVPUSH ONETIME ONE Stop: 06/28/17 00:17 Last Admin: 06/28/17 00:33 Dose: 25 mg Piperacillin Sod/Tazobactam (Sod 3.375 gm/ Sodium Chloride) 50 mls @ 100 mls/ hr IV Q6H [facility] Last Admin: 06/28/17 05:20 Dose: 100 mls/hr Sodium Chloride (Normal Saline) 1,000 mls @ 500 mls/hr IV ASDIRECTED [facility] Last Admin: 06/28/17 00:33 Dose: 500 mls/hr Lactated Ringer's (Ringers, Lactated) 1,000 mls @ 125 mls/hr IV ASDIRECTED [facility] Last Admin: 06/29/17 03:38 Dose: 125 mls/hr Sodium Chloride (Normal Saline) 1,000 mls @ 500 mls/hr IV ASDIRECTED [facility] Stop: 06/28/17 07:14 Last Admin: 06/28/17 05:21 Dose: 500 mls/hr Influenza Virus Vaccine (Pharmacy To Dose - Influenza Vaccine) 1 each IM ONETIME ONE Stop: 06/28/17 10:01 Levofloxacin 250 mg/ (Levofloxacin 500 mg) 750 mg PO DAILY@0730 [facility] Last Admin: 06/28/17 07:49 Dose: 750 mg Morphine Sulfate (Morphine) 2 mg IVPUSH ONETIME ONE Stop: 06/28/17 00:17 Last Admin: 06/28/17 00:34 Dose: 2 mg Pantoprazole Sodium (Protonix) 40 mg PO ACBREAKFAST [facility] Last Admin: 06/28/17 07:50 Dose: 40 mg - Exam Quality Assessment: DVT Prophylaxis General: Alert, Oriented, Cooperative, Mild Distress HEENT: Pupils Equal, Pupils Reactive Neck: Supple Lungs: Clear to Auscultation, Normal Respiratory Effort Cardiovascular: Regular Rate, Regular Rhythm GI/Abdominal Exam: Soft, Tender (minimally. LAYNE drains are both draining bile. ) (Female) Exam: Deferred Back Exam: Normal Inspection Extremities: Normal Inspection, No Pedal Edema Skin: Warm, Dry, Intact Wound/Incisions: Healing Well Neurological: No New Focal Deficit Psy/Mental Status: Alert, Normal Affect, Normal Mood Consult PN Assessment/Plan POD#: 0 Procedures: Procedures (1) Abdominal pain SNOMED Code(s): 63554754 Code(s): R10.9 - UNSPECIFIED ABDOMINAL PAIN Current Visit: Yes (2) Jaundice SNOMED Code(s): 90733974 Code(s): R17 - UNSPECIFIED JAUNDICE Current Visit: Yes Problem List Initiated/Reviewed/Updated: Yes My Orders Last 24 Hours: My Active Orders 06/29/17 07:01 Supplement (Dietary) [Dietary Supplements] [RC] TIDAC 06/29/17 07:08 Document Drain Output [OM.PC] Routine 06/29/17 07:30 Magnesium Sulfate/Water [Magnesium Sulfate 2 GM in Water 50 ML] 2 gm Premix Bag 1 bag IV Q6H 06/29/17 09:00 Albumin Human [Albumin 25%] 25 gm in 100 ml IV DAILY Lactated Ringers [Ringers, Lactated] 1,000 ml IV ASDIRECTED Pantoprazole [ProTONIX IV] 40 mg IVPUSH Q12H 06/29/17 Lunch Full Liquid Diet [DIET] 06/30/17 04:00 CBC W/O DIFF,HEMOGRAM [HEME] Timed COMPREHENSIVE METABOLIC PN,CMP [CHEM] Timed MAGNESIUM [CHEM] Timed PHOSPHORUS [CHEM] Timed Plan: Plan: MRCP today - call Dr. Hemphill with results Start TPN today - see copy of orders Rx Albumin 50 grams IV for 4 days Rx Magnesium 2 Grams every 6 hours IV for 72 hours LR at 100 mls per hour after TPN is started Empty LAYNE Drain every hour, measure and record amount Full liquid Diet after MRCP Protein supplements between meals tid and prn - start after MRCP CMP, CBC, Phos in AM. Will evaluate prn or in AM Bebe Mckeon
[2017-06-29] MEDS: Pantoprazole 40 MG Vial IVPUSH SCH ×2 (08:28→21:30)
[2017-06-29] MEDS ORDERED: Lactated Ringers 1,000 ML IV SCH (09:00)
[2017-06-29] MEDS ORDERED: FLU Vacc QS 2017-18 (36mos UP)/PF 60 MCG/0.5 ML Syringe IM ONE (10:00)
[2017-06-29] MEDS: Magnesium Sulfate/Water 2 GM in Premix Bag 1 BAG IV SCH ×3 (10:05→21:30)
--- NOTE | 2017-06-29 11:09 | CR ---
Abdomen Series w Chest 1V INDICATION: sob FINDINGS: Left subclavian central line with tip in the mid and low SVC. Tubing and postoperative bañuelos ges project over the abdomen. Surgical drains in place. No evidence for small bowel obstruction. Lung s are clear. Heart size normal. 2.5 cm linear density projected over the left midlung is indeterminan t and may lie outside the patient; clinically correlate.
[2017-06-29] MEDS: Metoprolol Succinate 50 MG Tab.ER PO SCH (12:15)
[2017-06-29] MEDS: PARoxetine 20 MG Tab PO SCH (12:15)
[2017-06-29] MEDS: Spironolactone 25 MG Tab PO SCH (12:16)
[2017-06-29] MEDS: Phenytoin 100 MG Cap.ER PO SCH ×2 (12:16→21:30)
--- NOTE | 2017-06-29 12:46 | MR ---
Cholangiopancreatography INDICATION: elevated bilirubin COMPARISON: None. FINDINGS: The patient is status post choledochojejunostomy. Marked intra and extra hepatic bile ducta l dilatation. The common bile duct measures 1.7 cm. No evidence for filling defect. Common bile duct tapers abruptly at the anastomosis. Gastrostomy tube in place. Right upper quadrant drains in place. Trace pleural effusions. Exam otherwise negative. IMPRESSION: Intra and hepatic bile duct dilatation. Findings discussed with Dr. Hemphill in person at 12:40 PM on 06/29/2017.
[2017-06-29] MEDS: 1: AA 5%/Calcium/D15W/Lytes 1,000 ML with MVI, Adult with Vitamin K 10 ML, Chromium/Copp IV SCH ×3 (14:33)
[2017-06-29] MEDS: oxyCODONE 5 MG Tab PO PRN ×2 (15:14→21:27)
[2017-06-30] MEDS: 1: AA 5%/Calcium/D15W/Lytes 1,000 ML with MVI, Adult with Vitamin K 10 ML, Chromium/Copp IV SCH ×6 (00:59→11:59)
[2017-06-30] MEDS: Magnesium Sulfate/Water 2 GM in Premix Bag 1 BAG IV SCH ×4 (04:16→21:53)
[2017-06-30] MEDS: Piperacillin/Tazobactam/Dext 3.375 GM in Premix Bag 1 BAG IV SCH ×6 (05:53→22:50)
[2017-06-30] MEDS ORDERED: Lactated Ringers 500 ML IV SCH (06:45)
[2017-06-30] MEDS: oxyCODONE 5 MG Tab PO PRN ×4 (07:08→19:56)
[2017-06-30] MEDS: Phenytoin 100 MG Cap.ER PO SCH ×2 (08:45→21:53)
[2017-06-30] MEDS: Spironolactone 25 MG Tab PO SCH (08:50)
[2017-06-30] MEDS: PARoxetine 20 MG Tab PO SCH (08:50)
[2017-06-30] MEDS: Metoprolol Succinate 50 MG Tab.ER PO SCH ×2 (08:56→09:52)
[2017-06-30] MEDS: Pantoprazole 40 MG Vial IVPUSH SCH ×2 (08:57→21:54)
[2017-06-30] MEDS: Morphine 2 MG/ML Syringe IVPUSH PRN (09:17)
[2017-07-01] MEDS: 1: AA 5%/Calcium/D15W/Lytes 1,000 ML with MVI, Adult with Vitamin K 10 ML, Chromium/Copp IV SCH ×9 (00:42→11:37)
[2017-07-01] MEDS: oxyCODONE 5 MG Tab PO PRN ×4 (02:24→22:23)
[2017-07-01] MEDS: Piperacillin/Tazobactam/Dext 3.375 GM in Premix Bag 1 BAG IV SCH ×4 (04:04→22:17)
[2017-07-01] MEDS: Magnesium Sulfate/Water 2 GM in Premix Bag 1 BAG IV SCH ×4 (04:04→21:01)
[2017-07-01] MEDS ORDERED: Central Total Parenteral Nutrition Bag SCH (07:45)
[2017-07-01] MEDS: Spironolactone 25 MG Tab PO SCH (08:09)
[2017-07-01] MEDS: PARoxetine 20 MG Tab PO SCH (08:09)
[2017-07-01] MEDS: Phenytoin 100 MG Cap.ER PO SCH ×2 (08:09→20:54)
[2017-07-01] MEDS: Pantoprazole 40 MG Vial IVPUSH SCH ×2 (08:10→20:53)
--- NOTE | 2017-07-01 09:06 | PN ---
DATE OF SERVICE: 07/01/2017 SUBJECTIVE: Soco's hemoglobin this morning is 7.6. She states her pain is a 6-7 and she feels it is adequately controlled with her pain medication. JPs have put out 240 and 650 mils of bilious substance. REVIEW OF SYSTEMS: Remainder of review of systems negative for any pertinent positives and negatives. OBJECTIVE: GENERAL: Soco Rodrigues is a pleasant 62-year-old female. She is resting comfortably in bed. VITAL SIGNS: TPR is 95.8, 74, 16, blood pressure 102/55. HEENT: Negative. NECK: Supple. HEART: Regular rate and rhythm. LUNGS: Clear. ABDOMEN: Minimally tender. LAYNE drains intact. EXTREMITIES: SCDs are on and there is no peripheral edema. ASSESSMENT: 1. Abdominal pain. 2. Jaundice secondary to bile leak. 3. Malnutrition. 4. Hemoglobin of 7.6. PLAN: 1. HIDA scan in a.m. with no CCK to evaluate flow of bile through the colo-colpo jejunostomy. Scheduled for 07/02/2017. 2. N.p.o. after midnight. 3. Give 1 unit of packed red blood cells. 4. Check CBC, CMP, phos in a.m. 5. Continue same TPN rate and content. 6. We will evaluate p.r.n. or in a.m. Bebe Bear PA-C /[id number]
[2017-07-01] MEDS: Metoprolol Succinate 50 MG Tab.ER PO SCH (11:30)
--- NOTE | 2017-07-01 13:00 | PN ---
DATE OF SERVICE: 06/30/2017 The patient has been afebrile with stable vital signs. Overall appearance is somewhat better. Her LAYNE drain continued to put out large amount of bilious fluid. The MRCP showed, as was expected, somewhat dilated extra and intrahepatic bile ducts, but not too strikingly, that has tapered down at the level of the choledochojejunostomy. It is unclear how much is getting through that. Her total bilirubin is down to 3.0, so that certainly is improving, but this may be largely related to the onset of the bile leak, which has at this point actually been helpful. Oral intake was over a liter yesterday, so we will back down on TPN somewhat. Her hemoglobin is 7.6. 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 So, we will order 2 units of packed RBCs, to be cross-matched, probably give her 1 unit when that is available, which might not be until tomorrow. The plan, at this point, will be to obtain a HIDA scan on . If this fails to show any significant flow into the small bowel via the choledochojejunostomy, then we likely need to do something operatively, probably place a stent across that anastomosis on Thursday. Eulalio Hemphill MD /[id number]
[2017-07-02] MEDS: 1: AA 5%/Calcium/D15W/Lytes 1,000 ML with MVI, Adult with Vitamin K 10 ML, Chromium/Copp IV SCH ×6 (01:23→13:42)
[2017-07-02] MEDS: Magnesium Sulfate/Water 2 GM in Premix Bag 1 BAG IV SCH (03:38)
[2017-07-02] MEDS: Piperacillin/Tazobactam/Dext 3.375 GM in Premix Bag 1 BAG IV SCH ×4 (04:04→22:47)
[2017-07-02] MEDS: Pantoprazole 40 MG Vial IVPUSH SCH ×2 (09:13→20:35)
--- NOTE | 2017-07-02 09:41 | PN ---
DATE OF SERVICE: 07/02/2017 SUBJECTIVE: Soco is n.p.o. She will be having a HIDA scan done this morning. She is afebrile. Oral intake was 690. Her LAYNE drains continue to put out a bilious drainage. LAYNE drain #1 put out 220 mL over the past 24 hours and LAYNE drain #2 put out 650. She did have one bowel movement. REVIEW OF SYSTEMS: Remainder of review of systems negative for any pertinent positives or negatives, and she continues to be on TPN. OBJECTIVE: GENERAL: Soco Rodrigues is a 62-year-old female. Alert and oriented. VITAL SIGNS: TPR 96, 80, 18. Blood pressure 123/59. HEENT: Negative. NECK: Supple. HEART: Regular rate and rhythm. LUNGS: Clear. ABDOMEN: No change. LAYNE drains remain intact, minimally tender. EXTREMITIES: Without peripheral edema. ASSESSMENT: 1. Abdominal pain. 2. Bile leak. 3. Malnutrition. 4. Anemia, received 1 unit of packed red blood cells yesterday, hemoglobin this morning 9.1. PLAN: 1. Call Dr. Hemphill when HIDA scan is done. 2. Continue same TPN, rate and content. 3. Give 1 unit of packed red blood cells today. 4. Check CMP, phos, CBC, PT, and PTT in a.m. 5. Good pulmonary toilet encouraged. 6. We will evaluate p.r.n. or in a.m. Bebe Bear PA-C /[id number]
[2017-07-02] MEDS ORDERED: FLU Vacc QS 2017-18 (36mos UP)/PF 60 MCG/0.5 ML Syringe IM ONE (10:00)
[2017-07-02] MEDS: Metoprolol Succinate 50 MG Tab.ER PO SCH (11:54)
[2017-07-02] MEDS: oxyCODONE 5 MG Tab PO PRN ×3 (12:05→22:50)
[2017-07-02] MEDS: Spironolactone 25 MG Tab PO SCH (12:08)
[2017-07-02] MEDS: Phenytoin 100 MG Cap.ER PO SCH ×2 (12:09→20:35)
[2017-07-02] MEDS: PARoxetine 20 MG Tab PO SCH (12:09)
--- NOTE | 2017-07-02 13:40 | NM ---
HIDA scan. Indication: Bile leak Technique: 5.25 mCi technetium colectomy administered. Findings: Prompt liver uptake. Uptake within drains. There is central liver uptake within the central intrahepatic ducts. No definitive common bile duct uptake or uptake within small bowel. No peritonea l uptake. Correlate for stricture and with cross-sectional imaging. Uptake is evident within drainage tubes and a bag.
[2017-07-02] MEDS: Morphine 2 MG/ML Syringe IVPUSH PRN (19:29)
[2017-07-03] MEDS: 1: AA 5%/Calcium/D15W/Lytes 1,000 ML with MVI, Adult with Vitamin K 10 ML, Chromium/Copp IV SCH ×6 (01:53→13:30)
[2017-07-03] MEDS: Piperacillin/Tazobactam/Dext 3.375 GM in Premix Bag 1 BAG IV SCH ×3 (04:27→17:57)
[2017-07-03] MEDS ORDERED: Central Total Parenteral Nutrition Bag SCH (07:15)
[2017-07-03] MEDS ORDERED: HYDROmorphone/Normal Saline 15 MG/30 ML PCA IV PRN (07:45)
[2017-07-03] MEDS ORDERED: Naloxone 0.4 MG/ML SDV IVPUSH PRN (07:45)
[2017-07-03] MEDS ORDERED: Bupivacaine 0.5%/EPINEPHrine 1:200,000 50 ML MDV ONE (07:55)
--- NOTE | 2017-07-03 09:55 | PN ---
DATE OF SERVICE: 07/03/2017 SUBJECTIVE: Soco is n.p.o. for surgery today. She has been afebrile. LAYNE drains have put out 220 and 650 mL of a bilious drainage. She will be signing her consent for surgery once her family arrives. REVIEW OF SYSTEMS: Remainder of review of systems negative for any pertinent positives and negatives. OBJECTIVE: GENERAL: Soco Rodrigues is a 62-year-old female. VITAL SIGNS: TPR is 98.7, 77, 18, and blood pressure 114/57. HEENT: Negative. NECK: Supple. HEART: Regular rate and rhythm. LUNGS: Clear. ABDOMEN: Remains to be tender in all 4 quadrants. LAYNE drains are intact, as noted above. EXTREMITIES: SCDs are on and no peripheral edema. ASSESSMENT: Bile leak, abdominal pain, and malnutrition. PLAN: 1. Continue same TPN rate and content. 2. Discontinue metoprolol. 3. No flu vaccine while in the hospital. 4. Communication order written to add replacement of central line to operative consent report. Orders to be written postoperatively. Bebe Bear PA-C /[id number]
[2017-07-03] MEDS: Pantoprazole 40 MG Vial IVPUSH SCH ×2 (10:27→20:58)
[2017-07-03] MEDS: Morphine 2 MG/ML Syringe IVPUSH PRN (10:57)
[2017-07-03] MEDS ORDERED: Ondansetron 4 MG/2 ML SDV ONE (11:37)
[2017-07-03] MEDS ORDERED: Dexamethasone 4 MG/ML SDV ONE (11:37)
[2017-07-03] MEDS ORDERED: Propofol 200 MG/20 ML SDV ONE (11:37)
[2017-07-03] MEDS ORDERED: Neostigmine Methylsulfate 1 MG/ML 5 ML Syringe ONE (11:37)
[2017-07-03] MEDS ORDERED: fentaNYL 250 MCG/5 ML SDV ONE ×2 (11:37→13:01)
[2017-07-03] MEDS ORDERED: Midazolam 1 MG/ML 2 ML SDV ONE ×2 (11:37→16:31)
[2017-07-03] MEDS ORDERED: Glycopyrrolate 0.2 MG/ML 5 ML MDV ONE (11:37)
[2017-07-03] MEDS ORDERED: Rocuronium 50 MG/5 ML Vial ONE ×2 (11:37→15:53)
[2017-07-03] MEDS ORDERED: FLU Vacc QS 2017-18 (36mos UP)/PF 60 MCG/0.5 ML Syringe IM ONE (12:00)
[2017-07-03] MEDS ORDERED: Meropenem 500 MG in Sodium Chloride 0.9% 50 ML IV ONE (12:00)
[2017-07-03] MEDS ORDERED: Labetalol 20 MG/4 ML Syringe ONE (13:26)
[2017-07-03] MEDS ORDERED: Lactated Ringers 2,000 ML ONE (13:56)
[2017-07-03] MEDS ORDERED: Meropenem 500 MG SDV ONE ×2 (14:02→15:02)
[2017-07-03] MEDS ORDERED: Hydrocortisone Sodium Succinate 100 MG/2 ML SDV ONE (15:45)
[2017-07-03] MEDS ORDERED: fentaNYL 100 MCG/2 ML SDV ONE (16:29)
[2017-07-03] MEDS ORDERED: hydrOXYzine HCl 100 MG/2 ML SDV IM ONE (17:30)
[2017-07-03] MEDS: Spironolactone 25 MG Tab PO SCH (17:36)
[2017-07-03] MEDS: Phenytoin 100 MG Cap.ER PO SCH (17:36)
[2017-07-03] MEDS: PARoxetine 20 MG Tab PO SCH (17:36)
[2017-07-03] MEDS ORDERED: hydrOXYzine HCl 100 MG/2 ML SDV IM PRN (18:26)
[2017-07-03] MEDS ORDERED: Lactated Ringers 1,000 ML IV SCH (18:30)
[2017-07-03] MEDS: Meropenem 500 MG in Sodium Chloride 0.9% 50 ML IV SCH (20:57)
[2017-07-03] MEDS ORDERED: Phenytoin 250 MG/5 ML SDV ONE (21:40)
[2017-07-03] MEDS ORDERED: Lactated Ringers 500 ML IV ONE (23:24)
[2017-07-04] MEDS: 1: AA 5%/Calcium/D15W/Lytes 1,000 ML with MVI, Adult with Vitamin K 10 ML, Chromium/Copp IV SCH ×6 (01:48→13:58)
[2017-07-04] MEDS: Meropenem 500 MG in Sodium Chloride 0.9% 50 ML IV SCH ×3 (03:30→20:08)
[2017-07-04] MEDS: Morphine 2 MG/ML Syringe IVPUSH PRN ×5 (07:41→22:23)
[2017-07-04] MEDS ORDERED: Lactated Ringers 1,000 ML IV SCH (08:00)
[2017-07-04] MEDS: PARoxetine 20 MG Tab PO SCH (09:28)
[2017-07-04] MEDS: Spironolactone 25 MG Tab PO SCH (09:28)
[2017-07-04] MEDS: Pantoprazole 40 MG Vial IVPUSH SCH ×2 (09:28→22:25)
[2017-07-04] MEDS: Magnesium Sulfate/Water 2 GM in Premix Bag 1 BAG IV SCH ×3 (09:30→22:24)
[2017-07-04] MEDS ORDERED: Coagulation Factor VIIa Recombinant (per MCG) 2 MG Vial IVPUSH ONE (12:15)
[2017-07-04] MEDS: Ondansetron 4 MG Tab.DIS PO PRN (20:08)
[2017-07-04] MEDS: Acetaminophen 325 MG Tab PO PRN (20:09)
[2017-07-04] MEDS: oxyCODONE 5 MG Tab PO PRN (20:09)
[2017-07-05] MEDS: Ondansetron 4 MG Tab.DIS PO PRN (00:10)
[2017-07-05] MEDS: oxyCODONE 5 MG Tab PO PRN ×2 (00:11→05:43)
[2017-07-05] MEDS: Morphine 2 MG/ML Syringe IVPUSH PRN ×2 (00:12→05:42)
[2017-07-05] MEDS: Acetaminophen 325 MG Tab PO PRN ×2 (00:12→05:44)
[2017-07-05] MEDS: 1: AA 5%/Calcium/D15W/Lytes 1,000 ML with MVI, Adult with Vitamin K 10 ML, Chromium/Copp IV SCH ×6 (02:25→14:51)
[2017-07-05] MEDS: Meropenem 500 MG in Sodium Chloride 0.9% 50 ML IV SCH ×3 (03:47→20:09)
[2017-07-05] MEDS: Magnesium Sulfate/Water 2 GM in Premix Bag 1 BAG IV SCH ×4 (03:47→22:46)
[2017-07-05] MEDS ORDERED: Ondansetron 4 MG Tab.DIS PO PRN (05:25)
[2017-07-05] MEDS ORDERED: Naloxone 0.4 MG/ML SDV IV PRN (06:58)
[2017-07-05] MEDS ORDERED: HYDROmorphone/Normal Saline 15 MG/30 ML PCA IV PRN (06:58)
[2017-07-05] MEDS: Spironolactone 25 MG Tab PO SCH (08:26)
[2017-07-05] MEDS: PARoxetine 20 MG Tab PO SCH (08:26)
[2017-07-05] MEDS: Pantoprazole 40 MG Vial IVPUSH SCH ×2 (08:34→20:11)
[2017-07-05] MEDS: Sodium Chloride 0.9% 1,000 ML IV SCH (10:09)
[2017-07-06] MEDS: 1: AA 5%/Calcium/D15W/Lytes 1,000 ML with MVI, Adult with Vitamin K 10 ML, Chromium/Copp IV SCH ×6 (03:12→15:55)
[2017-07-06] MEDS: Meropenem 500 MG in Sodium Chloride 0.9% 50 ML IV SCH ×3 (03:12→20:06)
[2017-07-06] MEDS: Magnesium Sulfate/Water 2 GM in Premix Bag 1 BAG IV SCH ×4 (03:13→21:45)
[2017-07-06] MEDS ORDERED: Lidocaine 1% with EPINEPHrine 1:100,000 50 ML MDV ONE (06:47)
[2017-07-06] MEDS ORDERED: Meropenem 500 MG SDV ONE (06:47)
[2017-07-06] MEDS ORDERED: Bupivacaine 0.5% 50 ML MDV ONE (06:47)
[2017-07-06] MEDS ORDERED: fentaNYL 100 MCG/2 ML SDV ONE (07:04)
[2017-07-06] MEDS ORDERED: Midazolam 1 MG/ML 2 ML SDV ONE (07:04)
[2017-07-06] MEDS ORDERED: Propofol 200 MG/20 ML SDV ONE (07:04)
[2017-07-06] MEDS ORDERED: Central Total Parenteral Nutrition Bag SCH (07:15)
--- NOTE | 2017-07-06 07:24 | PN ---
DATE OF SERVICE: 07/04/2017 The patient has been afebrile with stable vital signs. Her heart rates are running right around 100s, so we are not seeing the significant tachycardia that we had with previous procedures. Her pain control appeared to be satisfactory. Urine output is okay as well. The LAYNE drains have a very slight bile tint. The T2 drain is draining some bile, so this appeared to be working relatively well in that regard. Bilirubin is still somewhat up at 3.5, and we could see that gradually creep down over the next few days. We will begin a full liquid diet today. Her hemoglobin is 8.3, and we will give her 1 unit of packed RBCs today as well. Magnesium is also low and that will be supplemented over the next 3 days. Plan is to proceed with a delayed primary closure of the incision on Thursday. We will leave the Gomez catheter in for today and perhaps get that out tomorrow. Eulalio Hemphill MD /[id number]
[2017-07-06] MEDS ORDERED: Sodium Chloride 0.9% 500 ML ONE (07:38)
--- NOTE | 2017-07-06 08:06 | PN ---
DATE OF SERVICE: 07/03/2017 SUBJECTIVE: Soco is n.p.o. She has had some difficulty with nausea. She will be having her delayed primary closure today. TPN is running without difficulty. She did receive 1 unit of packed red blood cells for anemia secondary to blood loss, yesterday 07/05/2017. OBJECTIVE: GENERAL: Soco Rodrigues is a 62-year-old female, alert, orientated, color pale. VITAL SIGNS: TPR 98.6, 114, 16, blood pressure 139/74. HEENT: Negative. NECK: Supple. HEART: Regular rate and rhythm. LUNGS: Clear. ABDOMEN: Dressings dry and intact. Abdominal binder is on. EXTREMITIES: Without peripheral edema. Oral intake was 60. Urine output was 1800. LAYNE drains have put out 200, 10, and 80. T-tube has put out 500. Labs: WBC 24.9, hemoglobin is 10.4. ASSESSMENT: 1. Exploratory laparotomy, intraoperative small bowel endoscopy and placement of T-tube. 2. Catheter insertion, central venous and common bile duct exploration. Date of surgery 07/03/2017. PLAN: Continue same TPN rate and content. Delayed primary closure today. We will evaluate p.r.n. or in a.m. Bebe Bear PA-C /[id number]
[2017-07-06] MEDS: Morphine PF 150 MG/30 ML PCA Syringe IV PRN (08:53)
[2017-07-06] MEDS: Pantoprazole 40 MG Vial IVPUSH SCH ×2 (09:36→21:45)
[2017-07-06] MEDS: Scopolamine 1.5 MG Transdermal Patch TOP SCH (09:41)
[2017-07-06] MEDS: Metoclopramide 10 MG/2 ML SDV IV SCH ×2 (09:41→18:01)
[2017-07-06] MEDS: PARoxetine 20 MG Tab PO SCH (09:51)
[2017-07-06] MEDS: Spironolactone 25 MG Tab PO SCH (09:51)
[2017-07-06] MEDS ORDERED: FLU Vacc QS 2017-18 (36mos UP)/PF 60 MCG/0.5 ML Syringe IM ONE (10:00)
--- NOTE | 2017-07-06 10:33 | PN ---
DATE OF SERVICE: 07/05/2017 The patient has been afebrile with stable vital signs. Heart rate is running right around 100. She looks a little bit uncomfortable on the current medical management, and we will restart the MANAGER ARCHITECTURE at this point. Otherwise, she will be having a delayed primary closure tomorrow. Her hemoglobin is 8.7. She did have some oozing from the incision yesterday, which seemed to have stopped with pressure dressing. We will give her 1 unit of packed RBCs today. Bilirubin has remained somewhat elevated at 4, but the T-tube is draining satisfactorily at around 200 mL out the last shift, so this is something that should be coming down, and with the primary closure tomorrow, we will look at the T-tube with fluoroscopy to make sure there is not any angulation or kinking of the T-tube. Otherwise, JPs are thus far not showing any bilious drainage. I will continue with TPN for today and otherwise maximize activity and work with pulmonary toilet. Eulalio Hemphill MD /[id number]
[2017-07-06] MEDS: Sodium Chloride 0.9% 1,000 ML IV SCH (21:50)
[2017-07-07] MEDS: Metoclopramide 10 MG/2 ML SDV IV SCH ×3 (01:46→17:31)
[2017-07-07] MEDS: Magnesium Sulfate/Water 2 GM in Premix Bag 1 BAG IV SCH (03:47)
[2017-07-07] MEDS: Meropenem 500 MG in Sodium Chloride 0.9% 50 ML IV SCH ×3 (03:50→20:29)
[2017-07-07] MEDS: 1: AA 5%/Calcium/D15W/Lytes 1,000 ML with MVI, Adult with Vitamin K 10 ML, Chromium/Copp IV SCH ×6 (04:56→17:31)
[2017-07-07] MEDS ORDERED: Central Total Parenteral Nutrition Bag SCH (07:45)
--- NOTE | 2017-07-07 09:10 | PN ---
DATE OF SERVICE: 07/07/2017 SUBJECTIVE: Soco states her pain is controlled. Vital signs have been stable. She has been up ambulating. REVIEW OF SYSTEMS: Remainder of review of systems negative for any pertinent positives and negatives. OBJECTIVE: GENERAL: Soco Rodrigues is a 62-year-old female. She had just come back from the bathroom, sitting on the edge of bed, alert, orientated, color pale. VITAL SIGNS: TPR 96.7, 54, 18. Blood pressure 138/72. HEENT: Negative. NECK: Supple. HEART: Regular rate and rhythm. LUNGS: Clear. ABDOMEN: Dressing dry and intact. Gastrostomy tube put out 175. LAYNE drain 1, 2, and 3 have put out 290, 65, 380. T-tube put out 380 of bilious drainage. Urine output 2000. Abdominal binder has been on. EXTREMITIES: Without peripheral edema. ASSESSMENT: Exploratory laparotomy, intraoperative small bowel endoscopy and placement of T- tube catheter insertion, central venous and common bile duct exploration. PLAN: 1. Continue same TPN rate and content. 2. Check CBC, CMP, mag, phos in a.m. 3. Full liquid diet. 4. Clamp G-tube 5 hours, unclamp 1 hour around the clock, unclamp p.r.n. any nausea or inability to tolerate if clamped. Bebe Bear PA-C /[id number]
[2017-07-07] MEDS: PARoxetine 20 MG Tab PO SCH (09:41)
[2017-07-07] MEDS: Spironolactone 25 MG Tab PO SCH (09:42)
[2017-07-07] MEDS: [UNRECOGNIZED DRUG - OTHER] TOP SCH (09:42)
[2017-07-07] MEDS: Pantoprazole 40 MG Vial IVPUSH SCH ×2 (09:43→22:01)
[2017-07-07] MEDS: Sodium Chloride 0.9% 1,000 ML IV SCH (19:09)
[2017-07-08] MEDS: Metoclopramide 10 MG/2 ML SDV IV SCH ×3 (02:59→17:17)
[2017-07-08] MEDS: Meropenem 500 MG in Sodium Chloride 0.9% 50 ML IV SCH ×3 (03:01→21:06)
[2017-07-08] MEDS: 1: AA 5%/Calcium/D15W/Lytes 1,000 ML with MVI, Adult with Vitamin K 10 ML, Chromium/Copp IV SCH ×6 (06:22→18:06)
[2017-07-08] MEDS ORDERED: Central Total Parenteral Nutrition Bag SCH (08:30)
[2017-07-08] MEDS: Spironolactone 25 MG Tab PO SCH (10:42)
[2017-07-08] MEDS: [UNRECOGNIZED DRUG - OTHER] TOP SCH (10:42)
[2017-07-08] MEDS: PARoxetine 20 MG Tab PO SCH (10:42)
[2017-07-08] MEDS: Pantoprazole 40 MG Vial IVPUSH SCH ×2 (10:44→21:07)
[2017-07-08] MEDS: Magnesium Sulfate/Water 2 GM in Premix Bag 1 BAG IV SCH ×3 (10:44→21:06)
--- NOTE | 2017-07-08 19:11 | PN ---
DATE OF SERVICE: 07/08/2017 SUBJECTIVE: Soco states her pain is controlled. She has had 120 out of her G-tube and it has been clamped 5 hours, unclamped for 1. T-tube has put out 450 mL of bile. LAYNE drains have put out 315 and 450. Urine output was 4150. Oral intake 600 mL. Vital signs have been stable. She has been afebrile, up ambulating. Her pain has been controlled. REVIEW OF SYSTEMS: Remainder of review of systems negative for any pertinent positives and negatives. OBJECTIVE: GENERAL: Soco Rodrigues is a pleasant 62-year-old female. She is alert and orientated. She does look better today. VITAL SIGNS: TPR is 97.9, 97, 16. Blood pressure 143/71. HEENT: Negative. NECK: Supple. HEART: Regular rate and rhythm. LUNGS: Clear. ABDOMEN: Dressing dry and intact. Abdominal binder is on. Gastrostomy tube in place. T- tube in place. LAYNE drains x3 intact. EXTREMITIES: Without peripheral edema. ASSESSMENT: Exploratory laparotomy, intraoperative small bowel endoscopy, and placement of T-tube catheter insertion, central venous and common bile duct exploration. Date of surgery 07/06/2017, central venous catheter insertion. Delayed primary closure, 07/08/2017. PLAN: 1. Continue same TPN rate and content. 2. Magnesium 2 grams IV q.6 hours x72 hours. 3. Encourage increase of oral intake. 4. Check CBC, CMP, and phos in a.m. 5. We will evaluate p.r.n. or in a.m. Bebe Bear PA-C /[id number]
[2017-07-09] MEDS: Metoclopramide 10 MG/2 ML SDV IV SCH ×3 (02:57→17:56)
[2017-07-09] MEDS: Meropenem 500 MG in Sodium Chloride 0.9% 50 ML IV SCH ×3 (03:00→20:12)
[2017-07-09] MEDS: Magnesium Sulfate/Water 2 GM in Premix Bag 1 BAG IV SCH ×2 (03:00→10:00)
[2017-07-09] MEDS ORDERED: Central Total Parenteral Nutrition Bag SCH (07:30)
[2017-07-09] MEDS: 1: AA 5%/Calcium/D15W/Lytes 1,000 ML with MVI, Adult with Vitamin K 10 ML, Chromium/Copp IV SCH ×6 (08:04→20:12)
[2017-07-09] MEDS: [UNRECOGNIZED DRUG - OTHER] TOP SCH (08:05)
[2017-07-09] MEDS: Pantoprazole 40 MG Vial IVPUSH SCH ×2 (08:06→20:12)
--- NOTE | 2017-07-09 08:47 | PN ---
DATE OF SERVICE: 07/09/2017 SUBJECTIVE: Soco's oral intake is minimal. She had 260 mL in. Stating she just does not feel hungry, nothing sounds good. She is taking sips of Ensure. White count is 20.7, bilirubin is 4.3, hemoglobin is 10.4. She has not had a bowel movement yet. Gastrostomy tube has been clamped 5 hours and unclamped 1 hour. She had 100 mL out. T-tube put out 325 mL of a bilious drainage, LAYNE one put out 270 of a bilious drainage, LAYNE two put out 10 mL, and three put out 3 mL of a pink serosanguineous drainage. She reports her pain is controlled and she has been up ambulating. REVIEW OF SYSTEMS: Remainder of review of systems is negative for any pertinent positives and negatives. OBJECTIVE: GENERAL: Soco Rodrigues is a pleasant 62-year-old female. VITAL SIGNS: TPR is 97.5, 105, 16. Blood pressure is 142/72. HEENT: Negative. NECK: Supple. HEART: Regular rate and rhythm. LUNGS: Clear. ABDOMEN: Dressings dry and intact. LAYNE drain intact. Gastrostomy tube is clamped and T- tube intact, draining a bilious drainage as above. She has been having an abdominal binder on. EXTREMITIES: SCDs are on and there is no peripheral edema. ASSESSMENT: 1. Placement of right subclavian triple-lumen catheter, exploratory laparotomy with lysis of extensive adhesions, enterotomy for intraoperative endoscopy, and common bile duct exploration with placement of T-tube for central venous access inflammatory obstruction of the choledochojejunostomy and inflammatory reaction in the right upper quadrant. Date of surgery, 07/03/2017, Eulalio Hemphill MD. 2. Delayed primary closure, 07/06/2017. 3. TPN therapy. 4. Malnutrition. PLAN: 1. Discontinue full liquid diet and soft solid diet. 2. Megace 40 mg b.i.d. 3. One bottle of magnesium citrate through gastrostomy tube. 4. Keep gastrostomy tube clamped and only clamp as needed for bloating, nausea, and vomiting. 5. Continue TPN same rate and content. 6. Check CBC, CMP, and magnesium phosphorus in a.m. 7. Good pulmonary toilet encouraged. 8. We will evaluate p.r.n. or in a.m. BERTRAND LyonsC /[id number]
[2017-07-09] MEDS ORDERED: Magnesium Citrate Solution 296 ML Bottle PO ONE (09:00)
[2017-07-09] MEDS: PARoxetine 20 MG Tab PO SCH (10:00)
[2017-07-09] MEDS: Megestrol 40 MG Tab PO SCH ×2 (10:01→16:57)
[2017-07-09] MEDS: Spironolactone 25 MG Tab PO SCH (10:01)
--- NOTE | 2017-07-09 11:17 | OR ---
DATE OF PROCEDURE: 07/03/2017 PREOPERATIVE DIAGNOSES: 1. Obstruction of choledochojejunostomy. 2. Central venous line due for change. POSTOPERATIVE DIAGNOSES: 1. Inflammatory obstruction of choledochojejunostomy associated with prominent inflammation in the right upper quadrant and peripancreatic area. 2. Central venous line due for change. OPERATIVE PROCEDURES: 1. Placement of right subclavian vein triple lumen catheter (51790). 2. Exploratory laparotomy with lysis of extensive adhesions. a. Enterotomy for intraoperative small bowel endoscopy (01587). b. Common bile duct exploration with placement of T-tube (17804). ANESTHESIA: General. ENDODONTIST: Bebe Bear PA-C. INDICATION FOR PROCEDURE: The patient was readmitted with rising bilirubin. HIDA scan was obtained yesterday which revealed no flow through the choledochojejunostomy. The plan is at this point to proceed with exploratory laparotomy. We will attempt to place a stent across that anastomosis. If that is not feasible based on intraoperative findings, a backup plan will be to provide external drainage of the biliary tract by placement of something like a T-tube superior in the area away from the choledochojejunostomy where it might be more accessible slightly away from the peripancreatic inflammation. The patient is also due for a change of her central line. The central line has been present for some time and was also present during the period that she was at home. I think would be at significant risk for developing a line infection if new line is not placed. Potential risks of the procedure including bleeding, infection, pneumohemothorax or vascular injury with the line placement as well as possibility of bleeding, infection, injury to the viscera at the time of the laparotomy were all reviewed, and the patient wishes to proceed. DETAILS OF PROCEDURE: The patient was taken to the operating room where after general endotracheal anesthesia was induced initially, the upper chest and neck areas were prepped and draped. The right subclavian vein was cannulated and guidewire passed, and over the guidewire, a triple-lumen catheter positioned in the superior vena cava. Good in and out flow was noted through the catheter and ports flushed with heparinized saline and the catheter sutured to skin with some 3-0 silk stitch and subsequently x-ray viewed via fluoroscopy later at the time, the common bile duct exploration showed adequate location of the triple lumen catheter. Following this, Gomez catheter was inserted and the abdomen prepped and draped so as not to use the previous upper midline incision, which would be likely fraught with quite a bit in the way of inflammation. A right subcostal incision was made. This eventually extended somewhat inferiorly to afford adequate exposure. This carried down through the full- thickness abdominal wall. Quite extensive adhesions were encountered and the area around the head of the pancreas was noted to be more or less a baseball-sized inflammation which included the area of the choledochojejunostomy. After initial dissection, it became evident that dissection down onto the area of the choledochojejunostomy itself would not be safe. The Mona limb was then identified and small opening made through that and gastrogastric scope was placed up into the apex of the Mona limb in the vicinity of choledochojejunostomy. Reddened rim could be seen in that area. The guidewire was attempted to be passed endoscopically over a period of time and was not successful in terms of cannulating the choledochojejunostomy. Given this, the gastroscope was then withdrawn and opening then closed transversely with a SOILA ann load and oversewn with some 3-0 Vicryl seromuscular stitch. At that point in order to confirm the location of the common hepatic duct, a needle was placed into that area but once bile was returned, the guidewire was passed to document the location of the common bile duct. This then allowed dissection downward onto the common bile duct and once this was exposed, this being technically the common hepatic duct, a linear incision was made. Again attempts were made to pass guidewire or other instrumentation in through the choledochojejunostomy which was unsuccessful. Given this, the T-tube was then placed. Cholangiogram showed good placement of the T-tube with a nice filling of the biliary tree and cut off in the area of the distal most common bile duct where the inflammatory occlusion appeared to be most likely present with again no flow into the adjacent Mona limb. The T-tube at that point had been sutured in place with 3-0 Vicryl stitch. The abdomen was then irrigated with meropenem-containing saline solution. The area was reinforced with some fibrin sealant at around the T-tube and 2 Marco-Jefferson drains were placed, 1 posterior, 1 anterior to the area of the T-tube through the right lateral abdominal wall as was the T-tube brought out through that area. These were then sutured, skin with some 3-0 Vicryl stitch. The abdomen was then irrigated with meropenem-containing saline solution and the incision then closed with 2 layers of #2 Vicryl stitch deep and the skin and subcutaneous tissue were felt to be high risk for wound infection. Given this, they were packed open for a planned delayed primary closure on Thursday. There were no evident complications. The patient was taken to the recovery room in satisfactory condition. Physician administrative assistant data entry, Bebe Bear, played an essential role in assisting in this case, helping to position the patient, retract structures as needed, as well as suturing and cutting sutures as indicated. Her presence improved patient safety and decreased operative time. Eulalio Hemphill MD /[id number]
[2017-07-09] MEDS: Scopolamine 1.5 MG Transdermal Patch TOP SCH (11:42)
[2017-07-09] MEDS: Morphine PF 150 MG/30 ML PCA Syringe IV PRN (14:08)
[2017-07-10] MEDS: Meropenem 500 MG in Sodium Chloride 0.9% 50 ML IV SCH ×3 (03:21→19:53)
[2017-07-10] MEDS: Metoclopramide 10 MG/2 ML SDV IV SCH ×3 (03:21→17:21)
[2017-07-10] MEDS ORDERED: Central Total Parenteral Nutrition Bag SCH (07:30)
[2017-07-10] MEDS: Megestrol 40 MG Tab PO SCH ×2 (08:01→17:21)
[2017-07-10] MEDS: [UNRECOGNIZED DRUG - OTHER] TOP SCH (08:02)
[2017-07-10] MEDS: Spironolactone 25 MG Tab PO SCH (08:02)
[2017-07-10] MEDS: Pantoprazole 40 MG Vial IVPUSH SCH ×2 (08:03→20:51)
--- NOTE | 2017-07-10 08:09 | OR ---
DATE OF PROCEDURE: 07/06/2017 PREOPERATIVE DIAGNOSIS: Open abdominal incision. POSTOPERATIVE DIAGNOSIS: Open abdominal incision. OPERATIVE PROCEDURE: Delayed primary closure of open abdominal incision. INDICATION FOR PROCEDURE: The patient is status post an open procedure with some open GI tract, 2-1/2 days ago. At the time of the procedure, she was felt to be at high risk for a wound infection, should a primary closure be undertaken. Given this, the wound was packed open, and plans were made to proceed with a delayed primary closure at this time. Potential risks including bleeding and infection were reviewed, and the patient wishes to proceed. DETAILS OF PROCEDURE: The patient was taken to the operating room and placed in a supine position. After IV sedation was administered, digitally, we evaluated the course of the T- tube. The T-tube has been putting out fairly good amounts, but the patient's bilirubin remains somewhat elevated, and we wanted to be sure there was no kinking of the T-tube. Fluoroscopy was used to evaluate the T-tube, and there appeared to be a gentle curvature of the T-tube with no areas of kinking. Following this, the operative dressing was taken down, and the incision was noted to be clean. The area was then prepped and draped and anesthetized with 1% lidocaine mixed with Marcaine. A 10-Turkmen Marco-Jefferson drain was then placed through a stab wound lateral to the incision and draped across the bed of the incision. The incision was then closed with 3- 0 and 4-0 Vicryl stitch, after being irrigated with an antibiotic-containing saline solution, and then jamal for the skin. A drain was affixed with some 3-0 Vicryl stitch as well. The patient was taken to the recovery room in satisfactory condition. Eulalio Hemphill MD /[id number]
[2017-07-10] MEDS: Sodium Chloride 0.9% 1,000 ML IV SCH (08:53)
[2017-07-10] MEDS ORDERED: Magnesium Citrate Solution 296 ML Bottle GTUBE ONE (09:00)
[2017-07-10] MEDS: PARoxetine 20 MG Tab PO SCH (09:05)
[2017-07-10] MEDS: 1: AA 5%/Calcium/D15W/Lytes 1,000 ML with MVI, Adult with Vitamin K 10 ML, Chromium/Copp IV SCH ×6 (09:37→22:05)
--- NOTE | 2017-07-10 09:54 | PN ---
DATE OF SERVICE: 07/10/2017 SUBJECTIVE: Soco is a 62-year-old female. She states she is not feeling good today, feels weak. Oral intake was 50 mL yesterday. She is getting TPN. Urine output was 1800. Gastrostomy tube has been clamped. She is tolerating that well. She did have mag citrate put in the gastrostomy tube, has not had a bowel movement yet. T-tube has put out 650 mL of bile. LAYNE drain 1 put out 350, LAYNE 2 5, and LAYNE 3 5. The LAYNE drain put out 350 mL of a light green drainage. Afebrile and remainder of review of systems is negative for any pertinent positives and negatives. OBJECTIVE: GENERAL: Soco Rodrigues is a pleasant 62-year-old female. VITAL SIGNS: TPR is 97.4, 105, 16, blood pressure 142/75. HEENT: Negative. NECK: Supple. HEART: Regular rate and rhythm. LUNGS: Clear. ABDOMEN: Incision looks good. LAYNE drain is intact. Gastrostomy tube intact. G-tube as above. EXTREMITIES: Without peripheral edema. ASSESSMENT: 1. Placement of right subclavian triple-lumen catheter, exploratory laparotomy with lysis of extensive adhesions, enterotomy for intraoperative endoscopy, and common bile duct, exploration with placement of T-tube for central venous access. Inflammatory obstruction of the choledochal jejunostomy and inflammatory reaction in the right upper quadrant. Date of surgery, 07/03/2017, Eulalio Hemphill MD. 2. Delayed primary closure, 07/06/2017. 3. Total parenteral nutrition therapy. 4. Malnutrition. PLAN: 1. Mag citrate one bottle through G-tube. 2. Continue same TPN rate and content. 3. Check CBC, CMP, and phos in the a.m. 4. Consultation with dietary, Carmen Lagos RD, in regard to gastrostomy tube feeding. We would like to start at 25-30 mL per hour increasing 5-10 mL per hour daily, adding Creon. No lipids until TPN is decreased. Depending on how she tolerates this, may need to add bio through the gastrostomy tube with the feedings. Consultation put in orders. We will talk with Carmen Lagos when she is available. We will evaluate p.r.n. or in the a.m. Continue to increase oral intake. Bebe Bear PA-C /[id number]
[2017-07-11] MEDS: Metoclopramide 10 MG/2 ML SDV IV SCH ×3 (01:22→17:08)
[2017-07-11] MEDS: Meropenem 500 MG in Sodium Chloride 0.9% 50 ML IV SCH ×3 (03:27→20:13)
[2017-07-11] MEDS ORDERED: Central Total Parenteral Nutrition Bag SCH ×2 (07:45→08:15)
[2017-07-11] MEDS: Spironolactone 25 MG Tab PO SCH (08:02)
[2017-07-11] MEDS: Megestrol 40 MG Tab PO SCH ×2 (08:02→17:08)
[2017-07-11] MEDS: [UNRECOGNIZED DRUG - OTHER] TOP SCH (08:02)
[2017-07-11] MEDS: PARoxetine 20 MG Tab PO SCH (08:03)
[2017-07-11] MEDS: Pantoprazole 40 MG Vial IVPUSH SCH ×2 (09:41→20:16)
[2017-07-11] MEDS: 1: AA 5%/Calcium/D15W/Lytes 1,000 ML with MVI, Adult with Vitamin K 10 ML, Chromium/Copp IV SCH ×6 (10:31→22:32)
[2017-07-12] MEDS: Metoclopramide 10 MG/2 ML SDV IV SCH ×3 (01:24→17:41)
[2017-07-12] MEDS: Sodium Chloride 0.9% 1,000 ML IV SCH (01:32)
[2017-07-12] MEDS: Meropenem 500 MG in Sodium Chloride 0.9% 50 ML IV SCH (03:17)
[2017-07-12] MEDS: oxyCODONE 5 MG Tab PO PRN ×3 (03:26→22:26)
[2017-07-12] MEDS: Acetaminophen 325 MG Tab PO PRN (03:27)
[2017-07-12] MEDS ORDERED: Central Total Parenteral Nutrition Bag SCH (08:00)
[2017-07-12] MEDS: Megestrol 40 MG Tab PO SCH ×2 (08:32→16:18)
[2017-07-12] MEDS: Scopolamine 1.5 MG Transdermal Patch TOP SCH (08:32)
[2017-07-12] MEDS: PARoxetine 20 MG Tab PO SCH (08:32)
[2017-07-12] MEDS: Spironolactone 25 MG Tab PO SCH (08:32)
[2017-07-12] MEDS: [UNRECOGNIZED DRUG - OTHER] TOP SCH (08:34)
--- NOTE | 2017-07-12 09:18 | PN ---
DATE OF SERVICE: 07/12/2017 SUBJECTIVE: Soco's oral intake was 570. She is trying everything she can, but just does not have an appetite. She did have a loose stool with urine measured at 300. Urine output in addition to that was 650. Gastrostomy tube feedings have been going well. T-tube put out 225. Her LAYNE drain #1 put out 525, LAYNE drain #2 put out 5 mL, and LAYNE drain #3 put out 5 mL. Both LAYNE drains #2 and #3 are a light pink, serosanguineous drainage and LAYNE #1 is a bilious drainage. No change in color. Labs today: Hemoglobin is 9.4. Her total bilirubin is down to 3.3. Alkaline phosphatase remains elevated at 190. AST is 68. Vital signs have been stable. She has been up, ambulating. REVIEW OF SYSTEMS: Remainder of review of systems negative for any pertinent positives and negatives. OBJECTIVE: GENERAL: Soco Rodrigues is a pleasant 62-year-old female. VITAL SIGNS: TPR 97.1, 96, 16. Blood pressure 141/74. HEENT: Negative. NECK: Supple. HEART: Regular rate and rhythm. LUNGS: Clear. ABDOMEN: Incision looks good. Her LAYNE drains x3 intact. Gastrostomy tube site looks good, and her T-tube is intact. EXTREMITIES: Without peripheral edema. ASSESSMENT: 1. Placement of right subclavian triple-lumen catheter, exploratory laparotomy with lysis of extensive adhesions, enterotomy for intraoperative endoscopy and common bile duct exploration with placement of T-tube for central vein access, inflammatory obstruction of the choledochojejunostomy and inflammatory reaction in the right upper quadrant. Date of surgery, 07/03/2017; Eulalio Hemphill M.D. 2. Delayed primary closure, 09/05/2017. 3. TPN nutritional therapy. 4. Gastrostomy tube feedings, malnutrition. PLAN: 1. Discontinue meropenem. 2. Increase continuous gastrostomy tube feedings to 35 mL per hour. 3. Decrease TPN to 40 mL/h, and we will plan on discontinuing in the a.m. 4. Labs in the a.m.; CBC, CMP, mag, and phos. 5. Good pulmonary toilet encouraged. 6. We will evaluate p.r.n. or in the a.m. Bebe Bear PA-C /[id number]
[2017-07-12] MEDS: Phenytoin 100 MG Cap.ER PO SCH ×2 (09:50→20:01)
[2017-07-12] MEDS: Pantoprazole 40 MG Vial IVPUSH SCH ×2 (09:51→20:10)
[2017-07-12] MEDS: 1: AA 5%/Calcium/D15W/Lytes 1,000 ML with MVI, Adult with Vitamin K 10 ML, Chromium/Copp IV SCH ×6 (12:31→14:21)
[2017-07-12] MEDS ORDERED: methylPREDNISolone Sodium Succinate 40 MG/1 ML SDV IVPUSH ONE ×2 (21:00)
[2017-07-13] MEDS: Acetaminophen 325 MG Tab PO PRN (00:15)
[2017-07-13] MEDS: Metoclopramide 10 MG/2 ML SDV IV SCH ×3 (02:24→18:16)
[2017-07-13] MEDS: oxyCODONE 5 MG Tab PO PRN ×5 (02:30→22:20)
[2017-07-13] MEDS ORDERED: methylPREDNISolone Sodium Succinate 40 MG/1 ML SDV IVPUSH ONE (07:00)
[2017-07-13] MEDS ORDERED: Central Total Parenteral Nutrition Bag SCH (07:30)
[2017-07-13] MEDS ORDERED: diphenhydrAMINE 50 MG/ML SDV IVPUSH ONE (08:00)
[2017-07-13] MEDS: 1: AA 5%/Calcium/D15W/Lytes 1,000 ML with MVI, Adult with Vitamin K 10 ML, Chromium/Copp IV SCH ×6 (08:28→20:45)
--- NOTE | 2017-07-13 08:53 | PN ---
DATE OF SERVICE: 07/13/2017 SUBJECTIVE: Her gastrostomy tube feedings were restarted and the nursing staff got out as much residual as they put in, so the gastrostomy tube feedings were discontinued. Her TPN was increased. Oral intake 360. Vital signs have been stable. Her LAYNE drain #1 put out 700 mils of bilious drainage, LAYNE put out 6. LAYNE drain #2 8, LAYNE drain 380. T-tube put out 80 and it is charted twice and they are 60 in the other spots, so nursing will combine those. Two night staff reported 60 on her shift. She has been up to the commode, has declined to walk in the coronel and p.o., right now she will be going down for a barium contrast in the gastrostomy tube with small bowel follow-through. REVIEW OF SYSTEMS: Remainder of review of systems negative for any pertinent positives or negatives. LABORATORY FINDINGS: Hemoglobin 9.9, up from 9.4. Potassium is 4. Magnesium is 1.5. 24 hours past discontinuing the magnesium 2 g IV q.i.d., total bilirubin 2.7, alkaline phos is 261. OBJECTIVE: GENERAL: Soco Rodrigues is a 62-year-old female. She is lying in alert and orientated. Color pale. VITAL SIGNS: TPR 97.2, 94, 16, blood pressure 139/67. HEENT: Negative. NECK: Supple. HEART: Regular rate and rhythm. LUNGS: Clear. ABDOMEN: Soft, minimally tender. LAYNE drains intact. ET tube intact. Gastrostomy tube has been clamped. Clamped abdominal binder otherwise has been on. EXTREMITIES: Without peripheral edema. ASSESSMENT: Placement of right subclavian triple-lumen catheter, exploratory laparotomy with lysis of extensive adhesions, enterotomy for intraabdominal endoscopy and common bile duct exploration with placement of T-tube. POSTOPERATIVE DIAGNOSES: 1. Central vein access, inflammatory obstruction of choledochojejunostomy and inflammatory reaction in the right upper quadrant. Date of surgery 07/03/2017, Eulalio Hemphill MD. 2. Delayed primary closure 07/06/2017. 3. TPN nutritional therapy. 4. Gastrostomy tube feedings discontinued due to too much residual. PLAN: 1. Increase TPN to 82 mils/hour. 2. Check CBC, CMP, phos in a.m. 3. To call with results of barium contrast via gastrostomy tube and small bowel follow- through this morning. Rx magnesium 2 g IV q.6 hours x72 hours. 4. Good pulmonary toilet. 5. We will evaluate p.r.n. or in a.m. Bebe Bear PA-C /[id number]
[2017-07-13] MEDS ORDERED: Barium Sulfate 98% Powder for Susp 340 GM Bottle PO SCH (09:00)
[2017-07-13] MEDS: Ondansetron 4 MG/2 ML SDV IVPUSH PRN (10:31)
[2017-07-13] MEDS: [UNRECOGNIZED DRUG - OTHER] TOP SCH (10:32)
[2017-07-13] MEDS: Magnesium Sulfate/Water 2 GM in Premix Bag 1 BAG IV SCH ×3 (11:58→22:21)
[2017-07-13] MEDS: Spironolactone 25 MG Tab PO SCH (11:59)
[2017-07-13] MEDS: PARoxetine 20 MG Tab PO SCH (11:59)
[2017-07-13] MEDS: Pantoprazole 40 MG Vial IVPUSH SCH ×2 (11:59→20:45)
[2017-07-13] MEDS: Phenytoin 100 MG Cap.ER PO SCH ×2 (11:59→20:45)
[2017-07-13] MEDS: Megestrol 40 MG Tab PO SCH ×2 (11:59→18:17)
[2017-07-13] MEDS: Sodium Chloride 0.9% 1,000 ML IV SCH (16:20)
[2017-07-14] MEDS: Metoclopramide 10 MG/2 ML SDV IV SCH ×3 (01:46→17:00)
[2017-07-14] MEDS: Magnesium Sulfate/Water 2 GM in Premix Bag 1 BAG IV SCH ×4 (03:36→22:11)
[2017-07-14] MEDS: oxyCODONE 5 MG Tab PO PRN ×4 (04:46→22:23)
[2017-07-14] MEDS ORDERED: Central Total Parenteral Nutrition Bag SCH (07:30)
--- NOTE | 2017-07-14 08:03 | PN ---
DATE OF SERVICE: 07/14/2017 SUBJECTIVE: Soco had the barium x-ray through her gastrostomy tube yesterday. Her last film was at 1500 hours, radiologist will read it today. She is tolerating her TPN. Her LAYNE drains have put out 1, 2, and 3 575; 2 and 5 T-tube has put out 95. Oral intake 270. Pain she reports at 8-9, takes pain medication, goes down to 5 and 6 . She is quite comfortable. REVIEW OF SYSTEMS: Remainder of review of systems negative for any pertinent positives and negatives. OBJECTIVE: GENERAL: Soco Rodrigues is a pleasant 62-year-old female. She is alert and orientated. VITAL SIGNS: TPR is 97.8, 92, 15, blood pressure 131/62. HEENT: Negative. NECK: Supple. HEART: Regular rate and rhythm. LUNGS: Clear. ABDOMEN: [place], right upper quadrant intact. Gastrostomy tube intact and clamped. T- tube and 3 LAYNE drains are intact. EXTREMITIES: Without peripheral edema. ASSESSMENT: 1. Placement of right subclavian triple-lumen catheter, exploratory laparotomy with lysis of extensive adhesions, enterotomy for intraabdominal endoscopy and common bile duct exploration with placement of T-tube. Date of surgery, 07/03/2017. 2. Delayed primary closure of open abdominal incision on 07/06/2017. 3. TPN nutrition. 4. Failure of gastrostomy tube feedings with increased residual. PLAN: We will continue same TPN rate and content until x-ray results are back from her barium tests through the G-tube with small bowel follow-through. Check CBC, CMP, mag, and phos in a.m. Good pulmonary toilet. We will evaluate p.r.n. or in a.m. Bebe Bear PA-C /[id number]
[2017-07-14] MEDS: Megestrol 40 MG Tab PO SCH ×2 (08:08→16:58)
[2017-07-14] MEDS: Spironolactone 25 MG Tab PO SCH (08:08)
[2017-07-14] MEDS: PARoxetine 20 MG Tab PO SCH (08:09)
[2017-07-14] MEDS: [UNRECOGNIZED DRUG - OTHER] TOP SCH (08:09)
[2017-07-14] MEDS: Phenytoin 100 MG Cap.ER PO SCH ×2 (08:09→20:24)
[2017-07-14] MEDS: Pantoprazole 40 MG Vial IVPUSH SCH (08:12)
--- NOTE | 2017-07-14 08:38 | CR ---
UGI w Small Bowel wo Air HISTORY: contrast thru G-tube. eval for SBO FINDINGS: Thin barium was administered the gastrostomy tube under fluoroscopic visualization. No cont rast extravasation is identified. No mass or polypoid filling defect can be seen in the stomach. Mild to moderate reflux occurred on one occasion during the exam. No mucosal abnormality seen. Gastric em ptying appears satisfactory. Small bowel caliber and mucosal pattern appear within normal limits as visualized. No small bowel obs truction is seen. There is slow transit time through the small intestine with barium seen in the colo n on the image obtained at approximately 22 hours. This may represent ileus. No other abnormality is seen. IMPRESSION: Slow transit time through the small bowel could be consistent with ileus. No small bowel obstruction is identified. No contrast extravasation or other postoperative complication of the stoma ch is identified. Gastric emptying appears satisfactory. 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 GE re flux occurred on one occasion during the exam.
[2017-07-14] MEDS: Erythromycin Ethylsuccinate Susp 400 MG/5 ML 100 ML Bottle PO SCH ×3 (10:12→22:11)
[2017-07-14] MEDS: 1: AA 5%/Calcium/D15W/Lytes 1,000 ML with MVI, Adult with Vitamin K 10 ML, Chromium/Copp IV SCH ×6 (10:15→22:17)
[2017-07-14] MEDS: Lansoprazole 30 MG Orally Disintegrating Tab.CR PO SCH (16:57)
[2017-07-14] MEDS: Ondansetron 4 MG/2 ML SDV IVPUSH PRN (17:08)
[2017-07-14] MEDS: hydrOXYzine HCl 25 MG Tab PO PRN (20:23)
[2017-07-14] MEDS: Acetaminophen 325 MG Tab PO PRN (22:30)
[2017-07-15] MEDS: Metoclopramide 10 MG/2 ML SDV IV SCH ×3 (01:57→18:13)
[2017-07-15] MEDS: hydrOXYzine HCl 25 MG Tab PO PRN (02:01)
[2017-07-15] MEDS: oxyCODONE 5 MG Tab PO PRN ×2 (02:30→09:09)
[2017-07-15] MEDS: Magnesium Sulfate/Water 2 GM in Premix Bag 1 BAG IV SCH ×2 (04:01→09:15)
[2017-07-15] MEDS: Erythromycin Ethylsuccinate Susp 400 MG/5 ML 100 ML Bottle PO SCH ×5 (04:02→21:30)
[2017-07-15] MEDS ORDERED: Magnesium Citrate Solution 296 ML Bottle PO ONE (06:45)
[2017-07-15] MEDS ORDERED: Central Total Parenteral Nutrition Bag SCH (07:00)
--- NOTE | 2017-07-15 07:34 | PN ---
DATE OF SERVICE: 07/15/2017 SUBJECTIVE: Soco's vital signs; she had a temp max of 101.3 and after Tylenol, it came down to 100.2. Oral intake 970 and urine output was 2300. T-tube put out 80 mL of bile. Marco-Jefferson drain #1 510 of bile and Marco-Jefferson drains #2 and #3 zero. She has ambulated at least twice in the coronel. Upper GI did reveal slow transit through the small bowel consistent with an ileus. No bowel obstruction is identified. Gastric emptying was satisfactory and GE reflux occurred on one occasion during the exam. This was done on Thursday07/13/2017. Her gastrostomy tubes have been held because of increased residual, and she was started on erythromycin 250 q.6 hours in addition to scheduled Reglan 10 mg every 8 hours. She is passing flatus. Pain has been controlled with oxycodone. REVIEW OF SYSTEMS: Remainder of review of systems negative for any pertinent positives and negatives. OBJECTIVE: GENERAL: Soco Rodrigues is a 62-year-old female. Color pale. VITAL SIGNS: TPR is 100, 104, 16, and blood pressure 144/68. HEENT: Negative. NECK: Supple. HEART: Regular rate and rhythm. LUNGS: Clear. ABDOMEN: Incisions look good. LAYNE drains, T-tube, and gastrostomy tube as above. EXTREMITIES: Without peripheral edema. ASSESSMENT: 1. Placement of right subclavian triple-lumen catheter, exploratory laparotomy with lysis of extensive adhesions, enterotomy for intraabdominal endoscopy and common bile duct exploration, and placement of T-tube. Date of surgery, 07/03/2017. 2. Delayed primary closure of open abdominal incision on 07/06/2017. 3. TPN therapy. 4. Failure of gastrostomy tube feedings with increased residual. 5. Ileus. PLAN: 1. Continue TPN at same rate and content. 2. Mag citrate 1 bottle through gastrostomy tube. 3. Walk 6 times daily. 4. Check CBC, CMP, and phos in a.m. Bebe Bear PA-C /[id number]
--- NOTE | 2017-07-15 07:40 | PN ---
DATE OF SERVICE: 07/15/2017 LABORATORY DATA: Sodium was 130. The sodium content in TPN will be increased today and labs will be rechecked in a.m. Bebe Bear PA-C /[id number]
[2017-07-15] MEDS: Megestrol 40 MG Tab PO SCH ×2 (09:07→18:12)
[2017-07-15] MEDS: PARoxetine 20 MG Tab PO SCH (09:08)
[2017-07-15] MEDS: Spironolactone 25 MG Tab PO SCH (09:08)
[2017-07-15] MEDS: Phenytoin 100 MG Cap.ER PO SCH ×2 (09:09→21:30)
[2017-07-15] MEDS: Scopolamine 1.5 MG Transdermal Patch TOP SCH (09:11)
[2017-07-15] MEDS: Lansoprazole 30 MG Orally Disintegrating Tab.CR PO SCH ×2 (09:16→18:13)
[2017-07-15] MEDS: [UNRECOGNIZED DRUG - OTHER] TOP SCH (09:38)
[2017-07-15] MEDS: Bisacodyl 5 MG Tab PO SCH ×2 (10:45→21:30)
[2017-07-15] MEDS: 1: AA 5%/Calcium/D15W/Lytes 1,000 ML with MVI, Adult with Vitamin K 10 ML, Chromium/Copp IV SCH ×6 (10:45→23:16)
--- NOTE | 2017-07-15 11:20 | CR ---
Chest 2V HISTORY: SOB, increased temps COMPARISON: 06/12/2017 FINDINGS: Right-sided central line position appears satisfactory. No complication is seen. Lungs are clear and normally aerated. There is no pneumothorax or pleural fluid. Cardiomediastinal silhouette i s within normal limits. Postoperative changes and surgical drains are noted right upper quadrant of a bdomen. IMPRESSION: No acute cardiopulmonary disease is identified.
[2017-07-16] MEDS: Metoclopramide 10 MG/2 ML SDV IV SCH ×3 (03:05→17:08)
[2017-07-16] MEDS: Erythromycin Ethylsuccinate Susp 400 MG/5 ML 100 ML Bottle PO SCH ×5 (03:06→21:43)
[2017-07-16] MEDS ORDERED: Central Total Parenteral Nutrition Bag SCH (07:15)
[2017-07-16] MEDS: Lansoprazole 30 MG Orally Disintegrating Tab.CR PO SCH ×2 (07:59→17:07)
--- NOTE | 2017-07-16 07:59 | PN ---
DATE OF SERVICE: 07/16/2017 SUBJECTIVE: Soco states that she feels a little dizzy and short of breath when she is up ambulating. She has pain in her right shoulder. She is not sure if it is from the central line. Vital signs, temp max of 100.9. Oral intake 1090 of liquid. She has a TPN running at 82 mL per hour continuous, 3 stools, urine output 1250. LAYNE drain 1 has put out 390 of a very light bile tinged liquid. LAYNE drain put out 200 mL of a clear yellow drainage. LAYNE drain 3 put out 5 mL. T-tube put out 60 mL of bile. Breakfast, lunch and dinner consumed are 0. LABORATORY DATA: Labs today white count is 18.5 down from 19.5, hemoglobin is 10.2. Sodium is 128 which is lower even with the addition of extra sodium in her TPN. Potassium 3.3, glucose 135, phosphorus is 2.4. Liver function tests; total bilirubin is 3.1, AST 65, ALT 95, alkaline phosphatase is 197. She has ambulated 4 times in the coronel. OBJECTIVE: GENERAL: Soco Rodrigues is a 62-year-old female. She is alert and oriented. VITAL SIGNS: TPR 100.5, 111, 16. Blood pressure 148/54. HEENT: Negative. NECK: Supple. Right triple lumen site looks good. There is no redness, swelling or warmth. No tenderness. HEART: Regular rate and rhythm. LUNGS: Clear. ABDOMEN: She has some dry drainage around her 3 LAYNE drains as well as her gastrostomy tube and T-tube, otherwise there is no redness, swelling or increased tenderness. Incision jamal looked good. Soft and normally tender after surgery, but nothing abnormal. EXTREMITIES: Without peripheral edema. ASSESSMENT: 1. Hyponatremia. 2. Low-grade temperature. 3. TPN therapy. 4. Placement of right subclavian triple-lumen catheter exploratory laparotomy with lysis of extensive adhesions, enterotomy for intraabdominal endoscopy and common bile duct exploration and placement of T-tube. Date of surgery 07/03/2017. 5. Delayed primary closure of open abdominal incision on 07/06/2017. 6. Postoperative ileus, resolved. PLAN: 1. Continue same TPN rate and content. 2. Sodium 3% IV solution, run at 37 mL per hour for a total of 500 mL. 3. K-Phos 60 millimoles IV today. 4. Check blood cultures x2. 5. Check electrolytes, Dilantin level and TSH today at 1800. 6. Check CBC, CMP, phos in a.m. 7. Accurate intake and output. 8. Good pulmonary toilet encouraged. 9. We will evaluate p.r.n. or in a.m. Bebe Bear PA-C /[id number]
[2017-07-16] MEDS ORDERED: Sodium Chloride 3% 500 ML IV ONE (08:00)
[2017-07-16] MEDS: Megestrol 40 MG Tab PO SCH ×2 (08:00→17:07)
[2017-07-16] MEDS: [UNRECOGNIZED DRUG - OTHER] TOP SCH (08:53)
[2017-07-16] MEDS: Spironolactone 25 MG Tab PO SCH (09:05)
[2017-07-16] MEDS: Bisacodyl 5 MG Tab PO SCH (09:06)
[2017-07-16] MEDS: PARoxetine 20 MG Tab PO SCH (09:06)
[2017-07-16] MEDS: Phenytoin 100 MG Cap.ER PO SCH (09:07)
[2017-07-16] MEDS ORDERED: Loperamide 1 MG/5 ML ML Solution 120 ML Bottle PO PRN (10:32)
[2017-07-16] MEDS: Potassium Phosphates 20 MMOLE in Sodium Chloride 0.9% 250 ML IV SCH ×3 (10:34→17:06)
[2017-07-16] MEDS: 1: AA 5%/Calcium/D15W/Lytes 1,000 ML with MVI, Adult with Vitamin K 10 ML, Chromium/Copp IV SCH ×3 (12:07)
[2017-07-16] MEDS: Acetaminophen 325 MG Tab PO PRN (17:06)
[2017-07-16] MEDS: oxyCODONE 5 MG Tab PO PRN (19:56)
[2017-07-16] MEDS ORDERED: Phenytoin 250 MG/5 ML SDV ONE (21:52)
[2017-07-16] MEDS ORDERED: Sodium Chloride 0.9% 50 ML ONE (21:54)
[2017-07-16] MEDS ORDERED: SODIUM CHLORIDE 0.9% IV ONE (22:06)
[2017-07-16] MEDS ORDERED: PHENYTOIN IV ONE (22:06)
[2017-07-17] MEDS: Acetaminophen 325 MG Tab PO PRN ×3 (01:47→20:43)
[2017-07-17] MEDS: oxyCODONE 5 MG Tab PO PRN ×4 (01:47→20:44)
[2017-07-17] MEDS: 1: AA 5%/Calcium/D15W/Lytes 1,000 ML with MVI, Adult with Vitamin K 10 ML, Chromium/Copp IV SCH ×3 (01:48)
[2017-07-17] MEDS: Metoclopramide 10 MG/2 ML SDV IV SCH ×3 (01:48→17:07)
[2017-07-17] MEDS: Erythromycin Ethylsuccinate Susp 400 MG/5 ML 100 ML Bottle PO SCH (03:47)
[2017-07-17] MEDS: Bacitracin Oint 28.35 GM Tube TOP SCH ×3 (08:32→20:35)
[2017-07-17] MEDS ORDERED: FLU Vacc QS 2017-18 (36mos UP)/PF 60 MCG/0.5 ML Syringe IM ONE (09:00)
[2017-07-17] MEDS ORDERED: Fluconazole/Normal Saline 200 MG in Premix Bag 1 BAG IV SCH (09:00)
[2017-07-17] MEDS ORDERED: Fluconazole/Normal Saline 400 MG in Premix Bag 1 BAG IV SCH (09:00)
[2017-07-17] MEDS: Lansoprazole 30 MG Orally Disintegrating Tab.CR PO SCH ×2 (09:16→16:44)
[2017-07-17] MEDS: Megestrol 40 MG Tab PO SCH ×2 (09:27→16:44)
[2017-07-17] MEDS: Spironolactone 25 MG Tab PO SCH (09:29)
[2017-07-17] MEDS: Fluconazole/Normal Saline 400 MG in Premix Bag 1 BAG IV SCH (09:30)
[2017-07-17] MEDS: [UNRECOGNIZED DRUG - OTHER] TOP SCH (09:31)
[2017-07-17] MEDS: PARoxetine 20 MG Tab PO SCH (09:32)
--- NOTE | 2017-07-17 09:34 | PN ---
DATE OF SERVICE: 07/17/2017 SUBJECTIVE: Soco did spike a temperature around 1:47 of 101.5. She was given Tylenol this morning, it is 100.8. Oral intake 1025. She did have 160 mL of her gastrostomy tube feedings. Vital AF at 10 mL per hour. LAYNE drain 1 put out 320 mL of bilious substance which is getting later. LAYNE drain put out 500 mL. It started out a perez-tinged area, now it is clear watery substance. LAYNE drain 3 which is the round drain had put out 0. In the past 4 days, it has put out a total of 10 and that is in the midline. T-tube 100 mL of a bilious substance. LABORATORY DATA: Sodium 132, potassium is 3.7, bilirubin 2.8. TSH was 1.033 and Dilantin level was 1.0 which is up from 0.5 when she had it done in the clinic November of 2016. White count is 16.3, hemoglobin 8.7. REVIEW OF SYSTEMS: Soco states this morning, she is feeling better. She had pain at the LAYNE drain sites on the right lower quadrant. Has had 3 bowel movements. Remainder of review of systems negative for any pertinent positives and negatives. OBJECTIVE: GENERAL: Soco Rodrigues is a 62-year-old female. She is alert and oriented. VITAL SIGNS: TPR 100.8, 126, 18. Blood pressure is 143/67. HEENT: Negative. NECK: Supple. HEART: Regular rate and rhythm. She is a little tachycardiac. ABDOMEN: [place] in place. She is on day 11. Incision is well healed. EXTREMITIES: Without peripheral edema. ASSESSMENT: 1. Hyponatremia. 2. Temperature greater than 101. 3. TPN therapy. 4. Placement of right subclavian triple-lumen catheter exploratory laparotomy with lysis of extensive adhesions, enterotomy for intraabdominal endoscopy and common bile duct exploration and placement of T-tube, date of surgery 07/03/2017. 5. Delayed primary closure of open abdominal incision on 07/06/2017. 6. Postoperative ileus. 7. Yeast. Has grown out both peripheral blood culture and triple lumen. PLAN: 1. Dr. Hemphill was consulted this morning via phone. 2. Discontinue double lumen central PICC line. 3. Diflucan 400 mg IV daily. 4. Erythromycin through T-tube, same dose. 5. Type and crossmatch 2 units of blood. 6. Paxil 37.5 mg p.o. per her home dose. 7. Continue to increase the gastrostomy tube feedings per dietary recommendation. 8. Discontinue LAYNE drain, the round central flat LAYNE drain incision. 9. Remove jamal and place Steri-Strips. 10.Discontinue flu shot. 11.Bacitracin ointment around LAYNE drains, T-tube drain site and gastrostomy tube. 12.Check CBC, CMP, phos. 13.Add magnesium 2 g IV q.6 hours x72 hours IV. 14.Text message to Alfredo Kitchen MD in regard to placing double lumen central PICC line if nursing unable to do it and he will inform me if he is able to do that. 15.Dietary consult continuous in regard to increasing gastrostomy tube feedings and dietary, oral protein drinks. 16.We will evaluate p.r.n. or in a.m. Bebe Bear PA-C /[id number]
[2017-07-17] MEDS: ERYTHROMYCIN ETHYLSUCCINATE 400 MG/5 ML GTUBE SCH ×3 (10:15→22:16)
[2017-07-17] MEDS: Magnesium Sulfate/Water 2 GM in Premix Bag 1 BAG IV SCH ×3 (10:16→22:13)
--- NOTE | 2017-07-17 13:04 | CT ---
Chest wo Cont Total DLP 200 mGycm. INDICATION: shortness of breath, poor activity tolerance COMPARISON: Chest x-ray 07/15/2017. FINDINGS: Benign calcified granuloma right upper lobe. Mild scattered emphysematous changes. Right ce ntral line tip at the cavoatrial junction. Tiny bilateral pleural effusions with associated compressi ve atelectasis. Postoperative changes in the upper abdomen with surgical drains in place. Small amoun t of ascites. Exam otherwise unremarkable. IMPRESSION: Tiny bilateral pleural effusions with associated compressive atelectasis. Additional manager health merna changes as above.
[2017-07-17] MEDS ORDERED: Central Total Parenteral Nutrition Bag SCH (13:30)
[2017-07-17] MEDS ORDERED: 1: AA 5%/Calcium/D15W/Lytes 1,000 ML with MVI, Adult with Vitamin K 10 ML, Chromium/Copp IV SCH ×3 (14:00)
[2017-07-17] MEDS: Sodium Chloride 0.9% 1,000 ML IV SCH (14:11)
[2017-07-18] MEDS: Metoclopramide 10 MG/2 ML SDV IV SCH ×3 (02:24→18:00)
[2017-07-18] MEDS: Magnesium Sulfate/Water 2 GM in Premix Bag 1 BAG IV SCH ×4 (04:01→22:32)
[2017-07-18] MEDS: ERYTHROMYCIN ETHYLSUCCINATE 400 MG/5 ML GTUBE SCH ×4 (04:04→22:35)
[2017-07-18] MEDS ORDERED: Central Total Parenteral Nutrition Bag SCH (07:00)
[2017-07-18] MEDS ORDERED: 1: AA 5%/Calcium/D15W/Lytes 1,000 ML with MVI, Adult with Vitamin K 10 ML, Chromium/Copp IV SCH ×3 (08:00)
[2017-07-18] MEDS ORDERED: Sodium Chloride 3% 500 ML IV SCH (08:00)
[2017-07-18] MEDS: Acetaminophen 325 MG Tab PO PRN (08:00)
[2017-07-18] MEDS: oxyCODONE 5 MG Tab PO PRN ×3 (08:03→20:08)
[2017-07-18] MEDS: Bacitracin Oint 28.35 GM Tube TOP SCH ×3 (08:04→20:51)
[2017-07-18] MEDS: Potassium Chloride 20 MEQ in Premix Bag 1 BAG IV SCH ×3 (09:18→16:35)
[2017-07-18] MEDS: Lansoprazole 30 MG Orally Disintegrating Tab.CR PO SCH ×2 (09:34→15:39)
[2017-07-18] MEDS: Spironolactone 25 MG Tab PO SCH (09:35)
[2017-07-18] MEDS: Megestrol 40 MG Tab PO SCH ×2 (09:35→16:34)
[2017-07-18] MEDS: Metoprolol Tartrate 25 MG Tab PO SCH ×2 (09:36→20:10)
[2017-07-18] MEDS: [UNRECOGNIZED DRUG - OTHER] TOP SCH (09:37)
[2017-07-18] MEDS: PARoxetine 20 MG Tab PO SCH (09:37)
[2017-07-18] MEDS: Scopolamine 1.5 MG Transdermal Patch TOP SCH (09:38)
[2017-07-18] MEDS: Fluconazole/Normal Saline 400 MG in Premix Bag 1 BAG IV SCH (11:45)
[2017-07-19] MEDS: Metoclopramide 10 MG/2 ML SDV IV SCH ×3 (01:59→17:22)
[2017-07-19] MEDS: Magnesium Sulfate/Water 2 GM in Premix Bag 1 BAG IV SCH ×4 (04:17→22:15)
[2017-07-19] MEDS: ERYTHROMYCIN ETHYLSUCCINATE 400 MG/5 ML GTUBE SCH ×4 (04:28→22:14)
[2017-07-19] MEDS: Sodium Chloride 0.9% 1,000 ML IV SCH (07:34)
[2017-07-19] MEDS: Lansoprazole 30 MG Orally Disintegrating Tab.CR PO SCH ×2 (07:34→17:22)
[2017-07-19] MEDS: Megestrol 40 MG Tab PO SCH ×2 (07:46→17:22)
--- NOTE | 2017-07-19 08:01 | PN ---
DATE OF SERVICE: 07/19/2017 SUBJECTIVE: Soco is alert, orientated, talkative, and smiling this morning. States she is feeling better. She did drink 2 [place] instant breakfast protein shakes yesterday. TPN was decreased. Gastrostomy tube was put up to 40 mL, she was not able to tolerate, developed fullness and some nausea, it was decreased to 30, and she is tolerating that well. Total intake was 1840. Gastrostomy tube intake 803. She had 3 bowel movements. Gastrostomy tube #1 put out 350, #2 480, and T tube put out 200. She has been up ambulating and is afebrile. After starting the metoprolol, the pulse has decreased to the 90s to 100s. She is requesting a different pain medication stating that the oxycodone helps with the pain, but she gets nauseated when she is taking it. She has been on tramadol for back pain in the past and would like to try that. REVIEW OF SYSTEMS: Remainder of review of systems was negative for any pertinent positives and negatives. OBJECTIVE: GENERAL: Soco Rodrigues is a pleasant 62-year-old female. VITAL SIGNS: TPR is 98, 95, 20, and blood pressure 113/66. HEENT: Negative. NECK: Supple. HEART: Regular rate and rhythm. LUNGS: Clear. ABDOMEN: LAYNE drains intact. T tube intact and secured at the skin site. G tube intact and infusing Jevity 1.2 at 30 mL per hour. EXTREMITIES: Without peripheral edema. LABORATORY DATA: Hemoglobin 8.5, down from 8.7. Sodium is 134 after receiving sodium chloride yesterday. Bilirubin 3, AST is 39, and alkaline phosphatase is 183. Final report on the catheter tip was yeast, blood venous lab draw yeast, and this is being treated with Diflucan 400 mg IV daily. ASSESSMENT: 1. Hyponatremia. 2. TPN therapy. 3. Yeast cultured via blood. 4. Gastrostomy tube feedings. 5. Placement of right subclavian triple-lumen catheter, exploratory laparotomy with lysis of extensive adhesions, enterotomy for intraabdominal endoscopy and common bile duct exploration and placement of T-tube. Date of surgery, 07/03/2017. 6. Delayed primary closure of open abdominal incision on 07/06/2017. 7. Postoperative ileus, resolved. 8. Tachycardia, resolved with metoprolol. PLAN: 1. Discontinue TPN therapy when done. 2. Continue oral protein supplement. 3. Gastrostomy tube feedings, try to increase to 40 mL today. 4. Check CBC, CMP, and phos in a.m. 5. Tramadol 50 mg 1 to 2 every 4 hours p.r.n. pain. 6. Good pulmonary toilet. 7. We will evaluate p.r.n. or in a.m. Bebe Bear PA-C /[id number]
[2017-07-19] MEDS: traMADol 50 MG Tab PO PRN ×2 (08:42→19:31)
[2017-07-19] MEDS: Bacitracin Oint 28.35 GM Tube TOP SCH ×3 (08:47→22:14)
[2017-07-19] MEDS: Spironolactone 25 MG Tab PO SCH (08:50)
[2017-07-19] MEDS: Metoprolol Tartrate 25 MG Tab PO SCH ×2 (08:51→22:13)
[2017-07-19] MEDS: [UNRECOGNIZED DRUG - OTHER] TOP SCH (08:52)
[2017-07-19] MEDS: PARoxetine 20 MG Tab PO SCH (08:55)
[2017-07-19] MEDS: Fluconazole/Normal Saline 400 MG in Premix Bag 1 BAG IV SCH (09:48)
[2017-07-20] MEDS: Metoclopramide 10 MG/2 ML SDV IV SCH ×4 (03:25→17:00)
[2017-07-20] MEDS: Magnesium Sulfate/Water 2 GM in Premix Bag 1 BAG IV SCH (03:25)
[2017-07-20] MEDS: ERYTHROMYCIN ETHYLSUCCINATE 400 MG/5 ML GTUBE SCH ×4 (03:25→21:50)
[2017-07-20] MEDS: oxyCODONE 5 MG Tab PO PRN ×2 (03:45→09:59)
--- NOTE | 2017-07-20 07:11 | PN ---
DATE OF SERVICE: 07/18/2017 SUBJECTIVE: Soco has been afebrile since 14:47 yesterday afternoon. Pulse continues to run between 114 and 128. Blood pressure has been stable. Oral intake was 1050. She has been offered protein shakes, but no information is available on how much she has actually had of the protein shakes. NUTRITIONAL VALUES: Gastrostomy tube feedings, she is at 30 mL/hr. It will be increased at 2:30 this afternoon to 50 mL/hr. She is tolerating well, and she has had a total of 691 mL in one bowel movement. Urine output is 1500. T-tube over the past 24 hours has put out 200 mL. LAYNE drain 1 with 350 of a bilious drainage and LAYNE drain 2 has put out 480 of almost a clear watery drainage. She has consumed 0% of breakfast, lunch, and dinner, and is receiving TPN therapy in the new PICC line in her left upper arm, which was decreased from 82 mL/hr to 60 mL/hr. Pain has been controlled with Tylenol and/or oxycodone. ACTIVITY: Up ambulating in the room and in the coronel. She reports weakness and dizziness when up ambulating. REVIEW OF SYSTEMS: Remainder of review of systems was negative for any pertinent positives and negatives. OBJECTIVE: GENERAL: Soco Rodrigues is a 62-year-old female. She states she is feeling better. VITAL SIGNS: TPR was 98.5, 114, 18, and blood pressure was 117/64. HEENT: Negative. Color is pale. NECK: Supple. HEART: Regular rate and rhythm. Tachycardia was noted in the low 100s. LUNGS: Clear. ABDOMEN: Gastrostomy tube was intact, getting continuous tube feedings of Jevity 1.2. T- tube was intact, secure at skin insertion site. Two LAYNE drains as above. [place] were removed and Steri-Strips were applied and incision looks good. Abdominal binder is on. EXTREMITIES: Without peripheral edema. LABORATORY DATA: Sodium was 130, potassium was 3.4, chloride was 98, and phosphorus was 3. Total bilirubin was 3.1, AST was 48, ALT was 88, and alkaline phosphatase was 156. ASSESSMENT: 1. Hyponatremia. 2. TPN therapy tapering, with increase of gastrostomy tube feedings. 3. Placement of right subclavian triple-lumen catheter. 4. Exploratory laparotomy with lysis of extensive adhesions and enterotomy of intra- abdominal endoscopy and common bile duct exploration and placement of T-tube. Date of surgery was 07/03/2017. 5. Delayed primary closure of open incision on 07/06/2017. 6. Postoperative ileus, resolved. Positive yeast grown out in peripheral blood culture in triple lumen. 7. Tachycardia. PLAN: 1. Rx metoprolol tartrate/Lopressor 25 mg p.o. q.12 hours. 2. Sodium chloride 3% of 500 mL, run at 37 mL/hr. 3. Re-check electrolytes at 20:00. Check CMP, CBC, and phos in a.m. Decrease TPN to 30 mL/hr. If continuing to tolerate the increase in gastrostomy tube feedings, we will discontinue TPN after this liter. 4. KCl 60 mEq IV in three divided doses with lidocaine. Continue to encourage oral intake, and we will evaluate p.r.n. or in a.m. Bebe Bear PA-C /[id number]
--- NOTE | 2017-07-20 07:27 | PN ---
DATE OF SERVICE: 07/20/2017 SUBJECTIVE: Soco's vital signs have remained stable. Pulse rate has been still in the 90s with the highest being 102. She has had an oral intake for the past 24 hours of 2300 mL. Marco-Jefferson #I put out 240, Marco-Jefferson #2 put out 835 of a clear yellow watery drainage, T-tube put out 865 of a bio-substance, but is lightening up. Hemoglobin this morning 8.3, sodium 133, phosphorus is 5.2, bilirubin 2.9. OBJECTIVE: GENERAL: Soco Rodrigues is a 62-year-old female. Each day she looks like she is feeling better and also reports she is feeling better. VITAL SIGNS: TPR is 97.2, 93, 18. Blood pressure 118/68. HEENT: Negative. NECK: Supple. HEART: Regular rate and rhythm. LUNGS: Clear. ABDOMEN: Steri-Strips in place. Incision looks good. Gastrostomy tube is running at 40 mL/h and she is tolerating that well. LAYNE drains and T-tube as above. EXTREMITIES: Without peripheral edema. ASSESSMENT: 1. Yeast, cultured via blood. 2. Gastrostomy tube feedings. 3. Placement of right subclavian triple-lumen catheter, exploratory laparotomy with lysis of extensive adhesions, enterotomy for intraabdominal endoscopy, and common bile duct exploration of placement to T-tube, date of surgery 07/03/2017. 4. Delayed primary closure of open incision on 07/06/2017. 5. Anemia, 8.3. 6. Postoperative ileus, resolved. 7. Tachycardia, on metoprolol. PLAN: 1. Tramadol 100 mg q.6 hours, scheduled p.o. 2. Give 1 unit of packed red blood cells. 3. Cholangiogram in a.m. 07/21/2017 at 0800 hours. Put contrast NT tube. Call Dr. Elualio Hemphill with results. 4. Discontinue LAYNE drain #2. 5. Consult to home to discharge planning for home health care. 6. Eulalio Hemphill MD will suture the T-tube and to secure it before discharge. 7. Good pulmonary toilet. 8. Check hemoglobin at 1800 hours and check CBC, CMP, and phos in a.m. 9. Good pulmonary toilet. 10.We will evaluate p.r.n. or in a.m. Bebe Norby, PA-C /[id number]
[2017-07-20] MEDS: Lansoprazole 30 MG Orally Disintegrating Tab.CR PO SCH ×2 (07:36→17:00)
[2017-07-20] MEDS: Megestrol 40 MG Tab PO SCH ×2 (07:37→17:00)
[2017-07-20] MEDS: traMADol 50 MG Tab PO SCH ×3 (07:48→21:46)
[2017-07-20] MEDS: Spironolactone 25 MG Tab PO SCH (08:52)
[2017-07-20] MEDS: Metoprolol Tartrate 25 MG Tab PO SCH ×2 (08:52→21:49)
[2017-07-20] MEDS: PARoxetine 20 MG Tab PO SCH (08:54)
[2017-07-20] MEDS: [UNRECOGNIZED DRUG - OTHER] TOP SCH (08:54)
[2017-07-20] MEDS: Fluconazole/Normal Saline 400 MG in Premix Bag 1 BAG IV SCH (09:08)
[2017-07-20] MEDS: Bacitracin Oint 28.35 GM Tube TOP SCH ×3 (10:16→21:48)
[2017-07-21] MEDS: Sodium Chloride 0.9% 1,000 ML IV SCH (00:47)
[2017-07-21] MEDS: traMADol 50 MG Tab PO SCH ×4 (02:12→22:11)
[2017-07-21] MEDS: Metoclopramide 10 MG/2 ML SDV IV SCH ×3 (02:12→17:08)
[2017-07-21] MEDS: ERYTHROMYCIN ETHYLSUCCINATE 400 MG/5 ML GTUBE SCH ×4 (04:10→22:14)
[2017-07-21] MEDS ORDERED: Lidocaine 1% with EPINEPHrine 1:100,000 50 ML MDV ONE ×2 (06:51→08:28)
[2017-07-21] MEDS: Lansoprazole 30 MG Orally Disintegrating Tab.CR PO SCH ×2 (08:11→16:29)
[2017-07-21] MEDS: Megestrol 40 MG Tab PO SCH ×2 (08:13→16:29)
[2017-07-21] MEDS: Spironolactone 25 MG Tab PO SCH (08:21)
[2017-07-21] MEDS: Metoprolol Tartrate 25 MG Tab PO SCH ×2 (08:22→20:50)
[2017-07-21] MEDS: PARoxetine 20 MG Tab PO SCH (08:24)
[2017-07-21] MEDS: Scopolamine 1.5 MG Transdermal Patch TOP SCH (08:26)
[2017-07-21] MEDS: Bacitracin Oint 28.35 GM Tube TOP SCH ×3 (08:28→20:49)
[2017-07-21] MEDS: [UNRECOGNIZED DRUG - OTHER] TOP SCH (08:48)
[2017-07-21] MEDS ORDERED: methylPREDNISolone Sodium Succinate 125 MG/2 ML SDV IV ONE (09:00)
[2017-07-21] MEDS ORDERED: Gadoteridol 279.3 MG/ML 15 ML SDV IV SCH (09:00)
[2017-07-21] MEDS: Fluconazole/Normal Saline 400 MG in Premix Bag 1 BAG IV SCH (09:31)
--- NOTE | 2017-07-21 10:30 | CR ---
Inj Bili Drain w Guide Exist INDICATION: bile leak - T tube TECHNIQUE: After informed consent was obtained, 10 cc of gadolinium was slowly injected through the i ndwelling T-tube. Contrast is visualized within the intrahepatic bile ducts. Contrast did not extend into the small bowel through the anastomosis. IMPRESSION: No evidence for extension of contrast into the small bowel.
[2017-07-21] MEDS: oxyCODONE 5 MG Tab PO PRN (19:30)
[2017-07-22] MEDS: Metoclopramide 10 MG/2 ML SDV IV SCH ×3 (02:32→17:24)
[2017-07-22] MEDS: traMADol 50 MG Tab PO SCH ×4 (04:04→22:00)
[2017-07-22] MEDS: ERYTHROMYCIN ETHYLSUCCINATE 400 MG/5 ML GTUBE SCH (04:06)
[2017-07-22] MEDS: Lansoprazole 30 MG Orally Disintegrating Tab.CR PO SCH ×2 (07:45→16:40)
[2017-07-22] MEDS: Megestrol 40 MG Tab PO SCH ×2 (07:46→16:40)
[2017-07-22] MEDS: Bacitracin Oint 28.35 GM Tube TOP SCH ×3 (08:22→21:11)
[2017-07-22] MEDS: [UNRECOGNIZED DRUG - OTHER] TOP SCH (08:23)
[2017-07-22] MEDS: PARoxetine 20 MG Tab PO SCH (08:23)
[2017-07-22] MEDS: Spironolactone 25 MG Tab PO SCH (08:23)
[2017-07-22] MEDS: oxyCODONE 5 MG Tab PO PRN ×2 (08:27→15:01)
[2017-07-22] MEDS: Fluconazole/Normal Saline 400 MG in Premix Bag 1 BAG IV SCH (08:28)
[2017-07-22] MEDS: Metoprolol Tartrate 25 MG Tab PO SCH ×2 (08:29→20:55)
--- NOTE | 2017-07-22 08:47 | PN ---
DATE OF SERVICE: 07/22/2017 SUBJECTIVE: Soco has been afebrile. Oral intake 2510. LAYNE drain #1 has put out 920 of a light yellow drainage and T-tube has put out 565 mL of a bilious drainage. She is tolerating gastrostomy tube feedings at 52 mL per hour x24 hours. Labs today: White count was elevated to 30.8 and this was due to Solu-Medrol given before cholangiogram for allergy to contrast. Hemoglobin after receiving 1 unit of packed red blood cells on 07/20/2017 is 10.4. Bilirubin is 2.8. Soco states she is feeling better. Pain is controlled. Activity and oral intake have improved. She has had 3 bowel movements. REVIEW OF SYSTEMS: Remainder of review of systems is negative for any pertinent positives and negatives. OBJECTIVE: GENERAL: Soco Rodrigues is a 62-year-old female, alert and orientated. VITAL SIGNS: TPR is 97.2, 87, 16. Blood pressure 118/63. HEENT: Negative. NECK: Supple. HEART: Regular rate and rhythm. LUNGS: Clear. ABDOMEN: T-tube was sutured in yesterday, looks good. Gastrostomy tube; the suture has come out, but remains on the skin intact. Steri-Strips are intact and LAYNE drain as above. She has been wearing abdominal binder. EXTREMITIES: Without peripheral edema. ASSESSMENT: 1. Placement of right subclavian triple lumen, exploratory laparotomy with lysis of extensive adhesions, enterotomy for intraabdominal endoscopy and common bile duct exploration and placement of T-tube, date of surgery on 07/03/2017. 2. Delayed primary closure of open incision on 07/06/2017. 3. Anemia. Has been receiving packed red blood cells, last unit on 07/20/2017. Hemoglobin 10.4. 4. Gastrostomy tube feedings for reconstructive surgery, status post Billroth II surgery with gastrojejunostomy. a. Unspecified malabsorption. PLAN: 1. Discontinue erythromycin. 2. Start gastrostomy tube feedings 14 hours from 7:00 p.m. to 9:00 a.m. 3. Empty LAYNE drain every hour, record amount and color. 4. Cut suture near gastrostomy tube. 5. Place catheter robbins to hold the gastrostomy tube in place. 6. Check CBC, CMP, magnesium and phosphorus in the a.m. 7. Dietary consult in regard to calculating the Jevity 1.2 from 24 hours to 14 hours daily. 8. We will evaluate p.r.n. or in the a.m. Bebe Bear PA-C /[id number]
--- NOTE | 2017-07-22 16:38 | PN ---
DATE OF SERVICE: 07/21/2017 The patient continues to be afebrile with stable vital signs. Oral intake was fairly good at around 2000. We will encourage her to get more in the way of food items with good calories and protein. She did bring some [employer] Instant Breakfast as well as other protein-type drink from home. The final identification of the fungal species in the blood is not yet available. We will continue the Diflucan. She certainly appears to be responding to that nicely with the patient becoming afebrile. This most likely is not a catheter-based infection as the blood cultures were positive as well. Most likely, this has to do with some colonization of the intraabdominal areas with the patient having been on longstanding antibiotics. Otherwise, we will continue the Diflucan. Her hemoglobin is up to 10 today. White count remains elevated, but otherwise stable. Her G-tube was noted to be not sutured and, at this point, it is still in place, but this was resutured at the bedside, as was the LAYNE drain. She will get a cholangiogram today. With her history of contrast allergy, we will pretreat her with Solu-Medrol and Pepcid, and that will get us some idea if there is any drainage into the GI tract at this point via the cholangiogram. Eulalio Hemphill MD /[id number]
[2017-07-22] MEDS ORDERED: Loperamide 1 MG/5 ML Soln 5 ML UD Cup PO PRN (16:50)
[2017-07-23] MEDS: Metoclopramide 10 MG/2 ML SDV IV SCH ×2 (01:48→12:09)
[2017-07-23] MEDS: traMADol 50 MG Tab PO SCH ×3 (03:34→15:35)
[2017-07-23] MEDS: Sodium Chloride 0.9% 1,000 ML IV SCH (05:15)
[2017-07-23] MEDS: Lansoprazole 30 MG Orally Disintegrating Tab.CR PO SCH (07:46)
[2017-07-23] MEDS: Megestrol 40 MG Tab PO SCH (07:49)
--- NOTE | 2017-07-23 08:53 | PN ---
DATE OF SERVICE: 07/23/2017 SUBJECTIVE: Soco is planning to be discharged as soon as home health care and home gastrostomy tubes can be set up. She did have 750 out of her T2 tube and LAYNE drain put out 685 mL, both of a light bilious substance. Tube feeding was discontinued around 11 or 11:30. She had 400 residual. She was tolerating her tube feedings well until the residual was starting to be put back in to her gastrostomy tube, so the gastrostomy tube feedings by nursing decision was discontinued. Oral intake 2100. Breakfast, lunch, and dinner intake not recorded. She did have one bowel movement. LABORATORY DATA: White count 22.7, hemoglobin 10.5, magnesium 1.7, and bilirubin 2.5. OBJECTIVE: GENERAL: Soco Rodrigues is a pleasant 62-year-old female. VITAL SIGNS: TPR is 96.2, 77, 16, and blood pressure 126/68. HEENT: Negative. NECK: Supple. HEART: Regular rate and rhythm. LUNGS: Clear. ABDOMEN: T-tube in place. Suture intact. LAYNE drain as noted above. Gastrostomy tube is in place. EXTREMITIES: Without peripheral edema. ASSESSMENT: 1. Placement of right subclavian triple lumen, exploratory laparotomy with lysis of extensive adhesions, enterotomy for intraabdominal endoscopy and common bile duct exploration, and placement of T-tube. Date of surgery, 07/03/2017. 2. Delayed primary closure of open incision on 07/06/2017. 3. Anemia, received packed red blood cells, total of 5 transfused throughout hospitalization. 4. 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 PLAN: 1. Decrease gastrostomy tube feedings, 50 mL per hour for 14 hours. 2. Plan discharge when gastrostomy tube feedings are set up. Bebe Bear PA-C /[id number]
[2017-07-23] MEDS: Spironolactone 25 MG Tab PO SCH (09:44)
[2017-07-23] MEDS: Metoprolol Tartrate 25 MG Tab PO SCH (09:44)
[2017-07-23] MEDS: [UNRECOGNIZED DRUG - OTHER] TOP SCH (09:44)
[2017-07-23] MEDS: PARoxetine 20 MG Tab PO SCH (09:45)
[2017-07-23] MEDS: Fluconazole/Normal Saline 400 MG in Premix Bag 1 BAG IV SCH (09:52)
[2017-07-23] MEDS: oxyCODONE 5 MG Tab PO PRN (10:12)
[2017-07-23 10:48] VITALS: BP 137/65
[2017-07-23] MEDS: Bacitracin Oint 28.35 GM Tube TOP SCH ×2 (12:05→15:15)
[2017-07-23] MEDS ORDERED: Phenytoin 100 MG Cap.ER PO SCH (21:00)
--- NOTE | 2017-07-27 08:25 | DISCH ---
ADMISSION DIAGNOSES: 1. Abdominal pain. 2. Jaundice. 3. Non-intentional weight loss. 4. History of Hodgkin's disease. 5. Sepsis. 6. Abnormal finding on EGD. DISCHARGE DIAGNOSES: 1. Placement of right subclavian triple-lumen, exploratory laparotomy with lysis of extensive adhesions, enterotomy for intra-abdominal endoscopy and common bile duct exploration, and placement of T-tube. Date of surgery was 07/03/2017. 2. Delayed primary closure of open incision on 07/06/2017. 3. Anemia, receiving a total of 5 units of packed red blood cells. 4. TPN therapy, completed. 5. Albumin for low albumin level, treatment completed. 6. 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 HISTORY: Soco Rodrigues is a 62-year-old female, who had surgery approximately 10 days prior to admission. She was admitted with sepsis, jaundice, and severe abdominal pain. After preoperative evaluation and discussion of the possible risks and possible complications, she wished to proceed with surgical procedure. She had her surgery on 07/03/2017 with a delayed primary closure on 07/06/2017. She was given a total of 5 units of packed red blood cells. She was started on TPN therapy, and was changed to gastrostomy tube feedings. When she tolerated the gastrostomy tube feedings, TPN was discontinued. Her laboratory tests were tested at the appropriate levels of time, and these were regulated. Her bowels were working without difficulty. Vital signs were stable. Oral intake was still minimal, but she was doing protein shakes. Remainder of review of systems was negative for any pertinent positives and negatives. On 07/23/2017, she was able to be discharged to home with Home Health Care and gastrostomy tube feedings. PHYSICAL EXAMINATION: GENERAL: Soco Rodrigues is a pleasant 62-year-old female. VITAL SIGNS: Height is 5 feet 2.99 inches. Weight is 115 pounds. TPR is 96.4, 86, and 16. Blood pressure is 137/65. HEENT: Negative. NECK: Supple. HEART: Regular rate and rhythm. LUNGS: Clear. ABDOMEN: T-tube is in place. Suture looked secure. LAYNE drain was secured. Gastrostomy tube is intact. Right diagonal upper right quadrant abdominal incision is Steri-Stripped, healing well. EXTREMITIES: Without peripheral edema. DISPOSITION: Discharge to home. CONDITION: Stable. FOLLOWUP APPOINTMENT: With Bebe Bear PA-C, on 07/29/2017 at 11:00 a.m. DISCHARGE MEDICATIONS: New prescriptions are: 1. Tylenol 650 mg oral q.4 hours p.r.n. pain. 2. Bacitracin ointment apply three times a day around gastrostomy tube. 3. Diflucan 200 mg b.i.d. for one month. 4. Prevacid SoluTab 30 mg oral twice daily before meals. 5. Imodium 2 mg oral as directed. 6. Megestrol 40 mg oral twice daily with meals. 7. Lopressor 25 mg b.i.d., #60. 8. Oxycodone 10 mg oral q.4 hours p.r.n. pain, #50. 9. Paxil 30 mg oral daily, #30. 10.Zantac 150 mg oral daily, #30. 11.Spironolactone 25 mg oral daily. 12.Ambien 5 mg oral at bedtime. She is to resume her home medications of: 1. Paxil 30 mg daily. 2. Dilantin 100 mg twice daily. 3. Ranitidine 150 mg daily. 4. Spironolactone 25 mg oral daily. 5. Ambien 5 mg at bedtime. DIET AFTER DISCHARGE: Step-3 gastric bypass diet. Drink eight to ten glasses of water. ACTIVITY AFTER DISCHARGE: No lifting greater than 10 pounds for four weeks, and then as tolerated. Driving, do not drive on pain medication. Shower/bathing, may shower. DISCHARGE INSTRUCTIONS: Notify provider of fever, increased pain, nausea, or vomiting. Keep site clean and dry. Wear abdominal binder as tolerated. Special Instructions: 1. Use incentive spirometer 10 times every hour while awake for two weeks. 2. Gastrostomy tube feedings to run at 50 mL/hr for 14 hours. 3. Check daily for suture that is holding the T-tube in place, if it becomes loose or is missing, to come to clinic or emergency room and secure the tubing, so it does not fall out. 4. Empty and measure LAYNE drainage when drain is half full at least four times a day. Measure and record the amounts of drainage and bring to clinic appointments. 5. Try to drink at least two [employer] Instant Breakfast drinks with whole milk a day. 6. Keep record of everything you eat and drink, and bring to clinic appointments.
== END 2017-07-23 15:50 | disposition home health service (06) | DRG 853 ==
LOC: JP.ED 21:33 → JP.2SS 06-28 01:21
PROVIDERS: ADMIT Internal Medicine; ATTEND Internal Medicine
PROC: 30233N1 Transfusion of Nonautologous Red Blood Cells into Peripheral Vein, Percutaneous Approach (ICD-10-PCS; 2017-07-01)
PROC: 05H533Z Insertion of Infusion Device into Right Subclavian Vein, Percutaneous Approach (ICD-10-PCS; principal; 2017-07-03)
PROC: 0F7 Hepatobiliary System and Pancreas, Dilation (ICD-10-PCS; 2017-07-03)
PROC: 0DJD8ZZ Inspection of Lower Intestinal Tract, Via Natural or Artificial Opening Endoscopic (ICD-10-PCS; 2017-07-03)
PROC: 0WQFXZZ Repair Abdominal Wall, External Approach (ICD-10-PCS; 2017-07-06)
DX: A41.9 Sepsis, unspecified organism (principal); K83.1 Obstruction of bile duct; R17 Unspecified jaundice; E46 Unspecified protein-calorie malnutrition; K56.7 Ileus, unspecified; E87.1 Hypo-osmolality and hyponatremia; R10.13 Epigastric pain; K27.9 Peptic ulcer, site unspecified, unspecified as acute or chronic, without hemorrhage or perforation; Z85.71 Personal history of Hodgkin lymphoma; R53.1 Weakness; R79.89 Other specified abnormal findings of blood chemistry; Z66 Do not resuscitate; Z90.3 Acquired absence of stomach [part of]; K21.9 Gastro-esophageal reflux disease without esophagitis; M19.90 Unspecified osteoarthritis, unspecified site; M81.0 Age-related osteoporosis without current pathological fracture; F17.210 Nicotine dependence, cigarettes, uncomplicated; R32 Unspecified urinary incontinence; I25.2 Old myocardial infarction; J30.9 Allergic rhinitis, unspecified; H40.9 Unspecified glaucoma; Z88.6 Allergy status to analgesic agent; Z91.041 Radiographic dye allergy status; Z79.899 Other long term (current) drug therapy; D64.9 Anemia, unspecified; E83.42 Hypomagnesemia; Z93.1 Gastrostomy status; R50.9 Fever, unspecified; B37.9 Candidiasis, unspecified; R00.0 Tachycardia, unspecified
CPT/HCPCS: 36415; 36430; 36569; 47531; 71020; 71020-26; 71250; 71250-26; 74022; 74022-26; 74176; 74181; 74181-26; 74245; 74245-26; 76000; 78227; 78227-26; 80048; 80051; 80053; 80076; 80185; 81001; 82140; 83550; 83605; 83690; 83735; 83880; 84100; 84443; 84484; 85025; 85027; 85610; 85730; 86850; 86870; 86900; 86901; 86902; 86920; 86922; 87040; 87070; 87077; 94762; 96361; 96365; 96375; 97110-GP; 97162-GP; 97165-GO; 99285-25; A9270-GY; C1776; C9113; J1100; J1165; J1170; J1200; J1450; J1642; J1720; J2185; J2250; J2270; J2405; J2543; J2704; J2710; J2765; J2920; J2930; J3010; J3410; J3475; J3480; J3490; J7040; J7050; J7120; J7131; J7189; P9016; P9047; S0028